=== PATIENT | female | born 1950 | race Caucasian/White ===

== ENCOUNTER → 2021-11-20 14:33 | Outpatient (BNVA) | payer MEDICARE, SELFPAY | PROVIDERS: Visit Provider Nurse Practitioner Women's Health | DX: N95.0 Postmenopausal bleeding (principal) | CPT/HCPCS: 87624 ==

== ENCOUNTER → 2021-11-24 15:30 | Outpatient (BNVA) | payer MEDICARE, SELFPAY | PROVIDERS: Visit Provider Nurse Practitioner Women's Health | DX: N95.0 Postmenopausal bleeding (principal) | CPT/HCPCS: 88305; 88342 ==

== ENCOUNTER 2021-12-31 08:03 | Outpatient (CLI) | payer MEDICARE, SELFPAY ==
--- NOTE | 2021-12-31 17:48 | ONC CON_ITS ---
Dr. España New Patient Note Patient: Mone Billings Unit #: [id number]: 1950 Dicatated By: Bibi España M.D.Date of Visit: Dec 31, 2021 Onc MED New Patient/Consult Referring Physician: Dr. Boyd Cuevas M.D. History of Present Illness: Ms. Mone billings, is a 71-year-old female with history of postmenopausal bleeding since May 2021, as per patient no associated pain but off and on discharge. No rectal bleeding, occasional dysuria. Denies any history of trauma.,, Was evaluated by Dr. Cuevas on December 09, 2021, on December 11, 2021 she underwent joint examination under anesthesia with radiation therapy Dr. Carrillo and cystoscopy, vaginal and cervical biopsies, rigid proctoscopy and Port-A-Cath placement and her final pathology report came back positive for squamous cell carcinoma p16 positive biopsy of nodule in anterior cervical wall/suburethral area also confirmed squamous cell carcinoma., On December 11, 2021 she underwent MRI scan of the pelvis which shows the known cervical carcinoma extends outside the confines of the cervix and encases the adjacent distal left ureter resulting in severe left-sided hydronephrosis. No evidence of direct tumor extension into rectum or urinary bladder. But direct tumor extension is seen into the lower uterine segment and uterine body. Extensive sharron metastasis within the pelvis. With the largest lymph node seen along the left external iliac chain, measuring 3.2 x 2.7 cm. Multiple bony mets with a palpable pathological fracture within the right superior and inferior pubic rami. CT PET scan done on December 11, 2021 showed extensive local spread involving pelvic lymph nodes, evidence of distant metastatic disease involving skeleton, liver, mediastinal lymphadenopathy, lung nodules e.g. 5 mm nodule right lung and another 5 mm in the inferior aspect right upper lobe. Past medical history significant for hypercholesterolemia, hypertension. No family history of cervical or uterine cancer. Denies smoking or alcohol use. Denies any dysuria or hematuria, denies any right hip pain, denies any new bony pains, denies any weight loss, denies any abdominal or pelvic pain, off and on vaginal discharge but no fever or chills Past Medical History: Ms. Billings's medical history consists of hypercholesterolemia and hypertension. Past Surgical History: Ms. Billings's surgical history is unremarkable. Medications: Atorvastatin Calcium 1 Tablet (of 20 mg) Oral daily, Losartan Potassium 1 Tablet (of 50 mg) Oral daily Allergies: Penicillins Social History: Ms. Billings is single. She is a daily smoker who has smoked 1.0 pack/day for 40 years. She drinks occasionally. She has indicated exposure to the following products: cigarettes. Family History: Ms. Billings's mother at age 69: colon cancer, and liver cancer. Ms. Billings's father at age 69: lung cancer. Review Of Symptoms: Review of Systems is not available for this patient. Vital Signs: Performed on Dec 31, 2021 09:40: 7, 0, 23.82, 1.76 sq.m, 66 in, 92 % (LOW), 96 /min, 18 /min, 148/78 mm(hg) (HIGH), 99.1 F (HIGH), and 147.6 lbs (HIGH). Performance Status: 0 - Fully active, able to carry on all predisease activities without restrictions. (ECOG) Physical Examination: ENMT - No mouth sores, no thrush, no jaundice, Respiratory - Lungs are clear to auscultation, Cardiovascular - Regular rate and rhythm of heart, Abdomen - Soft, bowel sounds present, Extremities - No visible edema. Lab/Imaging: Most recent lab results are not available for this patient. Impression: Metastatic cervical carcinoma per CT PET scan done on December 11, 2021, cervical biopsy was obtained on December 11, 2021 confirmed squamous cell carcinoma, p16 positive as on December 11, 2021 she underwent joint examination under anesthesia with radiation therapy Dr. Carrillo and cystoscopy, vaginal and cervical biopsies, rigid proctoscopy and Port-A-Cath placement and her final pathology report came back positive for squamous cell carcinoma p16 positive biopsy of nodule in anterior cervical wall/suburethral area also confirmed squamous cell carcinoma., On December 11, 2021 she underwent MRI scan of the pelvis which shows the known cervical carcinoma extends outside the confines of the cervix and encases the adjacent distal left ureter resulting in severe left-sided hydronephrosis. No evidence of direct tumor extension into rectum or urinary bladder. But direct tumor extension is seen into the lower uterine segment and uterine body. Extensive sharron metastasis within the pelvis. With the largest lymph node seen along the left external iliac chain, measuring 3.2 x 2.7 cm. Multiple bony mets with a palpable pathological fracture within the right superior and inferior pubic rami. CT PET scan done on December 11, 2021 showed extensive local spread involving pelvic lymph nodes, evidence of distant metastatic disease involving skeleton, liver, mediastinal lymphadenopathy, lung nodules e.g. 5 mm nodule right lung and another 5 mm in the inferior aspect right upper lobe. Hypertension Hypercholesterolemia Plan: Discussed with patient regarding her disease status and treatment options, as per CT PET scan findings, patient has metastatic cervical cancer, usually incurable, treatment options including palliative therapy with cisplatin/Taxol or carboplatin/Taxol along with bevacizumab or checkpoint inhibitors if PD-L1 positive or TMB more than 10 or MSI H. Other option will be be considering clinical trial. As per patient she is scheduled to see DIRECTOR OF NURSING oncologist at [place] on January 11, 2022, and will explore clinical trial option in the meantime we will request pathologist in [place] regarding molecular testing including PD-L1, MSI status, then patient will return to clinic after her visit to [place] unless she decided to proceed with clinical trial there. As MRI scan of the pelvis done on December 11, 2021 showed severe left hydronephrosis although patient not symptomatic, will refer her to Dr. Higginbotham, urologist for evaluation., CT PET scan and MRI scan of the pelvis shows right hip involvement, patient is not symptomatic, will consider orthopedics evaluation Signed By: Bibi España M.D. <<Signature on File>>
== END 2021-12-31 08:04 | disposition home or self-care (01) ==
LOC: ONCMED 08:09
PROVIDERS: Visit Provider Internal Medicine Hematology & Oncology
DX: C53.9 Malignant neoplasm of cervix uteri, unspecified (principal); I10 Essential (primary) hypertension; F17.210 Nicotine dependence, cigarettes, uncomplicated; E78.00 Pure hypercholesterolemia, unspecified; N13.30 Unspecified hydronephrosis
CPT/HCPCS: 96523; 99205

== ENCOUNTER → 2022-01-27 08:47 | Day surgery (SDC) | payer MEDICARE, SELFPAY | PROVIDERS: PCP Urology; Visit Provider Urology | DX: N13.30 Unspecified hydronephrosis (principal); N13.5 Crossing vessel and stricture of ureter without hydronephrosis; C53.9 Malignant neoplasm of cervix uteri, unspecified | CPT/HCPCS: 81003; 99205 ==

== ENCOUNTER 2022-01-28 10:26 | Day surgery (SDC) | payer MEDICARE, SELFPAY ==
[2022-01-27 10:47] VITALS: BMI 23.6
[2022-01-28] VITALS (10 sets, daily range): BP systolic 115–126; BP diastolic 70–84; PULSE 69–93; RESP 12–18; TEMP 36.4–37.1; O2SAT 90–99
--- NOTE | 2022-01-28 | SCC_ITS ---
Procedure done: 1. Cystoscopy with left retrograde ureteropyelogram 2. Inability to access the upper urinary tract with retrograde passage of guidewire 75.4 seconds of fluoroscopic guidance, for a cumulative dose of 16.9 mGy, was provided to Dr. Higginbotham by the radiology department. C-arm images of the abdomen were saved for the patient's permanent record. [facility]
--- NOTE | 2022-01-28 10:42 | SC_ITS ---
WS: [id number] C-arm [place] for Urology REASON FOR EXAM: Left ureteral obstruction, stenting FINDINGS: Retrograde left ureterogram in surgery. First image demonstrate a long segment of severe narrowing distal to significant dilatation of the di stal left ureter. Second image demonstrates retroperitoneal extravasation of contrast from the ureter. No stent placement. SC/C-arm [place] for Urology IMPRESSION: Left retrograde urogram as above.
[2022-01-28] MEDS: sodium chloride 0.9% 1,000 ML 30 ML IV (11:07)
--- NOTE | 2022-01-28 11:38 | ANES.PREANE2 ---
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 Operation Date: 01/28/22 12:00 Proposed Procedures p CYSTOSCOPY LEFT RETROGRADE STENT 86114 [id number] MODIFIER 26/N13.30(Not Applicable) - Brian Higginbotham MD s Ureteral Stent Placement(Left) - Brian Higginbotham MD Familial anesthetic complications: None Was Beta Ilir taken within 24 hours: N/A Was Clonidine taken within 24 hours: N/A Last intake: Intake Last Liquid Date 01/27/22 Last Liquid Time 23:00 Last Solid Date 01/27/22 Last Solid Time 23:00 Social No alcohol and No tobacco Exam alert, oriented x 3, clear to auscultation bilaterally and regular rate & rhythm Airway Submandibular: within normal limits Cervical ROM: within normal limits Mallampati: Class I Comments: Comments: missing some teeth History/ROS No significant complaints Pulmonary None reported CV/HEM Hypertension hydronephrosis Hepatic None reported GI None reported Metabolic None reported Musc/skel None reported Neuropsych None reported Anesthetic Plan ASA status: 1 Anesthesia: Anesthesia Evaluation and General Other: We discussed risk and benefits of general anesthesia including PONV, sore throat (sometimes severe), corneal abrasion, positioning and peripheral nerve injuries, life threatening allergic reaction, post operative ICU admission requiring prolonged intubation, stroke, heart attack, , and rare incidences of recall. Patient consents to proceed with general anesthesia. Risk of > 500 ml blood loss (7ml/kg in children): No Medications/Allergies Home Medications Medication Instructions Recorded Confirmed Last Taken Type atorvastatin 20 mg tablet 20 mg PO DAILY 11/20/21 01/28/22 01/26/22 History losartan 50 mg-hydrochlorothiazide 1 tab PO DAILY 11/20/21 01/28/22 01/27/22 History 12.5 mg tablet dexamethasone 4 mg tablet 4 mg PO DIRECTED #40 tab 01/28/22 01/28/22 Unknown Rx olanzapine 5 mg tablet 5 mg PO .PM PRN #30 tab 01/28/22 01/28/22 01/27/22 Rx ondansetron 4 mg disintegrating 4 mg PO Q6H PRN #30 tab 01/28/22 01/28/22 Unknown Rx tablet prochlorperazine maleate 10 mg 10 mg PO Q4H PRN #30 tab 01/28/22 01/28/22 Unknown Rx tablet (Compazine) Allergies Allergy/AdvReac Type Severity Reaction Status Date / Time Penicillins Allergy skin rash Verified 01/27/22 10:41 Current Medications Generic Name Dose Route Start Last Admin Trade Name Realq PRN Reason Stop Dose Admin Sodium Chloride 1,000 mls @ 30 mls/hr 01/28/22 10:45 01/28/22 11:07 Sodium Chloride 0.9% IV 01/29/22 10:44 30 mls/hr .Q24H WALTER Administration PFSH Anesthesia Medical History Hydronephrosis, left Hypercholesteremia Hypertension No pertinent past medical history neghx: dm,thyroid,dvt/pe PCP: Dr. Hilliard Surgical History No pertinent past surgical history Family History Mother , at age 69 Colon cancer dx age 60's Thyroid disease Thyroid cancer Cancer Thyroid cancer followed by colon cancer Father , at age 68 Cancer Lung cancer Diabetes Denies family history of CAD (coronary artery disease) Clotting disorder Dementia Hyperlipidemia Psychiatric illness Chronic kidney disease (CKD) Suicide Anesthesia complication Bleeding disorder Lung disease Hypertension Stroke Social History Smoking and tobacco status: current every day smoker cigarettes Packs smoked per day: 1 Years cigarettes smoked: 40 Alcohol intake: current Alcohol intake frequency: holidays/special occasions only Marital status: Current occupational status: retired History of recent travel: No Data Anesthesia Cardiac Studies: No Data to Display
--- NOTE | 2022-01-28 11:58 | W.PM.OPSUD ---
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
[2022-01-28] MEDS: levofloxacin-dextrose 5 % 500 MG/100 ML PREMIX 100 MG IV (11:59)
[2022-01-28] MEDS: iohexol 300 mg/mL 50 mL Btl (OR ONLY) XX (12:29)
--- NOTE | 2022-01-28 13:01 | PM.OP ---
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 Cystoscopy with left retrograde ureteropyelogram 2. Inability to access the upper urinary tract with retrograde passage of guidewire Pathology: None Surgeon: Neftaly Anesthesia: MAC Estimated blood loss: Minimal Complications: Could not access the upper urinary tract through the roughly 4 inch segment of tortuous narrowed obstructed left distal ureter. Findings: Severely distorted distal ureteral anatomy due to extrinsic compression and invasion via squamous cell carcinoma of the cervix. Evidence of posterior bladder floor distortion as well including the trigone on both sides. No obvious erosion into the bladder. Definitely some evidence of inflammatory changes related to the local process. Brief History: Mone is a very pleasant 71-year-old white female recently diagnosed with metastatic cervical carcinoma. She was found to have severely obstructed left ureter in the area of the distal ureter. Exact dimensions of the obstruction were unclear. She is set to start chemotherapy soon and it was felt that the benefit of relieving obstruction of left kidney would be better allowance for chemotherapy. She was instructed on stent placement and if unsuccessful with stent placement then percutaneous nephrostomy and potentially conversion to an internal stent from antegrade passage. Procedure: After routine preoperative evaluation examination and obtaining of informed consent she was taken to the operating suite on 01/28/2022 where general anesthesia was administered without difficulty after appropriate timeout was performed, SCDs confirmed to be functioning, preoperative antibiotics administered, beta-mohsen protocol confirmed. Prepped and draped in usual sterile fashion in dorsolithotomy position paying careful attention to avoiding pressure points. 21 Slovak cystoscope with 30 degree lens was introduced into the Riether meatus and advanced to the bladder under videoscopy. Bladder was systematically examined. The posterior floor of the bladder more distally including the trigone was grossly distorted from the extrinsic mass. This appeared to involve both sides of the posterior floor the bladder but more dramatically on the left than the right. The right ureteral orifice could not be easily identified. The left was identified based on some streaming of inspissated fluid from the orifice. An 8 Slovak cone-tip catheter was intubated to the left ureteral orifice for left retrograde ureteropyelogram which showed a very distorted abnormal distal ureter extending about 4 inches above the ureteral orifice at which point there was an abrupt change in caliber into a very dilated ureter. Attempts at passing a guidewire were unsuccessful. An open-ended ureteral catheter was utilized to help facilitate passage of the guidewire but unsuccessfully so. A zip wire was then attempted and this thankfully was able to be advanced somewhat but appear to take a deviant course. The wire was removed and some contrast was injected through the open-ended ureteral catheter which showed some extravasation. 1 more attempt at passing the wire Vineet to the same pathway and at that point it was decided to forego any further attempts in a retrograde fashion. The bladder was drained and the procedure was completed. She tolerated the procedure well. Was awakened in the operating room and returned to the recovery room in stable condition. Findings were discussed with her family and when the patient was beginning to wake up with her as well. She had been prepared preoperatively for the possibility of a percutaneous nephrostomy tube. We will pursue consultation with interventional radiology in either [place] or [place], whichever we could access sooner for left percutaneous nephrostomy tube placement and potentially later conversion or attempt at conversion to an internal stent placed in a antegrade fashion.
--- NOTE | 2022-01-28 13:10 | SUR.PHASEI ---
1239 PT TO PACU SLEEPY WITH GOOD RESP NOTED , PT AWAKES TO VOICE, PT VERBALLY DENIES PAIN AND NAUSEA ABDOMEN SOFT TO PALPATION, IV#20 TO HAND PATENT , ID BRACELET TO WRIST PT ID'D WITH 2 IDENTIFIERS , WARM BLANKETS TO PT. 1307 PT AWAKE VERBALIZING APPROP VSS IV PATENT , DR COLON HERE EARLIER TALKED WITH PT, PT TAKING ICE CHIPS STABLE, HANDOFF TO OPS AT BEDSIDE.
[2022-01-28] MEDS: ondansetron 2 mg/ML SDV 2 mL 4 MG IVP (13:20)
--- NOTE | 2022-01-28 14:55 | ANE.PACU2 ---
Inpatient post-anesthesia follow up: Airway intact: Yes Vital signs: Temperature 98.7 F Pulse Rate 69 Respiratory Rate 16 Blood Pressure 115/70 Pulse Oximetry 90 Oxygen Delivery Me thod Room Air Oxygen Flow Rate 8 Fraction of Inspir ed Oxygen Hydration adequate: Yes Nausea and vomiting: No Pain level: 1 Mental status: Baseline
== END 2022-01-28 14:26 | disposition home or self-care (01) ==
PROVIDERS: PCP Family Medicine; Visit Provider Urology
PROC: 0TJB8ZZ Inspection of Bladder, Via Natural or Artificial Opening Endoscopic (ICD-10-PCS; CPT 52000; principal; 2022-01-28 12:00)
PROC: (CPT 74420; 2022-01-28 12:00)
DX: C66.2 Malignant neoplasm of left ureter (principal); N13.5 Crossing vessel and stricture of ureter without hydronephrosis; I10 Essential (primary) hypertension; E78.00 Pure hypercholesterolemia, unspecified; F17.210 Nicotine dependence, cigarettes, uncomplicated
CPT/HCPCS: 52000; 76000; J1100; J1956; J2405; J2704; J3010; J7030

== ENCOUNTER 2022-02-01 07:59 | Outpatient (CLI) | payer MEDICARE, SELFPAY ==
[2022-02-01 08:43] LABS: Basophils % 0.2 %; Hematocrit 46.6 % (37.0-47.0); Hemoglobin 14.9 g/dL (11.5-15.3); Lymphocytes # 0.6 10^3/uL (0.8-4.8); Mean Corpuscular Volume 97.1 fl (81-99); Mean Platelet Volume 10.5 fL (7.4-10.4); Monocytes % 0.5 %; Neutrophils # 5.82 10^3/uL (1.8-7.7); Neutrophils % 89.8 %; Nucleated Red Blood Cells % 0 %; Platelet Count 197 10^3/cmm (130-400); White Blood Count 6.5 10^3/uL (4.0-10.0)
[2022-02-01 09:39] LABS: Alanine Aminotransferase 14 U/L (0-33); Albumin Level 3.8 g/dL (3.5-5.2); Alkaline Phosphatase 150 IU/L (35-105); Aspartate Amino Transferase 16 U/L (0-32); Blood Urea Nitrogen 17 mg/dL (8-23); Calcium 8.5 mg/dL (8.5-10.5); Carbon Dioxide 25 mmol/L (22-29); Chloride 98 mmol/L (98-107); Globulin 2.7 g/dL (1.3-4.6); Glomerular Filtration Rate 62.1 mL/min (90-130); Glucose 182 mg/dL (65-115); Immunoglobulin IGG 783 mg/dL (700-1600); Osmolality Calculated 288 mOsm/kg (285-295); Sodium 136 mmol/L (136-145); Thyroid Stimulating Hormone 0.48 uIU/mL (0.27-4.20); Total Bilirubin 0.3 mg/dL (0.15-1.2); Total Protein 6.5 g/dL (6.6-8.7)
[2022-02-01 09:45] LABS: Hepatitis A Antibody IgM Non-Reactive (Nonreactive); Hepatitis B Core AB, Total Non-Reactive (Nonreactive); Hepatitis B Surface Antigen Non-Reactive (Nonreactive); Hepatitis C Virus Antibody Non-Reactive (Nonreactive)
[2022-02-01 09:53] LABS: Hepatitis B Surface AB < 3.5 (11.5-1000)
[2022-02-01 10:11] LABS: Anion Gap 17.7 (5-19); Potassium 4.7 mmol/L (3.5-5.1)
== END 2022-02-01 08:00 | disposition home or self-care (01) ==
LOC: LAB 08:02
PROVIDERS: PCP Family Medicine; Visit Provider Internal Medicine Hematology & Oncology
DX: C53.9 Malignant neoplasm of cervix uteri, unspecified (principal)
CPT/HCPCS: 80053; 82784; 84443; 85025; 86705; 86706; 86709; 86803; 87340

== ENCOUNTER 2022-02-10 09:00 | Oncology outpatient (recurring) (ONCR) | payer MEDICARE, SELFPAY ==
[2022-01-20 13:32] LABS: Basophils % 0.4 %; Eosinophils # 0.1 10^3/uL (0.0-0.8); Hemoglobin 15.3 g/dL (11.5-15.3); Lymphocytes # 1.3 10^3/uL (0.8-4.8); Lymphocytes % 12.9 %; Mean Corpuscular HGB Conc 31.9 g/dL (30.0-36.0); Mean Corpuscular Hemoglobin 31.2 pg (28.0-34.0); Mean Platelet Volume 10.5 fL (7.4-10.4); Monocytes # 0.5 10^3/uL (0.2-0.9); Monocytes % 5.5 %; Neutrophils # 7.83 10^3/uL (1.8-7.7); Neutrophils % 79.9 %; Nucleated Red Blood Cells % 0 %; Platelet Count 194 10^3/cmm (130-400); Red Cell Distribution Width 12.9 % (12.1-15.1); White Blood Count 9.8 10^3/uL (4.0-10.0)
[2022-01-20 13:50] LABS: Alanine Aminotransferase 12 U/L (0-33); Albumin Level 3.8 g/dL (3.5-5.2); Alkaline Phosphatase 165 IU/L (35-105); Anion Gap 14.9 (5-19); Aspartate Amino Transferase 17 U/L (0-32); Blood Urea Nitrogen 10 mg/dL (8-23); Calcium 9.4 mg/dL (8.5-10.5); Carbon Dioxide 27 mmol/L (22-29); Chloride 98 mmol/L (98-107); Globulin 2.7 g/dL (1.3-4.6); Glomerular Filtration Rate 62.1 mL/min (90-130); Glucose 114 mg/dL (65-115); Osmolality Calculated 282 mOsm/kg (285-295); Potassium 3.9 mmol/L (3.5-5.1); Sodium 136 mmol/L (136-145); Total Bilirubin 0.3 mg/dL (0.15-1.2); Total Protein 6.5 g/dL (6.6-8.7)
[2022-02-02 07:27] VITALS: BP 135/80; PULSE 99; RESP 16; TEMP 36.6; O2SAT 94
[2022-02-02] MEDS: sodium chloride 0.9% 250 ML 75 ML IV ×2 (07:39→10:33)
[2022-02-02] MEDS: OLANZapine 5 mg TABLET PO (08:44)
[2022-02-02] MEDS: palonosetron 0.25 mg/5 mL SDV IVP (08:50)
[2022-02-02] MEDS: famotidine 20 mg/2 mL INJ IVP (08:52)
[2022-02-02] MEDS: diphenhydrAMINE 50 mg/mL SDV 1mL 25 MG IVP (08:54)
[2022-02-02] MEDS: pembrolizumab 200 MG in sodium chloride 0.9% 250 ML 516 MG IV (09:00)
[2022-02-02] MEDS: fosaprepitant 150 MG in sodium chloride 0.9% 150 ML 300 MG IV (09:40)
[2022-02-02] MEDS: SODIUM CHLORIDE 0.9% IV (13:34)
[2022-02-02] MEDS: CISPLATIN IV (13:34)
[2022-02-02] MEDS: FUROsemide 10 mg/mL SDV 2mL 20 MG IVP (15:23)
[2022-02-02] MEDS: potassium chloride 20 MEQ in sodium chloride 0.9% 500 ML 500 MEQ IV (15:29)
[2022-02-02 16:12] VITALS: BP 150/78; PULSE 78; RESP 16; TEMP 35.7; O2SAT 92
--- NOTE | 2022-02-10 | US_ITS ---
WS: [id number] RIGHT UPPER QUADRANT ULTRASOUND HISTORY: H/O CERVICAL CANCER COMPARISON: PET/CT 12/11/2021 Liver: 13.1 cm in length. Small shrunken heterogeneous liver. As indicated on the PET/CT patient has metastatic liver disease. There are a few scattered very poorly defined hyperechoic lesions with hypo echoic rims. The largest that I can identify measures 15 mm in the anterior liver. This is probably i n the RIGHT lobe. Additional ill-defined hyperechoic area in the posterior liver towards the diaphrag m. Portal Vein: Normal hepatopetal flow with monophasic waveform. Gallbladder: Normally distended gallbladder with no stones or wall thickening. CBD: 0.4 cm Pancreas: Normal size and echogenicity. Right kidney: Mild dilatation of the renal pelvis and proximal ureter. Kidney measures 10 cm in lengt h. This hydronephrosis was not apparent on the prior PET/CT. Aorta and IVC: Mild aneurysmal dilatation of aorta. Maximum transverse diameter 4.7 cm. No ascites. US/US liver [id number] IMPRESSION: 1. Heterogeneous appearance to the liver. As noted on PET/CT patient has metas tatic liver disease. These metastatic lesions are very difficult to identified by ultrasound. 2. Abdominal aortic aneurysm 4.7 cm. 3. New mild RIGHT hydronephrosis.
--- NOTE | 2022-02-10 07:09 | NM_ITS ---
WS: [id number] NUCLEAR MEDICINE WHOLE BODY BONE SCAN HISTORY: Check for bone mets, patient has known metastatic bone disease. COMPARISON: Head CT 12/11/2021, MRI pelvis 12/11/2021. TECHNIQUE: The patient was injected with 26.1 mCi of Technetium 99m HDP and serial whole-body scintig adela have been performed with anterior and posterior images. Marked increased uptake involving the pelvis. Most significant increased uptake is within the RIGHT i lium, acetabulum and extending through the superior pubic rami. Abnormal uptake extends along the ant erior to posterior RIGHT acetabulum. There is also focal area of uptake involving the medial LEFT alex tabulum. Focal area of increased uptake involving the RIGHT calvarium, posterior frontal bone. No definite rib or spine lesions are identified. Some very mild increased uptake in the femora bilaterally but great est on the RIGHT. This may be due to altered weightbearing or chemotherapy. The femurs were negative on the recent PET/CT and also the MRI. Mild RIGHT hydronephrosis and hydroureter. RIGHT ureter is obstructed distally. There is mild focal u ptake in the expected location of the LEFT kidney. LEFT kidney is atrophic probably from long-standin g obstruction as noted on a prior MRI and PET/CT. NM/NM bone scan whole body* [id number] IMPRESSION: 1. Metastatic bone lesions are again identified within the RIGHT ilium, acetab ulum and superior pubic rami with extension to a lesser extent into the LEFT ac etabulum. These findings were described on a prior PET/CT. Comparing the 2 diff erent modalities there has been no progression or improvement. 2. Mild RIGHT hydroureteronephrosis secondary to an obstruction of the distal RIGHT ureter. This was also present on the prior PET/CT of 12/11/2021. 3. Very slight increased uptake involving the proximal femora. Due to its dist ribution and appearance this is probably not metastatic disease and may be due to altered weightbearing or treatment regime. 4. Posterior RIGHT frontal bone metastatic lesion.
[2022-02-10 08:48] LABS: Basophils % 0.2 %; Eosinophils # 0.1 10^3/uL (0.0-0.8); Eosinophils % 1.6 %; Hematocrit 41.4 % (37.0-47.0); Hemoglobin 13.8 g/dL (11.5-15.3); Lymphocytes % 19.6 %; Mean Corpuscular HGB Conc 33.3 g/dL (30.0-36.0); Mean Corpuscular Hemoglobin 31.4 pg (28.0-34.0); Mean Corpuscular Volume 94.1 fl (81-99); Mean Platelet Volume 11.1 fL (7.4-10.4); Monocytes # 0.3 10^3/uL (0.2-0.9); Monocytes % 6.3 %; Neutrophils # 3.62 10^3/uL (1.8-7.7); Neutrophils % 71.9 %; Nucleated Red Blood Cells % 0 %; Platelet Count 157 10^3/cmm (130-400); Red Cell Distribution Width 12.8 % (12.1-15.1)
[2022-02-10 09:15] LABS: Alanine Aminotransferase 28 U/L (0-33); Albumin Level 3.3 g/dL (3.5-5.2); Alkaline Phosphatase 128 IU/L (35-105); Aspartate Amino Transferase 27 U/L (0-32); Blood Urea Nitrogen 15 mg/dL (8-23); Calcium 8.6 mg/dL (8.5-10.5); Carbon Dioxide 29 mmol/L (22-29); Chloride 93 mmol/L (98-107); Globulin 2.4 g/dL (1.3-4.6); Glomerular Filtration Rate 71.1 mL/min (90-130); Glucose 102 mg/dL (65-115); Osmolality Calculated 275 mOsm/kg (285-295); Sodium 132 mmol/L (136-145); Total Bilirubin 0.3 mg/dL (0.15-1.2); Total Protein 5.7 g/dL (6.6-8.7)
[2022-02-10 09:47] LABS: Anion Gap 13.9 (5-19); Potassium 3.9 mmol/L (3.5-5.1)
== END 2022-02-16 23:59 | disposition home or self-care (01) ==
PROVIDERS: Internal Medicine Medical Oncology; PCP Urology; Referring Provider Obstetrics & Gynecology Gynecologic Oncology; Visit Provider Internal Medicine Hematology & Oncology
DX: C53.9 Malignant neoplasm of cervix uteri, unspecified (principal); E78.00 Pure hypercholesterolemia, unspecified; I10 Essential (primary) hypertension; F17.210 Nicotine dependence, cigarettes, uncomplicated; Z53.9 Procedure and treatment not carried out, unspecified reason
CPT/HCPCS: 36591; 76705; 78306; 80053; 85025; 96361; 96367; 96375; 96413; 96415; 96417; 99214; 99215; 99999; A9561; J1100; J1200; J1453; J1940; J2469; J3475; J3480; J3490; J7030; J7040; J7050; J9060; J9267; J9271; Q5107

== ENCOUNTER 2022-03-16 08:51 | Outpatient (CLI) | payer MEDICARE, SELFPAY ==
[2022-03-16] VITALS (17 sets, daily range): BP systolic 108–144; BP diastolic 66–87; PULSE 80–95; RESP 12–20; TEMP 35.8–35.9; O2SAT 92–100; BMI 23.3
[2022-03-16] MEDS: sodium chloride 0.9% 1,000 ML 30 ML IV (09:30)
[2022-03-16 10:37] LABS: Basophils # 0.1 10^3/uL (0.0-0.1); Basophils % 0.8 %; Eosinophils # 0.1 10^3/uL (0.0-0.8); Eosinophils % 1.3 %; Hematocrit 38.1 % (37.0-47.0); Hemoglobin 12.3 g/dL (11.5-15.3); Lymphocytes # 1.6 10^3/uL (0.8-4.8); Lymphocytes % 18.5 %; Mean Corpuscular HGB Conc 32.3 g/dL (30.0-36.0); Mean Corpuscular Hemoglobin 30.9 pg (28.0-34.0); Mean Corpuscular Volume 95.7 fl (81-99); Mean Platelet Volume 9.9 fL (7.4-10.4); Monocytes # 0.5 10^3/uL (0.2-0.9); Monocytes % 5.9 %; Neutrophils # 6.22 10^3/uL (1.8-7.7); Neutrophils % 72.8 %; Nucleated Red Blood Cells % 0 %; Platelet Count 326 10^3/cmm (130-400); Red Blood Count 3.98 10^6/uL (4.1-5.3); White Blood Count 8.5 10^3/uL (4.0-10.0)
--- NOTE | 2022-03-16 11:00 | CT_ITS ---
WS: [id number] CT-GUIDED PELVIC BONE BIOPSY CLINICAL INFORMATION: Pelvic Bone Biopsy with Tempes testing (pathology) COMPARISON: Prior imaging was reviewed. Bone scan February 10, 2022 MRI pelvis December 11, 2021. PET/CT Glenn h 2021 DLP: 374.48 mGy.cm TECHNIQUE: The procedure including risk, benefits, and complications were discussed with the patient who agreed to proceed. Using sterile technique, the patient was prepped and draped in the usual steri le fashion. Patient was positioned prone and CT images were obtained through the pelvis. The scleroti c bony lesion in the RIGHT ilium near the acetabulum was selected. After 1% lidocaine using fluorosco pic guidance, a 13-gauge osteocyte biopsy device was advanced into the RIGHT bony pelvis. Approximate ly 4 samples were obtained. Patient tolerated the procedure well. No immediate complications. CT/CT biopsy bone deep IMPRESSION: 1. Multiple 13-gauge core samples were obtained of the RIGHT bony pelvis scler otic lesion. No immediate complications. 2. Patient was discharged 1 hour postprocedure in stable condition.
[2022-03-16] MEDS: midazolam 1 mg/mL INJ 2 mL IVP ×3 (11:16→11:32)
[2022-03-16] MEDS: fentaNYL 50 mcg/mL INJ 2mL 25 MCG IVP ×3 (11:16→11:32)
[2022-03-16 11:18] LABS: Alanine Aminotransferase 9 U/L (0-33); Albumin Level 3.3 g/dL (3.5-5.2); Alkaline Phosphatase 147 IU/L (35-105); Anion Gap 15.3 (5-19); Aspartate Amino Transferase 12 U/L (0-32); Blood Urea Nitrogen 14 mg/dL (8-23); Calcium 8.8 mg/dL (8.5-10.5); Carbon Dioxide 26 mmol/L (22-29); Chloride 99 mmol/L (98-107); Globulin 2.8 g/dL (1.3-4.6); Glomerular Filtration Rate 62.1 mL/min (90-130); Glucose 104 mg/dL (65-115); Osmolality Calculated 283 mOsm/kg (285-295); Potassium 4.3 mmol/L (3.5-5.1); Sodium 136 mmol/L (136-145); Total Bilirubin 0.2 mg/dL (0.15-1.2); Total Protein 6.1 g/dL (6.6-8.7)
== END 2022-03-16 13:10 | disposition home or self-care (01) ==
PROVIDERS: Radiology Neuroradiology; Visit Provider Internal Medicine Hematology & Oncology
DX: C53.9 Malignant neoplasm of cervix uteri, unspecified (principal)
CPT/HCPCS: 20225; 36592; 77012; 80053; 85025; 88307; 88311; 96374; 96375; J2250; J3010; J7030

== ENCOUNTER 2022-03-17 08:00 | Oncology outpatient (recurring) (ONCR) | payer MEDICARE, SELFPAY ==
[2022-02-17 10:12] LABS: Basophils # 0.1 10^3/uL (0.0-0.1); Basophils % 1.1 %; Eosinophils # 0.1 10^3/uL (0.0-0.8); Eosinophils % 2.2 %; Hematocrit 41.4 % (37.0-47.0); Hemoglobin 13.5 g/dL (11.5-15.3); Lymphocytes # 1.2 10^3/uL (0.8-4.8); Mean Corpuscular HGB Conc 32.6 g/dL (30.0-36.0); Mean Corpuscular Hemoglobin 30.6 pg (28.0-34.0); Mean Corpuscular Volume 93.9 fl (81-99); Mean Platelet Volume 10.1 fL (7.4-10.4); Monocytes # 0.6 10^3/uL (0.2-0.9); Monocytes % 11.7 %; Neutrophils # 3.31 10^3/uL (1.8-7.7); Neutrophils % 61.3 %; Nucleated Red Blood Cells % 0 %; Platelet Count 238 10^3/cmm (130-400); Red Blood Count 4.41 10^6/uL (4.1-5.3); Red Cell Distribution Width 13.2 % (12.1-15.1); White Blood Count 5.4 10^3/uL (4.0-10.0)
[2022-02-17 10:33] LABS: Alanine Aminotransferase 20 U/L (0-33); Albumin Level 3.3 g/dL (3.5-5.2); Alkaline Phosphatase 169 IU/L (35-105); Anion Gap 14.5 (5-19); Aspartate Amino Transferase 16 U/L (0-32); Blood Urea Nitrogen 9 mg/dL (8-23); Calcium 8.8 mg/dL (8.5-10.5); Carbon Dioxide 27 mmol/L (22-29); Chloride 99 mmol/L (98-107); Globulin 2.6 g/dL (1.3-4.6); Glucose 104 mg/dL (65-115); Osmolality Calculated 281 mOsm/kg (285-295); Potassium 4.5 mmol/L (3.5-5.1); Sodium 136 mmol/L (136-145); Total Bilirubin 0.3 mg/dL (0.15-1.2); Total Protein 5.9 g/dL (6.6-8.7)
[2022-02-22 12:07] LABS: Basophils # 0.1 10^3/uL (0.0-0.1); Basophils % 1.2 %; Eosinophils # 0.1 10^3/uL (0.0-0.8); Eosinophils % 0.6 %; Hematocrit 42.1 % (37.0-47.0); Hemoglobin 13.9 g/dL (11.5-15.3); Lymphocytes # 1.6 10^3/uL (0.8-4.8); Lymphocytes % 16.2 %; Mean Corpuscular Hemoglobin 31.2 pg (28.0-34.0); Mean Corpuscular Volume 94.4 fl (81-99); Mean Platelet Volume 10.1 fL (7.4-10.4); Monocytes # 0.5 10^3/uL (0.2-0.9); Monocytes % 5.2 %; Neutrophils # 7.27 10^3/uL (1.8-7.7); Neutrophils % 76.2 %; Nucleated Red Blood Cells % 0 %; Platelet Count 359 10^3/cmm (130-400); Red Blood Count 4.46 10^6/uL (4.1-5.3); Red Cell Distribution Width 13.4 % (12.1-15.1); White Blood Count 9.6 10^3/uL (4.0-10.0)
[2022-02-22 12:43] LABS: Alanine Aminotransferase 15 U/L (0-33); Albumin Level 3.7 g/dL (3.5-5.2); Alkaline Phosphatase 189 IU/L (35-105); Anion Gap 14.9 (5-19); Aspartate Amino Transferase 16 U/L (0-32); Blood Urea Nitrogen 13 mg/dL (8-23); Carbon Dioxide 29 mmol/L (22-29); Chloride 95 mmol/L (98-107); Globulin 2.7 g/dL (1.3-4.6); Glomerular Filtration Rate 71.1 mL/min (90-130); Glucose 163 mg/dL (65-115); Osmolality Calculated 284 mOsm/kg (285-295); Potassium 3.9 mmol/L (3.5-5.1); Sodium 135 mmol/L (136-145); Total Bilirubin 0.2 mg/dL (0.15-1.2); Total Protein 6.4 g/dL (6.6-8.7)
[2022-02-23 08:03] VITALS: BP 129/82; PULSE 109; RESP 16; TEMP 36.1; O2SAT 92
[2022-02-23] MEDS: sodium chloride 0.9% 250 ML 75 ML IV ×2 (08:25→10:34)
[2022-02-23] MEDS: palonosetron 0.25 mg/5 mL SDV IVP (09:41)
[2022-02-23] MEDS: famotidine 20 mg/2 mL INJ IVP (09:42)
[2022-02-23] MEDS: diphenhydrAMINE 50 mg/mL SDV 1mL 25 MG IVP (09:44)
[2022-02-23] MEDS: fosaprepitant 150 MG in sodium chloride 0.9% 150 ML 300 MG IV (09:46)
[2022-02-23] MEDS: OLANZapine 5 mg TABLET PO (09:55)
[2022-02-23] MEDS: dexamethasone 20 MG in sodium chloride 0.9% 50 ML 188 MG IV (10:06)
[2022-02-23] MEDS: pembrolizumab 200 MG in sodium chloride 0.9% 250 ML 516 MG IV (10:36)
[2022-02-23] MEDS: CISPLATIN IV (14:51)
[2022-02-23] MEDS: SODIUM CHLORIDE 0.9% IV (14:51)
[2022-02-23] MEDS: FUROsemide 10 mg/mL SDV 2mL 20 MG IVP (16:00)
[2022-02-23] MEDS: potassium chloride 20 MEQ in sodium chloride 0.9% 500 ML 500 MEQ IV (16:03)
[2022-02-23 16:27] VITALS: BP 146/78; PULSE 91; RESP 16; TEMP 35.9; O2SAT 90
[2022-03-04 09:58] LABS: Basophils # 0.1 10^3/uL (0.0-0.1); Basophils % 0.9 %; Eosinophils # 0.1 10^3/uL (0.0-0.8); Eosinophils % 1.4 %; Hematocrit 39.3 % (37.0-47.0); Hemoglobin 13.2 g/dL (11.5-15.3); Lymphocytes # 1.4 10^3/uL (0.8-4.8); Lymphocytes % 19.7 %; Mean Corpuscular HGB Conc 33.6 g/dL (30.0-36.0); Mean Corpuscular Hemoglobin 31.2 pg (28.0-34.0); Mean Corpuscular Volume 92.9 fl (81-99); Mean Platelet Volume 11.1 fL (7.4-10.4); Monocytes # 0.5 10^3/uL (0.2-0.9); Monocytes % 6.8 %; Neutrophils # 4.93 10^3/uL (1.8-7.7); Neutrophils % 70.9 %; Nucleated Red Blood Cells % 0 %; Platelet Count 201 10^3/cmm (130-400); Red Blood Count 4.23 10^6/uL (4.1-5.3); Red Cell Distribution Width 13.6 % (12.1-15.1)
[2022-03-04 10:14] LABS: Alanine Aminotransferase 12 U/L (0-33); Albumin Level 3.6 g/dL (3.5-5.2); Alkaline Phosphatase 160 IU/L (35-105); Anion Gap 15.2 (5-19); Aspartate Amino Transferase 14 U/L (0-32); Blood Urea Nitrogen 15 mg/dL (8-23); Calcium 8.6 mg/dL (8.5-10.5); Carbon Dioxide 28 mmol/L (22-29); Chloride 97 mmol/L (98-107); Globulin 2.7 g/dL (1.3-4.6); Glomerular Filtration Rate 62.1 mL/min (90-130); Glucose 114 mg/dL (65-115); Osmolality Calculated 284 mOsm/kg (285-295); Potassium 4.2 mmol/L (3.5-5.1); Sodium 136 mmol/L (136-145); Total Bilirubin 0.4 mg/dL (0.15-1.2); Total Protein 6.3 g/dL (6.6-8.7)
[2022-03-11 12:09] LABS: Basophils # 0.1 10^3/uL (0.0-0.1); Basophils % 0.7 %; Eosinophils # 0.1 10^3/uL (0.0-0.8); Hematocrit 38.9 % (37.0-47.0); Hemoglobin 12.9 g/dL (11.5-15.3); Lymphocytes # 1.5 10^3/uL (0.8-4.8); Lymphocytes % 20.7 %; Mean Corpuscular HGB Conc 33.2 g/dL (30.0-36.0); Mean Corpuscular Hemoglobin 30.8 pg (28.0-34.0); Mean Corpuscular Volume 92.8 fl (81-99); Mean Platelet Volume 10.2 fL (7.4-10.4); Monocytes # 0.8 10^3/uL (0.2-0.9); Monocytes % 10.7 %; Neutrophils # 4.65 10^3/uL (1.8-7.7); Neutrophils % 66.5 %; Nucleated Red Blood Cells % 0 %; Platelet Count 270 10^3/cmm (130-400); Red Blood Count 4.19 10^6/uL (4.1-5.3); Red Cell Distribution Width 14.6 % (12.1-15.1)
[2022-03-11 12:28] LABS: Alanine Aminotransferase 10 U/L (0-33); Albumin Level 3.6 g/dL (3.5-5.2); Alkaline Phosphatase 145 IU/L (35-105); Anion Gap 16.1 (5-19); Aspartate Amino Transferase 12 U/L (0-32); Blood Urea Nitrogen 16 mg/dL (8-23); Calcium 9.4 mg/dL (8.5-10.5); Carbon Dioxide 28 mmol/L (22-29); Chloride 95 mmol/L (98-107); Globulin 3.1 g/dL (1.3-4.6); Glomerular Filtration Rate 71.1 mL/min (90-130); Glucose 115 mg/dL (65-115); Osmolality Calculated 282 mOsm/kg (285-295); Potassium 4.1 mmol/L (3.5-5.1); Sodium 135 mmol/L (136-145); Total Bilirubin 0.3 mg/dL (0.15-1.2); Total Protein 6.7 g/dL (6.6-8.7)
[2022-03-17 07:32] LABS: Add Urine Microscopic? NO; Charge for UA Resulting for Rev
[2022-03-17 08:04] LABS: Bilirubin Urine Neg (Negative); Blood Urine Neg (Negative); Glucose Urine UA Norm (Normal); Ketones Urine Negative (Negative); Leukocyte Esterase Urine Negative (Negative); Nitrate Urine Negative (Negative); Protein Urine Neg (Negative); Specific Gravity, Urine 1.015 (1.005-1.030); Urine Appearance Clear (CLEAR); Urine Color Yellow (Yellow); Urobilinogen Urine 8 mg/dL (Negative); pH Urine 6.5 (5-7)
[2022-03-17 08:10] VITALS: BP 143/77; PULSE 109; RESP 16; TEMP 35.8; O2SAT 92
[2022-03-17] MEDS: sodium chloride 0.9% 250 ML 75 ML IV ×2 (08:28→12:14)
[2022-03-17] MEDS: denosumab 120 mg SDV SUBCUT (09:39)
[2022-03-17] MEDS: OLANZapine 5 mg TABLET PO (09:42)
[2022-03-17] MEDS: palonosetron 0.25 mg/5 mL SDV IVP (09:51)
[2022-03-17] MEDS: famotidine 20 mg/2 mL INJ IVP (09:52)
[2022-03-17] MEDS: diphenhydrAMINE 50 mg/mL SDV 1mL 25 MG IVP (09:54)
[2022-03-17] MEDS: fosaprepitant 150 MG in sodium chloride 0.9% 150 ML 300 MG IV (09:57)
[2022-03-17 10:09] LABS: Thyroid Stimulating Hormone 1.37 uIU/mL (0.27-4.20)
[2022-03-17] MEDS: dexamethasone 20 MG in sodium chloride 0.9% 50 ML 188 MG IV (10:25)
[2022-03-17] MEDS: pembrolizumab 200 MG in sodium chloride 0.9% 250 ML 516 MG IV (10:45)
[2022-03-17] MEDS: FUROsemide 10 mg/mL SDV 2mL 20 MG IVP (15:48)
[2022-03-17] MEDS: potassium chloride 20 MEQ in sodium chloride 0.9% 500 ML 500 MEQ IV (15:49)
[2022-03-17 16:45] VITALS: BP 121/77; PULSE 85; RESP 16; TEMP 35.6; O2SAT 94
== END 2022-03-18 23:59 | disposition home or self-care (01) ==
PROVIDERS: Internal Medicine Medical Oncology; PCP Family Medicine; Referring Provider Obstetrics & Gynecology Gynecologic Oncology; Visit Provider Internal Medicine Hematology & Oncology
DX: Z51.11 Encounter for antineoplastic chemotherapy (principal); C53.9 Malignant neoplasm of cervix uteri, unspecified; I10 Essential (primary) hypertension
CPT/HCPCS: 36591; 36592; 80053; 81003; 84443; 85025; 96366; 96367; 96372; 96375; 96413; 96415; 96417; 99214; J0897; J1100; J1200; J1453; J1940; J2469; J3475; J3480; J3490; J7030; J7040; J7050; J9060; J9267; J9271; Q5107

== ENCOUNTER 2022-04-05 09:30 | Oncology outpatient (recurring) (ONCR) | payer MEDICARE, SELFPAY ==
[2022-03-29 10:15] LABS: Basophils % 0.8 %; Eosinophils # 0.1 10^3/uL (0.0-0.8); Eosinophils % 2.8 %; Hematocrit 35.8 % (37.0-47.0); Lymphocytes # 1.3 10^3/uL (0.8-4.8); Lymphocytes % 34.9 %; Mean Corpuscular HGB Conc 33.5 g/dL (30.0-36.0); Mean Corpuscular Hemoglobin 31.3 pg (28.0-34.0); Mean Corpuscular Volume 93.5 fl (81-99); Mean Platelet Volume 10.2 fL (7.4-10.4); Monocytes # 0.4 10^3/uL (0.2-0.9); Neutrophils # 1.85 10^3/uL (1.8-7.7); Neutrophils % 51.2 %; Nucleated Red Blood Cells % 0.8 %; Platelet Count 226 10^3/cmm (130-400); Red Blood Count 3.83 10^6/uL (4.1-5.3); Red Cell Distribution Width 16.2 % (12.1-15.1); White Blood Count 3.6 10^3/uL (4.0-10.0)
[2022-03-29 10:35] LABS: Albumin Level 3.5 g/dL (3.5-5.2); Alkaline Phosphatase 149 IU/L (35-105); Anion Gap 17.1 (5-19); Blood Urea Nitrogen 12 mg/dL (8-23); Carbon Dioxide 26 mmol/L (22-29); Chloride 97 mmol/L (98-107); Globulin 3.1 g/dL (1.3-4.6); Glomerular Filtration Rate 99.1 mL/min (90-130); Glucose 109 mg/dL (65-115); Osmolality Calculated 282 mOsm/kg (285-295); Potassium 4.1 mmol/L (3.5-5.1); Sodium 136 mmol/L (136-145); Total Bilirubin 0.3 mg/dL (0.15-1.2); Total Protein 6.6 g/dL (6.6-8.7)
[2022-03-29 10:43] LABS: Alanine Aminotransferase 15 U/L (0-33); Aspartate Amino Transferase 15 U/L (0-32)
[2022-03-29 10:45] LABS: Calcium 5.9 mg/dL (8.5-10.5)
[2022-04-05 10:00] LABS: Basophils # 0.1 10^3/uL (0.0-0.1); Basophils % 0.6 %; Eosinophils # 0.1 10^3/uL (0.0-0.8); Eosinophils % 1.2 %; Hematocrit 39.6 % (37.0-47.0); Hemoglobin 12.7 g/dL (11.5-15.3); Lymphocytes # 1.7 10^3/uL (0.8-4.8); Lymphocytes % 20.4 %; Mean Corpuscular HGB Conc 32.1 g/dL (30.0-36.0); Mean Corpuscular Hemoglobin 31.6 pg (28.0-34.0); Mean Corpuscular Volume 98.5 fl (81-99); Mean Platelet Volume 9.6 fL (7.4-10.4); Monocytes # 0.6 10^3/uL (0.2-0.9); Monocytes % 7.5 %; Neutrophils # 5.74 10^3/uL (1.8-7.7); Neutrophils % 69.9 %; Nucleated Red Blood Cells % 0 %; Platelet Count 332 10^3/cmm (130-400); Red Blood Count 4.02 10^6/uL (4.1-5.3); Red Cell Distribution Width 18.1 % (12.1-15.1); White Blood Count 8.2 10^3/uL (4.0-10.0)
[2022-04-05 10:32] LABS: Alanine Aminotransferase 13 U/L (0-33); Albumin Level 3.8 g/dL (3.5-5.2); Alkaline Phosphatase 155 IU/L (35-105); Aspartate Amino Transferase 15 U/L (0-32); Blood Urea Nitrogen 14 mg/dL (8-23); Calcium 7.3 mg/dL (8.5-10.5); Carbon Dioxide 26 mmol/L (22-29); Chloride 98 mmol/L (98-107); Globulin 3.1 g/dL (1.3-4.6); Glomerular Filtration Rate 99.1 mL/min (90-130); Glucose 160 mg/dL (65-115); Osmolality Calculated 286 mOsm/kg (285-295); Sodium 136 mmol/L (136-145); Thyroid Stimulating Hormone 2.37 uIU/mL (0.27-4.20); Total Bilirubin 0.3 mg/dL (0.15-1.2); Total Protein 6.9 g/dL (6.6-8.7)
[2022-04-05 10:34] LABS: Anion Gap 15.9 (5-19); Potassium 3.9 mmol/L (3.5-5.1)
== END 2022-04-18 23:59 | disposition home or self-care (01) ==
PROVIDERS: Nurse Practitioner Family; PCP Family Medicine; Referring Provider Obstetrics & Gynecology Gynecologic Oncology; Visit Provider Internal Medicine Hematology & Oncology
DX: C53.9 Malignant neoplasm of cervix uteri, unspecified (principal); E83.51 Hypocalcemia; R21 Rash and other nonspecific skin eruption
CPT/HCPCS: 36591; 80053; 84443; 85025; 99214; 99215

== ENCOUNTER 2022-05-11 10:00 | Oncology outpatient (recurring) (ONCR) | payer MEDICARE, SELFPAY ==
[2022-04-27 10:36] LABS: Basophils # 0.1 10^3/uL (0.0-0.1); Basophils % 0.6 %; Eosinophils # 0.1 10^3/uL (0.0-0.8); Eosinophils % 1.3 %; Hematocrit 42.9 % (37.0-47.0); Hemoglobin 13.8 g/dL (11.5-15.3); Lymphocytes # 1.6 10^3/uL (0.8-4.8); Lymphocytes % 18.5 %; Mean Corpuscular HGB Conc 32.2 g/dL (30.0-36.0); Mean Corpuscular Hemoglobin 32.4 pg (28.0-34.0); Mean Corpuscular Volume 100.7 fl (81-99); Mean Platelet Volume 10.4 fL (7.4-10.4); Monocytes # 0.4 10^3/uL (0.2-0.9); Monocytes % 5.1 %; Neutrophils # 6.31 10^3/uL (1.8-7.7); Neutrophils % 74.3 %; Nucleated Red Blood Cells % 0 %; Platelet Count 305 10^3/cmm (130-400); Red Blood Count 4.26 10^6/uL (4.1-5.3); Red Cell Distribution Width 18.2 % (12.1-15.1); White Blood Count 8.5 10^3/uL (4.0-10.0)
[2022-04-27 11:13] LABS: Alanine Aminotransferase 13 U/L (0-33); Albumin Level 4.1 g/dL (3.5-5.2); Alkaline Phosphatase 112 IU/L (35-105); Anion Gap 14.4 (5-19); Aspartate Amino Transferase 21 U/L (0-32); Blood Urea Nitrogen 15 mg/dL (8-23); Carbon Dioxide 28 mmol/L (22-29); Chloride 100 mmol/L (98-107); Globulin 2.6 g/dL (1.3-4.6); Glucose 109 mg/dL (65-115); Osmolality Calculated 287 mOsm/kg (285-295); Potassium 4.4 mmol/L (3.5-5.1); Sodium 138 mmol/L (136-145); Total Bilirubin 0.3 mg/dL (0.15-1.2); Total Protein 6.7 g/dL (6.6-8.7)
[2022-05-04 08:20] LABS: Basophils # 0.1 10^3/uL (0.0-0.1); Basophils % 0.7 %; Eosinophils # 0.1 10^3/uL (0.0-0.8); Eosinophils % 1.6 %; Hematocrit 42.5 % (37.0-47.0); Hemoglobin 13.8 g/dL (11.5-15.3); Lymphocytes # 1.8 10^3/uL (0.8-4.8); Lymphocytes % 20.7 %; Mean Corpuscular HGB Conc 32.5 g/dL (30.0-36.0); Mean Corpuscular Hemoglobin 32.9 pg (28.0-34.0); Mean Corpuscular Volume 101.2 fl (81-99); Mean Platelet Volume 10.6 fL (7.4-10.4); Monocytes # 0.6 10^3/uL (0.2-0.9); Monocytes % 6.4 %; Neutrophils # 6.09 10^3/uL (1.8-7.7); Neutrophils % 70.4 %; Nucleated Red Blood Cells % 0 %; Platelet Count 285 10^3/cmm (130-400); Red Cell Distribution Width 17.6 % (12.1-15.1); White Blood Count 8.7 10^3/uL (4.0-10.0)
[2022-05-04 08:23] VITALS: BMI 22.1
[2022-05-04 08:38] LABS: Alanine Aminotransferase 20 U/L (0-33); Albumin Level 4.2 g/dL (3.5-5.2); Alkaline Phosphatase 112 U/L (35-105); Anion Gap 15.5 (5-19); Aspartate Amino Transferase 22 U/L (0-32); Blood Urea Nitrogen 22 mg/dL (8-23); Calcium 8.8 mg/dL (8.5-10.5); Carbon Dioxide 27 mmol/L (22-29); Chloride 98 mmol/L (98-107); Globulin 2.3 g/dL (1.3-4.6); Glucose 102 mg/dL (65-115); Osmolality Calculated 286 mOsm/kg (285-295); Potassium 4.5 mmol/L (3.5-5.1); Sodium 136 mmol/L (136-145); Total Bilirubin 0.3 mg/dL (0.15-1.2); Total Protein 6.5 g/dL (6.6-8.7)
[2022-05-04] MEDS: OLANZapine 5 mg TABLET PO (09:28)
[2022-05-04] MEDS: sodium chloride 0.9% 250 ML 100 ML IV (09:29)
[2022-05-04] MEDS: palonosetron 0.25 mg/5 mL SDV IVP (09:29)
[2022-05-04] MEDS: famotidine 20 mg/2 mL INJ IVP (09:34)
[2022-05-04] MEDS: diphenhydrAMINE 50 mg/mL SDV 1mL 25 MG IVP (09:35)
[2022-05-04] MEDS: dexamethasone 20 MG in sodium chloride 0.9% 50 ML 188 MG IV (09:50)
[2022-05-04] MEDS: fosaprepitant 150 MG in sodium chloride 0.9% 150 ML 300 MG IV (10:10)
[2022-05-04] MEDS: pembrolizumab 200 MG in sodium chloride 0.9% 250 ML 516 MG IV (10:40)
[2022-05-04] MEDS: SODIUM CHLORIDE 0.9% IV (14:30)
[2022-05-04] MEDS: CISPLATIN IV (14:30)
[2022-05-04] MEDS: FUROsemide 10 mg/mL SDV 2mL 20 MG IVP (15:48)
[2022-05-04] MEDS: potassium chloride 20 MEQ in sodium chloride 0.9% 500 ML 500 MEQ IV (15:48)
[2022-05-04 16:46] VITALS: BP 125/76; PULSE 88; RESP 16; TEMP 35.9; O2SAT 94
[2022-05-11 10:30] VITALS: BMI 22.4
[2022-05-11 10:38] LABS: Basophils % 0.3 %; Eosinophils # 0.1 10^3/uL (0.0-0.8); Eosinophils % 1.8 %; Hemoglobin 13.2 g/dL (11.5-15.3); Lymphocytes # 1.1 10^3/uL (0.8-4.8); Mean Corpuscular HGB Conc 32.2 g/dL (30.0-36.0); Mean Corpuscular Hemoglobin 32.7 pg (28.0-34.0); Mean Corpuscular Volume 101.5 fl (81-99); Mean Platelet Volume 11.4 fL (7.4-10.4); Monocytes # 0.1 10^3/uL (0.2-0.9); Monocytes % 2.2 %; Neutrophils # 4.53 10^3/uL (1.8-7.7); Neutrophils % 76.2 %; Nucleated Red Blood Cells % 0 %; Platelet Count 179 10^3/cmm (130-400); Red Blood Count 4.04 10^6/uL (4.1-5.3); Red Cell Distribution Width 16.7 % (12.1-15.1)
[2022-05-11 10:51] LABS: Alanine Aminotransferase 36 U/L (0-33); Albumin Level 3.8 g/dL (3.5-5.2); Alkaline Phosphatase 104 U/L (35-105); Anion Gap 14.3 (5-19); Aspartate Amino Transferase 24 U/L (0-32); Blood Urea Nitrogen 25 mg/dL (8-23); Calcium 8.6 mg/dL (8.5-10.5); Carbon Dioxide 29 mmol/L (22-29); Chloride 97 mmol/L (98-107); Globulin 2.8 g/dL (1.3-4.6); Glucose 113 mg/dL (65-115); Osmolality Calculated 287 mOsm/kg (285-295); Potassium 4.3 mmol/L (3.5-5.1); Sodium 136 mmol/L (136-145); Total Bilirubin 0.6 mg/dL (0.15-1.2); Total Protein 6.6 g/dL (6.6-8.7)
== END 2022-05-19 23:59 | disposition home or self-care (01) ==
PROVIDERS: Nurse Practitioner Family; PCP Family Medicine; Referring Provider Obstetrics & Gynecology Gynecologic Oncology; Visit Provider Internal Medicine Hematology & Oncology
DX: C53.8 Malignant neoplasm of overlapping sites of cervix uteri (principal); C77.8 Secondary and unspecified malignant neoplasm of lymph nodes of multiple regions; C79.51 Secondary malignant neoplasm of bone; C78.7 Secondary malignant neoplasm of liver and intrahepatic bile duct; C78.01 Secondary malignant neoplasm of right lung; L29.8 Other pruritus; Z79.899 Other long term (current) drug therapy
CPT/HCPCS: 36591; 80053; 85025; 96366; 96367; 96375; 96413; 96415; 96417; 99214; 99215; J1100; J1200; J1453; J1940; J2469; J3475; J3480; J3490; J7030; J7040; J7050; J9060; J9267; J9271

== ENCOUNTER 2022-06-15 09:30 | Oncology outpatient (recurring) (ONCR) | payer MEDICARE, SELFPAY ==
[2022-05-25 11:16] VITALS: BP 136/83; PULSE 81; RESP 16; TEMP 36; O2SAT 94
[2022-05-25 11:45] LABS: Basophils # 0.1 10^3/uL (0.0-0.1); Basophils % 0.6 %; Eosinophils # 0.1 10^3/uL (0.0-0.8); Eosinophils % 1.1 %; Hematocrit 42.7 % (37.0-47.0); Hemoglobin 13.9 g/dL (11.5-15.3); Lymphocytes # 1.7 10^3/uL (0.8-4.8); Lymphocytes % 20.6 %; Mean Corpuscular HGB Conc 32.6 g/dL (30.0-36.0); Mean Corpuscular Hemoglobin 33.3 pg (28.0-34.0); Mean Corpuscular Volume 102.4 fl (81-99); Monocytes # 0.6 10^3/uL (0.2-0.9); Monocytes % 7.9 %; Neutrophils # 5.62 10^3/uL (1.8-7.7); Neutrophils % 69.4 %; Nucleated Red Blood Cells % 0 %; Platelet Count 288 10^3/cmm (130-400); Red Blood Count 4.17 10^6/uL (4.1-5.3); Red Cell Distribution Width 16.4 % (12.1-15.1); White Blood Count 8.1 10^3/uL (4.0-10.0)
[2022-05-25 11:53] LABS: Add Urine Microscopic? YES; Bilirubin Urine Neg (Negative); Blood Urine 3+ (Negative); Glucose Urine UA Norm (Normal); Ketones Urine Negative (Negative); Leukocyte Esterase Urine 2+ (Negative); Nitrate Urine Positive (Negative); Protein Urine 3+ (Negative); RBC Urine TOO NUMEROUS TO CNT /hpf (0-2); Urine Appearance Turbid (CLEAR); Urine Color Yellow (Yellow); Urobilinogen Urine Norm (Negative); WBC Urine TOO NUMEROUS TO CNT /hpf (0-5); pH Urine 6 (5-7)
[2022-05-25 11:54] LABS: Add Urine Culture? Yes; Bacteria Urine 4+ /hpf
[2022-05-25 12:16] LABS: Alanine Aminotransferase 26 U/L (0-33); Albumin Level 4.3 g/dL (3.5-5.2); Alkaline Phosphatase 121 U/L (35-105); Anion Gap 13.1 (5-19); Aspartate Amino Transferase 20 U/L (0-32); Blood Urea Nitrogen 19 mg/dL (8-23); Calcium 8.8 mg/dL (8.5-10.5); Carbon Dioxide 30 mmol/L (22-29); Chloride 98 mmol/L (98-107); Globulin 2.5 g/dL (1.3-4.6); Glucose 100 mg/dL (65-115); Osmolality Calculated 286 mOsm/kg (285-295); Potassium 4.1 mmol/L (3.5-5.1); Sodium 137 mmol/L (136-145); Total Bilirubin 0.3 mg/dL (0.15-1.2); Total Protein 6.8 g/dL (6.6-8.7)
[2022-06-07 08:31] LABS: Basophils # 0.1 10^3/uL (0.0-0.1); Basophils % 0.6 %; Eosinophils # 0.2 10^3/uL (0.0-0.8); Eosinophils % 2.4 %; Hematocrit 42.5 % (37.0-47.0); Hemoglobin 13.6 g/dL (11.5-15.3); Lymphocytes # 1.8 10^3/uL (0.8-4.8); Lymphocytes % 20.4 %; Mean Corpuscular Hemoglobin 33.1 pg (28.0-34.0); Mean Corpuscular Volume 103.4 fl (81-99); Mean Platelet Volume 10.2 fL (7.4-10.4); Monocytes # 0.6 10^3/uL (0.2-0.9); Monocytes % 6.5 %; Neutrophils # 6.07 10^3/uL (1.8-7.7); Neutrophils % 69.9 %; Nucleated Red Blood Cells % 0 %; Platelet Count 244 10^3/cmm (130-400); Red Blood Count 4.11 10^6/uL (4.1-5.3); Red Cell Distribution Width 15.8 % (12.1-15.1); White Blood Count 8.7 10^3/uL (4.0-10.0)
[2022-06-07 08:43] LABS: Add Urine Culture? No; Add Urine Microscopic? YES; Bacteria Urine 1+ /hpf; Bilirubin Urine Neg (Negative); Blood Urine 3+ (Negative); Glucose Urine UA Norm (Normal); Ketones Urine Negative (Negative); Leukocyte Esterase Urine 2+ (Negative); Nitrate Urine Negative (Negative); Protein Urine 1+ (Negative); RBC Urine >100 /hpf (0-2); Squamous Epithelial Cell Urine 25-40 /hpf (0-5); Urine Appearance Hazy (CLEAR); Urine Color Yellow (Yellow); Urobilinogen Urine Norm (Negative); WBC Urine >100 /hpf (0-5); pH Urine 5 (5-7)
[2022-06-07 09:07] LABS: Alanine Aminotransferase 12 U/L (0-33); Albumin Level 3.6 g/dL (3.5-5.2); Alkaline Phosphatase 108 U/L (35-105); Aspartate Amino Transferase 18 U/L (0-32); Blood Urea Nitrogen 12 mg/dL (8-23); Calcium 9.1 mg/dL (8.5-10.5); Carbon Dioxide 30 mmol/L (22-29); Chloride 99 mmol/L (98-107); Globulin 2.8 g/dL (1.3-4.6); Glucose 120 mg/dL (65-115); Osmolality Calculated 285 mOsm/kg (285-295); Sodium 137 mmol/L (136-145); Thyroid Stimulating Hormone 1.84 uIU/mL (0.27-4.20); Total Bilirubin 0.4 mg/dL (0.15-1.2); Total Protein 6.4 g/dL (6.6-8.7)
[2022-06-08 08:16] VITALS: BP 143/80; PULSE 88; RESP 16; TEMP 35.9; O2SAT 93
[2022-06-08] MEDS: OLANZapine 5 mg TABLET PO (09:43)
[2022-06-08] MEDS: sodium chloride 0.9% 250 ML 75 ML IV (10:02)
[2022-06-08] MEDS: palonosetron 0.25 mg/5 mL SDV IVP (10:03)
[2022-06-08] MEDS: famotidine 20 mg/2 mL INJ IVP (10:05)
[2022-06-08] MEDS: diphenhydrAMINE 50 mg/mL SDV 1mL 25 MG IVP (10:07)
[2022-06-08] MEDS: fosaprepitant 150 MG in sodium chloride 0.9% 150 ML 300 MG IV (10:09)
[2022-06-08] MEDS: dexamethasone 20 MG in sodium chloride 0.9% 50 ML 188 MG IV (10:43)
[2022-06-08] MEDS: SODIUM CHLORIDE 0.9% IV (11:03)
[2022-06-08] MEDS: CISPLATIN IV (11:03)
[2022-06-08] MEDS: FUROsemide 10 mg/mL SDV 2mL 20 MG IVP (12:21)
[2022-06-08] MEDS: potassium chloride 20 MEQ in sodium chloride 0.9% 500 ML 500 MEQ IV (16:00)
[2022-06-08 16:37] VITALS: BP 149/86; PULSE 86; RESP 16; TEMP 35.9; O2SAT 96
[2022-06-15 10:35] LABS: Basophils % 0.2 %; Eosinophils # 0.1 10^3/uL (0.0-0.8); Eosinophils % 1.9 %; Hemoglobin 13.6 g/dL (11.5-15.3); Lymphocytes # 1.3 10^3/uL (0.8-4.8); Lymphocytes % 21.6 %; Mean Corpuscular HGB Conc 32.4 g/dL (30.0-36.0); Mean Corpuscular Hemoglobin 33.3 pg (28.0-34.0); Mean Corpuscular Volume 102.9 fl (81-99); Mean Platelet Volume 10.8 fL (7.4-10.4); Monocytes # 0.1 10^3/uL (0.2-0.9); Monocytes % 2.3 %; Neutrophils # 4.55 10^3/uL (1.8-7.7); Neutrophils % 73.5 %; Nucleated Red Blood Cells % 0 %; Platelet Count 181 10^3/cmm (130-400); Red Blood Count 4.08 10^6/uL (4.1-5.3); Red Cell Distribution Width 14.8 % (12.1-15.1); White Blood Count 6.2 10^3/uL (4.0-10.0)
[2022-06-15 10:58] LABS: Alanine Aminotransferase 45 U/L (0-33); Albumin Level 3.8 g/dL (3.5-5.2); Alkaline Phosphatase 99 U/L (35-105); Aspartate Amino Transferase 22 U/L (0-32); Blood Urea Nitrogen 15 mg/dL (8-23); Calcium 9.2 mg/dL (8.5-10.5); Carbon Dioxide 30 mmol/L (22-29); Chloride 94 mmol/L (98-107); Globulin 2.6 g/dL (1.3-4.6); Glomerular Filtration Rate 99.1 mL/min (90-130); Glucose 102 mg/dL (65-115); Osmolality Calculated 275 mOsm/kg (285-295); Sodium 132 mmol/L (136-145); Total Bilirubin 0.5 mg/dL (0.15-1.2); Total Protein 6.4 g/dL (6.6-8.7)
[2022-06-15 11:01] LABS: Anion Gap 12.3 (5-19); Potassium 4.3 mmol/L (3.5-5.1)
== END 2022-06-18 23:59 | disposition home or self-care (01) ==
PROVIDERS: Nurse Practitioner Family; PCP Family Medicine; Referring Provider Obstetrics & Gynecology Gynecologic Oncology; Visit Provider Internal Medicine Hematology & Oncology
DX: C53.8 Malignant neoplasm of overlapping sites of cervix uteri; C77.8 Secondary and unspecified malignant neoplasm of lymph nodes of multiple regions; C79.51 Secondary malignant neoplasm of bone; C78.7 Secondary malignant neoplasm of liver and intrahepatic bile duct; C78.01 Secondary malignant neoplasm of right lung; F17.210 Nicotine dependence, cigarettes, uncomplicated; Z79.899 Other long term (current) drug therapy
CPT/HCPCS: 36591; 80053; 81001; 84443; 85025; 87077; 87086; 87186; 96366; 96367; 96375; 96413; 96415; 96417; 99214; J1100; J1200; J1453; J1940; J2469; J3475; J3480; J3490; J7030; J7040; J7050; J9060; J9267; Q5107

== ENCOUNTER 2022-07-06 08:00 | Oncology outpatient (recurring) (ONCR) | payer MEDICARE, SELFPAY ==
[2022-06-22 09:10] LABS: Basophils % 1.3 %; Eosinophils # 0.1 10^3/uL (0.0-0.8); Eosinophils % 3.5 %; Hematocrit 41.6 % (37.0-47.0); Hemoglobin 13.6 g/dL (11.5-15.3); Lymphocytes # 1.3 10^3/uL (0.8-4.8); Lymphocytes % 42.5 %; Mean Corpuscular HGB Conc 32.7 g/dL (30.0-36.0); Mean Corpuscular Hemoglobin 33.4 pg (28.0-34.0); Mean Corpuscular Volume 102.2 fl (81-99); Mean Platelet Volume 10.1 fL (7.4-10.4); Monocytes # 0.6 10^3/uL (0.2-0.9); Monocytes % 17.5 %; Neutrophils % 34.9 %; Nucleated Red Blood Cells % 0 %; Platelet Count 188 10^3/cmm (130-400); Red Blood Count 4.07 10^6/uL (4.1-5.3); Red Cell Distribution Width 15.1 % (12.1-15.1); White Blood Count 3.2 10^3/uL (4.0-10.0)
[2022-06-22 09:52] LABS: Alanine Aminotransferase 24 U/L (0-33); Alkaline Phosphatase 106 U/L (35-105); Anion Gap 15.7 (5-19); Aspartate Amino Transferase 20 U/L (0-32); Blood Urea Nitrogen 17 mg/dL (8-23); Calcium 9.3 mg/dL (8.5-10.5); Carbon Dioxide 29 mmol/L (22-29); Chloride 98 mmol/L (98-107); Globulin 2.4 g/dL (1.3-4.6); Glomerular Filtration Rate 71.1 mL/min (90-130); Glucose 112 mg/dL (65-115); Osmolality Calculated 288 mOsm/kg (285-295); Potassium 4.7 mmol/L (3.5-5.1); Sodium 138 mmol/L (136-145); Total Bilirubin 0.3 mg/dL (0.15-1.2); Total Protein 6.4 g/dL (6.6-8.7)
[2022-06-28 10:42] VITALS: BMI 22.4
[2022-06-28 11:15] LABS: Basophils # 0.1 10^3/uL (0.0-0.1); Basophils % 0.7 %; Eosinophils # 0.1 10^3/uL (0.0-0.8); Eosinophils % 1.6 %; Hematocrit 41.9 % (37.0-47.0); Hemoglobin 13.7 g/dL (11.5-15.3); Lymphocytes # 1.8 10^3/uL (0.8-4.8); Lymphocytes % 26.4 %; Mean Corpuscular HGB Conc 32.7 g/dL (30.0-36.0); Mean Corpuscular Hemoglobin 33.6 pg (28.0-34.0); Mean Corpuscular Volume 102.7 fl (81-99); Mean Platelet Volume 10.4 fL (7.4-10.4); Monocytes # 0.6 10^3/uL (0.2-0.9); Monocytes % 9.2 %; Neutrophils # 4.15 10^3/uL (1.8-7.7); Neutrophils % 61.8 %; Nucleated Red Blood Cells % 0 %; Platelet Count 251 10^3/cmm (130-400); Red Blood Count 4.08 10^6/uL (4.1-5.3); Red Cell Distribution Width 15.1 % (12.1-15.1); White Blood Count 6.7 10^3/uL (4.0-10.0)
[2022-06-28 11:39] LABS: Alanine Aminotransferase 19 U/L (0-33); Albumin Level 3.8 g/dL (3.5-5.2); Alkaline Phosphatase 101 U/L (35-105); Anion Gap 14.8 (5-19); Aspartate Amino Transferase 21 U/L (0-32); Blood Urea Nitrogen 19 mg/dL (8-23); Carbon Dioxide 29 mmol/L (22-29); Chloride 99 mmol/L (98-107); Globulin 2.7 g/dL (1.3-4.6); Glomerular Filtration Rate 70.9 mL/min (90-130); Glucose 106 mg/dL (65-115); Osmolality Calculated 289 mOsm/kg (285-295); Potassium 4.8 mmol/L (3.5-5.1); Sodium 138 mmol/L (136-145); Total Bilirubin 0.3 mg/dL (0.15-1.2); Total Protein 6.5 g/dL (6.6-8.7)
[2022-06-28 13:42] LABS: Add Urine Microscopic? YES; Bilirubin Urine Neg (Negative); Blood Urine 3+ (Negative); Glucose Urine UA Norm (Normal); Ketones Urine 1+ (Negative); Leukocyte Esterase Urine 2+ (Negative); Nitrate Urine Positive (Negative); Protein Urine 2+ (Negative); RBC Urine 25-40 /hpf (0-2); Specific Gravity, Urine 1.015 (1.005-1.030); Urine Appearance Hazy (CLEAR); Urine Color Yellow (Yellow); Urobilinogen Urine Norm (Negative); WBC Urine 40-55 /hpf (0-5); pH Urine 5 (5-7)
[2022-06-28 13:43] LABS: Add Urine Culture? Yes; Bacteria Urine 2+ /hpf
[2022-06-29 08:01] VITALS: BP 136/75; PULSE 89; RESP 20; TEMP 35.8; O2SAT 96
[2022-06-29] MEDS: sodium chloride 0.9% 250 ML 75 ML IV (08:23)
[2022-06-29] MEDS: OLANZapine 5 mg TABLET PO (09:39)
[2022-06-29] MEDS: palonosetron 0.25 mg/5 mL SDV IVP (09:39)
[2022-06-29] MEDS: famotidine 20 mg/2 mL INJ IVP (09:40)
[2022-06-29] MEDS: diphenhydrAMINE 50 mg/mL SDV 1mL 25 MG IVP (09:42)
[2022-06-29] MEDS: dexamethasone 20 MG in sodium chloride 0.9% 50 ML 188 MG IV (09:44)
[2022-06-29] MEDS: fosaprepitant 150 MG in sodium chloride 0.9% 150 ML 300 MG IV (10:04)
[2022-06-29] MEDS: pembrolizumab 200 MG in sodium chloride 0.9% 250 ML 516 MG IV (10:40)
[2022-06-29] MEDS: BEVACIZUMAB AWWB IV (11:15)
[2022-06-29] MEDS: SODIUM CHLORIDE 0.9% IV ×2 (11:15→15:01)
[2022-06-29] MEDS: CISPLATIN IV (15:01)
[2022-06-29] MEDS: FUROsemide 10 mg/mL SDV 2mL 20 MG IVP (16:18)
[2022-06-29] MEDS: potassium chloride 20 MEQ in sodium chloride 0.9% 500 ML 500 MEQ IV (16:21)
[2022-06-29 17:00] VITALS: BP 128/77; PULSE 88; RESP 16; TEMP 36.2; O2SAT 91
[2022-07-06 08:46] LABS: Basophils % 0.2 %; Eosinophils # 0.3 10^3/uL (0.0-0.8); Hematocrit 40.3 % (37.0-47.0); Hemoglobin 13.2 g/dL (11.5-15.3); Lymphocytes # 1.4 10^3/uL (0.8-4.8); Lymphocytes % 21.7 %; Mean Corpuscular HGB Conc 32.8 g/dL (30.0-36.0); Mean Corpuscular Hemoglobin 33.6 pg (28.0-34.0); Mean Corpuscular Volume 102.5 fl (81-99); Mean Platelet Volume 11.6 fL (7.4-10.4); Monocytes # 0.2 10^3/uL (0.2-0.9); Monocytes % 2.7 %; Neutrophils # 4.43 10^3/uL (1.8-7.7); Neutrophils % 70.8 %; Nucleated Red Blood Cells % 0 %; Platelet Count 152 10^3/cmm (130-400); Red Blood Count 3.93 10^6/uL (4.1-5.3); Red Cell Distribution Width 14.9 % (12.1-15.1); White Blood Count 6.3 10^3/uL (4.0-10.0)
[2022-07-06 08:51] LABS: Alanine Aminotransferase 22 U/L (0-33); Albumin Level 3.9 g/dL (3.5-5.2); Alkaline Phosphatase 85 U/L (35-105); Aspartate Amino Transferase 18 U/L (0-32); Blood Urea Nitrogen 21 mg/dL (8-23); Calcium 9.1 mg/dL (8.5-10.5); Carbon Dioxide 28 mmol/L (22-29); Chloride 93 mmol/L (98-107); Globulin 2.4 g/dL (1.3-4.6); Glomerular Filtration Rate 70.9 mL/min (90-130); Glucose 112 mg/dL (65-115); Osmolality Calculated 278 mOsm/kg (285-295); Sodium 132 mmol/L (136-145); Total Bilirubin 0.5 mg/dL (0.15-1.2); Total Protein 6.3 g/dL (6.6-8.7)
[2022-07-06 08:54] LABS: Anion Gap 15.2 (5-19); Potassium 4.2 mmol/L (3.5-5.1)
== END 2022-07-07 10:25 | disposition home or self-care (01) ==
PROVIDERS: PCP Family Medicine; Referring Provider Obstetrics & Gynecology Gynecologic Oncology; Visit Provider Internal Medicine Hematology & Oncology
DX: C53.8 Malignant neoplasm of overlapping sites of cervix uteri; C77.8 Secondary and unspecified malignant neoplasm of lymph nodes of multiple regions; C79.51 Secondary malignant neoplasm of bone; C78.7 Secondary malignant neoplasm of liver and intrahepatic bile duct; C78.01 Secondary malignant neoplasm of right lung; F17.210 Nicotine dependence, cigarettes, uncomplicated; E87.1 Hypo-osmolality and hyponatremia; Z79.899 Other long term (current) drug therapy
CPT/HCPCS: 36591; 80053; 81001; 85025; 87086; 87186; 96366; 96367; 96375; 96413; 96415; 96417; 99214; J1100; J1200; J1453; J1940; J2469; J3475; J3480; J3490; J7030; J7040; J7050; J9060; J9267; J9271; Q5107

== ENCOUNTER 2022-07-19 08:04 | Oncology outpatient (recurring) (ONCR) | payer MEDICARE, SELFPAY ==
[2022-07-19 08:53] LABS: Basophils # 0.1 10^3/uL (0.0-0.1); Basophils % 0.8 %; Eosinophils # 0.4 10^3/uL (0.0-0.8); Eosinophils % 5.1 %; Hemoglobin 13.6 g/dL (11.5-15.3); Lymphocytes # 1.8 10^3/uL (0.8-4.8); Lymphocytes % 24.9 %; Mean Corpuscular HGB Conc 32.4 g/dL (30.0-36.0); Mean Corpuscular Hemoglobin 33.3 pg (28.0-34.0); Mean Corpuscular Volume 102.7 fl (81-99); Mean Platelet Volume 10.1 fL (7.4-10.4); Monocytes # 0.7 10^3/uL (0.2-0.9); Monocytes % 9.5 %; Neutrophils # 4.18 10^3/uL (1.8-7.7); Neutrophils % 59.3 %; Nucleated Red Blood Cells % 0 %; Platelet Count 268 10^3/cmm (130-400); Red Blood Count 4.09 10^6/uL (4.1-5.3); Red Cell Distribution Width 15.4 % (12.1-15.1); White Blood Count 7.1 10^3/uL (4.0-10.0)
[2022-07-19 09:27] LABS: Alanine Aminotransferase 16 U/L (0-33); Albumin Level 3.6 g/dL (3.5-5.2); Alkaline Phosphatase 103 U/L (35-105); Anion Gap 12.2 (5-19); Aspartate Amino Transferase 16 U/L (0-32); Blood Urea Nitrogen 15 mg/dL (8-23); Calcium 9.1 mg/dL (8.5-10.5); Carbon Dioxide 28 mmol/L (22-29); Chloride 97 mmol/L (98-107); Creatinine Clr Calc Pharmacy 58.2674; Globulin 2.7 g/dL (1.3-4.6); Glomerular Filtration Rate 70.9 mL/min (90-130); Glucose 97 mg/dL (65-115); Osmolality Calculated 277 mOsm/kg (285-295); Potassium 4.2 mmol/L (3.5-5.1); Sodium 133 mmol/L (136-145); Thyroid Stimulating Hormone 2.33 uIU/mL (0.27-4.20); Total Bilirubin 0.3 mg/dL (0.15-1.2); Total Protein 6.3 g/dL (6.6-8.7)
[2022-07-19 16:31] LABS: Bilirubin Urine Neg (Negative); Blood Urine 2+ (Negative); Glucose Urine UA Norm (Normal); Ketones Urine Negative (Negative); Leukocyte Esterase Urine 2+ (Negative); Nitrate Urine Positive (Negative); Protein Urine 1+ (Negative); Urine Appearance Hazy (CLEAR); Urine Color Dark Yellow (Yellow); Urobilinogen Urine Norm (Negative); pH Urine 5 (5-7)
[2022-07-19 16:32] LABS: Add Urine Microscopic? YES
[2022-07-19 16:37] LABS: Add Urine Culture? No; Squamous Epithelial Cell Urine 0-4 /hpf (0-5)
== END 2022-07-19 23:59 | disposition home or self-care (01) ==
LOC: ONCMED 08:07
PROVIDERS: PCP Family Medicine; Referring Provider Obstetrics & Gynecology Gynecologic Oncology; Visit Provider Internal Medicine Hematology & Oncology
DX: C53.9 Malignant neoplasm of cervix uteri, unspecified; Z79.899 Other long term (current) drug therapy; Z79.52 Long term (current) use of systemic steroids; C77.8 Secondary and unspecified malignant neoplasm of lymph nodes of multiple regions; C78.7 Secondary malignant neoplasm of liver and intrahepatic bile duct; F17.210 Nicotine dependence, cigarettes, uncomplicated; C79.51 Secondary malignant neoplasm of bone; Z79.630 Long term (current) use of alkylating agent
CPT/HCPCS: 36591; 80053; 81001; 84443; 85025; 99214

== ENCOUNTER → 2022-08-16 09:26 | Outpatient (BNVA) | payer MEDICARE, SELFPAY | PROVIDERS: PCP Family Medicine; Visit Provider Nurse Practitioner | DX: C53.8 Malignant neoplasm of overlapping sites of cervix uteri (principal) | CPT/HCPCS: 99215 ==

== ENCOUNTER 2022-08-17 08:00 | Oncology outpatient (recurring) (ONCR) | payer MEDICARE, SELFPAY ==
[2022-07-20 08:25] VITALS: BP 131/86; PULSE 78; RESP 16; TEMP 35.9; O2SAT 94
[2022-07-20] MEDS: sodium chloride 0.9% 1,000 ML 75 ML IV (08:49)
[2022-07-20 09:34] LABS: Bilirubin Urine Neg (Negative); Blood Urine 3+ (Negative); Glucose Urine UA Norm (Normal); Ketones Urine Negative (Negative); Nitrate Urine Positive (Negative); Protein Urine 1+ (Negative); Urine Appearance Clear (CLEAR); Urine Color Yellow (Yellow); Urobilinogen Urine Norm (Negative); pH Urine 6.5 (5-7)
[2022-07-20 09:35] LABS: Add Urine Culture? Yes; Add Urine Microscopic? YES; Bacteria Urine 2+ /hpf; Leukocyte Esterase Urine 2+ (Negative); Squamous Epithelial Cell Urine 0-4 /hpf (0-5); WBC Urine 0-4 /hpf (0-5)
[2022-07-20] MEDS: OLANZapine 5 mg TABLET PO (10:04)
[2022-07-20] MEDS: palonosetron 0.25 mg/5 mL SDV IVP (10:06)
[2022-07-20] MEDS: famotidine 20 mg/2 mL INJ IVP (10:07)
[2022-07-20] MEDS: diphenhydrAMINE 50 mg/mL SDV 1mL 25 MG IVP (10:09)
[2022-07-20] MEDS: fosaprepitant 150 MG in sodium chloride 0.9% 150 ML 300 MG IV (10:11)
[2022-07-20] MEDS: dexamethasone 20 MG in sodium chloride 0.9% 50 ML 188 MG IV (10:32)
[2022-07-20] MEDS: SODIUM CHLORIDE 0.9% IV ×2 (10:49→14:00)
[2022-07-20] MEDS: BEVACIZUMAB AWWB IV (10:49)
[2022-07-20 12:34] VITALS: BP 130/67; PULSE 61; RESP 16; TEMP 37; O2SAT 96
[2022-07-20] MEDS: CISPLATIN IV (14:00)
[2022-07-20] MEDS: FUROsemide 10 mg/mL SDV 2mL 20 MG IVP (15:07)
[2022-07-20] MEDS: potassium chloride 20 MEQ in sodium chloride 0.9% 500 ML 500 MEQ IV (15:11)
[2022-07-20 15:51] VITALS: BP 143/86; PULSE 80; RESP 16; TEMP 35.9; O2SAT 91
[2022-07-27 09:28] LABS: Basophils % 0.3 %; Eosinophils # 0.3 10^3/uL (0.0-0.8); Eosinophils % 3.1 %; Hematocrit 38.6 % (37.0-47.0); Hemoglobin 12.6 g/dL (11.5-15.3); Lymphocytes # 1.3 10^3/uL (0.8-4.8); Mean Corpuscular HGB Conc 32.6 g/dL (30.0-36.0); Mean Corpuscular Hemoglobin 33.3 pg (28.0-34.0); Mean Corpuscular Volume 102.1 fl (81-99); Mean Platelet Volume 11.1 fL (7.4-10.4); Monocytes # 0.4 10^3/uL (0.2-0.9); Monocytes % 4.1 %; Neutrophils # 6.99 10^3/uL (1.8-7.7); Neutrophils % 78.1 %; Nucleated Red Blood Cells % 0 %; Platelet Count 135 10^3/cmm (130-400); Red Blood Count 3.78 10^6/uL (4.1-5.3); Red Cell Distribution Width 15.1 % (12.1-15.1)
[2022-07-27 09:45] LABS: Alanine Aminotransferase 20 U/L (0-33); Albumin Level 3.6 g/dL (3.5-5.2); Alkaline Phosphatase 97 U/L (35-105); Aspartate Amino Transferase 18 U/L (0-32); Blood Urea Nitrogen 34 mg/dL (8-23); Calcium 8.9 mg/dL (8.5-10.5); Carbon Dioxide 28 mmol/L (22-29); Chloride 93 mmol/L (98-107); Globulin 2.8 g/dL (1.3-4.6); Glomerular Filtration Rate 70.9 mL/min (90-130); Glucose 110 mg/dL (65-115); Osmolality Calculated 278 mOsm/kg (285-295); Sodium 130 mmol/L (136-145); Total Bilirubin 0.5 mg/dL (0.15-1.2); Total Protein 6.4 g/dL (6.6-8.7)
[2022-08-09 09:17] LABS: Basophils # 0.1 10^3/uL (0.0-0.1); Basophils % 0.7 %; Eosinophils # 0.2 10^3/uL (0.0-0.8); Eosinophils % 1.7 %; Hematocrit 39.4 % (37.0-47.0); Hemoglobin 12.8 g/dL (11.5-15.3); Lymphocytes # 1.6 10^3/uL (0.8-4.8); Lymphocytes % 17.4 %; Mean Corpuscular HGB Conc 32.5 g/dL (30.0-36.0); Mean Corpuscular Hemoglobin 34.2 pg (28.0-34.0); Mean Corpuscular Volume 105.3 fl (81-99); Monocytes # 0.7 10^3/uL (0.2-0.9); Monocytes % 7.7 %; Neutrophils # 6.56 10^3/uL (1.8-7.7); Neutrophils % 72.1 %; Nucleated Red Blood Cells % 0 %; Platelet Count 300 10^3/cmm (130-400); Red Blood Count 3.74 10^6/uL (4.1-5.3); Red Cell Distribution Width 16.6 % (12.1-15.1); White Blood Count 9.1 10^3/uL (4.0-10.0)
[2022-08-09 09:57] LABS: Alanine Aminotransferase 14 U/L (0-33); Albumin Level 3.6 g/dL (3.5-5.2); Alkaline Phosphatase 101 U/L (35-105); Anion Gap 14.3 (5-19); Aspartate Amino Transferase 14 U/L (0-32); Blood Urea Nitrogen 16 mg/dL (8-23); Calcium 9.1 mg/dL (8.5-10.5); Carbon Dioxide 27 mmol/L (22-29); Chloride 100 mmol/L (98-107); Globulin 2.9 g/dL (1.3-4.6); Glomerular Filtration Rate 82.7 mL/min (90-130); Glucose 118 mg/dL (65-115); Osmolality Calculated 286 mOsm/kg (285-295); Potassium 4.3 mmol/L (3.5-5.1); Sodium 137 mmol/L (136-145); Total Bilirubin 0.2 mg/dL (0.15-1.2); Total Protein 6.5 g/dL (6.6-8.7)
[2022-08-16 09:59] LABS: Basophils # 0.1 10^3/uL (0.0-0.1); Basophils % 0.6 %; Eosinophils # 0.2 10^3/uL (0.0-0.8); Eosinophils % 1.7 %; Hematocrit 41.3 % (37.0-47.0); Hemoglobin 13.7 g/dL (11.5-15.3); Lymphocytes # 1.6 10^3/uL (0.8-4.8); Lymphocytes % 15.7 %; Mean Corpuscular HGB Conc 33.2 g/dL (30.0-36.0); Mean Corpuscular Hemoglobin 34.4 pg (28.0-34.0); Mean Corpuscular Volume 103.8 fl (81-99); Mean Platelet Volume 10.2 fL (7.4-10.4); Monocytes # 0.7 10^3/uL (0.2-0.9); Monocytes % 6.9 %; Neutrophils % 74.6 %; Nucleated Red Blood Cells % 0 %; Platelet Count 250 10^3/cmm (130-400); Red Blood Count 3.98 10^6/uL (4.1-5.3); Red Cell Distribution Width 16.3 % (12.1-15.1); White Blood Count 9.9 10^3/uL (4.0-10.0)
[2022-08-16 10:20] LABS: Alanine Aminotransferase 15 U/L (0-33); Albumin Level 3.8 g/dL (3.5-5.2); Alkaline Phosphatase 106 U/L (35-105); Anion Gap 14.4 (5-19); Aspartate Amino Transferase 17 U/L (0-32); Blood Urea Nitrogen 19 mg/dL (8-23); Calcium 9.5 mg/dL (8.5-10.5); Carbon Dioxide 27 mmol/L (22-29); Chloride 97 mmol/L (98-107); Creatinine Clr Calc Pharmacy 58.2674; Globulin 2.8 g/dL (1.3-4.6); Glomerular Filtration Rate 70.9 mL/min (90-130); Glucose 106 mg/dL (65-115); Osmolality Calculated 281 mOsm/kg (285-295); Potassium 4.4 mmol/L (3.5-5.1); Sodium 134 mmol/L (136-145); Total Bilirubin 0.4 mg/dL (0.15-1.2); Total Protein 6.6 g/dL (6.6-8.7)
[2022-08-16 11:21] LABS: Add Urine Microscopic? YES; Bilirubin Urine Neg (Negative); Blood Urine 3+ (Negative); Glucose Urine UA Norm (Normal); Ketones Urine Negative (Negative); Leukocyte Esterase Urine 2+ (Negative); Nitrate Urine Positive (Negative); Protein Urine 2+ (Negative); RBC Urine 0-4 /hpf (0-2); Specific Gravity, Urine 1.015 (1.005-1.030); Urine Appearance Clear (CLEAR); Urine Color Yellow (Yellow); Urobilinogen Urine Norm (Negative); pH Urine 6 (5-7)
[2022-08-16 11:22] LABS: Add Urine Culture? Yes; Bacteria Urine 4+ /hpf; Squamous Epithelial Cell Urine 0-4 /hpf (0-5)
== END 2022-08-18 23:59 | disposition home or self-care (01) ==
PROVIDERS: Nurse Practitioner; PCP Family Medicine; Referring Provider Obstetrics & Gynecology Gynecologic Oncology; Visit Provider Internal Medicine Hematology & Oncology
DX: C53.8 Malignant neoplasm of overlapping sites of cervix uteri (principal)
CPT/HCPCS: 36591; 80053; 81001; 85025; 87077; 87086; 87186; 96367; 96375; 96413; 96415; 96417; 99214; 99215; J1100; J1200; J1453; J1940; J2469; J3475; J3480; J3490; J7030; J7040; J9060; J9267; Q5107

== ENCOUNTER 2022-08-17 08:15 | Inpatient (IN) | payer MEDICARE, SELFPAY ==
[2022-08-17] VITALS (18 sets, daily range): BP systolic 91–166; BP diastolic 60–96; PULSE 68–108; RESP 16–30; TEMP 36.4–36.8; O2SAT 86–99; BMI 22.3
--- NOTE | 2022-08-17 08:23 | XRR_ITS ---
PROCEDURE INFORMATION: Exam: XR Chest Exam date and time: 08/17/2022 9:36 AM Age: 72 years old Clinical indication: Shortness of breath TECHNIQUE: Imaging protocol: Radiologic exam of the chest. Views: 1 view. COMPARISON: CR XR chest 1V portable [id number] 12/11/2021 6:04 PM FINDINGS: Tubes, catheters and devices: A MediPort catheter is present with the tip projecting in the SVC. Lungs: Unremarkable. No consolidation. Pleural spaces: Unremarkable. No pleural effusion. No pneumothorax. Heart/Mediastinum: Unremarkable. No cardiomegaly. Bones/joints: Unremarkable. XR/XR chest 1V portable [id number] IMPRESSION: No significant cardiopulmonary abnormality.
--- NOTE | 2022-08-17 08:25 | W.ED.SOB ---
HPI - SOB/Dyspnea General: Chief Complaint: Shortness of Breath/Dyspnea Stated Complaint: SOB Time Seen by Provider: 08/17/22 08:16 History of Present Illness: HPI Narrative: 72-year-old female with a history of cervical cancer who presents with acute onset of shortness of breath. She states she had mild shortness of breath during the night when she got up to go to the bathroom. This morning when she woke up, she was acutely short of breath. She has had a dry cough. She denies fever. She denies any chest pain. No associated orthopnea. She has worsening shortness of breath with activity. She did start nitrofurantoin yesterday for a UTI and is concerned that she is having an allergic reaction. She denies throat swelling. She denies a rash. No ill contacts. Associated symptoms: Deny abdominal pain, chest congestion, chest pain, extremity pain, fever(s), nausea or vomiting Review of Systems General: Reports: 10 or more systems reviewed and unremarkable except in HPI and below Const: Reports: body aches and fatigue; Denies: fever(s) ENMT: Denies: nasal congestion Card: Denies: chest pain Resp: Reports: dyspnea, non-productive cough and wheezing; Denies: chest congestion GI: Denies: abdominal pain, nausea or vomiting Musc: Reports: muscle cramps; Denies: extremity pain or extremity swelling Skin/Breast: Denies: rash Neuro: Denies: headache(s) PFS ED PFSH: Medical History Hydronephrosis, left Hypercholesteremia Hypertension No pertinent past medical history neghx: dm,thyroid,dvt/pe PCP: Dr. Hilliard Surgical History No pertinent past surgical history Family History Mother , at age 69 Colon cancer dx age 60's Thyroid disease Thyroid cancer Cancer Thyroid cancer followed by colon cancer Father , at age 68 Cancer Lung cancer Diabetes Denies family history of CAD (coronary artery disease) Clotting disorder Dementia Hyperlipidemia Psychiatric illness Chronic kidney disease (CKD) Suicide Anesthesia complication Bleeding disorder Lung disease Hypertension Stroke Social History Smoking and tobacco status: current every day smoker (0.5 ppd) cigarettes Packs smoked per day: 0.5 Years cigarettes smoked: 40 Alcohol intake: current Alcohol intake frequency: holidays/special occasions only Marital status: Current occupational status: retired History of recent travel: No Physical Exam Narrative: EXAM NARRATIVE: Chronically ill-appearing female in moderate respiratory distress. She is able to speak in short sentences Const: COMMON NORMALS: patient oriented x3 GENERAL APPEARANCE: ill appearing and frail appearing HENMT: COMMON NORMALS: normocephalic, Normal external nose present, Normal nasal mucous membranes and turbinates present and moist oral mucous membranes HEAD & SCALP: normocephalic NOSE: Normal external nose present and Normal nasal mucous membranes and turbinates present Eye: COMMON NORMALS: Equal, round and reactive pupils present, EOMs intact bilaterally and conjunctivae normal CONJUNCTIVA: Yes conjunctivae normal PUPIL: Yes Equal, round and reactive pupils present Neck/C-Spine: COMMON NORMALS: full ROM, no meningeal signs and no JVD Chest: OTHER: Port in left upper chest area Resp: EFFORT & INSPECTION: No able to speak in complete sentences, Yes symmetric chest movement, Yes respiratory distress, Yes labored, Yes uses accessory muscles and Yes audible wheezes AUSCULTATION: wheezes (Bilateral expiratory wheezes in all lung hoffman) and diminished lung sounds Cardio: COMMON NORMALS: no JVD and regular rhythm; negative for regular rate RATE: abnormal rate RHYTHM: regular rhythm OTHER: Tachycardic GI: COMMON NORMALS: Normal to inspection, nondistended, normoactive bowel sounds present, Soft to palpation and non-tender PALPATION: Yes Soft to palpation Extremity: COMMON NORMALS: normal to inspection, no calf tenderness and no pedal edema Neuro: COMMON NORMALS: patient oriented x3 and moves all extremities MENINGEAL SIGNS: Yes no meningeal signs Skin: COMMON NORMALS: no rashes or lesions noted GENERAL SKIN EXAM: no rashes or lesions noted Course Vital Signs: Vital signs: Vital Signs Temperature 98.2 F 08/17/22 08:16 Pulse Rate 103 H 08/17/22 11:00 Respiratory Rate 19 H 08/17/22 11:00 Blood Pressure 104/60 08/17/22 11:00 Pulse Oximetry 86 L 08/17/22 11:00 Oxygen Delivery Me thod 08/17/22 11:00 Oxygen Flow Rate 4 08/17/22 09:19 MDM - SOB/Dyspnea Medical Decision Making 72-year-old female with a history of cervical cancer, currently on chemotherapy who presents with onset of shortness of breath during the night. The patient has a nonproductive cough. She is afebrile. She has no infiltrate on chest x-ray. Upon arrival, she is diffusely wheezing, in moderate respiratory distress, requiring supplemental oxygen at 4 L/min to keep her saturations above 92%. She had an IV placed and has been given 125 mg of Solu-Medrol IV. She was given an hour-long DuoNeb treatment. She was subsequently given another albuterol treatment and now is much improved with resolution of her wheezing. Her oxygen has been titrated off and she is saturating 92% on room air. Laboratory studies do reveal leukocytosis with a white blood cell count of 23.6. COVID and influenza are negative. BNP is 823. CTA of the chest is negative for pulmonary embolism but does show a lingular infiltrate. The patient has been given Rocephin 2 g IV as well as Zithromax 250 mg IV in the ER. Attempted to try patient on room air, saturations dropped into the 80s. She is now back on 3 L, with saturations 92%. We will plan for admission to the hospitalist. Differential Diagnosis Likely acute exacerbation of chronic obstructive airways disease, congestive heart failure, community acquired pneumonia, asthma with exacerbation and pulmonary embolism Lab Data 08/17/22 08:30 08/17/22 08:30 Labs/Radiology: Radiology Impressions Chest X-Ray 08/17/22 08:23 IMPRESSION: No significant cardiopulmonary abnormality. Chest CTA 08/17/22 09:08 IMPRESSION: 1. No evidence of pulmonary embolus. 2. Moderate to advanced chronic emphysematous changes. Subsegmental atelectasis in the lingula. Small amount of slightly hazy infiltrate in the lingula may be infectious or inflammatory. 3. Normal caliber thoracic aorta. 4. Partially visualized abdominal aortic aneurysm appears stable since the prior PET/CT December 11, 2021 where visualized today. 5. Partially visualized LEFT ureteral stent. Laboratory Results WBC 23.6 10^3/uL (4.0-10.0) H 08/17/22 08:30 RBC 4.18 10^6/uL (4.1-5.3) 08/17/22 08:30 Hgb 14.1 g/dL (11.5-15.3) 08/17/22 08:30 Hct 43.7 % (37.0-47.0) 08/17/22 08:30 MCV 104.5 fl (81-99) H 08/17/22 08:30 MCH 33.7 pg (28.0-34.0) 08/17/22 08: MCHC 32.3 g/dL (30.0-36.0) 08/17/22 08:30 RDW 16.1 % (12.1-15.1) H 08/17/22 08:30 Plt Count 251 10^3/cmm (130-400) 08/17/22 08:30 MPV 10.4 fL (7.4-10.4) 08/17/22 08:30 Neut % (Auto) 96.5 % 08/17/22 08:30 Lymph % (Auto) 1.3 % 08/17/22 08:30 [place] % (Auto) 1.2 % 08/17/22 08:30 Eos % (Auto) 0.2 % 08/17/22 08:30 Baso % (Auto) 0.2 % 08/17/22 08:30 Neut # (Auto) 22.73 10^3/uL (1.8-7.7) H 08/17/22 08:30 Lymph # (Auto) 0.3 10^3/uL (0.8-4.8) L 08/17/22 08:30 [place] # (Auto) 0.3 10^3/uL (0.2-0.9) 08/17/22 08:30 Eos # (Auto) 0.1 10^3/uL (0.0-0.8) 08/17/22 08:30 Baso # (Auto) 0.1 10^3/uL (0.0-0.1) 08/17/22 08:30 Nucleated RBC % (auto) 0 % 08/17/22 08:30 Nucleated RBCs # 0.0 /100WBC 08/17/22 08:30 Sodium 134 mmol/L (136-145) L 08/17/22 08:30 Potassium 4.5 mmol/L (3.5-5.1) 08/17/22 08:30 Chloride 96 mmol/L (98-107) L 08/17/22 08:30 Carbon Dioxide 27 mmol/L (22-29) 08/17/22 08:30 Anion Gap 15.5 (5-19) 08/17/22 08:30 BUN 25 mg/dL (8-23) H 08/17/22 08:30 Creatinine 0.8 mg/dL (0.5-0.9) 08/17/22 08:30 GFR Calculation 70.9 mL/min (90-130) L 08/17/22 08:30 Glucose 179 mg/dL (65-115) H 08/17/22 08:30 Calculated Osmolality 287 mOsm/kg (285-295) 08/17/22 08:30 Lactic Acid 2.0 mmol/L (0.5-2.2) 08/17/22 08:30 Calcium 9.6 mg/dL (8.5-10.5) 08/17/22 08:30 Total Bilirubin 0.6 mg/dL (0.15-1.2) 08/17/22 08:30 AST 18 U/L (0-32) 08/17/22 08:30 ALT 16 U/L (0-33) 08/17/22 08:30 Alkaline Phosphatase 108 U/L (35-105) H 08/17/22 08:30 NT-Pro-B Natriuret Pep 823 pg/mL (0-125) H 08/17/22 08:30 Total Protein 6.8 g/dL (6.6-8.7) 08/17/22 08:30 Albumin 3.8 g/dL (3.5-5.2) 08/17/22 08:30 Globulin 3.0 g/dL (1.3-4.6) 08/17/22 08:30 Influenza Type A Ag negative (Negative) 08/17/22 08:55 Influenza Type B Ag negative (Negative) 08/17/22 08:55 SARS-CoV-2 Ag (Rapid) Negative (Negative) 08/17/22 08:55 Discharge Plan Discharge Patient Disposition: Admitted As Inpatient Clinical Impression: COPD exacerbation, Pneumonia, Hypoxia Condition: Stable Coding Level of Care Code ED [employer] Research Analyst for Chg Fwd Exam Comprehensive
[2022-08-17 08:35] LABS: Basophils # 0.1 10^3/uL (0.0-0.1); Basophils % 0.2 %; Eosinophils # 0.1 10^3/uL (0.0-0.8); Eosinophils % 0.2 %; Hematocrit 43.7 % (37.0-47.0); Hemoglobin 14.1 g/dL (11.5-15.3); Lymphocytes # 0.3 10^3/uL (0.8-4.8); Lymphocytes % 1.3 %; Mean Corpuscular HGB Conc 32.3 g/dL (30.0-36.0); Mean Corpuscular Hemoglobin 33.7 pg (28.0-34.0); Mean Corpuscular Volume 104.5 fl (81-99); Mean Platelet Volume 10.4 fL (7.4-10.4); Monocytes # 0.3 10^3/uL (0.2-0.9); Monocytes % 1.2 %; Neutrophils # 22.73 10^3/uL (1.8-7.7); Neutrophils % 96.5 %; Nucleated Red Blood Cells % 0 %; Platelet Count 251 10^3/cmm (130-400); Red Blood Count 4.18 10^6/uL (4.1-5.3); Red Cell Distribution Width 16.1 % (12.1-15.1); White Blood Count 23.6 10^3/uL (4.0-10.0)
[2022-08-17] MEDS: ipratropium-albuterol 3 mL Neb 6 ML INHALATION ×2 (08:52→09:20)
--- NOTE | 2022-08-17 09:00 | PC.PHAR ---
pts family verified pts medications-chemo medications entered are med that the cancer treatment center states the pt gets states the pt last had chemo jul 20 2022-[place] nurse at the cancer treatment center states the pt was getting keytruda states the last order was shown in [facility]
[2022-08-17 09:01] LABS: Alanine Aminotransferase 16 U/L (0-33); Albumin Level 3.8 g/dL (3.5-5.2); Alkaline Phosphatase 108 U/L (35-105); Anion Gap 15.5 (5-19); Aspartate Amino Transferase 18 U/L (0-32); Blood Urea Nitrogen 25 mg/dL (8-23); Calcium 9.6 mg/dL (8.5-10.5); Carbon Dioxide 27 mmol/L (22-29); Chloride 96 mmol/L (98-107); Creatinine Clr Calc Pharmacy 58.2674; Glomerular Filtration Rate 70.9 mL/min (90-130); Glucose 179 mg/dL (65-115); NT Pro B Type Natriuretic Pept 823 pg/mL (0-125); Osmolality Calculated 287 mOsm/kg (285-295); Potassium 4.5 mmol/L (3.5-5.1); Sodium 134 mmol/L (136-145); Total Bilirubin 0.6 mg/dL (0.15-1.2); Total Protein 6.8 g/dL (6.6-8.7)
--- NOTE | 2022-08-17 09:08 | CT_ITS ---
WS: [id number] CTA OF THE CHEST WITH PULMONARY EMBOLISM PROTOCOL TECHNIQUE: High-resolution contrast enhanced CTA of the chest with coronal and sagittal reformatted i mages with pulmonary embolism protocol. MIP images are also reviewed. CLINICAL INFORMATION: shortness of breath possible PE COMPARISON: PET/CT December 11, 2021 and bone scan February 10, 2022 DLP: 311.[address] scans at [facility] use at least one of these dose optimization techniques: automated e xposure control; mA and/or kV adjustment per patient size (includes targeted exams where dose is matc hed to clinical indication); or iterative reconstruction. FINDINGS: Proximal main pulmonary arteries are normal. Segmental and subsegmental pulmonary arteries are normal . No evidence of pulmonary embolus. Advanced chronic emphysematous changes. No acute pulmonary infiltrates. Subsegmental atelectasis in t he lingula. Slight hazy infiltrate in the lingula may be infectious or inflammatory. No mediastinal o r hilar lymphadenopathy. Adrenal glands are normal. Partially visualized LEFT ureteral stent. Normal GE junction. No axillary lymphadenopathy. Suspected liver metastasis in the LEFT hepatic lobe appear similar to the prior PET/CT. These are inc ompletely evaluated. Abdominal aortic aneurysm partially visualized measuring 4.7 x 4.4 cm AP by mckenzie winter partially visualized similar in appearance to the prior PET/CT. CT/CT angio chest PE protcl [id number] IMPRESSION: 1. No evidence of pulmonary embolus. 2. Moderate to advanced chronic emphysematous changes. Subsegmental atelectasi s in the lingula. Small amount of slightly hazy infiltrate in the lingula may b e infectious or inflammatory. 3. Normal caliber thoracic aorta. 4. Partially visualized abdominal aortic aneurysm appears stable since the [place] or PET/CT December 11, 2021 where visualized today. 5. Partially visualized LEFT ureteral stent.
[2022-08-17 09:27] LABS: Influenza A by IFA negative (Negative); Influenza B by IFA negative (Negative)
[2022-08-17 09:46] LABS: SARS Covid-2 Antigen Negative (Negative)
[2022-08-17] MEDS: iohexol 350 mg/mL 500 mL Btl (per mL) IV (09:56)
[2022-08-17] MEDS: cefTRIAXone 2,000 MG in sodium chloride 0.9% (plus) 50 ML 100 MG IV (10:48)
[2022-08-17] MEDS: azithromycin 250 MG in sodium chloride 0.9% 250 ML IV (12:09)
[2022-08-17] MEDS: albuterol 8 gm MDI 2 PUFF INHALATION (12:09)
--- NOTE | 2022-08-17 12:10 | PM.HP ---
Providers/Chief Complaint Admitting Physician: Luis Justice MD Primary Care Provider: Rocio Hilliard MD Chief Complaint: SOB History of Present Illness Mone Singh is a 72 year old female presenting to the emergency department with significant shortness of breath. She woke up with this around 2 AM. It was associated with significant wheezing. She is worried it may be related to Macrobid which she was recently prescribed for UTI. She reports some shortness of breath before with exertion but never any wheezing to this extent. She reports no significant fluid gain, chest discomfort, or sputum production. She reports she did have some chills, and hot flashes when she got ill. She states it never improved so she eventually came to the emergency department. No recent vomiting, diarrhea, other changes in medications. Review of Systems General: Reports: 10 or more systems reviewed and unremarkable except in HPI and below Const: Reports: chills; Denies: fever(s) Eyes: Denies: change in vision ENMT: Denies: throat pain Card: Denies: chest pain Resp: Reports: dyspnea and wheezing GI: Denies: abdominal pain, nausea, vomiting, hematochezia or melena : Denies: flank pain Musc: Denies: neck pain Skin/Breast: Denies: rash Neuro: Denies: headache(s) Psych: Denies: anxiety or depression Endo: Denies: polyuria Markie/Lymph: Denies: easy bruising All/Imm: Denies: urticaria Medications/Allergies Home Medications Medication Instructions Recorded Confirmed Last Taken Type atorvastatin 20 mg tablet 20 mg PO QPM 11/20/21 08/17/22 08/16/22 History losartan 50 mg-hydrochlorothiazide 1 tab PO QPM 11/20/21 08/17/22 03/15/22 History 12.5 mg tablet prochlorperazine maleate 10 mg 10 mg PO Q4H PRN nausea and 01/28/22 08/17/22 Unknown Rx tablet (Compazine) vomiting #30 tabs loperamide 2 mg tablet (Imodium 2 mg PO Q6H PRN Diarrhea 06/15/22 08/17/22 Unknown History A-D) loratadine 10 mg tablet (Claritin) 10 mg PO DAILY PRN Allergy Symptoms 06/15/22 08/17/22 Unknown History diphenhydramine HCl 12.5 mg/5 mL 25 mg PO .EVERY 4-6 HOURS PRN 07/06/22 08/17/22 Unknown History oral liquid (Allergy unknown (diphenhydramine)) nitrofurantoin 100 mg PO BID #28 caps 08/16/22 08/17/22 08/16/22 17:00 Rx monohydrate/macrocrystals 100 mg capsule (Macrobid) acetaminophen 500 mg tablet 500 mg PO Q6H PRN Pain 08/17/22 08/17/22 08/17/22 04:00 History bevacizumab 25 mg/mL intravenous See Rx Instructions .Route .COMPLEX 08/17/22 08/17/22 07/20/22 History solution (Avastin) cisplatin 50 mg intravenous powder See Rx Instructions .Route .COMPLEX 08/17/22 08/17/22 07/20/22 History for solution dexamethasone 20 mg tablet 20 mg PO .BEFORE CHEMO 08/17/22 08/17/22 07/20/22 History diphenhydramine HCl 25 mg capsule 25 mg PO .BEFORE CHEMO 08/17/22 08/17/22 07/20/22 History (Benadryl) famotidine 20 mg tablet (Pepcid) 20 mg PO .BEFORE CHEMO 08/17/22 08/17/22 07/20/22 History fosaprepitant 150 mg intravenous 150 mg IV .BEFORE CHEMO 08/17/22 08/17/22 07/20/22 History solution (Emend (fosaprepitant)) multivitamin 1 tab PO DAILY 08/17/22 08/17/22 Unknown History olanzapine 5 mg tablet (Zyprexa) 5 mg PO .BEFORE CHEMO 08/17/22 08/17/22 07/20/22 History ondansetron 4 mg disintegrating 4 - 8 mg PO Q6H PRN nausea and 08/17/22 08/17/22 Unknown History tablet vomiting paclitaxel 6 mg/mL See Rx Instructions .Route .COMPLEX 08/17/22 08/17/22 07/20/22 History concentrate,intravenous palonosetron 0.25 mg/5 mL 0.25 mg IV .BEFORE CHEMO 08/17/22 08/17/22 07/20/22 History intravenous solution (Aloxi) Allergies Allergy/AdvReac Type Severity Reaction Status Date / Time nitrofurantoin Allergy ALGY-Difficulty Verified 08/17/22 12:27 [From Macrobid] Breathing Penicillins Allergy skin rash Verified 08/17/22 08:38 PFSH Acute PFSH: Medical History Hydronephrosis, left Hypercholesteremia Hypertension No pertinent past medical history neghx: dm,thyroid,dvt/pe PCP: Dr. Hilliard Surgical History No pertinent past surgical history Family History Mother , at age 69 Colon cancer dx age 60's Thyroid disease Thyroid cancer Cancer Thyroid cancer followed by colon cancer Father , at age 68 Cancer Lung cancer Diabetes Denies family history of CAD (coronary artery disease) Clotting disorder Dementia Hyperlipidemia Psychiatric illness Chronic kidney disease (CKD) Suicide Anesthesia complication Bleeding disorder Lung disease Hypertension Stroke Social History Smoking and tobacco status: current every day smoker (0.5 ppd) cigarettes Packs smoked per day: 0.5 Years cigarettes smoked: 40 Alcohol intake: current Alcohol intake frequency: holidays/special occasions only Marital status: Current occupational status: retired History of recent travel: No Other PFSH information: Supplemental PFSH Information: No remarkable surgical history. Does have history of port. Vitals/I&O/Wt Last Vital Signs Temp 98.2 F 08/17/22 08:16 Pulse 103 H 08/17/22 11:00 Resp 19 H 08/17/22 11:00 BP 104/60 08/17/22 11:00 Pulse Ox 86 L 08/17/22 11:00 O2 Del Method 08/17/22 11:00 O2 Flow Rate 4 08/17/22 09:19 08/16/22 08/17/22 08/17/22 22:59 06:59 14:59 Intake Total 50 / 50 Balance 50 / 50 Weight last 48 hrs Weight 58.967 kg Physical Exam Narrative: General exam is a white female, on 3 L of oxygen, in no distress on current oxygen. She reports she still feels a little wheezy and denies any chest discomfort. HEENT: Atraumatic and normocephalic. Pupils equally round. Oropharynx clear. Neck is supple no lymphadenopathy thyromegaly Cardiovascular regular rate and rhythm, no murmur, no tachycardia. Port is noted Lungs bilateral faint expiratory wheezes. Diminished breath sounds are noted bilaterally Abdomen is soft, positive bowel sounds. No obvious organomegaly. exam is deferred Extremities no cyanosis clubbing or edema, cap refill brisk Skin no rash Neuro no focal deficits. Data 08/17/22 08:30 08/17/22 08:30 Other Labs: BNP elevated at 823 LFTs normal with exception of alk phos of 1 await Urinalysis ordered Influenza A and B negative and rapid COVID-negative Chest x-ray no infiltrate CTA chest demonstrates no pulmonary embolism, lingular infiltrate, emphysema, partially visualized stable abdominal aortic aneurysm, left ureteral stent partially visualized but no obvious obstruction A&P Assessment and plan (1) Hypoxia: Patient presents with hypoxia and wheezing. Differential diagnosis is large but likely secondary to COPD exacerbation. May have pneumonia. Cannot completely rule out pneumonitis from antibiotic. Oxygen requirement appears to be decreasing. 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 Last chemotherapy treatment around July 20. (6) Hypertension: Continue home medications (7) Cystitis: Patient with recent UTI. Check urinalysis. (8) Tobacco dependence: Encourage abstinence Plan Multiple other medical problems as outlined under past medical history Full code Lovenox for DVT prophylaxis Attestations Medical Necessity Statement*: Will need less than 2 midnight stay for evaluation and treatment of pneumonia/COPD exacerbation Coding Level of Care Code Acute Child Health Associate for [facility] Fw Diagnoses Hypoxia R09.02 Pneumonia J18.9 COPD exacerbation J44.1 Elevated brain natriuretic peptide (BNP) level R79.89 Squamous cell carcinoma of cervix C53.9 Hypertension I10 Cystitis N30.90 Tobacco dependence F17.200
--- NOTE | 2022-08-17 12:12 | ECG_ITS ---
[facility] Test Date: 2022-08-17 Pat Name: Mone Singh Department: Room: 256 Gender: Female Senior Gis Analyst: : 1950 Requested By: Luis Laughlin Order Number: [id number] Oly MD: Sheila Payton M.D. Measurements Intervals [place] Rate: 95 P: 75 MA: 147 QRS: 140 QRSD: 87 T: 74 QT: 346 QTc: 436 Interpretive Statements SINUS RHYTHM INDETERMINATE AXIS No previous ECG available for comparison Electronically Signed On 08-17-2022 18:07:33 CLINICAL CYTOPATHOLOGIST by Sheila Payton M.D. [id number]
[2022-08-17 12:51] LABS: Troponin T (5th) Once 15 ng/L (0-10)
[2022-08-17 12:58] LABS: Thyroid Stimulating Hormone 2.67 uIU/mL (0.27-4.20)
[2022-08-17] MEDS: enoxaparin 40 mg/0.4 mL Syringe SUBCUT (13:34)
[2022-08-17] MEDS: ipratropium-albuterol 3 mL Neb INHALATION ×3 (15:01→21:04)
[2022-08-17 15:35] LABS: Adenovirus Not Detected (NOT DETECT); Chlamydia Pneumoniae Not Detected (NOT DETECT); Coronavirus 229E,HKU1,NL63,OC4 Not Detected (NOT DETECT); Human Metapneumovirus Not Detected (NOT DETECT); Human Rhinovirus/Enterovirus Not Detected (NOT DETECT); Influenza A Not Detected (NOT DETECT); Influenza A H1 Not Detected (NOT DETECT); Influenza A H1-2009 Not Detected (NOT DETECT); Influenza A H3 Not Detected (NOT DETECT); Influenza B Not Detected (NOT DETECT); Mycoplasma Pneumoniae Not Detected (NOT DETECT); Parainfluenza Virus Type 1 Not Detected (NOT DETECT); Parainfluenza Virus Type 2 Not Detected (NOT DETECT); Parainfluenza Virus Type 3 Not Detected (NOT DETECT); Parainfluenza Virus Type 4 Not Detected (NOT DETECT); Respiratory Syncytial Virus A Not Detected (NOT DETECT); Respiratory Syncytial Virus B Not Detected (NOT DETECT); SARS-COV-2 Not Detected (NOT DETECT)
[2022-08-17 16:54] LABS: Troponin T (5th) Once 17 ng/L (0-10)
[2022-08-17] MEDS: losartan 50 mg Tablet PO (17:24)
[2022-08-17] MEDS: atorvastatin 40 mg Tablet 20 MG PO (17:24)
--- NOTE | 2022-08-17 18:24 | USCV_ITS ---
Mone Singh Age: 72 Gender: F : 1950 Exam Date: 08/17/2022 22:32 Ordering Phys: Luis Justice MD Technologist: IRINEO Exam Location: [facility] [place] Indication: acute shorness of breath today. Patient is undergoing chemotherapy. BP: 109 / 72 HR: 129 Rhythm: Sinus Technical Quality: Adequate MEASUREMENTS (Male / Female) Normal Values 2D ECHO LV Diastolic Diameter PLAX 3.2 cm 4.2 - 5.9 / 3.9 - 5.3 cm LV Systolic Diameter PLAX 2.0 cm IVS Diastolic Thickness 1.5 cm 0.6 - 1.0 / 0.6 - 0.9 cm IVS Systolic Thickness 1.9 cm LVPW Diastolic Thickness 1.6 cm 0.6 - 1.0 / 0.6 - 0.9 cm LVPW Systolic Thickness 1.8 cm LVOT Diameter 1.7 cm LV Ejection Fraction 2D Teich 68.2 % LV Ejection Fraction MOD 2C 80.2 % LV Ejection Fraction 2C AL 80.8 % LA Diameter 3.2 cm LA Width 2.4 cm LA Height 3.7 cm RA Width 2.8 cm RA Height 3.7 cm Aorta at Sinotubular Diameter 2.6 cm IVC Diameter 1.3 cm M-MODE Aortic Annulus Diameter 2.5 cm LA Ao Ratio MM 1.3 MV E Point Septal Separation 0.4 cm DOPPLER AV Peak Velocity 126.0 cm/s LVOT Peak Velocity 99.0 cm/s AV Area Cont Eq vti 1.7 cm squared AV Area Cont Eq pk 1.7 cm squared MV Area PHT 2.0 cm squared Mitral E to A Ratio 0.6 MV E' Velocity 34.0 cm/s Mitral E to MV E' Ratio 9.0 Mitral E to LV E' Lateral Ratio 9.6 Mitral E to LV E' Septal Ratio 8.6 TR Peak Velocity 321.5 cm/s TR Peak Gradient 41.3 mmHg TV Peak E Velocity 45.0 cm/s Right Atrial Pressure 5.0 mmHg Pulmonary Artery Systolic Pressu 46.3 mmHg PV Peak Velocity 90.0 cm/s RV Acceleration Time 0.1 s RV Ejection Time 0.3 s RV AcT/ET 0.4 FINDINGS Left Ventricle Left ventricle is normal in size. LV systolic function is normal with EF of 55-60%. No rregional wall motion abnormalities. Grade 1 diastolic dysfunction Right Ventricle Normal in size and function. Right Atrium Normal in size Left Atrium Normal in size Mitral Valve Moderate mitral annular calcification.No significant stenosis or regurgitation. Aortic Valve Aortic valve is structurally normal. No significant stenosis or regurgitation. Tricuspid Valve Mild tricuspid regurgitation. RVSP is 40-45mmHg. This is consistent with moderate pulmonary hypertension. Pulmonic Valve Not well visualized. Trace pulmonic regurgitation. Pericardium Normal Aorta Normal in size IVC Appears to be normal CONCLUSIONS LV systolic function is normal with EF of 55 to 60%. Grade 1 diastolic dysfunction Moderate mitral annular calcification Mild tricuspid regurgitation. Moderate pulmonary hypertension Trace pulmonic regurgitation No comparison studies are available Fransico Dias MD (Electronically Signed) Final Date: 18 August 2022 16:57 S
[2022-08-17] MEDS: budesonide 0.5 mg/2 mL Neb INHALATION (21:04)
[2022-08-17] MEDS: hydroCHLOROthiazide 25 mg Tablet 12.5 MG PO (21:21)
[2022-08-18] VITALS (17 sets, daily range): BP systolic 96–144; BP diastolic 62–77; PULSE 77–99; RESP 15–18; TEMP 36.3–37; O2SAT 88–100
[2022-08-18] MEDS: ipratropium-albuterol 3 mL Neb INHALATION ×5 (00:05→21:47)
[2022-08-18 05:32] LABS: Basophils % 0.1 %; Eosinophils % 0.1 %; Hematocrit 36.3 % (37.0-47.0); Hemoglobin 11.6 g/dL (11.5-15.3); Lymphocytes # 0.5 10^3/uL (0.8-4.8); Lymphocytes % 2.5 %; Mean Corpuscular Hemoglobin 33.7 pg (28.0-34.0); Mean Corpuscular Volume 105.5 fl (81-99); Mean Platelet Volume 10.9 fL (7.4-10.4); Monocytes # 0.4 10^3/uL (0.2-0.9); Monocytes % 2.1 %; Neutrophils # 19.59 10^3/uL (1.8-7.7); Neutrophils % 93.9 %; Nucleated Red Blood Cells % 0 %; Platelet Count 199 10^3/cmm (130-400); Red Blood Count 3.44 10^6/uL (4.1-5.3); Red Cell Distribution Width 16.5 % (12.1-15.1); White Blood Count 20.9 10^3/uL (4.0-10.0)
[2022-08-18 05:49] LABS: Alanine Aminotransferase 13 U/L (0-33); Albumin Level 3.2 g/dL (3.5-5.2); Alkaline Phosphatase 82 U/L (35-105); Anion Gap 13.6 (5-19); Aspartate Amino Transferase 13 U/L (0-32); Blood Urea Nitrogen 36 mg/dL (8-23); Calcium 9.3 mg/dL (8.5-10.5); Carbon Dioxide 28 mmol/L (22-29); Chloride 98 mmol/L (98-107); Globulin 2.9 g/dL (1.3-4.6); Glomerular Filtration Rate 54.8 mL/min (90-130); Glucose 121 mg/dL (65-115); Magnesium 1.8 mg/dL (1.7-2.3); Osmolality Calculated 290 mOsm/kg (285-295); Potassium 4.6 mmol/L (3.5-5.1); Sodium 135 mmol/L (136-145); Total Bilirubin 0.2 mg/dL (0.15-1.2); Total Protein 6.1 g/dL (6.6-8.7)
[2022-08-18] MEDS: budesonide 0.5 mg/2 mL Neb INHALATION ×2 (07:46→21:46)
[2022-08-18] MEDS: cefTRIAXone 1,000 MG in sodium chloride 0.9% (plus) 50 ML 100 MG IV (10:40)
[2022-08-18] MEDS: sodium chloride 0.9% (100 ml) 100 ML 20 ML (10:50)
[2022-08-18 12:17] LABS: Urine Color Yellow (Yellow)
[2022-08-18 12:18] LABS: Add Urine Culture? Yes; Bacteria Urine TRACE /hpf; Bilirubin Urine Neg (Negative); Blood Urine 3+ (Negative); Glucose Urine UA Norm (Normal); Ketones Urine Negative (Negative); Leukocyte Esterase Urine Negative (Negative); Nitrate Urine Negative (Negative); Protein Urine Trace (Negative); Squamous Epithelial Cell Urine 15-25 /hpf (0-5); Urine Appearance Clear (CLEAR); Urobilinogen Urine Norm (Negative); pH Urine 5 (5-7)
--- NOTE | 2022-08-18 12:52 | P.PN_ITS ---
Subjective Subjective: Mone reports she feels little bit better. Less wheezy. Less short of breath. She is still requiring oxygen. Attempts to wean her down to room air were unsuccessful and she is still requiring 2 L of oxygen. Medications: Reviewed: Yes Vitals/I&O/Wt Last Vital Signs Temp 97.7 F 08/18/22 11:59 Pulse 95 08/18/22 12:34 Resp 18 08/18/22 12:00 BP 144/77 08/18/22 11:59 Pulse Ox 88 L 08/18/22 12:00 O2 Del Method 08/18/22 12:00 O2 Flow Rate 3 08/18/22 07:50 08/17/22 08/18/22 08/18/22 22:59 06:59 14:59 Intake Total 120 / 420 480 / 900 120 / 120 Balance 120 / 420 480 / 900 120 / 120 Weight last 48 hrs Weight 60.736 kg Weight 58.967 kg Physical Exam Narrative: General exam is a white female, on 2 L of oxygen, in no distress on current oxygen. Neck is supple no lymphadenopathy thyromegaly Cardiovascular regular rate and rhythm, no murmur, no tachycardia. Port is noted Lungs diminished breath sounds bilaterally. No wheezes today. Abdomen is soft, positive bowel sounds. No obvious organomegaly. Extremities no cyanosis clubbing or edema, cap refill brisk Skin no rash Data 08/18/22 05:01 08/18/22 05:01 A&P Assessment and plan (1) Hypoxia: Patient presents with hypoxia and wheezing. Differential diagnosis is large but likely secondary to COPD exacerbation. May have pneumonia. Cannot completely rule out pneumonitis from antibiotic. Oxygen requirement is slowly improving but still requiring 2 L. (2) Pneumonia: IV Rocephin and azithromycin initiated. Continue Await sputum culture COVID PCR negative Rapid COVID, influenza negative To try to wean oxygen White blood cell count decreased slightly to 20.9. Certainly some elevation could be response to steroids as well. Possible discharge tomorrow if continues to improve. It is conceivable she may require some home oxygen on discharge. Either way, home oxygen evaluation test will be performed prior to discharge. (3) COPD exacerbation: Change Solu-Medrol to prednisone Budesonide twice daily DuoNeb every 4 hours She will need a nebulizer on discharge. (4) Elevated brain natriuretic peptide (BNP) level: Troponin had no significant trend EKG not concerning. Does appear to have likely pulmonary pattern. CTA did not show signs of fluid overload TSH was checked and normal Echocardiogram performed has not been officially read. On my review, she appears to have a normal ejection fraction/hyperdynamic. Aortic valve area is normal. Pulmonary artery pressure calculated around 45. Await official read. 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 Last chemotherapy treatment around July 20. (6) Hypertension: Continue home medications (7) Cystitis: Patient with recent UTI. Urinalysis checked here about the same 10-15 white blood cells per high-power field. However, this is contaminated as there are 15-25 squamous per high-powered field and with as well. It is not appropriate for culture. (8) Tobacco dependence: Encourage abstinence Plan Multiple other medical problems as outlined under past medical history Full code Lovenox for DVT prophylaxis Home health referral Attestations Medical Necessity Statement*: Requires continued hospitalization secondary to pneumonia with continued hypoxemia. Coding Level of Care Code Acute Burn Table 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 Diagnoses Hypoxia R09.02 Pneumonia J18.9 COPD exacerbation J44.1 Elevated brain natriuretic peptide (BNP) level R79.89 Squamous cell carcinoma of cervix C53.9 Hypertension I10 Cystitis N30.90 Tobacco dependence F17.200
[2022-08-18] MEDS: enoxaparin 40 mg/0.4 mL Syringe SUBCUT (13:09)
[2022-08-18] MEDS: losartan 50 mg Tablet PO (17:35)
[2022-08-18] MEDS: atorvastatin 40 mg Tablet 20 MG PO (17:39)
[2022-08-18] MEDS: hydroCHLOROthiazide 25 mg Tablet 12.5 MG PO (20:34)
[2022-08-18] MEDS: azithromycin 500 MG in sodium chloride 0.9% 250 ML 250 MG IV (22:30)
[2022-08-19] VITALS (8 sets, daily range): BP systolic 103–121; BP diastolic 62–97; PULSE 62–97; RESP 15–20; TEMP 36.4–37.1; O2SAT 80–97
[2022-08-19] MEDS: ipratropium-albuterol 3 mL Neb INHALATION ×3 (01:37→11:50)
[2022-08-19 04:58] LABS: Basophils % 0.1 %; Eosinophils # 0.1 10^3/uL (0.0-0.8); Eosinophils % 0.7 %; Hematocrit 34.4 % (37.0-47.0); Lymphocytes % 5.7 %; Mean Corpuscular Hemoglobin 33.4 pg (28.0-34.0); Mean Corpuscular Volume 104.6 fl (81-99); Mean Platelet Volume 10.6 fL (7.4-10.4); Monocytes # 0.8 10^3/uL (0.2-0.9); Monocytes % 4.7 %; Neutrophils # 14.77 10^3/uL (1.8-7.7); Neutrophils % 88.1 %; Nucleated Red Blood Cells % 0 %; Platelet Count 193 10^3/cmm (130-400); Red Blood Count 3.29 10^6/uL (4.1-5.3); Red Cell Distribution Width 16.3 % (12.1-15.1); White Blood Count 16.7 10^3/uL (4.0-10.0)
[2022-08-19 05:19] LABS: Anion Gap 10.6 (5-19); Blood Urea Nitrogen 36 mg/dL (8-23); Calcium 8.8 mg/dL (8.5-10.5); Carbon Dioxide 30 mmol/L (22-29); Chloride 101 mmol/L (98-107); Glomerular Filtration Rate 70.9 mL/min (90-130); Glucose 106 mg/dL (65-115); Osmolality Calculated 293 mOsm/kg (285-295); Potassium 4.6 mmol/L (3.5-5.1); Sodium 137 mmol/L (136-145)
[2022-08-19] MEDS: budesonide 0.5 mg/2 mL Neb INHALATION (08:31)
[2022-08-19] MEDS: predniSONE 20 mg Tablet 40 MG PO (09:35)
--- NOTE | 2022-08-19 10:38 | PM.DCS ---
Discharge Providers Date of Admission: 08/18/22 13:00 Date of Discharge: August 19, 2022 Attending Provider at Admission: Luis Justice MD Attending Provider at Discharge: Luis Justice MD Primary Care Provider: Rocio Hilliard MD Diagnoses at Discharge Discharge Diagnosis (1) Hypoxia: Status: Acute (2) Pneumonia: Status: Acute (3) COPD exacerbation: Status: Acute (4) Elevated brain natriuretic peptide (BNP) level: Status: Acute (5) Squamous cell carcinoma of cervix: Status: Acute (6) Hypertension: Status: Acute (7) Cystitis: Status: Acute (8) Tobacco dependence: Status: Acute Reason for Visit Reason for Visit: SOB Hospital Course Hospital Course Mone is a 72-year-old female with history of cervical cancer, metastatic, who presented to the hospital with shortness of breath and wheezing. She was concerned it might be due to Macrobid which she taken 1 dose for UTI. It appeared she had a pneumonia, elevated white count, and COPD exacerbation. IV steroids and IV antibiotics were initiated. Breathing treatments were initiated. BNP was elevated so echocardiogram was performed which demonstrated preserved EF, slight diastolic dysfunction, moderate pulmonary hypertension. Troponins did not show any significant concerning trend and EKG showed no significant concerns. A CTA was also performed demonstrating no pulmonary embolism or obvious fluid overload. With the treatment she improved. By August 19 it was thought she could be discharged home. At that time she was afebrile, oxygen requirement had decreased but she still was requiring oxygen as was expected demonstrated by the moderate to severe emphysema seen on her CT scan. White blood cell count had decreased. It was thought she could be discharged home on home oxygen, with nebulized treatments, instructions not to smoke, follow-up with primary care provider as well as pulmonary. Discharge instructions were given to her and her sister and they agreed with the plan. I also communicated her hospital stay with her daughter. She will finish up 3 days of prednisone, 1 dose of Zithromax, 7 days of cefdinir. Physical Exam Narrative: General exam no distress Neck is supple no lymphadenopathy or thyromegaly Cardiovascular regular rate and rhythm, no murmur Lungs diminished breath sounds bilaterally no wheezing currently Abdomen is soft with positive bowel sounds Extremities no cyanosis clubbing or edema Discharge Data Studies Completed and Pending Completed Studies During Hospitalization Category Date Time Status CT angio chest PE protcl [id number] Stat Cat Scan 08/17/22 09:08 Completed XR chest 1V portable [id number] Stat Exams 08/17/22 08:23 Completed CV. echo complete* [id number] Routine Ultrasound 08/17/22 18:24 Completed Pending at discharge Category Date Time Status Sputum Culture and Gram Stain Routine Lab 08/17/22 12:41 Uncollected Urine Culture Routine Lab 08/17/22 11:45 Received Radiology Impressions Chest X-Ray 08/17/22 08:23 IMPRESSION: No significant cardiopulmonary abnormality. Chest CTA 08/17/22 09:08 IMPRESSION: 1. No evidence of pulmonary embolus. 2. Moderate to advanced chronic emphysematous changes. Subsegmental atelectasis in the lingula. Small amount of slightly hazy infiltrate in the lingula may be infectious or inflammatory. 3. Normal caliber thoracic aorta. 4. Partially visualized abdominal aortic aneurysm appears stable since the prior PET/CT December 11, 2021 where visualized today. 5. Partially visualized LEFT ureteral stent. Laboratory Results WBC 16.7 10^3/uL (4.0-10.0) H 08/19/22 04:46 RBC 3.29 10^6/uL (4.1-5.3) L 08/19/22 04:46 Hgb 11.0 g/dL (11.5-15.3) L 08/19/22 04:46 Hct 34.4 % (37.0-47.0) L 08/19/22 04:46 MCV 104.6 fl (81-99) H 08/19/22 04:46 MCH 33.4 pg (28.0-34.0) 08/19/22 04:46 MCHC 32.0 g/dL (30.0-36.0) 08/19/22 04:46 RDW 16.3 % (12.1-15.1) H 08/19/22 04:46 Plt Count 193 10^3/cmm (130-400) 08/19/22 04:46 MPV 10.6 fL (7.4-10.4) H 08/19/22 04:46 Neut % (Auto) 88.1 % 08/19/22 04:46 Lymph % (Auto) 5.7 % 08/19/22 04:46 [place] % (Auto) 4.7 % 08/19/22 04:46 Eos % (Auto) 0.7 % 08/19/22 04:46 Baso % (Auto) 0.1 % 08/19/22 04:46 Neut # (Auto) 14.77 10^3/uL (1.8-7.7) H 08/19/22 04:46 Lymph # (Auto) 1.0 10^3/uL (0.8-4.8) 08/19/22 04:46 [place] # (Auto) 0.8 10^3/uL (0.2-0.9) 08/19/22 04:46 Eos # (Auto) 0.1 10^3/uL (0.0-0.8) 08/19/22 04:46 Baso # (Auto) 0.0 10^3/uL (0.0-0.1) 08/19/22 04:46 Nucleated RBC % (auto) 0 % 08/19/22 04:46 Nucleated RBCs # 0.0 /100WBC 08/19/22 04:46 Sodium 137 mmol/L (136-145) 08/19/22 04:46 Potassium 4.6 mmol/L (3.5-5.1) 08/19/22 04:46 Chloride 101 mmol/L (98-107) 08/19/22 04:46 Carbon Dioxide 30 mmol/L (22-29) H 08/19/22 04:46 Anion Gap 10.6 (5-19) 08/19/22 04:46 BUN 36 mg/dL (8-23) H 08/19/22 04:46 Creatinine 0.8 mg/dL (0.5-0.9) 08/19/22 04:46 GFR Calculation 70.9 mL/min (90-130) L 08/19/22 04:46 Glucose 106 mg/dL (65-115) 08/19/22 04:46 Calculated Osmolality 293 mOsm/kg (285-295) 08/19/22 04:46 Lactic Acid 2.0 mmol/L (0.5-2.2) 08/17/22 08:30 Calcium 8.8 mg/dL (8.5-10.5) 08/19/22 04:46 Magnesium 1.8 mg/dL (1.7-2.3) 08/18/22 05:01 Total Bilirubin 0.2 mg/dL (0.15-1.2) 08/18/22 05:01 AST 13 U/L (0-32) 08/18/22 05:01 ALT 13 U/L (0-33) 08/18/22 05:01 Alkaline Phosphatase 82 U/L (35-105) 08/18/22 05:01 Troponin T Gen 5 ng/L 17 ng/L (0-10) H 08/17/22 16:15 NT-Pro-B Natriuret Pep 823 pg/mL (0-125) H 08/17/22 08:30 Total Protein 6.1 g/dL (6.6-8.7) L 08/18/22 05:01 Albumin 3.2 g/dL (3.5-5.2) L 08/18/22 05:01 Globulin 2.9 g/dL (1.3-4.6) 08/18/22 05:01 TSH 2.67 uIU/mL (0.27-4.20) 08/17/22 08:30 Urine Color Cancelled 08/17/22 11:45 Urine Color Yellow (Yellow) 08/17/22 11:45 Urine Appearance Cancelled 08/17/22 11:45 Urine Appearance Clear (CLEAR) 08/17/22 11:45 Urine pH 5 (5-7) 08/17/22 11:45 Urine pH Cancelled 08/17/22 11:45 Ur Specific Bentley 1.020 (1.005-1.030) 08/17/22 11:45 Ur Specific Bentley Cancelled 08/17/22 11:45 Urine Protein Cancelled 08/17/22 11:45 Urine Protein Trace (Negative) 08/17/22 11:45 Urine Glucose (UA) Cancelled 08/17/22 11:45 Urine Glucose (UA) Norm (Normal) 08/17/22 11:45 Urine Ketones Cancelled 08/17/22 11:45 Urine Ketones Negative (Negative) 08/17/22 11:45 Urine Blood 3+ (Negative) H 08/17/22 11:45 Urine Blood Cancelled 08/17/22 11:45 Urine Nitrate Cancelled 08/17/22 11:45 Urine Nitrate Negative (Negative) 08/17/22 11:45 Urine Bilirubin Cancelled 08/17/22 11:45 Urine Bilirubin Neg (Negative) 08/17/22 11:45 Prot Sulfosalicylic Acd Cancelled 08/17/22 11:45 Urine Urobilinogen Cancelled 08/17/22 11:45 Urine Urobilinogen Norm mg/dL (Negative) 08/17/22 11:45 Ur Leukocyte Esterase Cancelled 08/17/22 11:45 Ur Leukocyte Esterase Negative (Negative) 08/17/22 11:45 Urine RBC 10-15 /hpf (0-2) H 08/17/22 11:45 Urine WBC 10-15 /hpf (0-5) H 08/17/22 11:45 Ur Squamous Epith Cells 15-25 /hpf (0-5) H 08/17/22 11:45 Amorphous Sediment Not Reportable 08/17/22 11:45 Urine Bacteria Trace /hpf (NONE) 08/17/22 11:45 Coronavirus 229E (PCR) Not detected (NOT DETECT) 08/17/22 13:27 Influenza Type A Ag negative (Negative) 08/17/22 08:55 Influenza Type B Ag negative (Negative) 08/17/22 08:55 SARS-CoV-2 (PCR) Not detected (NOT DETECT) 08/17/22 13:27 SARS-CoV-2 Ag (Rapid) Negative (Negative) 08/17/22 08:55 Vitals Last Vital Signs Temp 97.6 F 08/19/22 08:00 Pulse 91 08/19/22 08:00 Resp 16 08/19/22 08:00 BP 121/70 08/19/22 08:00 Pulse Ox 80 L 08/19/22 10:24 O2 Del Method 08/19/22 08:00 O2 Flow Rate 2 08/19/22 10:24 Discharge Plan Discharge Patient Disposition: Home Health Service Condition: Stable Prescriptions: New budesonide 0.5 mg/2 mL suspension for nebulization 0.5 mg inhalation BID Qty: 120 0RF azithromycin [Zithromax] 500 mg tablet 500 mg PO DAILY Qty: 1 0RF cefdinir 300 mg capsule 300 mg PO BID Qty: 14 0RF ipratropium-albuterol 0.5 mg-3 mg(2.5 mg base)/3 mL solution for nebulization 3 ml inhalation Q6H Qty: 180 0RF Continued losartan-hydrochlorothiazide 50-12.5 mg tablet 1 tab PO QPM atorvastatin 20 mg tablet 20 mg PO QPM diphenhydramine HCl [Allergy (diphenhydramine)] 12.5 mg/5 mL liquid 25 mg PO .EVERY 4-6 HOURS PRN (Reason: unknown) loperamide [Imodium A-D] 2 mg tablet 2 mg PO Q6H PRN (Reason: Diarrhea) loratadine [Claritin] 10 mg tablet 10 mg PO DAILY PRN (Reason: Allergy Symptoms) prochlorperazine maleate [Compazine] 10 mg tablet 10 mg PO Q4H PRN (Reason: nausea and vomiting) Qty: 30 3RF multivitamin Tablet 1 tab PO DAILY Zyprexa 5 mg Tablet 5 mg PO .BEFORE CHEMO Tylenol Ex Str Rapid Release 500 mg Tablet 500 mg PO Q6H PRN (Reason: Pain) Pepcid 20 mg Tablet 20 mg PO .BEFORE CHEMO Benadryl 25 mg Capsule 25 mg PO .BEFORE CHEMO Taxol 6 mg/mL Concentrate See Rx Instructions .ROUTE .COMPLEX Rx Instructions: 288mg every 3 weeks as directed Aloxi 0.25 mg/5 mL Solution 0.25 mg IV .BEFORE CHEMO Avastin 25 mg/mL Solution See Rx Instructions .ROUTE .COMPLEX Rx Instructions: 880mg every 3 weeks as directed cisplatin 50 mg Recon Soln See Rx Instructions .ROUTE .COMPLEX Rx Instructions: 82mg every 3 weeks as directed dexamethasone 20 mg Tablet 20 mg PO .BEFORE CHEMO ondansetron 4 mg tablet,disintegrating 4 - 8 mg PO Q6H PRN (Reason: nausea and vomiting) Discontinued nitrofurantoin monohyd/m-cryst [Macrobid] 100 mg capsule 100 mg PO BID Qty: 28 0RF Rx Instructions: for 14 days rx filled 08/16/22 Emend (fosaprepitant) 150 mg Recon Soln 150 mg IV .BEFORE CHEMO Discharge Orders: Discharge Order (Routine); Ordered 08/19/22 Ordered By: Luis Justice Other Ambulatory Orders: DME: Nebulizer with Neb Kit (Order) Location: None Selected Ordered By: Luis Justice DME: Oxygen (Order) Location: None Selected Ordered By: Luis Justice Referrals: [facility] [Outside] Yue Justice MD [Staff Physician] - 08/27/22 9:30 am (Please arrive at clinic at 0930 for a 1000 am appointment. ) Datar,Shaheen B, MD [Physician] - 2 weeks (COPD) Discharge Diet: Cardiac Discharge Activity: Increase activity as tolerated Patient Instructions: Opioid Safety Activity Restrictions/Additional Instructions: Take all medicine as prescribed Use oxygen as directed, home oxygen evaluation prior to discharge Return for any worsening Please arrange for repeat chest x-ray in 2 weeks Please have patient's sign release of records to obtain echocardiogram disc. She would like this to provide her oncologist at [place]. Patient's Health Concerns: Pneumonia, COPD exacerbation Assessment: Improving while in the hospital Plan of Treatment: Nebulizer treatments, complete course of antibiotics Discharge Attestations Time Spent in Discharge Care*: greater than 30 min Quality Metrics Clinical Quality Measures [ No reported AMI, CVA or VTE this stay] Coding Level of Care Code Acute [facility] note Diagnoses Hypoxia R09.02 Pneumonia J18.9 COPD exacerbation J44.1 Elevated brain natriuretic peptide (BNP) level R79.89 Squamous cell carcinoma of cervix C53.9 Hypertension I10 Cystitis N30.90 Tobacco dependence F17.200
--- NOTE | 2022-08-19 10:53 | PC.CHAP ---
Pastoral Care Encounter/Spiritual Assessment Type of Contact [] Declined travel director visit [] Patient/Family/Request visit [] Outpatient visit [] Follow-up visit [] Physician referral [] Code/Alert [x] Routine visit [] Staff referral [] Actively dying [] Patient sleeping [] Family support [] [] Out of room [] Palliative care [] [] Receiving care in room [x] Pre-surgical visit [] Trauma [x] Long length of stay [] ICU visit [] Other: Relational/Emotional Strength [] Patient feels connected with others/family/visitors/staff [x] Distress [] Loneliness/isolation [] Abandonment Spirituality of Patient [x] Person of [place] [] Attends Zoroastrian of their [place] [x] Believes in Prayer [] Reads Bible or Protestant materials [] There are Spiritual issues to be addressed Therapy Site Coordinator Interventions [x] Prayer [x] Active listening [x] Non-anxious presence [x] Spiritual/emotional support [] Crisis/trauma care [x] Spiritual counseling [] Bereavement support [] Provided bereavement packet [] Provided Bible/devotional materials [] Provided toy/stuffed animal, coloring book to patient or family member [] Provided Communion [] Anointing/Assawoman [] Salvation [x] Completed spiritual assessment [] Other: Impact on Illness or Injury [] Angry [] Fearful [x] Anxious [] Often cries [] Exhaustion [x] Unable to work [] Unable to attend episcopal [] Unable to walk/stand [] Unable to read [] Unable to drive [] Unable to eat/drink [] Unable to sleep [] Unable to be with family [] Patient intubated [] Other: Summary under stress +1 family cancer health problems going home Time spent with patient 10 mins
--- NOTE | 2022-08-19 11:07 | PC.NURSE ---
NEXT AVAIL NEW PT APPT WITH DR. ROGERS IS IN OCTOBER SINCE PT IS NOT ESTABLISHED.
== END 2022-08-19 12:55 | disposition home health service (06) | DRG 190 ==
LOC: ER 11:52 → MEDSURG 12:11
PROVIDERS: Admitting Provider Internal Medicine; Emergency Provider Emergency Medicine; PCP Family Medicine; Visit Provider Internal Medicine
DX: J44.1 Chronic obstructive pulmonary disease with (acute) exacerbation (principal); J18.9 Pneumonia, unspecified organism; J44.0 Chronic obstructive pulmonary disease with (acute) lower respiratory infection; Z88.0 Allergy status to penicillin; E78.00 Pure hypercholesterolemia, unspecified; I10 Essential (primary) hypertension; F17.210 Nicotine dependence, cigarettes, uncomplicated; C53.9 Malignant neoplasm of cervix uteri, unspecified; Z79.899 Other long term (current) drug therapy; N30.90 Cystitis, unspecified without hematuria; I27.20 Pulmonary hypertension, unspecified
CPT/HCPCS: 36415; 36591; 71045; 71275; 80048; 80053; 81001; 83605; 83735; 83880; 84443; 84484; 85025; 87086; 87426; 87635; 87804; 93005; 93306; 94640; 94760; 96365; 96372; 96375; 99215; 99285; G0378; J0456; J0696; J1650; J2930; J3535; J7050; J7512; J7626; Q9967

== ENCOUNTER 2022-09-15 08:00 | Oncology outpatient (recurring) (ONCR) | payer MEDICARE, SELFPAY ==
[2022-08-26 08:35] LABS: Basophils % 0.3 %; Eosinophils # 0.4 10^3/uL (0.0-0.8); Eosinophils % 3.3 %; Hematocrit 38.8 % (37.0-47.0); Hemoglobin 12.5 g/dL (11.5-15.3); Lymphocytes # 1.5 10^3/uL (0.8-4.8); Lymphocytes % 12.9 %; Mean Corpuscular HGB Conc 32.2 g/dL (30.0-36.0); Mean Corpuscular Hemoglobin 33.8 pg (28.0-34.0); Mean Corpuscular Volume 104.9 fl (81-99); Monocytes # 0.6 10^3/uL (0.2-0.9); Monocytes % 5.5 %; Neutrophils # 8.66 10^3/uL (1.8-7.7); Neutrophils % 77.3 %; Nucleated Red Blood Cells % 0 %; Platelet Count 212 10^3/cmm (130-400); White Blood Count 11.2 10^3/uL (4.0-10.0)
[2022-08-26 08:54] LABS: Alanine Aminotransferase 17 U/L (0-33); Albumin Level 3.6 g/dL (3.5-5.2); Alkaline Phosphatase 84 U/L (35-105); Anion Gap 12.3 (5-19); Aspartate Amino Transferase 15 U/L (0-32); Blood Urea Nitrogen 16 mg/dL (8-23); Calcium 9.2 mg/dL (8.5-10.5); Carbon Dioxide 31 mmol/L (22-29); Chloride 97 mmol/L (98-107); Globulin 2.4 g/dL (1.3-4.6); Glomerular Filtration Rate 70.9 mL/min (90-130); Glucose 102 mg/dL (65-115); Osmolality Calculated 283 mOsm/kg (285-295); Potassium 4.3 mmol/L (3.5-5.1); Sodium 136 mmol/L (136-145); Total Bilirubin 0.4 mg/dL (0.15-1.2)
[2022-09-15 08:19] VITALS: BP 126/75; PULSE 80; RESP 16; TEMP 36.3; O2SAT 98
[2022-09-15] MEDS: sodium chloride 0.9% 250 ML 35 ML IV (08:26)
[2022-09-15] MEDS: OLANZapine 5 mg TABLET PO (09:57)
[2022-09-15] MEDS: palonosetron 0.25 mg/5 mL SDV IVP (10:04)
[2022-09-15] MEDS: famotidine 20 mg/2 mL INJ IVP (10:05)
[2022-09-15] MEDS: diphenhydrAMINE 50 mg/mL SDV 1mL 25 MG IVP (10:07)
[2022-09-15] MEDS: fosaprepitant 150 MG in sodium chloride 0.9% 150 ML 300 MG IV (10:09)
[2022-09-15] MEDS: dexamethasone 20 MG in sodium chloride 0.9% 50 ML 188 MG IV (10:33)
[2022-09-15] MEDS: BEVACIZUMAB AWWB IV (11:20)
[2022-09-15] MEDS: SODIUM CHLORIDE 0.9% IV ×2 (11:20→14:40)
[2022-09-15] MEDS: CISPLATIN IV (14:40)
[2022-09-15] MEDS: FUROsemide 10 mg/mL SDV 2mL 20 MG IVP (15:46)
[2022-09-15] MEDS: potassium chloride 20 MEQ in sodium chloride 0.9% 500 ML 500 MEQ IV (15:52)
[2022-09-15 16:42] VITALS: BP 149/88; PULSE 87; RESP 16; TEMP 36.4
[2022-09-15] MEDS: sodium chloride 0.9% (100 ml) 100 ML 75 ML (16:42)
== END 2022-09-18 23:59 | disposition home or self-care (01) ==
PROVIDERS: Referring Provider Obstetrics & Gynecology Gynecologic Oncology; Visit Provider Internal Medicine Hematology & Oncology
DX: Z51.11 Encounter for antineoplastic chemotherapy (principal); C53.8 Malignant neoplasm of overlapping sites of cervix uteri; C77.8 Secondary and unspecified malignant neoplasm of lymph nodes of multiple regions; C79.51 Secondary malignant neoplasm of bone; C78.7 Secondary malignant neoplasm of liver and intrahepatic bile duct; C78.01 Secondary malignant neoplasm of right lung; F17.210 Nicotine dependence, cigarettes, uncomplicated; Z79.899 Other long term (current) drug therapy
CPT/HCPCS: 36591; 80053; 85025; 96366; 96367; 96375; 96413; 96415; 96417; 99214; 99215; J1100; J1200; J1453; J1940; J2469; J3475; J3480; J3490; J7030; J7040; J7050; J9060; J9267; Q5107

== ENCOUNTER 2022-10-12 10:00 | Oncology outpatient (recurring) (ONCR) | payer MEDICARE, SELFPAY ==
[2022-09-22 08:47] LABS: Basophils % 0.2 %; Eosinophils # 0.3 10^3/uL (0.0-0.8); Hematocrit 35.1 % (37.0-47.0); Hemoglobin 11.2 g/dL (11.5-15.3); Lymphocytes # 1.2 10^3/uL (0.8-4.8); Lymphocytes % 21.4 %; Mean Corpuscular HGB Conc 31.9 g/dL (30.0-36.0); Mean Corpuscular Hemoglobin 33.3 pg (28.0-34.0); Mean Corpuscular Volume 104.5 fl (81-99); Mean Platelet Volume 10.2 fL (7.4-10.4); Monocytes # 0.1 10^3/uL (0.2-0.9); Neutrophils # 3.85 10^3/uL (1.8-7.7); Nucleated Red Blood Cells % 0 %; Platelet Count 135 10^3/cmm (130-400); Red Blood Count 3.36 10^6/uL (4.1-5.3); Red Cell Distribution Width 14.9 % (12.1-15.1); White Blood Count 5.4 10^3/uL (4.0-10.0)
[2022-09-22 08:59] LABS: Alanine Aminotransferase 36 U/L (0-33); Albumin Level 3.8 g/dL (3.5-5.2); Alkaline Phosphatase 95 U/L (35-105); Anion Gap 15.5 (5-19); Aspartate Amino Transferase 23 U/L (0-32); Blood Urea Nitrogen 23 mg/dL (8-23); Calcium 8.6 mg/dL (8.5-10.5); Carbon Dioxide 26 mmol/L (22-29); Chloride 100 mmol/L (98-107); Globulin 2.1 g/dL (1.3-4.6); Glomerular Filtration Rate 70.9 mL/min (90-130); Glucose 109 mg/dL (65-115); Osmolality Calculated 288 mOsm/kg (285-295); Potassium 4.5 mmol/L (3.5-5.1); Sodium 137 mmol/L (136-145); Total Bilirubin 0.4 mg/dL (0.15-1.2); Total Protein 5.9 g/dL (6.6-8.7)
[2022-10-06 08:38] LABS: Basophils # 0.1 10^3/uL (0.0-0.1); Basophils % 0.8 %; Eosinophils # 0.3 10^3/uL (0.0-0.8); Eosinophils % 3.9 %; Hematocrit 38.7 % (37.0-47.0); Hemoglobin 12.3 g/dL (11.5-15.3); Lymphocytes # 1.7 10^3/uL (0.8-4.8); Lymphocytes % 20.3 %; Mean Corpuscular HGB Conc 31.8 g/dL (30.0-36.0); Mean Corpuscular Hemoglobin 33.2 pg (28.0-34.0); Mean Corpuscular Volume 104.3 fl (81-99); Mean Platelet Volume 10.2 fL (7.4-10.4); Monocytes # 0.9 10^3/uL (0.2-0.9); Monocytes % 10.2 %; Neutrophils # 5.43 10^3/uL (1.8-7.7); Neutrophils % 64.2 %; Nucleated Red Blood Cells % 0 %; Platelet Count 274 10^3/cmm (130-400); Red Blood Count 3.71 10^6/uL (4.1-5.3); Red Cell Distribution Width 15.7 % (12.1-15.1); White Blood Count 8.5 10^3/uL (4.0-10.0)
[2022-10-06 09:01] LABS: Alanine Aminotransferase 40 U/L (0-33); Albumin Level 3.9 g/dL (3.5-5.2); Alkaline Phosphatase 124 U/L (35-105); Anion Gap 13.9 (5-19); Aspartate Amino Transferase 26 U/L (0-32); Blood Urea Nitrogen 23 mg/dL (8-23); Calcium 9.6 mg/dL (8.5-10.5); Carbon Dioxide 28 mmol/L (22-29); Chloride 100 mmol/L (98-107); Globulin 2.5 g/dL (1.3-4.6); Glomerular Filtration Rate 54.8 mL/min (90-130); Glucose 100 mg/dL (65-115); Osmolality Calculated 288 mOsm/kg (285-295); Potassium 4.9 mmol/L (3.5-5.1); Sodium 137 mmol/L (136-145); Total Bilirubin 0.3 mg/dL (0.15-1.2); Total Protein 6.4 g/dL (6.6-8.7)
[2022-10-06 09:39] LABS: Add Urine Microscopic? YES; Bilirubin Urine Neg (Negative); Blood Urine 3+ (Negative); Glucose Urine UA Norm (Normal); Ketones Urine Negative (Negative); Leukocyte Esterase Urine 1+ (Negative); Nitrate Urine Negative (Negative); Protein Urine 1+ (Negative); Urine Appearance Clear (CLEAR); Urine Color Yellow (Yellow); Urobilinogen Urine Norm (Negative); pH Urine 6 (5-7)
[2022-10-06 10:01] LABS: Add Urine Culture? No; Bacteria Urine 1+ /hpf; WBC Urine 0-4 /hpf (0-5)
[2022-10-11 13:04] LABS: Basophils # 0.1 10^3/uL (0.0-0.1); Basophils % 0.7 %; Eosinophils # 0.7 10^3/uL (0.0-0.8); Eosinophils % 6.8 %; Hematocrit 39.8 % (37.0-47.0); Hemoglobin 12.8 g/dL (11.5-15.3); Lymphocytes # 1.7 10^3/uL (0.8-4.8); Lymphocytes % 16.9 %; Mean Corpuscular HGB Conc 32.2 g/dL (30.0-36.0); Mean Corpuscular Hemoglobin 33.7 pg (28.0-34.0); Mean Corpuscular Volume 104.7 fl (81-99); Mean Platelet Volume 10.9 fL (7.4-10.4); Monocytes # 0.9 10^3/uL (0.2-0.9); Monocytes % 8.9 %; Neutrophils # 6.53 10^3/uL (1.8-7.7); Neutrophils % 66.2 %; Nucleated Red Blood Cells % 0 %; Platelet Count 247 10^3/cmm (130-400); Red Cell Distribution Width 15.6 % (12.1-15.1); White Blood Count 9.9 10^3/uL (4.0-10.0)
[2022-10-11 13:31] LABS: Alanine Aminotransferase 26 U/L (0-33); Alkaline Phosphatase 113 U/L (35-105); Anion Gap 14.5 (5-19); Aspartate Amino Transferase 21 U/L (0-32); Blood Urea Nitrogen 20 mg/dL (8-23); Calcium 9.3 mg/dL (8.5-10.5); Carbon Dioxide 27 mmol/L (22-29); Chloride 98 mmol/L (98-107); Globulin 2.5 g/dL (1.3-4.6); Glomerular Filtration Rate 70.9 mL/min (90-130); Glucose 96 mg/dL (65-115); Osmolality Calculated 282 mOsm/kg (285-295); Potassium 4.5 mmol/L (3.5-5.1); Sodium 135 mmol/L (136-145); Total Bilirubin 0.3 mg/dL (0.15-1.2); Total Protein 6.5 g/dL (6.6-8.7)
--- NOTE | 2022-10-11 14:20 | PC.NURSE ---
Lab results shown to Dr. España and called to pt. Per Dr. España, labs ok for tx tomorrow. Pt voiced understanding and voiced no complaints./lc
[2022-10-12 08:07] VITALS: BP 145/65; PULSE 61; RESP 16; TEMP 36.4; O2SAT 98
[2022-10-12] MEDS: sodium chloride 0.9% 1,000 ML 999 ML IV (09:32)
[2022-10-12] MEDS: OLANZapine 5 mg TABLET PO (09:36)
[2022-10-12] MEDS: palonosetron 0.25 mg/5 mL SDV IVP (09:36)
[2022-10-12] MEDS: famotidine 20 mg/2 mL INJ IVP (09:37)
[2022-10-12] MEDS: diphenhydrAMINE 50 mg/mL SDV 1mL 25 MG IVP (09:38)
[2022-10-12] MEDS: fosaprepitant 150 MG in sodium chloride 0.9% 150 ML 300 MG IV (09:42)
[2022-10-12] MEDS: dexamethasone 20 MG in sodium chloride 0.9% 50 ML 188 MG IV (10:03)
[2022-10-12] MEDS: pembrolizumab 200 MG in sodium chloride 0.9% 250 ML 516 MG IV (10:19)
[2022-10-12] MEDS: SODIUM CHLORIDE 0.9% IV ×2 (14:00→14:47)
[2022-10-12] MEDS: BEVACIZUMAB AWWB IV (14:00)
[2022-10-12 14:38] VITALS: BP 154/87; PULSE 80; RESP 16; TEMP 36.2; O2SAT 94
[2022-10-12] MEDS: CISPLATIN IV (14:47)
[2022-10-12] MEDS: FUROsemide 10 mg/mL SDV 2mL 20 MG IVP (15:53)
[2022-10-12] MEDS: potassium chloride 20 MEQ in sodium chloride 0.9% 500 ML 500 MEQ IV (15:57)
== END 2022-10-19 23:59 | disposition home or self-care (01) ==
PROVIDERS: PCP Family Medicine; Referring Provider Obstetrics & Gynecology Gynecologic Oncology; Visit Provider Internal Medicine Hematology & Oncology
DX: Z51.12 Encounter for antineoplastic immunotherapy (principal); Z51.11 Encounter for antineoplastic chemotherapy; C53.8 Malignant neoplasm of overlapping sites of cervix uteri; C77.8 Secondary and unspecified malignant neoplasm of lymph nodes of multiple regions; C78.7 Secondary malignant neoplasm of liver and intrahepatic bile duct; C79.51 Secondary malignant neoplasm of bone; C78.01 Secondary malignant neoplasm of right lung; Z79.899 Other long term (current) drug therapy
CPT/HCPCS: 36591; 80053; 81001; 85025; 96367; 96375; 96413; 96415; 96417; 99214; J1100; J1200; J1453; J1940; J2469; J3475; J3480; J3490; J7030; J7040; J7050; J9060; J9267; J9271; Q5107

== ENCOUNTER → 2022-11-09 14:04 | Outpatient (BNVA) | payer MEDICARE, SELFPAY | PROVIDERS: PCP Family Medicine; Visit Provider Internal Medicine Pulmonary Disease | DX: J44.1 Chronic obstructive pulmonary disease with (acute) exacerbation (principal); C53.9 Malignant neoplasm of cervix uteri, unspecified; R09.02 Hypoxemia; Z87.891 Personal history of nicotine dependence; Z99.81 Dependence on supplemental oxygen | CPT/HCPCS: 99204 ==

== ENCOUNTER 2022-11-10 09:09 | Oncology outpatient (recurring) (ONCR) | payer MEDICARE, SELFPAY ==
[2022-11-10 10:02] LABS: Basophils # 0.1 10^3/uL (0.0-0.1); Basophils % 0.6 %; Eosinophils # 0.8 10^3/uL (0.0-0.8); Eosinophils % 9.5 %; Hematocrit 38.2 % (37.0-47.0); Hemoglobin 12.3 g/dL (11.5-15.3); Lymphocytes # 1.3 10^3/uL (0.8-4.8); Lymphocytes % 14.5 %; Mean Corpuscular HGB Conc 32.2 g/dL (30.0-36.0); Mean Corpuscular Hemoglobin 33.4 pg (28.0-34.0); Mean Corpuscular Volume 103.8 fl (81-99); Mean Platelet Volume 10.5 fL (7.4-10.4); Monocytes # 0.8 10^3/uL (0.2-0.9); Monocytes % 8.7 %; Neutrophils # 5.78 10^3/uL (1.8-7.7); Neutrophils % 66.4 %; Nucleated Red Blood Cells % 0 %; Platelet Count 198 10^3/cmm (130-400); Red Blood Count 3.68 10^6/uL (4.1-5.3); Red Cell Distribution Width 16.1 % (12.1-15.1); White Blood Count 8.7 10^3/uL (4.0-10.0)
[2022-11-10 10:25] LABS: Alanine Aminotransferase 17 U/L (0-33); Albumin Level 3.5 g/dL (3.5-5.2); Alkaline Phosphatase 112 U/L (35-105); Anion Gap 14.4 (5-19); Aspartate Amino Transferase 21 U/L (0-32); Blood Urea Nitrogen 23 mg/dL (8-23); Calcium 9.5 mg/dL (8.5-10.5); Carbon Dioxide 27 mmol/L (22-29); Chloride 96 mmol/L (98-107); Globulin 2.8 g/dL (1.3-4.6); Glomerular Filtration Rate 54.8 mL/min (90-130); Glucose 95 mg/dL (65-115); Osmolality Calculated 279 mOsm/kg (285-295); Potassium 4.4 mmol/L (3.5-5.1); Sodium 133 mmol/L (136-145); Total Bilirubin 0.2 mg/dL (0.15-1.2); Total Protein 6.3 g/dL (6.6-8.7)
[2022-11-10 10:39] LABS: Vitamin B12 522 pg/mL (232-1245)
== END 2022-11-16 23:59 | disposition home or self-care (01) ==
PROVIDERS: Internal Medicine Pulmonary Disease; PCP Family Medicine; Referring Provider Obstetrics & Gynecology Gynecologic Oncology; Visit Provider Internal Medicine Hematology & Oncology
DX: C53.8 Malignant neoplasm of overlapping sites of cervix uteri (principal); C79.51 Secondary malignant neoplasm of bone; C77.8 Secondary and unspecified malignant neoplasm of lymph nodes of multiple regions; C78.01 Secondary malignant neoplasm of right lung; C78.7 Secondary malignant neoplasm of liver and intrahepatic bile duct; F17.210 Nicotine dependence, cigarettes, uncomplicated; R97.8 Other abnormal tumor markers; Z79.52 Long term (current) use of systemic steroids; Z79.899 Other long term (current) drug therapy
CPT/HCPCS: 36591; 80053; 82607; 85025; 99214

== ENCOUNTER 2022-11-10 23:15 | Emergency (ER) | payer MEDICARE, SELFPAY ==
[2022-11-10 23:19] VITALS: BP 140/89; PULSE 73; RESP 18; TEMP 36.4; O2SAT 96; BMI 22.3
--- NOTE | 2022-11-10 23:47 | CTR_ITS ---
PROCEDURE INFORMATION: Exam: CT Abdomen And Pelvis With Contrast Exam date and time: 11/11/2022 1:03 AM Age: 72 years old Clinical indication: Abdominal pain; Localized; Left lower quadrant (llq); Prior surgery; Surgery type: Ureteral stent; Patient HX: C/O llq pain; Additional info: Abd pain TECHNIQUE: Imaging protocol: Computed tomography of the abdomen and pelvis with contrast. Radiation optimization: All CT scans at this facility use at least one of these dose optimization techniques: automated exposure control; mA and/or kV adjustment per patient size (includes targeted exams where dose is matched to clinical indication); or iterative reconstruction. Contrast material: OMNI 350; Contrast volume: 100 ml; Contrast route: INTRAVENOUS (IV); REPORTING DATA: Count of CT and Cardiac NM exams in prior 12 months: This patient has received 3 known CTs and 0 known cardiac nuclear medicine studies in the 12 months prior to the current study. COMPARISON: MR pelvis wo/w con [id number] 12/11/2021 2:06 PM RADIATION DOSE METRICS: Total DLP (mGy-cm): 377.03 FINDINGS: Liver: There are numerous scattered low-attenuation lesions throughout the liver largest in superior left hepatic lobe with lesion measuring about 3.6 cm x 3.2 cm on axial series 3, image 11. Gallbladder and bile ducts: Normal. No calcified stones. No ductal dilation. Pancreas: Normal. No ductal dilation. Spleen: Normal. No splenomegaly. Adrenal glands: Normal. No mass. Kidneys and ureters: Moderately atrophic left renal cortex. Left-sided internal ureteral stent present with unremarkable position. Mild left-sided ureterectasis. No renal stones. Stomach and bowel: Unremarkable. No obstruction. No mucosal thickening. Appendix: No evidence of appendicitis. Intraperitoneal space: Unremarkable. No free air. No significant fluid collection. Vasculature: Large fusiform abdominal aortic aneurysm 5.6 cm diameter. Large amount of mural thrombus in left side of the aneurysm sac. Periaortic fat stranding is present; uncertain if this is related to the aneurysm or the ureter. Lymph nodes: Unremarkable. No enlarged lymph nodes. Urinary bladder: Unremarkable as visualized. Reproductive: Unremarkable as visualized. Bones/joints: Sclerotic changes of pelvic bones bilaterally right greater than left. No acute fractures. Soft tissues: Unremarkable. CT/CT abdomen pelvis w con* [id number] IMPRESSION: 1. Large fusiform abdominal aortic aneurysm. Periaortic fat stranding. Early features of abdominal aortic aneurysm rupture are possible and cannot be excluded. Recommend emergent vascular surgery consultation. 2. Multiple sclerotic bone lesions in pelvis which may represent osseous metastatic disease. 3. Multiple liver lesions suspicious for intrahepatic metastatic disease.
--- NOTE | 2022-11-10 23:49 | ED_ITS ---
HPI - Abdominal Pain General: Chief Complaint: Abdominal Pain Stated Complaint: Left Side Pain ABD and Leg Time Seen by Provider: 11/10/22 23:25 Source: patient Mode of arrival: ambulatory Limitations: no limitations History of Present Illness: 72-year-old female who has a history of cervical cancer she had finished chemo over a month ago was getting ready to restart states that starting today at 3 she is having left lower quadrant abdominal pain states pain is been sharp in nature is been a 9 out of 10 she had nausea no vomiting no diarrhea she states she typically does not have any pain like this with her cancer this feels different. She denies any worsening improving factors. Associated Symptoms: Denies chills, dysuria and fever(s) Review of Systems Const: Denies: fever(s), chills, body aches or change in appetite Eyes: Denies: blurry vision or eye discomfort ENMT: Denies: throat pain or dental pain Card: Denies: chest pain Resp: Denies: dyspnea GI: Reports: abdominal pain : Denies: dysuria Musc: Denies: neck pain or back pain Skin/Breast: Denies: rash Neuro: Denies: headache(s) Psych: Denies: depression Markie/Lymph: Denies: easy bruising All/Imm: Denies: urticaria PFSH ED PFSH: Medical History Elevated brain natriuretic peptide (BNP) level Hydronephrosis, left Hypercholesteremia Hypertension No pertinent past medical history neghx: dm,thyroid,dvt/pe PCP: Dr. Hilliard Surgical History No pertinent past surgical history Family History Mother , at age 69 Colon cancer dx age 60's Thyroid disease Thyroid cancer Cancer Thyroid cancer followed by colon cancer Father , at age 68 Cancer Lung cancer Diabetes Denies family history of CAD (coronary artery disease) Clotting disorder Dementia Hyperlipidemia Psychiatric illness Chronic kidney disease (CKD) Suicide Anesthesia complication Bleeding disorder Lung disease Hypertension Stroke Social History Smoking and tobacco status: former smoker (0.5 ppd) Quit status (tobacco): has quit using tobacco Year quit tobacco: August 2022 Former quit date comment: 0.5ppd x 40 years Alcohol intake: current Alcohol intake frequency: holidays/special occasions only Marital status: Current occupational status: retired Physical Exam Const: COMMON NORMALS: no acute distress, patient oriented x3 and healthy appearing HENMT: COMMON NORMALS: normocephalic and atraumatic HEAD & SCALP: normocephalic and atraumatic Eye: COMMON NORMALS: Equal, round and reactive pupils present and EOMs intact bilaterally PUPIL: Yes Equal, round and reactive pupils present Neck/C-Spine: COMMON NORMALS: full ROM and supple Chest: COMMONS NORMALS: normal inspection of the chest and normal palpation of entire chest wall Resp: COMMON NORMALS: normal respiratory effort, No retractions, No use of accessory muscles and clear to auscultation bilaterally AUSCULTATION: clear to auscultation bilaterally Cardio: COMMON NORMALS: regular rate, regular rhythm and No murmurs present (Cardio) RATE: regular rate RHYTHM: regular rhythm GI: COMMON NORMALS: Normal to inspection, nondistended, normoactive bowel sounds present, Soft to palpation and no masses PALPATION: Yes Soft to palpation and Yes Tenderness to palpation present (GI) Details: LLQ Extremity: COMMON NORMALS: normal to inspection and full ROM Neuro: COMMON NORMALS: patient oriented x3, moves all extremities and no focal motor deficits Psych: COMMON NORMALS: mental status grossly normal, Normal thought process present and cooperative THOUGHT PROCESS: Normal thought process present Skin: COMMON NORMALS: no rashes or lesions noted and no wounds GENERAL SKIN EXAM: no rashes or lesions noted Course Vital Signs: Vital signs: Vital Signs Temperature 97.6 F 11/10/22 23:19 Pulse Rate 65 11/11/22 02:40 Respiratory Rate 17 11/11/22 02:40 Blood Pressure 189/93 11/11/22 02:30 Pulse Oximetry 99 11/11/22 02:40 MDM - Abdominal Pain Medical Decision Making Patient presents here with abdominal pain CT here did show a AAA I reviewed the films reads that family and had that she had that done at [facility] on 213 and her aneurysm has grown from 4.8 to 5.6 cm today. I spoke to vascular surgeon at [facility] who reviewed the last PET scan done on and the films today and she does want her transferred to the ER spoke to the ER doctor Brady Townsend and will transfer there via air if available due to vascular surgery capabilities. Patient blood pressure is improved here with meds its 121/62 now her pain is improved as well. Lab Data 11/11/22 00:10 11/11/22 00:10 Labs/Radiology: Radiology Impressions Abdomen/Pelvis CT 11/10/22 23:47 IMPRESSION: 1. Large fusiform abdominal aortic aneurysm. Periaortic fat stranding. Early features of abdominal aortic aneurysm rupture are possible and cannot be excluded. Recommend emergent vascular surgery consultation. 2. Multiple sclerotic bone lesions in pelvis which may represent osseous metastatic disease. 3. Multiple liver lesions suspicious for intrahepatic metastatic disease. ADDENDUM: 11/11/22 0226 THIS REPORT CONTAINS FINDINGS THAT MAY BE CRITICAL TO PATIENT CARE. The findings were verbally communicated via telephone conference with MENA PACHECO at 2:25 AM CONSULTING TECHNICAL MANAGER on 11/11/2022. The findings were acknowledged and understood. Laboratory Results WBC 9.8 10^3/uL (4.0-10.0) 11/11/22 00:10 RBC 3.89 10^6/uL (4.1-5.3) L 11/11/22 00:10 Hgb 12.8 g/dL (11.5-15.3) 11/11/22 00:10 Hct 39.4 % (37.0-47.0) 11/11/22 00:10 MCV 101.3 fl (81-99) H 11/11/22 00:10 MCH 32.9 pg (28.0-34.0) 11/11/22 00:10 MCHC 32.5 g/dL (30.0-36.0) 11/11/22 00:10 RDW 15.7 % (12.1-15.1) H 11/11/22 00:10 Plt Count 187 10^3/cmm (130-400) 11/11/22 00:10 MPV 10.6 fL (7.4-10.4) H 11/11/22 00:10 Neut % (Auto) 76.2 % 11/11/22 00:10 Lymph % (Auto) 10.5 % 11/11/22 00:10 Norman % (Auto) 7.1 % 11/11/22 00:10 Eos % (Auto) 5.3 % 11/11/22 00:10 Baso % (Auto) 0.5 % 11/11/22 00:10 Neut # (Auto) 7.50 10^3/uL (1.8-7.7) 11/11/22 00:10 Lymph # (Auto) 1.0 10^3/uL (0.8-4.8) 11/11/22 00:10 Norman # (Auto) 0.7 10^3/uL (0.2-0.9) 11/11/22 00:10 Eos # (Auto) 0.5 10^3/uL (0.0-0.8) 11/11/22 00:10 Baso # (Auto) 0.1 10^3/uL (0.0-0.1) 11/11/22 00:10 Nucleated RBC % (auto) 0 % 11/11/22 00:10 Nucleated RBCs # 0.0 /100WBC 11/11/22 00:10 Sodium 135 mmol/L (136-145) L 11/11/22 00:10 Potassium 4.5 mmol/L (3.5-5.1) 11/11/22 00:10 Chloride 98 mmol/L (98-107) 11/11/22 00:10 Carbon Dioxide 24 mmol/L (22-29) 11/11/22 00:10 Anion Gap 17.5 (5-19) 11/11/22 00:10 BUN 20 mg/dL (8-23) 11/11/22 00:10 Creatinine 1.0 mg/dL (0.5-0.9) H 11/11/22 00:10 GFR Calculation 54.8 mL/min (90-130) L 11/11/22 00:10 Glucose 120 mg/dL (65-115) H 11/11/22 00:10 Calculated Osmolality 284 mOsm/kg (285-295) L 11/11/22 00:10 Lactate 1.2 mmol/L (0.5-2.2) 11/11/22 00:10 Calcium 9.6 mg/dL (8.5-10.5) 11/11/22 00:10 Total Bilirubin 0.4 mg/dL (0.15-1.2) 11/11/22 00:10 AST 20 U/L (0-32) 11/11/22 00:10 ALT 15 U/L (0-33) 11/11/22 00:10 Alkaline Phosphatase 110 U/L (35-105) H 11/11/22 00:10 Total Protein 6.2 g/dL (6.6-8.7) L 11/11/22 00:10 Albumin 3.6 g/dL (3.5-5.2) 11/11/22 00:10 Globulin 2.6 g/dL (1.3-4.6) 11/11/22 00:10 Lipase 12 U/L (13-60) L 11/11/22 00:10 Critical Care Time Critical Care Time: Critical Care Time: Yes Total Critical Care Time: 50 Attestation: The high probability of a clinically significant, sudden or life threatening deterioration of the patient's vascular system(s) required my full and direct attention, intervention and personal management. The critical care time is as shown. This time is in addition to time spent performing any reported procedures but includes the following: [x] Data and vital sign review and interpretation [x] Patient assessment, examination and intervention [x] Documentation [x] Medication orders and management Discharge Plan Discharge Patient Disposition: Admitted As Inpatient Clinical Impression: Abdominal aortic aneurysm Condition: Stable Prescriptions: No Action losartan-hydrochlorothiazide 50-12.5 mg tablet 1 tab PO QPM atorvastatin 20 mg tablet 20 mg PO QPM loperamide [Imodium A-D] 2 mg tablet 2 mg PO Q6H PRN (Reason: Diarrhea) loratadine [Claritin] 10 mg tablet 10 mg PO DAILY PRN (Reason: Allergy Symptoms) Combivent Respimat 20-100 mcg/actuation mist 1 puff inhalation Q6H PRN (Reason: shortness of breath or wheezing) Trelegy Ellipta 100-62.5-25 mcg blister with device 1 inh inhalation DAILY Qty: 60 1RF budesonide 0.5 mg/2 mL suspension for nebulization 0.5 mg inhalation BID Zyprexa 5 mg Tablet 5 mg PO .BEFORE CHEMO acetaminophen 500 mg Tablet 500 mg PO Q6H PRN (Reason: Pain) Pepcid 20 mg Tablet 20 mg PO .BEFORE CHEMO Benadryl 25 mg Capsule 25 mg PO .BEFORE CHEMO paclitaxel 6 mg/mL Concentrate See Rx Instructions .ROUTE .COMPLEX Rx Instructions: 288mg every 3 weeks as directed Aloxi 0.25 mg/5 mL Solution 0.25 mg IV .BEFORE CHEMO Avastin 25 mg/mL Solution See Rx Instructions .ROUTE .COMPLEX Rx Instructions: 880mg every 3 weeks as directed cisplatin 50 mg Recon Soln See Rx Instructions .ROUTE .COMPLEX Rx Instructions: 82mg every 3 weeks as directed ondansetron 4 mg tablet,disintegrating 4 - 8 mg PO Q6H PRN (Reason: nausea and vomiting) ipratropium-albuterol 0.5 mg-3 mg(2.5 mg base)/3 mL solution for nebulization 3 ml inhalation Q6H Qty: 180 0RF Referrals: Yue Justice MD [Primary Care Provider] - Coding Level of Care Code ED Marketing Business Analyst for Donna Mullen
[2022-11-11] VITALS (56 sets, daily range): BP systolic 116–189; BP diastolic 62–94; PULSE 63–77; RESP 10–26; O2SAT 77–100
[2022-11-11] MEDS: HYDROmorphone 1 mg/mL INJ 1 mL IVP (00:07)
[2022-11-11] MEDS: ondansetron 2 mg/ML SDV 2 mL 4 MG IVP (00:07)
[2022-11-11] MEDS: sodium chloride 0.9% 1,000 ML 999 ML IV (00:08)
[2022-11-11 00:25] LABS: Basophils # 0.1 10^3/uL (0.0-0.1); Basophils % 0.5 %; Eosinophils # 0.5 10^3/uL (0.0-0.8); Eosinophils % 5.3 %; Hematocrit 39.4 % (37.0-47.0); Hemoglobin 12.8 g/dL (11.5-15.3); Lymphocytes % 10.5 %; Mean Corpuscular HGB Conc 32.5 g/dL (30.0-36.0); Mean Corpuscular Hemoglobin 32.9 pg (28.0-34.0); Mean Corpuscular Volume 101.3 fl (81-99); Mean Platelet Volume 10.6 fL (7.4-10.4); Monocytes # 0.7 10^3/uL (0.2-0.9); Monocytes % 7.1 %; Neutrophils % 76.2 %; Nucleated Red Blood Cells % 0 %; Platelet Count 187 10^3/cmm (130-400); Red Blood Count 3.89 10^6/uL (4.1-5.3); Red Cell Distribution Width 15.7 % (12.1-15.1); White Blood Count 9.8 10^3/uL (4.0-10.0)
[2022-11-11 00:42] LABS: Lactate (Lactic Acid level) 1.2 mmol/L (0.5-2.2)
[2022-11-11 00:44] LABS: Alanine Aminotransferase 15 U/L (0-33); Albumin Level 3.6 g/dL (3.5-5.2); Alkaline Phosphatase 110 U/L (35-105); Anion Gap 17.5 (5-19); Aspartate Amino Transferase 20 U/L (0-32); Blood Urea Nitrogen 20 mg/dL (8-23); Calcium 9.6 mg/dL (8.5-10.5); Carbon Dioxide 24 mmol/L (22-29); Chloride 98 mmol/L (98-107); Globulin 2.6 g/dL (1.3-4.6); Glomerular Filtration Rate 54.8 mL/min (90-130); Glucose 120 mg/dL (65-115); Lipase 12 U/L (13-60); Osmolality Calculated 284 mOsm/kg (285-295); Potassium 4.5 mmol/L (3.5-5.1); Sodium 135 mmol/L (136-145); Total Bilirubin 0.4 mg/dL (0.15-1.2); Total Protein 6.2 g/dL (6.6-8.7)
[2022-11-11] MEDS: iohexol 350 mg/mL 500 mL Btl (per mL) IV (01:04)
[2022-11-11] MEDS: hyDRALAzine 20 mg/mL INJ 1 mL 10 MG IVP (02:54)
[2022-11-11 03:23] LABS: INR 0.96 (0.8-1.2)
[2022-11-11] MEDS: LORazepam 2 mg/mL INJ 1 mL 0.5 MG IVP (04:46)
== END 2022-11-11 05:07 | disposition admitted as inpatient to this hospital (09) ==
PROVIDERS: Emergency Provider Emergency Medicine; PCP Family Medicine
DX: I71.40 Abdominal aortic aneurysm, without rupture, unspecified (principal); Z87.891 Personal history of nicotine dependence; I10 Essential (primary) hypertension
CPT/HCPCS: 74177; 80053; 83605; 83690; 85025; 85610; 96361; 96374; 96375; 99285; J0360; J1170; J2060; J2405; J7030; Q9967

== ENCOUNTER 2022-11-21 16:44 | Emergency (ER) | payer MEDICARE, SELFPAY ==
[2022-11-21 16:54] VITALS: BP 142/91; PULSE 74; RESP 14; TEMP 36.3; O2SAT 95; BMI 22.3
[2022-11-21 17:27] LABS: Urine Color Yellow (Yellow)
[2022-11-21 17:28] LABS: Add Urine Microscopic? YES; Bacteria Urine 1+ /hpf; Bilirubin Urine Neg (Negative); Blood Urine 2+ (Negative); Glucose Urine UA Norm (Normal); Ketones Urine Negative (Negative); Leukocyte Esterase Urine 2+ (Negative); Nitrate Urine Negative (Negative); Protein Urine 3+ (Negative); Squamous Epithelial Cell Urine 25-40 /hpf (0-5); Urine Appearance Cloudy (CLEAR); Urobilinogen Urine Norm (Negative); WBC Urine 25-40 /hpf (0-5); pH Urine 5 (5-7)
--- NOTE | 2022-11-21 19:37 | W.ED.FEMALGU ---
HPI - Female Genitourinary General: Chief complaint: Urogenital-Female Stated complaint: urogenital Time Seen by Provider: 11/21/22 19:18 Source: patient and family History of Present Illness: 72-year-old female who comes in complaining of burning with urination. The patient states that she is having increased urinary frequency and burning when she urinates. She thinks she has UTI. The patient did have a stent placed and an abdominal aortic aneurysm done at [place] on 08 November. She also has cervical cancer and has had 10 rounds of chemotherapy. Patient has not been drinking as much fluid as she needs to be. She has not had nausea or vomiting. She had chills and sweats but no documented fever. No nausea or vomiting. No diarrhea. She has had some left flank pain today. Patient has a history of ureteral obstruction related to the cervical cancer and had a retrograde stent placed through the left kidney into the ureter. Review of Systems Narrative: See HPI PFSH ED PFSH: Medical History Elevated brain natriuretic peptide (BNP) level Hydronephrosis, left Hypercholesteremia Hypertension No pertinent past medical history neghx: dm,thyroid,dvt/pe PCP: Dr. Hilliard Surgical History No pertinent past surgical history Family History Mother , at age 69 Colon cancer dx age 60's Thyroid disease Thyroid cancer Cancer Thyroid cancer followed by colon cancer Father , at age 68 Cancer Lung cancer Diabetes Denies family history of CAD (coronary artery disease) Clotting disorder Dementia Hyperlipidemia Psychiatric illness Chronic kidney disease (CKD) Suicide Anesthesia complication Bleeding disorder Lung disease Hypertension Stroke Social History Smoking and tobacco status: former smoker (0.5 ppd) Quit status (tobacco): has quit using tobacco Year quit tobacco: August 2022 Former quit date comment: 0.5ppd x 40 years Alcohol intake: current Alcohol intake frequency: holidays/special occasions only Marital status: Current occupational status: retired Physical Exam Const: COMMON NORMALS: no acute distress and alert HENMT: OTHER: Mucous membranes appear dry Eye: OTHER: Conjunctiva pink, no scleral icterus Resp: COMMON NORMALS: normal respiratory effort, No use of accessory muscles and clear to auscultation bilaterally AUSCULTATION: clear to auscultation bilaterally Cardio: COMMON NORMALS: regular rate and regular rhythm RATE: regular rate RHYTHM: regular rhythm GI: COMMON NORMALS: Normal to inspection, nondistended, normoactive bowel sounds present, Soft to palpation and non-tender PALPATION: Yes Soft to palpation Extremity: NARRATIVE EXTREMITY EXAM: Left groin from recent procedure is well-healed. There is no erythema or swelling in this region. There is no discharge. Neuro: SENSORIUM/ORIENTATION: Yes alert Course Vital Signs: Vital signs: Vital Signs Temperature 97.4 F L 11/21/22 16:54 Pulse Rate 74 11/21/22 16:54 Respiratory Rate 14 11/21/22 16:54 Blood Pressure 142/91 11/21/22 16:54 Pulse Oximetry 95 11/21/22 16:54 Oxygen Delivery Me thod 11/21/22 16:54 MDM - Female Medical Decision Making 72-year-old female with a history of cervical cancer, who had a recent abdominal aortic aneurysm stented done at [place]. She comes in today with increased urinary frequency and dysuria associated with left flank pain. The patient does have a left ureteral stent in place. Patient is afebrile. She does appear mildly dehydrated. We will access her port, give her IV fluids. We will check labs. On the patient's laboratory evaluation, she does have a leukocytosis with a white blood cell count of 14.8. Hemoglobin is stable at 12.4, hematocrit is 39.4. Platelet count is 265. There is no significant left shift. Her sodium is low at 129. In looking back, she typically runs anywhere from 1 30-1 34 so this is not significantly lower than her typical sodium levels. Potassium 4.7, chloride is 92, CO2 24. BUN is 19,, creatinine 0.7. On her urinalysis, she does have 25-40 white blood cells but she also has 25-40 epithelial cells. 1+ bacteria and 2+ leukocyte esterase. Nitrite is negative. Urine culture has been sent. On CT of the abdomen and pelvis, the aortoiliac stent graft appears to be in place. The left ureteral stent also appears to be in place. She does have changes probably consistent with cystitis. We will culture her urine. We will plan for discharge home on Ceftin Her CT shows changes consistent with cystitis. Her urine has 10-40 white blood cells. Culture has been sent. We will go ahead and treat despite the epithelial cells because of her left ureteral stent. I am going to place her on Ceftin twice daily x10 days. I have strongly encouraged her to drink plenty of fluids. Her sodium is low so she needs to be drinking electrolyte solutions like Gatorade or Powerade or Pedialyte. Return if she has fever, vomiting, increased pain or is unable to tolerate oral fluids. Follow-up this week with her primary care doctor Medical Records I reviewed the patient's medical records. Medical records reviewed. The patient was recently transferred from [facility] to [place] for interval enlargement of her abdominal aortic aneurysm more subsequently an aorto bilateral iliac stent was placed Lab Data Patient is a leukocytosis with a white blood cell count of 14.8, consistent with her infection. She is hyponatremic with a sodium of 129 but in comparison, her sodiums are typically 1 30-1 34. This is not that much lower than her normal sodiums. She does probably have a UTI but her urine is contaminated with epithelial cells so we will culture her urine. CT suggests cystitis and will go ahead and treat. 11/21/22 19:51 11/21/22 19:51 Radiology Impressions Abdomen/Pelvis CT 11/21/22 20:29 IMPRESSION: Cystitis. Interval placement of bifurcated aortoiliac stent graft. Previously suggested para-aortic stranding has markedly diminished; no new aortic abnormalities. Findings consistent with hepatic and skeletal metastatic disease . 2 mm gallstone within gallbladder. Additional details as above. Laboratory Results WBC 14.8 10^3/uL (4.0-10.0) H 11/21/22 19:51 RBC 4.05 10^6/uL (4.1-5.3) L 11/21/22 19:51 Hgb 12.4 g/dL (11.5-15.3) 11/21/22 19:51 Hct 39.4 % (37.0-47.0) 11/21/22 19:51 MCV 97.3 fl (81-99) 11/21/22 19:51 MCH 30.6 pg (28.0-34.0) 11/21/22 19:51 MCHC 31.5 g/dL (30.0-36.0) 11/21/22 19:51 RDW 19.1 % (12.1-15.1) H 11/21/22 19:51 Plt Count 265 10^3/cmm (130-400) 11/21/22 19:51 MPV 10.2 fL (7.4-10.4) 11/21/22 19:51 Neut % (Auto) 80.2 % 11/21/22 19:51 Lymph % (Auto) 10.3 % 11/21/22 19:51 Bibb % (Auto) 5.6 % 11/21/22 19:51 Eos % (Auto) 2.7 % 11/21/22 19:51 Baso % (Auto) 0.4 % 11/21/22 19:51 Neut # (Auto) 11.87 10^3/uL (1.8-7.7) H 11/21/22 19:51 Lymph # (Auto) 1.5 10^3/uL (0.8-4.8) 11/21/22 19:51 Bibb # (Auto) 0.8 10^3/uL (0.2-0.9) 11/21/22 19:51 Eos # (Auto) 0.4 10^3/uL (0.0-0.8) 11/21/22 19:51 Baso # (Auto) 0.1 10^3/uL (0.0-0.1) 11/21/22 19:51 Nucleated RBC % (auto) 0 % 11/21/22 19:51 Nucleated RBCs # 0.0 /100WBC 11/21/22 19:51 Sodium 129 mmol/L (136-145) L 11/21/22 19:51 Potassium 4.7 mmol/L (3.5-5.1) 11/21/22 19:51 Chloride 92 mmol/L (98-107) L 11/21/22 19:51 Carbon Dioxide 24 mmol/L (22-29) 11/21/22 19:51 Anion Gap 17.7 (5-19) 11/21/22 19:51 BUN 19 mg/dL (8-23) 11/21/22 19:51 Creatinine 0.7 mg/dL (0.5-0.9) 11/21/22 19:51 GFR Calculation 82.7 mL/min (90-130) L 11/21/22 19:51 Glucose 111 mg/dL (65-115) 11/21/22 19:51 Calculated Osmolality 271 mOsm/kg (285-295) L 11/21/22 19:51 Calcium 9.2 mg/dL (8.5-10.5) 11/21/22 19:51 Total Bilirubin 0.4 mg/dL (0.15-1.2) 11/21/22 19:51 AST 27 U/L (0-32) 11/21/22 19:51 ALT 19 U/L (0-33) 11/21/22 19: Alkaline Phosphatase 149 U/L (35-105) H 11/21/22 19:51 Total Protein 6.6 g/dL (6.6-8.7) 11/21/22 19: Albumin 3.3 g/dL (3.5-5.2) L 11/21/22 19: Globulin 3.3 g/dL (1.3-4.6) 11/21/22 19:51 Urine Color Yellow (Yellow) 11/21/22 17:05 Urine Appearance Cloudy (CLEAR) A 11/21/22 17:05 Urine pH 5 (5-7) 11/21/22 17:05 Ur Specific [place] 1.020 (1.005-1.030) 11/21/22 17:05 Urine Protein 3+ (Negative) H 11/21/22 17:05 Urine Glucose (UA) Norm (Normal) 11/21/22 17:05 Urine Ketones Negative (Negative) 11/21/22 17:05 Urine Blood 2+ (Negative) H 11/21/22 17:05 Urine Nitrate Negative (Negative) 11/21/22 17:05 Urine Bilirubin Neg (Negative) 11/21/22 17:05 Urine Urobilinogen Norm mg/dL (Negative) 11/21/22 17:05 Ur Leukocyte Esterase 2+ (Negative) H 11/21/22 17:05 Urine RBC 5-10 /hpf (0-2) H 11/21/22 17:05 Urine WBC 25-40 /hpf (0-5) H 11/21/22 17:05 Ur Squamous Epith Cells 25-40 /hpf (0-5) H 11/21/22 17:05 Amorphous Sediment Not Reportable 11/21/22 17:05 Urine Bacteria 1+ /hpf (NONE) H 11/21/22 17:05 Discharge Plan Discharge Patient Disposition: Home Clinical Impression: Hyponatremia, Cystitis Condition: Stable Prescriptions: New cefdinir 300 mg capsule 300 mg PO BID 7 Days Qty: 14 0RF No Action losartan-hydrochlorothiazide 50-12.5 mg tablet 1 tab PO QPM atorvastatin 20 mg tablet 20 mg PO QPM loperamide [Imodium A-D] 2 mg tablet 2 mg PO Q6H PRN (Reason: Diarrhea) loratadine [Claritin] 10 mg tablet 10 mg PO DAILY PRN (Reason: Allergy Symptoms) Combivent Respimat 20-100 mcg/actuation mist 1 puff inhalation Q6H PRN (Reason: shortness of breath or wheezing) Trelegy Ellipta 100-62.5-25 mcg blister with device 1 inh inhalation DAILY Qty: 60 1RF budesonide 0.5 mg/2 mL suspension for nebulization 0.5 mg inhalation BID Zyprexa 5 mg Tablet 5 mg PO .BEFORE CHEMO acetaminophen 500 mg Tablet 500 mg PO Q6H PRN (Reason: Pain) Pepcid 20 mg Tablet 20 mg PO .BEFORE CHEMO Benadryl 25 mg Capsule 25 mg PO .BEFORE CHEMO paclitaxel 6 mg/mL Concentrate See Rx Instructions .ROUTE .COMPLEX Rx Instructions: 288mg every 3 weeks as directed Aloxi 0.25 mg/5 mL Solution 0.25 mg IV .BEFORE CHEMO Avastin 25 mg/mL Solution See Rx Instructions .ROUTE .COMPLEX Rx Instructions: 880mg every 3 weeks as directed cisplatin 50 mg Recon Soln See Rx Instructions .ROUTE .COMPLEX Rx Instructions: 82mg every 3 weeks as directed ondansetron 4 mg tablet,disintegrating 4 - 8 mg PO Q6H PRN (Reason: nausea and vomiting) ipratropium-albuterol 0.5 mg-3 mg(2.5 mg base)/3 mL solution for nebulization 3 ml inhalation Q6H Qty: 180 0RF Discharge Orders: Discharge ED (Routine); Ordered 11/21/22 Ordered By: Mariel Nazario Referrals: Bibi España MD [Primary Care Provider] - Discharge Diet: Advance as tolerated Discharge Activity: Increase activity as tolerated Patient Instructions: Hyponatremia, Urinary Tract Infection in Women (DC) Activity Restrictions/Additional Instructions: Make sure you are drinking plenty of fluids, preferably Gatorade, Powerade or Pedialyte. Your sodium is low so is important that you drink these types of solutions, minimum of 64 ounces each day. You need to take the antibiotics twice daily until gone. Return if you have persistent fever, vomiting or worsening pain. Follow-up this week with your primary care doctor Coding Level of Care Code ED Crankshaft Grinder for Donna Mullen
[2022-11-21 19:59] LABS: Basophils # 0.1 10^3/uL (0.0-0.1); Basophils % 0.4 %; Eosinophils # 0.4 10^3/uL (0.0-0.8); Eosinophils % 2.7 %; Hematocrit 39.4 % (37.0-47.0); Hemoglobin 12.4 g/dL (11.5-15.3); Lymphocytes # 1.5 10^3/uL (0.8-4.8); Lymphocytes % 10.3 %; Mean Corpuscular HGB Conc 31.5 g/dL (30.0-36.0); Mean Corpuscular Hemoglobin 30.6 pg (28.0-34.0); Mean Corpuscular Volume 97.3 fl (81-99); Mean Platelet Volume 10.2 fL (7.4-10.4); Monocytes # 0.8 10^3/uL (0.2-0.9); Monocytes % 5.6 %; Neutrophils # 11.87 10^3/uL (1.8-7.7); Neutrophils % 80.2 %; Nucleated Red Blood Cells % 0 %; Platelet Count 265 10^3/cmm (130-400); Red Blood Count 4.05 10^6/uL (4.1-5.3); Red Cell Distribution Width 19.1 % (12.1-15.1); White Blood Count 14.8 10^3/uL (4.0-10.0)
--- NOTE | 2022-11-21 20:00 | PC.NURSE ---
Patient declinded to accessing her port due to chemotherapy usage.
[2022-11-21] MEDS: sodium chloride 0.9% 1,000 ML 999 ML IV (20:05)
[2022-11-21 20:20] LABS: Alanine Aminotransferase 19 U/L (0-33); Albumin Level 3.3 g/dL (3.5-5.2); Alkaline Phosphatase 149 U/L (35-105); Blood Urea Nitrogen 19 mg/dL (8-23); Calcium 9.2 mg/dL (8.5-10.5); Carbon Dioxide 24 mmol/L (22-29); Chloride 92 mmol/L (98-107); Creatinine Clr Calc Pharmacy 58.2674; Globulin 3.3 g/dL (1.3-4.6); Glomerular Filtration Rate 82.7 mL/min (90-130); Glucose 111 mg/dL (65-115); Osmolality Calculated 271 mOsm/kg (285-295); Sodium 129 mmol/L (136-145); Total Bilirubin 0.4 mg/dL (0.15-1.2); Total Protein 6.6 g/dL (6.6-8.7)
[2022-11-21 20:23] LABS: Anion Gap 17.7 (5-19); Aspartate Amino Transferase 27 U/L (0-32); Potassium 4.7 mmol/L (3.5-5.1)
--- NOTE | 2022-11-21 20:29 | CTR_ITS ---
PROCEDURE INFORMATION: Exam: CT Abdomen And Pelvis Without Contrast Exam date and time: 11/21/2022 8:51 PM Age: 72 years old Clinical indication: Abdominal pain; Flank; Left lower quadrant (llq); Prior surgery; Surgery date: <1 month; Surgery type: Left ureteral stent 1.5 weeks ago; Additional info: Left flank pain UTI TECHNIQUE: Imaging protocol: Computed tomography of the abdomen and pelvis without contrast. Radiation optimization: All CT scans at this facility use at least one of these dose optimization techniques: automated exposure control; mA and/or kV adjustment per patient size (includes targeted exams where dose is matched to clinical indication); or iterative reconstruction. REPORTING DATA: Count of CT and Cardiac NM exams in prior 12 months: This patient has received 4 known CTs and 0 known cardiac nuclear medicine studies in the 12 months prior to the current study. COMPARISON: CT abdomen pelvis w con* [id number] 11/11/2022 1:03 AM RADIATION DOSE METRICS: Total DLP (mGy-cm): 432.7 FINDINGS: Liver: Liver lesions are again noted suspicious for metastases; these are demonstrated to better effect on the post contrasted comparison exam. Gallbladder and bile ducts: 2 mm gallstones suspected dependently at gallbladder fundus. Gallbladder otherwise unremarkable. Pancreas: Normal. No ductal dilation. Spleen: Spleen shows calcified granulomatous change. Normal size. Adrenal glands: Normal. No mass. Kidneys and ureters: Left ureteral stent unchanged. Left renal collecting system unchanged. Stomach and bowel: Colonic diverticula noted. No evident pericolic inflammatory change. No findings of abnormal bowel distention. Appendix: No evidence of appendicitis. Intraperitoneal space: Unremarkable. No free air. No significant fluid collection. Vasculature: Bifurcated aortoiliac stent graft is in place. Abdominal aortic aneurysm size is unchanged. Lymph nodes: Unremarkable. No enlarged lymph nodes. Urinary bladder: New hazy densities and stranding are seen adjacent to urinary bladder. Reproductive: Generalized uterine prominence shows short term stability and is mildly decreased relative to a pelvic MRI from November 2021. Bones/joints: Blastic/sclerotic bony abnormalities are unchanged. Soft tissues: Unremarkable. Other findings: There has been interval marked decrease in para-aortic densities. CT/CT abdomen pelvis wo con [id number] IMPRESSION: Cystitis. Interval placement of bifurcated aortoiliac stent graft. Previously suggested para-aortic stranding has markedly diminished; no new aortic abnormalities. Findings consistent with hepatic and skeletal metastatic disease . 2 mm gallstone within gallbladder. Additional details as above.
[2022-11-21] MEDS: cefTRIAXone 2,000 MG in sodium chloride 0.9% (plus) 50 ML 100 MG IV (21:12)
[2022-11-21 22:00] VITALS: BP 129/97; PULSE 68; RESP 16; TEMP 36.6; O2SAT 95
== END 2022-11-21 22:57 | disposition home or self-care (01) ==
PROVIDERS: Emergency Medicine; Emergency Provider Emergency Medicine; PCP Internal Medicine Hematology & Oncology
DX: N30.90 Cystitis, unspecified without hematuria (principal); E87.1 Hypo-osmolality and hyponatremia
CPT/HCPCS: 74176; 80053; 81001; 85025; 96365; 99285; J0696; J7030

== ENCOUNTER 2022-12-06 18:27 | Emergency (ER) | payer MEDICARE, SELFPAY ==
[2022-12-06] VITALS (10 sets, daily range): BP systolic 125–136; BP diastolic 71–80; PULSE 82–83; RESP 16–17; TEMP 36.6; O2SAT 91–97; BMI 23.0
[2022-12-06 19:25] LABS: Basophils # 0.1 10^3/uL (0.0-0.1); Basophils % 0.4 %; Eosinophils # 0.6 10^3/uL (0.0-0.8); Eosinophils % 5.3 %; Hematocrit 35.6 % (37.0-47.0); Hemoglobin 11.1 g/dL (11.5-15.3); Lymphocytes # 1.4 10^3/uL (0.8-4.8); Lymphocytes % 12.4 %; Mean Corpuscular HGB Conc 31.2 g/dL (30.0-36.0); Mean Corpuscular Hemoglobin 29.8 pg (28.0-34.0); Mean Corpuscular Volume 95.7 fl (81-99); Mean Platelet Volume 10.1 fL (7.4-10.4); Monocytes # 0.7 10^3/uL (0.2-0.9); Monocytes % 6.1 %; Neutrophils # 8.77 10^3/uL (1.8-7.7); Neutrophils % 75.4 %; Nucleated Red Blood Cells % 0 %; Platelet Count 230 10^3/cmm (130-400); Red Blood Count 3.72 10^6/uL (4.1-5.3); Red Cell Distribution Width 18.6 % (12.1-15.1); White Blood Count 11.6 10^3/uL (4.0-10.0)
[2022-12-06 19:37] LABS: Alanine Aminotransferase 14 U/L (0-33); Albumin Level 3.4 g/dL (3.5-5.2); Alkaline Phosphatase 115 U/L (35-105); Anion Gap 17.2 (5-19); Aspartate Amino Transferase 16 U/L (0-32); Blood Urea Nitrogen 18 mg/dL (8-23); Calcium 8.8 mg/dL (8.5-10.5); Carbon Dioxide 24 mmol/L (22-29); Chloride 97 mmol/L (98-107); Glomerular Filtration Rate 61.9 mL/min (90-130); Glucose 107 mg/dL (65-115); Lipase 14 U/L (13-60); Osmolality Calculated 280 mOsm/kg (285-295); Potassium 4.2 mmol/L (3.5-5.1); Sodium 134 mmol/L (136-145); Total Bilirubin 0.3 mg/dL (0.15-1.2); Total Protein 6.4 g/dL (6.6-8.7)
--- NOTE | 2022-12-06 21:53 | ED_ITS ---
HPI - Female Genitourinary General: Chief complaint: Urogenital-Female Stated complaint: back pain, possible kidney infection Time Seen by Provider: 12/06/22 21:26 Source: patient Mode of arrival: ambulatory Limitations: no limitations History of Present Illness: 72-year-old female who had a history of aortic aneurysm had actually seen her month ago transferred up to [place] where she had a repaired she gets frequent UTIs states has been having some flank pain along with dysuria and frequency. She states that she feels like she has UTI she states that she been taking Cipro since Tuesday but no improvement states her flank pain is a 5 out of 10 currently denies any abdominal pain denies any v omiting. Associated symptoms: Deny abdominal pain, headache(s) or nausea Review of Systems Const: Denies: fever(s), chills, body aches or change in appetite Eyes: Denies: blurry vision or eye discomfort ENMT: Denies: throat pain or dental pain Card: Denies: chest pain Resp: Denies: dyspnea GI: Denies: abdominal pain, nausea, vomiting or diarrhea : Reports: flank pain Musc: Denies: neck pain or back pain Skin/Breast: Denies: rash Neuro: Denies: headache(s) Psych: Denies: depression Markie/Lymph: Denies: easy bruising All/Imm: Denies: urticaria PFSH ED PFSH: Medical History Elevated brain natriuretic peptide (BNP) level Hydronephrosis, left Hypercholesteremia Hypertension No pertinent past medical history neghx: dm,thyroid,dvt/pe PCP: Dr. Hilliard Surgical History No pertinent past surgical history Family History Mother , at age 69 Colon cancer dx age 60's Thyroid disease Thyroid cancer Cancer Thyroid cancer followed by colon cancer Father , at age 68 Cancer Lung cancer Diabetes Denies family history of CAD (coronary artery disease) Clotting disorder Dementia Hyperlipidemia Psychiatric illness Chronic kidney disease (CKD) Suicide Anesthesia complication Bleeding disorder Lung disease Hypertension Stroke Social History Smoking and tobacco status: former smoker (0.5 ppd) Quit status (tobacco): has quit using tobacco Year quit tobacco: August 2022 Former quit date comment: 0.5ppd x 40 years Alcohol intake: current Alcohol intake frequency: holidays/special occasions only Marital status: Current occupational status: retired Physical Exam Const: COMMON NORMALS: no acute distress, patient oriented x3 and healthy appearing HENMT: COMMON NORMALS: normocephalic and atraumatic HEAD & SCALP: normocephalic and atraumatic Eye: COMMON NORMALS: Equal, round and reactive pupils present and EOMs intact bilaterally PUPIL: Yes Equal, round and reactive pupils present Neck/C-Spine: COMMON NORMALS: full ROM and supple Chest: COMMONS NORMALS: normal inspection of the chest and normal palpation of entire chest wall Resp: COMMON NORMALS: normal respiratory effort, No retractions, No use of accessory muscles and clear to auscultation bilaterally AUSCULTATION: clear to auscultation bilaterally Cardio: COMMON NORMALS: regular rate, regular rhythm and No murmurs present (Cardio) RATE: regular rate RHYTHM: regular rhythm GI: COMMON NORMALS: Normal to inspection, nondistended, normoactive bowel sounds present, Soft to palpation, non-tender and no masses PALPATION: Yes Soft to palpation Extremity: COMMON NORMALS: normal to inspection and full ROM Neuro: COMMON NORMALS: patient oriented x3, moves all extremities and no focal motor deficits Psych: COMMON NORMALS: mental status grossly normal, Normal thought process present and cooperative THOUGHT PROCESS: Normal thought process present Skin: COMMON NORMALS: no rashes or lesions noted and no wounds GENERAL SKIN EXAM: no rashes or lesions noted Course 2 Vital Signs: Vital signs: Vital Signs Temperature 97.8 F 12/06/22 18:32 Pulse Rate 79 12/07/22 00:00 Respiratory Rate 17 12/06/22 22:05 Blood Pressure 141/92 12/07/22 00:00 Pulse Oximetry 92 12/07/22 00:00 Oxygen Delivery Me thod 12/07/22 00:00 MDM - Female Medical Decision Making Patient presents with abdominal pain CT scan here is normal aorta is doing well after the surgery no signs of rupture she is to finish out her Cipro course she is return if worsening she understands agrees to plan. Lab Data 12/06/22 19:14 12/06/22 19:14 Radiology Impressions Abdomen/Pelvis CT 12/06/22 23:06 IMPRESSION: 1. Similar exam from 11/21/2022 with evidence of stage IV cancer. 2. Improved evidence of cystitis. 3. No bowel obstruction, hydronephrosis, or other acute process has developed in the interval. Laboratory Results WBC 11.6 10^3/uL (4.0-10.0) H 12/06/22 19:14 RBC 3.72 10^6/uL (4.1-5.3) L 12/06/22 19:14 Hgb 11.1 g/dL (11.5-15.3) L 12/06/22 19:14 Hct 35.6 % (37.0-47.0) L 12/06/22 19:14 MCV 95.7 fl (81-99) 12/06/22 19:14 MCH 29.8 pg (28.0-34.0) 12/06/22 19:14 MCHC 31.2 g/dL (30.0-36.0) 12/06/22 19:14 RDW 18.6 % (12.1-15.1) H 12/06/22 19:14 Plt Count 230 10^3/cmm (130-400) 12/06/22 19:14 MPV 10.1 fL (7.4-10.4) 12/06/22 19:14 Neut % (Auto) 75.4 % 12/06/22 19:14 Lymph % (Auto) 12.4 % 12/06/22 19:14 [place] % (Auto) 6.1 % 12/06/22 19:14 Eos % (Auto) 5.3 % 12/06/22 19:14 Baso % (Auto) 0.4 % 12/06/22 19:14 Neut # (Auto) 8.77 10^3/uL (1.8-7.7) H 12/06/22 19:14 Lymph # (Auto) 1.4 10^3/uL (0.8-4.8) 12/06/22 19:14 [place] # (Auto) 0.7 10^3/uL (0.2-0.9) 12/06/22 19:14 Eos # (Auto) 0.6 10^3/uL (0.0-0.8) 12/06/22 19:14 Baso # (Auto) 0.1 10^3/uL (0.0-0.1) 12/06/22 19:14 Nucleated RBC % (auto) 0 % 12/06/22 19:14 Nucleated RBCs # 0.0 /100WBC 12/06/22 19:14 Sodium 134 mmol/L (136-145) L 12/06/22 19:14 Potassium 4.2 mmol/L (3.5-5.1) 12/06/22 19:14 Chloride 97 mmol/L (98-107) L 12/06/22 19:14 Carbon Dioxide 24 mmol/L (22-29) 12/06/22 19:14 Anion Gap 17.2 (5-19) 12/06/22 19:14 BUN 18 mg/dL (8-23) 12/06/22 19:14 Creatinine 0.9 mg/dL (0.5-0.9) 12/06/22 19:14 GFR Calculation 61.9 mL/min (90-130) L 12/06/22 19:14 Glucose 107 mg/dL (65-115) 12/06/22 19:14 Calculated Osmolality 280 mOsm/kg (285-295) L 12/06/22 19:14 Calcium 8.8 mg/dL (8.5-10.5) 12/06/22 19:14 Total Bilirubin 0.3 mg/dL (0.15-1.2) 12/06/22 19:14 AST 16 U/L (0-32) 12/06/22 19:14 ALT 14 U/L (0-33) 12/06/22 19:14 Alkaline Phosphatase 115 U/L (35-105) H 12/06/22 19:14 Total Protein 6.4 g/dL (6.6-8.7) L 12/06/22 19:14 Albumin 3.4 g/dL (3.5-5.2) L 12/06/22 19:14 Globulin 3.0 g/dL (1.3-4.6) 12/06/22 19:14 Lipase 14 U/L (13-60) 12/06/22 19:14 Urine Color Yellow (Yellow) 12/06/22 22:34 Urine Appearance Sl hazy (CLEAR) A 12/06/22 22:34 Urine pH 5 (5-7) 12/06/22 22:34 Ur Specific Covert 1.020 (1.005-1.030) 12/06/22 22:34 Urine Protein 1+ (Negative) H 12/06/22 22:34 Urine Glucose (UA) Norm (Normal) 12/06/22 22:34 Urine Ketones Negative (Negative) 12/06/22 22:34 Urine Blood 3+ (Negative) H 12/06/22 22:34 Urine Nitrate Negative (Negative) 12/06/22 22:34 Urine Bilirubin Neg (Negative) 12/06/22 22:34 Urine Urobilinogen Norm mg/dL (Negative) 12/06/22 22:34 Ur Leukocyte Esterase Trace (Negative) H 12/06/22 22:34 Urine RBC 50-80 /hpf (0-2) H 12/06/22 22:34 Urine WBC 10-15 /hpf (0-5) H 12/06/22 22:34 Ur Squamous Epith Cells 0-4 /hpf (0-5) H 12/06/22 22:34 Amorphous Sediment Not Reportable 12/06/22 22:34 Urine Bacteria Trace /hpf (NONE) 12/06/22 22:34 Urine Mucus Trace /hpf 12/06/22 22:34 Discharge Plan Discharge Patient Disposition: Home Clinical Impression: Abdominal pain Condition: Stable Prescriptions: No Action losartan-hydrochlorothiazide 50-12.5 mg tablet 1 tab PO QPM atorvastatin 20 mg tablet 20 mg PO QPM loperamide [Imodium A-D] 2 mg tablet 2 mg PO Q6H PRN (Reason: Diarrhea) loratadine [Claritin] 10 mg tablet 10 mg PO DAILY PRN (Reason: Allergy Symptoms) prednisolone sodium phosphate 1 % drops 1 drp ophthalmic (eye) QID Rx Instructions: start 2 days prior to treatment Zyprexa 5 mg Tablet 5 mg PO .BEFORE CHEMO acetaminophen 500 mg Tablet 500 mg PO Q6H PRN (Reason: Pain) Pepcid 20 mg Tablet 20 mg PO .BEFORE CHEMO Benadryl 25 mg Capsule 25 mg PO .BEFORE CHEMO paclitaxel 6 mg/mL Concentrate See Rx Instructions .ROUTE .COMPLEX Rx Instructions: 288mg every 3 weeks as directed Aloxi 0.25 mg/5 mL Solution 0.25 mg IV .BEFORE CHEMO cisplatin 50 mg Recon Soln See Rx Instructions .ROUTE .COMPLEX Rx Instructions: 82mg every 3 weeks as directed Discharge Orders: Discharge ED (Routine); Ordered 12/07/22 Ordered By: Lyndsay Ruggiero Referrals: Boyd Cuevas MD [Primary Care Provider] - 1-3 days Discharge Diet: Advance as tolerated Discharge Activity: Resume usual activity Patient Instructions: Abdominal Pain (ED) Coding Level of Care Code ED 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
[2022-12-06] MEDS: morphine 4 mg/mL SDV 1 mL IVP (22:05)
[2022-12-06] MEDS: sodium chloride 0.9% 1,000 ML 999 ML IV (22:05)
[2022-12-06] MEDS: ondansetron 2 mg/ML SDV 2 mL 4 MG IVP (22:05)
[2022-12-06 22:52] LABS: Add Urine Microscopic? YES; Bilirubin Urine Neg (Negative); Blood Urine 3+ (Negative); Glucose Urine UA Norm (Normal); Ketones Urine Negative (Negative); Leukocyte Esterase Urine Trace (Negative); Nitrate Urine Negative (Negative); Protein Urine 1+ (Negative); Urine Appearance SL Hazy (CLEAR); Urine Color Yellow (Yellow); Urobilinogen Urine Norm (Negative); pH Urine 5 (5-7)
[2022-12-06 22:53] LABS: Add Urine Culture? Yes; Bacteria Urine TRACE /hpf; Mucus Urine TRACE /hpf; RBC Urine 50-80 /hpf (0-2); Squamous Epithelial Cell Urine 0-4 /hpf (0-5)
--- NOTE | 2022-12-06 23:06 | CTR_ITS ---
PROCEDURE INFORMATION: Exam: CT Abdomen And Pelvis With Contrast Exam date and time: 12/06/2022 11:21 PM Age: 72 years old Clinical indication: Abdominal pain; Localized; Prior surgery; Surgery type: Chest port. Aortic endograft. Ureteral stent; Patient HX: C/O lower abd/back pain with dysuria. ; Additional info: Abd pain TECHNIQUE: Imaging protocol: Computed tomography of the abdomen and pelvis with contrast. Radiation optimization: All CT scans at this facility use at least one of these dose optimization techniques: automated exposure control; mA and/or kV adjustment per patient size (includes targeted exams where dose is matched to clinical indication); or iterative reconstruction. Contrast material: OMNI 350; Contrast volume: 75 ml; Contrast route: INTRAVENOUS (IV); REPORTING DATA: Count of CT and Cardiac NM exams in prior 12 months: This patient has received 5 known CTs and 0 known cardiac nuclear medicine studies in the 12 months prior to the current study. COMPARISON: CT abdomen pelvis wo con [id number] 11/21/2022 8:51 PM RADIATION DOSE METRICS: Total DLP (mGy-cm): 365.34 FINDINGS: Tubes, catheters and devices: AAA endograft again seen. Lungs: Lower lung emphysema and COPD. A few minute calcified lung nodules are seen incidentally. Liver: Multiple liver metastases are again seen up to about 3.8 cm. Gallbladder and bile ducts: No calcified gallstones or biliary dilation identified. Previously identified tiny gallstone not well seen today. Pancreas: Unremarkable with no suspicious mass. No ductal dilation. Spleen: The spleen is not enlarged. No suspicious enhancing mass is noted. Adrenal glands: Normal. No mass. Kidneys and ureters: Left ureteral stent unchanged. No hydronephrosis or new mass lesion. Stomach and bowel: Fecal filled colon. No small bowel obstruction. No small bowel obstruction. Appendix: No evidence of appendicitis. Intraperitoneal space: Unremarkable. No free air. No suspicious fluid collection. Vasculature: The AAA today measures up to about 55 x 54 mm, unchanged. No acute rupture. Lymph nodes: No enlarged lymph nodes. Urinary bladder: Left posterior bladder wall thickening again seen. Reproductive: Heterogenous uterus. Bones/joints: Widespread osseous metastases again visualized, mainly blastic. Soft tissues: No acute or suspicious finding noted. CT/CT abdomen pelvis w con* [id number] IMPRESSION: 1. Similar exam from 11/21/2022 with evidence of stage IV cancer. 2. Improved evidence of cystitis. 3. No bowel obstruction, hydronephrosis, or other acute process has developed in the interval.
[2022-12-06] MEDS: iohexol 350 mg/mL 500 mL Btl (per mL) IV (23:26)
[2022-12-07] VITALS: BP 141/92; PULSE 79; O2SAT 92
[2022-12-07 00:21] VITALS: BP 141/92; PULSE 78; RESP 16; O2SAT 93
== END 2022-12-07 00:22 | disposition home or self-care (01) ==
PROVIDERS: Emergency Provider Emergency Medicine; PCP Obstetrics & Gynecology Gynecologic Oncology
DX: R10.9 Unspecified abdominal pain (principal); Z87.891 Personal history of nicotine dependence; I10 Essential (primary) hypertension; Z87.440 Personal history of urinary (tract) infections
CPT/HCPCS: 36415; 74177; 80053; 81001; 83690; 85025; 87086; 96361; 96374; 96375; 99285; J2270; J2405; J7030; Q9967

== ENCOUNTER 2022-12-15 12:24 | Oncology outpatient (recurring) (ONCR) | payer MEDICARE, SELFPAY ==
[2022-11-30 08:14] VITALS: BMI 22.6
[2022-11-30 08:38] LABS: Basophils # 0.1 10^3/uL (0.0-0.1); Basophils % 0.5 %; Eosinophils # 0.5 10^3/uL (0.0-0.8); Eosinophils % 4.6 %; Hemoglobin 11.7 g/dL (11.5-15.3); Lymphocytes # 1.4 10^3/uL (0.8-4.8); Lymphocytes % 12.4 %; Mean Corpuscular HGB Conc 30.8 g/dL (30.0-36.0); Mean Corpuscular Hemoglobin 29.8 pg (28.0-34.0); Mean Corpuscular Volume 96.9 fl (81-99); Mean Platelet Volume 10.1 fL (7.4-10.4); Monocytes # 0.8 10^3/uL (0.2-0.9); Monocytes % 6.7 %; Neutrophils # 8.46 10^3/uL (1.8-7.7); Neutrophils % 75.2 %; Nucleated Red Blood Cells % 0 %; Platelet Count 292 10^3/cmm (130-400); Red Blood Count 3.92 10^6/uL (4.1-5.3); White Blood Count 11.3 10^3/uL (4.0-10.0)
[2022-11-30 09:05] LABS: Alanine Aminotransferase 14 U/L (0-33); Albumin Level 3.5 g/dL (3.5-5.2); Alkaline Phosphatase 138 U/L (35-105); Anion Gap 15.2 (5-19); Aspartate Amino Transferase 17 U/L (0-32); Blood Urea Nitrogen 26 mg/dL (8-23); Calcium 9.5 mg/dL (8.5-10.5); Carbon Dioxide 27 mmol/L (22-29); Chloride 94 mmol/L (98-107); Globulin 3.2 g/dL (1.3-4.6); Glomerular Filtration Rate 54.8 mL/min (90-130); Glucose 116 mg/dL (65-115); Osmolality Calculated 280 mOsm/kg (285-295); Potassium 4.2 mmol/L (3.5-5.1); Sodium 132 mmol/L (136-145); Thyroid Stimulating Hormone 2.59 uIU/mL (0.27-4.20); Total Bilirubin 0.3 mg/dL (0.15-1.2); Total Protein 6.7 g/dL (6.6-8.7)
== END 2022-12-17 23:59 | disposition home or self-care (01) ==
PROVIDERS: PCP Obstetrics & Gynecology Gynecologic Oncology; Visit Provider Internal Medicine Hematology & Oncology
DX: C53.8 Malignant neoplasm of overlapping sites of cervix uteri (principal); C77.8 Secondary and unspecified malignant neoplasm of lymph nodes of multiple regions; C79.51 Secondary malignant neoplasm of bone; C78.7 Secondary malignant neoplasm of liver and intrahepatic bile duct; C78.01 Secondary malignant neoplasm of right lung; F17.210 Nicotine dependence, cigarettes, uncomplicated; I71.30 Abdominal aortic aneurysm, ruptured, unspecified; Z79.899 Other long term (current) drug therapy
CPT/HCPCS: 72132; 74174; 80053; 84443; 85025; 93005; 99214; 99285; Q9967

== ENCOUNTER 2022-12-15 13:52 | Emergency (ER) | payer MEDICARE, SELFPAY ==
[2022-12-15 13:56] VITALS: BP 152/98; PULSE 79; RESP 18; TEMP 36.9; O2SAT 96
[2022-12-15 16:07] VITALS: BP 115/77; PULSE 83; RESP 17; TEMP 36.6; O2SAT 93
--- NOTE | 2022-12-15 18:15 | CTR_ITS ---
PROCEDURE INFORMATION: Exam: CTA Abdomen and Pelvis With Contrast Exam date and time: 12/15/2022 7:27 PM Age: 72 years old Clinical indication: On breathing; Abdominal pain; Generalized; Prior surgery; Surgery date: 6+ months; Surgery type: Aaa repair; Additional info: HX aaa reapiar leak, back pain TECHNIQUE: Imaging protocol: Computed tomographic angiography of the abdomen and pelvis with contrast. 3D rendering (Not supervised by radiologist): MIP and/or 3D reconstructed images were created by the technologist. Radiation optimization: All CT scans at this facility use at least one of these dose optimization techniques: automated exposure control; mA and/or kV adjustment per patient size (includes targeted exams where dose is matched to clinical indication); or iterative reconstruction. Contrast material: OMNI 350; Contrast volume: 100 ml; Contrast route: INTRAVENOUS (IV); REPORTING DATA: Count of CT and Cardiac NM exams in prior 12 months: This patient has received 6 known CTs and 0 known cardiac nuclear medicine studies in the 12 months prior to the current study. COMPARISON: 1. CT abdomen pelvis w con* [id number] 12/06/2022 11:[address] abdomen pelvis w con* [id number] 11/11/2022 1:03 AM 3. OT PET Scan 12/11/2021 12:19 PM RADIATION DOSE METRICS: Total DLP (mGy-cm): 336.85 FINDINGS: Limitations: Study is limited due to absence of non-contrast and postcontrast delayed images. Tubes, catheters and devices: There are findings of stent graft repair of the aneurysm with patent stent unchanged in position and appearance compared with 12/06/2022. No evidence of leakage or extravasation is noted. Lungs: There is moderate centrilobular emphysema at the lung bases. There is calcified granuloma in the right lower lobe. Aorta: There is fusiform abdominal aortic aneurysm with maximum diameter of 5.6 cm not significantly changed compared with 12/06/2022. There does not appear to be any endoleak when carefully correlated with the noncontrast examination of 11/21/2022. Celiac trunk and mesenteric arteries: No occlusion or significant stenosis. Renal arteries: There is a single renal artery on each side. There may be some stenosis of the origin of the left renal artery. Right renal artery appears widely patent. Right iliac arteries: No occlusion or significant stenosis. Left iliac arteries: No occlusion or significant stenosis. Liver: Multiple lesions within the liver worrisome for hepatic metastasis are not significantly changed compared with 12/06/2022, largest involves the left lobe in segments 3 and 4. Gallbladder and bile ducts: Unremarkable. No calcified stones. No ductal dilation. Pancreas: The pancreas is normal. Spleen: The spleen is normal. Adrenal glands: The adrenal glands are normal. Kidneys and ureters: Left kidney is moderately atrophic not changed from previous. The right kidney is normal. There is no evidence of hydronephrosis. There is persistent thickening of the proximal left ureter Stomach and bowel: There is no evidence of colitis/diverticulitis. There is no evidence of intestinal obstruction. Appendix: Not identified Intraperitoneal space: There is no evidence of free intraperitoneal fluid. Lymph nodes: There are enlarged left obturator lymph nodes with calcification not significantly changed from 12/06/2022 but significantly smaller than on 12/11/2021. Urinary bladder: Left posterior wall mass or thickening unchanged but not as well seen as on 12/06/2022.. Reproductive: Unremarkable as visualized. Bones/joints: Blastic metastasis involving the right pubic bone both superior and inferior pubic rami, right ischium, right iliac bone, bilateral acetabuli and left inferior pubic ramus not significantly changed. No acute fracture is identified. Soft tissues: Unremarkable. CT/CT angio abdomen pelvis [id number] IMPRESSION: 1. Hepatic metastasis not significantly changed. 2. Bone metastasis not significantly changed. 3. Abdominal aortic aneurysm with stent graft repair stable compared with recent previous examinations. No evidence of active extravasation or leakage or endoleak identified on this exam. 4. Left pelvic adenopathy not changed compared with recent examinations.
--- NOTE | 2022-12-15 18:15 | CTR_ITS ---
PROCEDURE INFORMATION: Exam: CT Lumbar Spine With Contrast Exam date and time: 12/15/2022 7:31 PM Age: 72 years old Clinical indication: Low back pain; Additional info: Back pain, mets to lumbar spine TECHNIQUE: Imaging protocol: Computed tomography of the lumbar spine with contrast. Radiation optimization: All CT scans at this facility use at least one of these dose optimization techniques: automated exposure control; mA and/or kV adjustment per patient size (includes targeted exams where dose is matched to clinical indication); or iterative reconstruction. Contrast material: OMNI 350; Contrast volume: 100 ml; Contrast route: INTRAVENOUS (IV); REPORTING DATA: Count of CT and Cardiac NM exams in prior 12 months: This patient has received 6 known CTs and 0 known cardiac nuclear medicine studies in the 12 months prior to the current study. COMPARISON: NM bone scan whole body* [id number] 02/10/2022 9:30 AM RADIATION DOSE METRICS: Total DLP (mGy-cm): 455.69 FINDINGS: Bones/joints: Pelvic bone metastasis incompletely imaged on this examination. Please see report of CT angiogram abdomen pelvis. No sclerotic or destructive lesion is seen in the lumbar spine. No lumbar fracture is identified. Intervertebral disc spaces are preserved. Soft tissues: Unremarkable. CT/CT lumbar spine w con [id number] IMPRESSION: No acute abnormality of the lumbar spine.
--- NOTE | 2022-12-15 18:24 | ECG_ITS ---
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 Measurements Intervals [place] Rate: 71 P: 82 AK: 166 QRS: 61 QRSD: 84 T: 78 QT: 411 QTc: 447 Interpretive Statements SINUS RHYTHM WITH OCCASIONAL SUPRAVENTRICULAR PREMATURE COMPLEXES POSSIBLE LEFT ATRIAL ENLARGEMENT [-0.1mV P-WAVE IN V1/V2] INDETERMINATE AXIS PATTERN CONSISTENT WITH PULMONARY DISEASE Compared to ECG 08/17/2022 15:03:59 No significant changes Electronically Signed On 12-15-2022 23:55:59 CDT by Phyllis Albright M.D. [email or web address]
[2022-12-15 18:30] VITALS: BP 123/72; PULSE 75; RESP 16; O2SAT 95
--- NOTE | 2022-12-15 18:40 | W.ED.GENADLT ---
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 She is seen by her oncologist today she has been having continuing back pain she states is a bandlike pain across her back she rates a 3 out of 10 currently had sent her here for imaging as he is concerned about her aneurysm or admit to her spine she denies any bowel or bladder incontinence denies any difficulty walking. Associated symptoms: Deny chest pain, dyspnea, headache(s), nausea, rash or vomiting Review of Systems Const: Denies: fever(s), chills, body aches or change in appetite Eyes: Denies: blurry vision or eye discomfort ENMT: Denies: throat pain or dental pain Card: Denies: chest pain Resp: Denies: dyspnea GI: Denies: abdominal pain, nausea, vomiting or diarrhea : Denies: dysuria Musc: Denies: neck pain or back pain Skin/Breast: Denies: rash Neuro: Denies: headache(s) Psych: Denies: depression Markie/Lymph: Denies: easy bruising All/Imm: Denies: urticaria PFSH ED PFSH: Medical History Elevated brain natriuretic peptide (BNP) level Hydronephrosis, left Hypercholesteremia Hypertension No pertinent past medical history neghx: dm,thyroid,dvt/pe PCP: Dr. Hilliard Surgical History No pertinent past surgical history Family History Mother , at age 69 Colon cancer dx age 60's Thyroid disease Thyroid cancer Cancer Thyroid cancer followed by colon cancer Father , at age 68 Cancer Lung cancer Diabetes Denies family history of CAD (coronary artery disease) Clotting disorder Dementia Hyperlipidemia Psychiatric illness Chronic kidney disease (CKD) Suicide Anesthesia complication Bleeding disorder Lung disease Hypertension Stroke Social History Smoking and tobacco status: former smoker (0.5 ppd) Quit status (tobacco): has quit using tobacco Year quit tobacco: August 2022 Former quit date comment: 0.5ppd x 40 years Alcohol intake: current Alcohol intake frequency: holidays/special occasions only Marital status: Current occupational status: retired Physical Exam Const: COMMON NORMALS: no acute distress, patient oriented x3 and healthy appearing HENMT: COMMON NORMALS: normocephalic and atraumatic HEAD & SCALP: normocephalic and atraumatic Eye: COMMON NORMALS: Equal, round and reactive pupils present and EOMs intact bilaterally PUPIL: Yes Equal, round and reactive pupils present Neck/C-Spine: COMMON NORMALS: full ROM and supple Chest: COMMONS NORMALS: normal inspection of the chest and normal palpation of entire chest wall Resp: COMMON NORMALS: normal respiratory effort, No retractions, No use of accessory muscles and clear to auscultation bilaterally AUSCULTATION: clear to auscultation bilaterally Cardio: COMMON NORMALS: regular rate, regular rhythm and No murmurs present (Cardio) RATE: regular rate RHYTHM: regular rhythm GI: COMMON NORMALS: Normal to inspection, nondistended, normoactive bowel sounds present, Soft to palpation, non-tender and no masses PALPATION: Yes Soft to palpation Extremity: COMMON NORMALS: normal to inspection and full ROM Neuro: COMMON NORMALS: patient oriented x3, moves all extremities and no focal motor deficits Psych: COMMON NORMALS: mental status grossly normal, Normal thought process present and cooperative THOUGHT PROCESS: Normal thought process present Skin: COMMON NORMALS: no rashes or lesions noted and no wounds GENERAL SKIN EXAM: no rashes or lesions noted Course Vital Signs: Vital signs: Vital Signs Temperature 97.8 F 12/15/22 16:07 Pulse Rate 75 12/15/22 18:30 Respiratory Rate 16 12/15/22 18:30 Blood Pressure 123/72 12/15/22 18:30 Pulse Oximetry 95 12/15/22 18:30 Oxygen Delivery Me thod 12/15/22 16:07 [facility] - General Adult Medical Decision Making Patient presents here with back pain CT shows no acute findings she is well-appearing here she is stable for discharge. Lab Data 12/15/22 18:40 12/15/22 18:40 Radiology Impressions Abdomen/Pelvis CTA 12/15/22 18:15 IMPRESSION: 1. Hepatic metastasis not significantly changed. 2. Bone metastasis not significantly changed. 3. Abdominal aortic aneurysm with stent graft repair stable compared with recent previous examinations. No evidence of active extravasation or leakage or endoleak identified on this exam. 4. Left pelvic adenopathy not changed compared with recent examinations. Lumbar Spine CT 12/15/22 18:15 IMPRESSION: No acute abnormality of the lumbar spine. Laboratory Results WBC 10.1 10^3/uL (4.0-10.0) H 12/15/22 18:40 RBC 3.88 10^6/uL (4.1-5.3) L 12/15/22 18:40 Hgb 11.7 g/dL (11.5-15.3) 12/15/22 18:40 Hct 37.7 % (37.0-47.0) 12/15/22 18:40 MCV 97.2 fl (81-99) 12/15/22 18:40 MCH 30.2 pg (28.0-34.0) 12/15/22 18:40 MCHC 31.0 g/dL (30.0-36.0) 12/15/22 18:40 RDW 19.1 % (12.1-15.1) H 12/15/22 18:40 Plt Count 237 10^3/cmm (130-400) 12/15/22 18:40 MPV 10.2 fL (7.4-10.4) 12/15/22 18:40 Neut % (Auto) 76.1 % 12/15/22 18:40 Lymph % (Auto) 14.6 % 12/15/22 18:40 [place] % (Auto) 4.3 % 12/15/22 18:40 Eos % (Auto) 4.1 % 12/15/22 18:40 Baso % (Auto) 0.5 % 12/15/22 18:40 Neut # (Auto) 7.70 10^3/uL (1.8-7.7) 12/15/22 18:40 Lymph # (Auto) 1.5 10^3/uL (0.8-4.8) 12/15/22 18:40 [place] # (Auto) 0.4 10^3/uL (0.2-0.9) 12/15/22 18:40 Eos # (Auto) 0.4 10^3/uL (0.0-0.8) 12/15/22 18:40 Baso # (Auto) 0.1 10^3/uL (0.0-0.1) 12/15/22 18:40 Nucleated RBC % (auto) 0 % 12/15/22 18:40 Nucleated RBCs # 0.0 /100WBC 12/15/22 18:40 Sodium 133 mmol/L (136-145) L 12/15/22 18:40 Potassium 4.2 mmol/L (3.5-5.1) 12/15/22 18:40 Chloride 92 mmol/L (98-107) L 12/15/22 18:40 Carbon Dioxide 27 mmol/L (22-29) 12/15/22 18:40 Anion Gap 18.2 (5-19) 12/15/22 18:40 BUN 22 mg/dL (8-23) 12/15/22 18:40 Creatinine 1.1 mg/dL (0.5-0.9) H 12/15/22 18:40 GFR Calculation 49.1 mL/min (90-130) L 12/15/22 18:40 Glucose 90 mg/dL (65-115) 12/15/22 18:40 Calculated Osmolality 279 mOsm/kg (285-295) L 12/15/22 18:40 Calcium 9.4 mg/dL (8.5-10.5) 12/15/22 18:40 Total Bilirubin 0.3 mg/dL (0.15-1.2) 12/15/22 18:40 AST 21 U/L (0-32) 12/15/22 18:40 ALT 14 U/L (0-33) 12/15/22 18:40 Alkaline Phosphatase 124 U/L (35-105) H 12/15/22 18:40 Total Protein 6.9 g/dL (6.6-8.7) 12/15/22 18:40 Albumin 3.7 g/dL (3.5-5.2) 12/15/22 18:40 Globulin 3.2 g/dL (1.3-4.6) 12/15/22 18:40 EKG Data EKG 1: I personally reviewed and interpreted this EKG as follows: EKG interpretation date: 12/15/22 EKG interpretation time: 18:24 Interpretation: nsr hr [address] or t wave abnormalities qrs 84 qtc 433 Computer generated interpretation: Abdomen/Pelvis CTA 12/15/22 18:15 IMPRESSION: 1. Hepatic metastasis not significantly changed. 2. Bone metastasis not significantly changed. 3. Abdominal aortic aneurysm with stent graft repair stable compared with recent previous examinations. No evidence of active extravasation or leakage or endoleak identified on this exam. 4. Left pelvic adenopathy not changed compared with recent examinations. Lumbar Spine CT 12/15/22 18:15 IMPRESSION: No acute abnormality of the lumbar spine. Discharge Plan Discharge Patient Disposition: Home Clinical Impression: Back pain Condition: Stable Prescriptions: No Action losartan-hydrochlorothiazide 50-12.5 mg tablet 1 tab PO QPM atorvastatin 20 mg tablet 20 mg PO QPM ciprofloxacin HCl 500 mg tablet 500 mg PO BID loperamide [Imodium A-D] 2 mg tablet 2 mg PO Q6H PRN (Reason: Diarrhea) loratadine [Claritin] 10 mg tablet 10 mg PO DAILY PRN (Reason: Allergy Symptoms) acetaminophen 500 mg Tablet 500 mg PO Q6H PRN (Reason: Pain) diphenhydramine HCl [Benadryl] 25 mg Capsule 25 mg PO .BEFORE CHEMO PRN (Reason: prn) aspirin 81 mg Tablet,Chewable 81 mg PO DAILY Discharge Orders: Discharge ED (Routine); Ordered 12/15/22 Ordered By: Lyndsay Ruggiero Referrals: Boyd Cuevas MD [Primary Care Provider] - Discharge Diet: Advance as tolerated Discharge Activity: Resume usual activity Patient Instructions: Back Pain (ED) Coding Level of Care Code ED 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
--- NOTE | 2022-12-15 18:45 | PC.NURSE ---
PT TAKING CIPROFLOXACIN 500MG FOR CURRENT UTI
--- NOTE | 2022-12-15 18:50 | PC.NURSE ---
PT PLACED ON CONTINUOUS NIBP, SPO2, AND CM
[2022-12-15 18:55] LABS: Basophils # 0.1 10^3/uL (0.0-0.1); Basophils % 0.5 %; Eosinophils # 0.4 10^3/uL (0.0-0.8); Eosinophils % 4.1 %; Hematocrit 37.7 % (37.0-47.0); Hemoglobin 11.7 g/dL (11.5-15.3); Lymphocytes # 1.5 10^3/uL (0.8-4.8); Lymphocytes % 14.6 %; Mean Corpuscular Hemoglobin 30.2 pg (28.0-34.0); Mean Corpuscular Volume 97.2 fl (81-99); Mean Platelet Volume 10.2 fL (7.4-10.4); Monocytes # 0.4 10^3/uL (0.2-0.9); Monocytes % 4.3 %; Neutrophils % 76.1 %; Nucleated Red Blood Cells % 0 %; Platelet Count 237 10^3/cmm (130-400); Red Blood Count 3.88 10^6/uL (4.1-5.3); Red Cell Distribution Width 19.1 % (12.1-15.1); White Blood Count 10.1 10^3/uL (4.0-10.0)
[2022-12-15 19:15] LABS: Alanine Aminotransferase 14 U/L (0-33); Albumin Level 3.7 g/dL (3.5-5.2); Alkaline Phosphatase 124 U/L (35-105); Anion Gap 18.2 (5-19); Aspartate Amino Transferase 21 U/L (0-32); Blood Urea Nitrogen 22 mg/dL (8-23); Calcium 9.4 mg/dL (8.5-10.5); Carbon Dioxide 27 mmol/L (22-29); Chloride 92 mmol/L (98-107); Globulin 3.2 g/dL (1.3-4.6); Glomerular Filtration Rate 49.1 mL/min (90-130); Glucose 90 mg/dL (65-115); Osmolality Calculated 279 mOsm/kg (285-295); Potassium 4.2 mmol/L (3.5-5.1); Sodium 133 mmol/L (136-145); Total Bilirubin 0.3 mg/dL (0.15-1.2); Total Protein 6.9 g/dL (6.6-8.7)
[2022-12-15] MEDS: iohexol 350 mg/mL 500 mL Btl (per mL) IV (19:31)
[2022-12-15 20:43] VITALS: BP 139/87; PULSE 75; RESP 16; O2SAT 92
== END 2022-12-15 20:45 | disposition home or self-care (01) ==
PROVIDERS: Family Medicine; Emergency Provider Emergency Medicine; PCP Internal Medicine Hematology & Oncology
DX: M54.9 Dorsalgia, unspecified (principal); Z85.41 Personal history of malignant neoplasm of cervix uteri; C79.51 Secondary malignant neoplasm of bone; C78.7 Secondary malignant neoplasm of liver and intrahepatic bile duct; I10 Essential (primary) hypertension; Z87.891 Personal history of nicotine dependence
CPT/HCPCS: 72132; 74174; 80053; 85025; 93005; 99285; Q9967

== ENCOUNTER 2022-12-28 19:23 | Inpatient (IN) | payer MEDICARE, SELFPAY ==
[2022-12-28 19:30] VITALS: BP 146/87; PULSE 85; RESP 16; TEMP 36.3; O2SAT 92
--- NOTE | 2022-12-28 19:34 | ED_ITS ---
HPI - Back Pain/Injury General: Chief Complaint: Back Pain/Injury Stated Complaint: n/v several days Time Seen by Provider: 12/28/22 19:34 History of Present Illness: Ms. Singh is a 72-year-old lady with significant past medical history of metastatic cancer presenting to the emergency department for back pain and nausea and vomiting. She reports onset of symptoms last night without known specific provoking event. She felt relatively well earlier in the day. She notes moderate to severe low back pain far worse than her baseline and multiple episodes of emesis of nonbilious and nonbloody emesis. She did attempt to take home pain medications however was unable to keep them down. Overall course has persisted. No other specific changes in health, exacerbating, or alleviating factors identified. Onset (ago): hour(s) Timing: constant Severity: severe Quality: sharp and aching Location: lumbar spine Exacerbating factors: movement Relieving factors: none Associated symptoms: Reports nausea and vomiting Review of Systems General: Reports: 10 or more systems reviewed and unremarkable except in HPI and below GI: Reports: nausea and vomiting PFSH ED PFSH: Medical History Elevated brain natriuretic peptide (BNP) level Hydronephrosis, left Hypercholesteremia Hypertension No pertinent past medical history neghx: dm,thyroid,dvt/pe PCP: Dr. Hilliard Surgical History No pertinent past surgical history Family History Mother , at age 69 Colon cancer dx age 60's Thyroid disease Thyroid cancer Cancer Thyroid cancer followed by colon cancer Father , at age 68 Cancer Lung cancer Diabetes Denies family history of CAD (coronary artery disease) Clotting disorder Dementia Hyperlipidemia Psychiatric illness Chronic kidney disease (CKD) Suicide Anesthesia complication Bleeding disorder Lung disease Hypertension Stroke Social History Smoking and tobacco status: former smoker (0.5 ppd) Quit status (tobacco): has quit using tobacco Year quit tobacco: August 2022 Former quit date comment: 0.5ppd x 40 years Alcohol intake: current Alcohol intake frequency: holidays/special occasions only Marital status: Current occupational status: retired Physical Exam Const: COMMON NORMALS: alert GENERAL APPEARANCE: cooperative and well developed HENMT: COMMON NORMALS: normocephalic and atraumatic HEAD & SCALP: normocephalic and atraumatic Eye: COMMON NORMALS: conjunctivae normal CONJUNCTIVA: Yes conjunctivae normal SCLERA: sclerae normal Neck/C-Spine: COMMON NORMALS: supple GENERAL: Yes trachea midline Resp: COMMON NORMALS: normal respiratory effort and clear to auscultation bilaterally EFFORT & INSPECTION: Yes able to speak in complete sentences AUSCULTATION: clear to auscultation bilaterally Cardio: COMMON NORMALS: regular rate and regular rhythm RATE: regular rate RHYTHM: regular rhythm GI: COMMON NORMALS: Soft to palpation PALPATION: Yes Soft to palpation and No Tenderness to palpation present (GI) Extremity: GENERAL: Yes normal exam except as noted and No edema Neuro: COMMON NORMALS: moves all extremities SENSORIUM/ORIENTATION: Yes alert and No Orientation impaired Psych: COMMON NORMALS: mental status grossly normal and Normal thought process present THOUGHT PROCESS: Normal thought process present Course Vital Signs: Vital signs: Vital Signs Temperature 97.4 F L 12/29/22 12:00 Pulse Rate 71 12/29/22 12:00 Respiratory Rate 17 12/29/22 12:00 Blood Pressure 112/58 12/29/22 12:00 Pulse Oximetry 93 12/29/22 12:00 Oxygen Delivery Me thod Room Air 12/29/22 07:57 Oxygen Flow Rate 2 12/29/22 08:00 MDM - Back Pain/Injury Medical Decision Making 72-year-old lady presenting with nausea vomiting as well as pain. Exam as above. No evidence of acute surgical abdomen. Labs notable for leukocytosis, normal hemoglobin and platelet count. Metabolic panel with dehydration and SANDRINE. Urinalysis indeterminant with squamous epithelial contamination.. CT demonstrates increased metastatic disease in the right hydronephrosis without clear etiology. There is adjustment of central function of the left. Incidental findings discussed with patient. Discussed with urology service who will consult on patient. The results of ED evaluation were discussed with the patient including plan for admission due to requirement for level of care not available if discharged to prevent significant worsening/deterioration. Patient agreeable with plan. Discussed with hospitalist service who was agreeable to admit patient. Medical Records I reviewed the patient's medical records. Labs I reviewed the patient's lab results. 12/28/22 20:00 12/28/22 20:00 Radiology Impressions Abdomen/Pelvis CT 12/28/22 21:52 IMPRESSION: 1. Increased liver metastasis. 2. New right hydronephrosis. The ureter transitions in the pelvis of indeterminate cause. This could be due to stricture or occult mass. 3. Left internal renal stent with slightly increased hydronephrosis suggesting stent malfunction. 4. Slightly decreased size of stented infrarenal aortic aneurysm. 5. Chronic bilateral pelvic osseous sclerosis. Most likely metastasis. 6. Persisting left iliac chain adenopathy. COMMENTS: Consistent with the [employer]'s Incidental Findings Committee white paper (J Am [employer] Radiol 2018): Any incidental renal lesion less than 1 cm or classified as too small to characterize, or any incidental cystic renal lesion characterized as simple-appearing, is likely benign. No follow-up imaging is recommended for these lesions per consensus recommendations based on imaging criteria. KUB X-Ray 12/29/22 06:41 IMPRESSION: No acute abdominal findings. Laboratory Results WBC 12.2 10^3/uL (4.0-10.0) H 12/28/22 20:00 RBC 4.57 10^6/uL (4.1-5.3) 12/28/22 20:00 Hgb 14.1 g/dL (11.5-15.3) 12/28/22 20:00 Hct 44.7 % (37.0-47.0) 12/28/22 20:00 MCV 97.8 fl (81-99) 12/28/22 20:00 MCH 30.9 pg (28.0-34.0) 12/28/22 20:00 MCHC 31.5 g/dL (30.0-36.0) 12/28/22 20:00 RDW 19.4 % (12.1-15.1) H 12/28/22 20:00 Plt Count 223 10^3/cmm (130-400) 12/28/22 20:00 MPV 10.0 fL (7.4-10.4) 12/28/22 20:00 Neut % (Auto) 79.7 % 12/28/22 20:00 Lymph % (Auto) 9.7 % 12/28/22 20:00 [place] % (Auto) 6.7 % 12/28/22 20:00 Eos % (Auto) 3.0 % 12/28/22 20:00 Baso % (Auto) 0.5 % 12/28/22 20:00 Neut # (Auto) 9.68 10^3/uL (1.8-7.7) H 12/28/22 20:00 Lymph # (Auto) 1.2 10^3/uL (0.8-4.8) 12/28/22 20:00 [place] # (Auto) 0.8 10^3/uL (0.2-0.9) 12/28/22 20:00 Eos # (Auto) 0.4 10^3/uL (0.0-0.8) 12/28/22 20:00 Baso # (Auto) 0.1 10^3/uL (0.0-0.1) 12/28/22 20:00 Nucleated RBC % (auto) 0 % 12/28/22 20:00 Nucleated RBCs # 0.0 /100WBC 12/28/22 20:00 Sodium 139 mmol/L (136-145) 12/28/22 20:00 Potassium 3.8 mmol/L (3.5-5.1) 12/28/22 20:00 Chloride 99 mmol/L (98-107) 12/28/22 20:00 Carbon Dioxide 24 mmol/L (22-29) 12/28/22 20:00 Anion Gap 19.8 (5-19) H 12/28/22 20:00 BUN 25 mg/dL (8-23) H 12/28/22 20:00 Creatinine 1.5 mg/dL (0.5-0.9) H 12/28/22 20:00 GFR Calculation 34.3 mL/min (90-130) L 12/28/22 20:00 Glucose 114 mg/dL (65-115) 12/28/22 20:00 Calculated Osmolality 293 mOsm/kg (285-295) 12/28/22 20:00 Lactate 1.4 mmol/L (0.5-2.2) 12/28/22 20:20 Calcium 9.4 mg/dL (8.5-10.5) 12/28/22 20:00 Total Bilirubin 0.5 mg/dL (0.15-1.2) 12/28/22 20:00 AST 26 U/L (0-32) 12/28/22 20:00 ALT 22 U/L (0-33) 12/28/22 20:00 Alkaline Phosphatase 188 U/L (35-105) H 12/28/22 20:00 Total Protein 6.9 g/dL (6.6-8.7) 12/28/22 20:00 Albumin 3.8 g/dL (3.5-5.2) 12/28/22 20:00 Globulin 3.1 g/dL (1.3-4.6) 12/28/22 20:00 Procalcitonin 0.18 ng/mL (0-0.5) 12/28/22 20:00 Urine Color Yellow (Yellow) 12/28/22 21:34 Urine Appearance Sl hazy (CLEAR) A 12/28/22 21:34 Urine pH 6 (5-7) 12/28/22 21:34 Ur Specific [place] 1.010 (1.005-1.030) 12/28/22 21:34 Urine Protein 3+ (Negative) H 12/28/22 21:34 Urine Glucose (UA) Norm (Normal) 12/28/22 21:34 Urine Ketones Negative (Negative) 12/28/22 21:34 Urine Blood 3+ (Negative) H 12/28/22 21:34 Urine Nitrate Negative (Negative) 12/28/22 21:34 Urine Bilirubin Neg (Negative) 12/28/22 21:34 Urine Urobilinogen Norm mg/dL (Negative) 12/28/22 21:34 Ur Leukocyte Esterase 2+ (Negative) H 12/28/22 21:34 Urine RBC 0-4 /hpf (0-2) H 12/28/22 21:34 Urine WBC 25-40 /hpf (0-5) H 12/28/22 21:34 Ur Squamous Epith Cells 25-40 /hpf (0-5) H 12/28/22 21:34 Amorphous Sediment Not Reportable 12/28/22 21:34 Urine Bacteria Trace /hpf (NONE) 12/28/22 21:34 Discharge Plan Discharge Patient Disposition: Admitted As Inpatient Admit Provider: Celi Baca Clinical Impression: Back pain, SANDRINE (acute kidney injury), Hydronephrosis, Metastatic cancer Condition: Fair Discharge Diet: Cardiac Coding Level of Care Code ED Manager Roofing for Chg Sebas
[2022-12-28 19:43] VITALS: BP 152/101; PULSE 86; RESP 18; O2SAT 92
[2022-12-28] MEDS: sodium chloride 0.9% 1,000 ML 999 ML IV (20:00)
[2022-12-28] MEDS: ondansetron 2 mg/ML SDV 2 mL 4 MG IVP (20:01)
[2022-12-28 20:06] VITALS: RESP 16
[2022-12-28] MEDS: morphine 4 mg/mL SDV 1 mL IVP (20:06)
[2022-12-28 20:14] VITALS: BP 152/101; PULSE 76; RESP 18; O2SAT 98
[2022-12-28 20:14] LABS: Basophils # 0.1 10^3/uL (0.0-0.1); Basophils % 0.5 %; Eosinophils # 0.4 10^3/uL (0.0-0.8); Hematocrit 44.7 % (37.0-47.0); Hemoglobin 14.1 g/dL (11.5-15.3); Lymphocytes # 1.2 10^3/uL (0.8-4.8); Lymphocytes % 9.7 %; Mean Corpuscular HGB Conc 31.5 g/dL (30.0-36.0); Mean Corpuscular Hemoglobin 30.9 pg (28.0-34.0); Mean Corpuscular Volume 97.8 fl (81-99); Monocytes # 0.8 10^3/uL (0.2-0.9); Monocytes % 6.7 %; Neutrophils # 9.68 10^3/uL (1.8-7.7); Neutrophils % 79.7 %; Nucleated Red Blood Cells % 0 %; Platelet Count 223 10^3/cmm (130-400); Red Blood Count 4.57 10^6/uL (4.1-5.3); Red Cell Distribution Width 19.4 % (12.1-15.1); White Blood Count 12.2 10^3/uL (4.0-10.0)
[2022-12-28 20:33] LABS: Alanine Aminotransferase 22 U/L (0-33); Albumin Level 3.8 g/dL (3.5-5.2); Alkaline Phosphatase 188 U/L (35-105); Aspartate Amino Transferase 26 U/L (0-32); Blood Urea Nitrogen 25 mg/dL (8-23); Calcium 9.4 mg/dL (8.5-10.5); Carbon Dioxide 24 mmol/L (22-29); Chloride 99 mmol/L (98-107); Globulin 3.1 g/dL (1.3-4.6); Glomerular Filtration Rate 34.3 mL/min (90-130); Glucose 114 mg/dL (65-115); Osmolality Calculated 293 mOsm/kg (285-295); Sodium 139 mmol/L (136-145); Total Bilirubin 0.5 mg/dL (0.15-1.2); Total Protein 6.9 g/dL (6.6-8.7)
[2022-12-28 20:39] LABS: Procalcitonin 0.18 ng/mL (0-0.5)
[2022-12-28 20:40] LABS: Anion Gap 19.8 (5-19); Potassium 3.8 mmol/L (3.5-5.1)
[2022-12-28 20:46] LABS: Lactate (Lactic Acid level) 1.4 mmol/L (0.5-2.2)
[2022-12-28 21:50] LABS: Add Urine Culture? No; Add Urine Microscopic? YES; Bacteria Urine TRACE /hpf; Bilirubin Urine Neg (Negative); Blood Urine 3+ (Negative); Glucose Urine UA Norm (Normal); Ketones Urine Negative (Negative); Leukocyte Esterase Urine 2+ (Negative); Nitrate Urine Negative (Negative); Protein Urine 3+ (Negative); RBC Urine 0-4 /hpf (0-2); Squamous Epithelial Cell Urine 25-40 /hpf (0-5); Urine Appearance SL Hazy (CLEAR); Urine Color Yellow (Yellow); Urobilinogen Urine Norm (Negative); WBC Urine 25-40 /hpf (0-5); pH Urine 6 (5-7)
--- NOTE | 2022-12-28 21:52 | CTR_ITS ---
PROCEDURE INFORMATION: Exam: CT Abdomen And Pelvis Without Contrast Exam date and time: 12/28/2022 10:50 PM Age: 72 years old Clinical indication: Abdominal pain; Acute; Prior surgery; Surgery date: 6+ months; Surgery type: Ureteral stent; Additional info: Back pain, hematuria TECHNIQUE: Imaging protocol: Computed tomography of the abdomen and pelvis without contrast. Radiation optimization: All CT scans at this facility use at least one of these dose optimization techniques: automated exposure control; mA and/or kV adjustment per patient size (includes targeted exams where dose is matched to clinical indication); or iterative reconstruction. REPORTING DATA: Count of CT and Cardiac NM exams in prior 12 months: This patient has received 7 known CTs and 0 known cardiac nuclear medicine studies in the 12 months prior to the current study. COMPARISON: CT abdomen pelvis w con* [id number] 12/06/2022 11:21 PM RADIATION DOSE METRICS: Total DLP (mGy-cm): 366.61 FINDINGS: Liver: In the left hepatic lobe a confluent mass straddling the right and left lobes currently measures 6 x 4.5 cm and previously measured 4.8 by 3.3 cm. There are scattered smaller masses in the right lobe. Gallbladder and bile ducts: Normal. No calcified stones. No ductal dilation. Pancreas: Normal. No ductal dilation. Spleen: Normal. No splenomegaly. Adrenal glands: Normal. No mass. Kidneys and ureters: A left internal renal stent begins in the kidney and ends in the urinary bladder. However there is increased hydronephrosis suggesting stent malfunction. Increased right hydronephrosis and new hydroureter of indeterminate cause. The ureter tapers distally raising the possibility of stricture or mass.. No intrarenal stones. Stomach and bowel: There is moderate fluid and stool in the proximal half of the colon. The descending colon is smaller but without abrupt transition. Distal colonic diverticula are not inflamed. Appendix: No evidence of appendicitis. Intraperitoneal space: Unremarkable. No free air. No significant fluid collection. Vasculature: A stented infrarenal aortic aneurysm currently has an outer diameter of 5.5 cm and previously measured 5.7 cm. No evidence of hemorrhage. Lymph nodes: Several partly calcified enlarged left pelvic lymph nodes measure up to 1.6 cm and are similar to the prior exam. Urinary bladder: Unremarkable as visualized. Reproductive: Unremarkable as visualized. Bones/joints: There is chronic sclerosis of the right iliac bone and rami. Localized sclerosis in the left acetabulum. Soft tissues: Unremarkable. Other findings: The patient's primary tumor is not indicated on multiple prior reports. Nevertheless there is obviously metastatic disease. CT/CT kidney stone [id number] IMPRESSION: 1. Increased liver metastasis. 2. New right hydronephrosis. The ureter transitions in the pelvis of indeterminate cause. This could be due to stricture or occult mass. 3. Left internal renal stent with slightly increased hydronephrosis suggesting stent malfunction. 4. Slightly decreased size of stented infrarenal aortic aneurysm. 5. Chronic bilateral pelvic osseous sclerosis. Most likely metastasis. 6. Persisting left iliac chain adenopathy. COMMENTS: Consistent with the [employer]'s Incidental Findings Committee white paper (J [employer] Radiol 2018): Any incidental renal lesion less than 1 cm or classified as too small to characterize, or any incidental cystic renal lesion characterized as simple-appearing, is likely benign. No follow-up imaging is recommended for these lesions per consensus recommendations based on imaging criteria.
[2022-12-28 23:54] VITALS: BP 145/80; PULSE 72; O2SAT 99
[2022-12-29] VITALS (8 sets, daily range): BP systolic 112–151; BP diastolic 58–83; PULSE 69–83; RESP 16–18; TEMP 36.1–36.7; O2SAT 93–100; BMI 23.6
--- NOTE | 2022-12-29 02:59 | PM.HP ---
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 She says she has not eaten much in the last 1 to 2 days. Denies diarrhea. She says that she feels dehydrated and has not been drinking much water and therefore has not been urinating either. She denies a history of kidney stones. Her last chemotherapy was in October. She sees Dr. España. Denies abdominal pain denies chest pain, denies cough. She is not on any oxygen at home however here she is on 3 L nasal cannula. Nursing staff is mentioned that her hands are very cold and he has been having trouble getting a good reading. She says she has an appointment coming up this to discuss her cancer-related care with Dr. España. She uses a walker at home as needed. She does note some moderate pain in her back however otherwise feels okay. ED course: Blood pressure 152/101, respirate 18, pulse 86, temperature 97.4, saturating 92% on 2 L nasal cannula. Labs show WBC 12.2, creatinine 1.5, UA positive for 3+ protein, 3+ blood, 2+ leuk esterase, WBC 25-40, RBC 0-4, squamous epithelial cells 25-40. Trace bacteria noted. CT abdomen pelvis done which shows increased liver metastasis, new right hydronephrosis.The ureter transitions in the pelvis of indeterminate cause. This could be due to stricture or occult mass. 3. Left internal renal stent with slightly increased hydronephrosis suggesting stent malfunction. 4. Slightly decreased size of stented infrarenal aortic aneurysm. 5. Chronic bilateral pelvic osseous sclerosis. Most likely metastasis. 6. Persisting left iliac chain adenopathy. Dr. Higginbotham consulted from ER who will see patient in consultation for potential stent placement. Medications/Allergies Home Medications Medication Instructions Recorded Confirmed Last Taken Type atorvastatin 20 mg tablet 20 mg PO QPM 11/20/21 12/29/22 12/14/22 History loperamide 2 mg tablet (Imodium 2 mg PO Q6H PRN Diarrhea 06/15/22 12/29/22 Unknown History A-D) loratadine 10 mg tablet (Claritin) 10 mg PO DAILY PRN Allergy Symptoms 06/15/22 12/29/22 Unknown History acetaminophen 500 mg tablet 500 mg PO Q6H PRN Pain 08/17/22 12/29/22 08/17/22 04:00 History diphenhydramine HCl 25 mg capsule 25 mg PO .BEFORE CHEMO PRN prn 08/17/22 12/29/22 07/20/22 History (Benadryl) aspirin 81 mg chewable tablet 81 mg PO QPM 12/15/22 12/29/22 12/14/22 History amlodipine 5 mg tablet 5 mg PO DAILY PRN Hypertension #30 12/29/22 12/29/22 Unknown Rx tabs dexamethasone 4 mg tablet See Rx Instructions .Route .COMPLEX 12/29/22 12/29/22 60 Days Ago History ~10/30/22 ipratropium 20 mcg-albuterol 100 1 puff inhalation QID PRN Wheezing 12/29/22 12/29/22 Unknown History mcg/actuation mist for inhalation (Combivent Respimat) multivitamin 1 tab PO DAILY 12/29/22 12/29/22 Unknown History ondansetron 4 mg disintegrating 4 mg PO Q8H PRN nausea and 12/29/22 Unknown Rx tablet vomiting #30 tabs prednisolone acetate 1 % eye See Rx Instructions .Route .COMPLEX 12/29/22 12/29/22 Unknown History drops,suspension Allergies Allergy/AdvReac Type Severity Reaction Status Date / Time nitrofurantoin Allergy ALGY-Difficulty Verified 12/29/22 15:45 [From Macrobid] Breathing Penicillins Allergy skin rash Verified 12/29/22 15:45 PFSH Acute PFSH: Medical History Elevated brain natriuretic peptide (BNP) level Hydronephrosis, left Hypercholesteremia Hypertension No pertinent past medical history neghx: dm,thyroid,dvt/pe PCP: Dr. Hilliard Surgical History No pertinent past surgical history Family History Mother , at age 69 Colon cancer dx age 60's Thyroid disease Thyroid cancer Cancer Thyroid cancer followed by colon cancer Father , at age 68 Cancer Lung cancer Diabetes Denies family history of CAD (coronary artery disease) Clotting disorder Dementia Hyperlipidemia Psychiatric illness Chronic kidney disease (CKD) Suicide Anesthesia complication Bleeding disorder Lung disease Hypertension Stroke Social History Smoking and tobacco status: former smoker (0.5 ppd) Quit status (tobacco): has quit using tobacco Year quit tobacco: August 2022 Former quit date comment: 0.5ppd x 40 years Alcohol intake: current Alcohol intake frequency: holidays/special occasions only Marital status: Current occupational status: retired Vitals/I&O/Wt Last Vital Signs Temp 97.4 F L 12/28/22 19:30 Pulse 83 12/29/22 01:51 Resp 18 12/29/22 01:51 BP 130/82 12/29/22 01:51 Pulse Ox 99 12/29/22 01:51 O2 Del Method 12/29/22 01:51 O2 Flow Rate 2 12/29/22 01:51 12/28/22 12/28/22 12/29/22 14:59 22:59 06:59 Intake Total 1000 / 1000 Balance 1000 / 1000 Weight last 48 hrs Weight 62.596 kg Weight 60.781 kg Physical Exam Narrative: General: Alert oriented x3, patient seen laying in bed appearing comfortable at this time no acute respiratory distress. On 1.5 L nasal cannula at this time saturating 99%. HEENT: Normocephalic, atraumatic, EOMI, breathing comfortably cardio: Regular rate rhythm, normal S1-S2 Respiratory: Clear to auscultation bilaterally no wheezes or rhonchi GI: Abdomen soft, nontender, nondistended, bowel sounds +, no flank tenderness present. Extremities no edema noted. However patient states that her feet have been swollen lately. Data 12/28/22 20:00 12/28/22 20:00 A&P Assessment and plan (1) Back pain: (2) SANDRINE (acute kidney injury): (3) Hydronephrosis: (4) Metastatic cancer: (5) Smoker: (6) COPD exacerbation: (7) Pneumonia: (8) Hypercholesteremia: (9) Hypertension: (10) Hydronephrosis, left: (11) Extrinsic ureteral obstruction: (12) Squamous cell carcinoma of cervix: Plan #Nausea/vomiting #UTI #New right hydronephrosis #Possible failure of previous ureteral stent #Metastatic stage IVb cervical cancer #Hypertension #Hypercholesterolemia ? Start IV fluid hydration normal saline 75 cc/h ? Place Brown catheter. ? Consult Dr. Higginbotham. Await further recommendations ? N.p.o. at midnight for potential procedure in a.m. ? Continue home medications aspirin, atorvastatin, losartan, ?hold hydrochlorothiazide ? Check procalcitonin, TSH -Zofran for nausea as needed ? PT ?She would like for us to discuss with her daughter regarding further management Full Code Attestations Medical Necessity Statement*: Will cross > 2 midnight stay Other Coding Information Focused coding review requested Diagnoses Back pain M54.9 SANDRINE (acute kidney injury) N17.9 Hydronephrosis N13.30 Metastatic cancer C79.9 Smoker F17.200 COPD exacerbation J44.1 Pneumonia J18.9 Hypercholesteremia E78.00 Hypertension I10 Hydronephrosis, left N13.30 Extrinsic ureteral obstruction N13.5 Squamous cell carcinoma of cervix C53.9
[2022-12-29] MEDS: heparin 5,000 unit/mL INJ 1 mL 5000 UNIT SUBCUT (06:31)
--- NOTE | 2022-12-29 06:41 | XR_ITS ---
WS: [id number] EXAMINATION: XR KUB [id number] REASON FOR EXAM: Left ureteral stent assessment for encrustation COMPARISON: None available. ORDER DATE: 12/29/2022 7:02 AM FINDINGS: There is a nonspecific colonic gas pattern with scattered fecal content and gas. There is no sign of significant small bowel dilation. No pathologic abdominal calcification is seen. Aortobiiliac stent grafting noted. Double-J ureteral stent noted in the left kidney. This terminates satisfactorily in the urinary bladder. XR/XR KUB [id number] IMPRESSION: No acute abdominal findings.
[2022-12-29 08:00] LABS: Procalcitonin 0.26 ng/mL (0-0.5)
--- NOTE | 2022-12-29 08:15 | PC.PHAR ---
pt states she takes care of her own medications-pt states she hasnt taken dexamethasone for about 60 days since oct 2022-pt states she hasnt started using the prednisolone ac 1% eye drops yet-pt states she finished the cipro 500mg bid ext shows last filled 12/04/22 14d/s-pt states she no longer has a nebulizer machine pt states so she no longer uses the iprat-albut 0.5-3 (2.5)mg/3ml and budesonide 0.5mg/2ml filled 08/19/22-
[2022-12-29 08:27] LABS: Thyroid Stimulating Hormone 1.77 uIU/mL (0.27-4.20)
[2022-12-29] MEDS: docusate sodium 100 mg Capsule PO (09:44)
--- NOTE | 2022-12-29 14:29 | PM.DCS ---
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 She says she has not eaten much in the last 1 to 2 days.? Denies diarrhea.? She says that she feels dehydrated and has not been drinking much water and therefore has not been urinating either.? She denies a history of kidney stones.? Her last chemotherapy was in October.? She sees Dr. España.? Denies abdominal pain denies chest pain, denies cough.? She is not on any oxygen at home however here she is on 3 L nasal cannula.? Nursing staff is mentioned that her hands are very cold and he has been having trouble getting a good reading.? She says she has an appointment coming up this to discuss her cancer-related care with Dr. España.? She uses a walker at home as needed.? She does note some moderate pain in her back however otherwise feels okay. ED course: Blood pressure 152/101, respirate 18, pulse 86, temperature 97.4, saturating 92% on 2 L nasal cannula.? Labs show WBC 12.2, creatinine 1.5, UA positive for 3+ protein, 3+ blood, 2+ leuk esterase, WBC 25-40, RBC 0-4, squamous epithelial cells 25-40.? Trace bacteria noted. CT abdomen pelvis done which shows increased liver metastasis, new right hydronephrosis.The ureter transitions in the pelvis of indeterminate cause. This could be due to stricture or occult mass. 3. ? Left internal renal stent with slightly increased hydronephrosis suggesting stent malfunction. 4. ? Slightly decreased size of stented infrarenal aortic aneurysm. 5. ? Chronic bilateral pelvic osseous sclerosis. Most likely metastasis. 6. ? Persisting left iliac chain adenopathy. Dr. Higginbotham consulted Hospital Course Hospital Course She had extensive discussion with urology with regards to finding of hydronephrosis and further options going forward. Given progression of metastatic cervical cancer noted on CT she would like to further take some time to consider her overall goals of care and whether she will want to pursue additional aggressive intervention with regards to the current hydronephrosis findings. Her back pain was not found anatomically related to the finding of hydronephrosis. There is a degree of acute kidney injury which she is aware. On presentation urine sample with pyuria, but also with significant SEC and in the presence of right ureteral stent. Antibiotic considered, but probably of infection considered to be lower. She would like to discharge home. She will contact Dr. Higginbotham's office with regards to her decision to either further pursue either stent placement or nephrostomy or transition to a more palliative approach. losartan/HCTZ stopped, amlodipine is given as needed for blood pressure if needed. Zofran as needed. Physical Exam Const: COMMON NORMALS: patient oriented x3 and alert GENERAL APPEARANCE: cooperative ORIENTATION/CONSCIOUSNESS: Yes awake HENMT: COMMON NORMALS: oropharynx normal Neck/C-Spine: COMMON NORMALS: no JVD Resp: COMMON NORMALS: normal respiratory effort and clear to auscultation bilaterally AUSCULTATION: clear to auscultation bilaterally Cardio: COMMON NORMALS: no JVD, regular rhythm, S1 normal heart sound present, S2 normal heart sound present and No murmurs present (Cardio) RHYTHM: regular rhythm HEART SOUNDS: S1 normal heart sound present and S2 normal heart sound present GI: COMMON NORMALS: Normal to inspection, nondistended, normoactive bowel sounds present, Soft to palpation and non-tender PALPATION: Yes Soft to palpation Extremity: COMMON NORMALS: no joint enlargement and no pedal edema Neuro: COMMON NORMALS: patient oriented x3 and moves all extremities SENSORIUM/ORIENTATION: Yes alert Discharge Data Studies Completed and Pending Completed Studies During Hospitalization Category Date Time Status CT abdomen renal stone [CT kidney stone [id number]] Stat Cat Scan 12/28/22 21:52 Completed XR KUB [id number] Routine Exams 12/29/22 06:41 Completed Pending at discharge Category Date Time Status Complete Blood Count w/Auto AM LABS Lab 12/30/22 04:00 Ordered Comprehensive Metabolic Panel AM LABS Lab 12/30/22 04:00 Ordered Magnesium AM LABS Lab 12/30/22 04:00 Ordered Urinalysis Routine Lab 12/29/22 03:00 Uncollected Radiology Impressions Abdomen/Pelvis CT 12/28/22 21:52 IMPRESSION: 1. Increased liver metastasis. 2. New right hydronephrosis. The ureter transitions in the pelvis of indeterminate cause. This could be due to stricture or occult mass. 3. Left internal renal stent with slightly increased hydronephrosis suggesting stent malfunction. 4. Slightly decreased size of stented infrarenal aortic aneurysm. 5. Chronic bilateral pelvic osseous sclerosis. Most likely metastasis. 6. Persisting left iliac chain adenopathy. COMMENTS: Consistent with the [employer]'s Incidental Findings Committee white paper (J [employer] 2018): Any incidental renal lesion less than 1 cm or classified as too small to characterize, or any incidental cystic renal lesion characterized as simple-appearing, is likely benign. No follow-up imaging is recommended for these lesions per consensus recommendations based on imaging criteria. KUB X-Ray 12/29/22 06:41 IMPRESSION: No acute abdominal findings. Laboratory Results WBC 12.2 10^3/uL (4.0-10.0) H 12/28/22 20:00 RBC 4.57 10^6/uL (4.1-5.3) 12/28/22 20:00 Hgb 14.1 g/dL (11.5-15.3) 12/28/22 20:00 Hct 44.7 % (37.0-47.0) 12/28/22 20:00 MCV 97.8 fl (81-99) 12/28/22 20:00 MCH 30.9 pg (28.0-34.0) 12/28/22 20:00 MCHC 31.5 g/dL (30.0-36.0) 12/28/22 20:00 RDW 19.4 % (12.1-15.1) H 12/28/22 20:00 Plt Count 223 10^3/cmm (130-400) 12/28/22 20:00 MPV 10.0 fL (7.4-10.4) 12/28/22 20:00 Neut % (Auto) 79.7 % 12/28/22 20:00 Lymph % (Auto) 9.7 % 12/28/22 20:00 [place] % (Auto) 6.7 % 12/28/22 20:00 Eos % (Auto) 3.0 % 12/28/22 20:00 Baso % (Auto) 0.5 % 12/28/22 20:00 Neut # (Auto) 9.68 10^3/uL (1.8-7.7) H 12/28/22 20:00 Lymph # (Auto) 1.2 10^3/uL (0.8-4.8) 12/28/22 20:00 [place] # (Auto) 0.8 10^3/uL (0.2-0.9) 12/28/22 20:00 Eos # (Auto) 0.4 10^3/uL (0.0-0.8) 12/28/22 20:00 Baso # (Auto) 0.1 10^3/uL (0.0-0.1) 12/28/22 20:00 Nucleated RBC % (auto) 0 % 12/28/22 20:00 Nucleated RBCs # 0.0 /100WBC 12/28/22 20:00 Sodium 139 mmol/L (136-145) 12/28/22 20:00 Potassium 3.8 mmol/L (3.5-5.1) 12/28/22 20:00 Chloride 99 mmol/L (98-107) 12/28/22 20:00 Carbon Dioxide 24 mmol/L (22-29) 12/28/22 20:00 Anion Gap 19.8 (5-19) H 12/28/22 20:00 BUN 25 mg/dL (8-23) H 12/28/22 20:00 Creatinine 1.5 mg/dL (0.5-0.9) H 12/28/22 20:00 GFR Calculation 34.3 mL/min (90-130) L 12/28/22 20:00 Glucose 114 mg/dL (65-115) 12/28/22 20:00 Calculated Osmolality 293 mOsm/kg (285-295) 12/28/22 20:00 Lactate 1.4 mmol/L (0.5-2.2) 12/28/22 20:20 Calcium 9.4 mg/dL (8.5-10.5) 12/28/22 20:00 Total Bilirubin 0.5 mg/dL (0.15-1.2) 12/28/22 20:00 AST 26 U/L (0-32) 04/11/23 20:00 ALT 22 U/L (0-33) 12/28/22 20:00 Alkaline Phosphatase 188 U/L (35-105) H 12/28/22 20:00 Total Protein 6.9 g/dL (6.6-8.7) 12/28/22 20:00 Albumin 3.8 g/dL (3.5-5.2) 12/28/22 20:00 Globulin 3.1 g/dL (1.3-4.6) 12/28/22 20:00 Procalcitonin 0.26 ng/mL (0-0.5) 12/29/22 07:05 TSH 1.77 uIU/mL (0.27-4.20) 12/29/22 07:05 Urine Color Yellow (Yellow) 12/28/22 21:34 Urine Appearance Sl hazy (CLEAR) A 12/28/22 21:34 Urine pH 6 (5-7) 12/28/22 21:34 Ur Specific [place] 1.010 (1.005-1.030) 12/28/22 21:34 Urine Protein 3+ (Negative) H 12/28/22 21:34 Urine Glucose (UA) Norm (Normal) 12/28/22 21:34 Urine Ketones Negative (Negative) 12/28/22 21:34 Urine Blood 3+ (Negative) H 12/28/22 21:34 Urine Nitrate Negative (Negative) 12/28/22 21:34 Urine Bilirubin Neg (Negative) 12/28/22 21:34 Urine Urobilinogen Norm mg/dL (Negative) 12/28/22 21:34 Ur Leukocyte Esterase 2+ (Negative) H 12/28/22 21:34 Urine RBC 0-4 /hpf (0-2) H 12/28/22 21:34 Urine WBC 25-40 /hpf (0-5) H 12/28/22 21:34 Ur Squamous Epith Cells 25-40 /hpf (0-5) H 12/28/22 21:34 Amorphous Sediment Not Reportable 12/28/22 21:34 Urine Bacteria Trace /hpf (NONE) 12/28/22 21:34 Vitals Last Vital Signs Temp 97.4 F L 12/29/22 12:00 Pulse 71 12/29/22 12:00 Resp 17 12/29/22 12:00 BP 112/58 12/29/22 12:00 Pulse Ox 93 12/29/22 12:00 O2 Del Method Room Air 12/29/22 07:57 O2 Flow Rate 2 12/29/22 08:00 Discharge Plan Discharge Patient Disposition: Home Condition: Fair Prescriptions: New amlodipine 5 mg tablet 5 mg PO DAILY PRN (Reason: Hypertension) Qty: 30 0RF Rx Instructions: BP >150/90 ondansetron 4 mg tablet,disintegrating 4 mg PO Q8H PRN (Reason: nausea and vomiting) Qty: 30 0RF Continued atorvastatin 20 mg tablet 20 mg PO QPM loperamide [Imodium A-D] 2 mg tablet 2 mg PO Q6H PRN (Reason: Diarrhea) loratadine [Claritin] 10 mg tablet 10 mg PO DAILY PRN (Reason: Allergy Symptoms) acetaminophen 500 mg Tablet 500 mg PO Q6H PRN (Reason: Pain) diphenhydramine HCl [Benadryl] 25 mg Capsule 25 mg PO .BEFORE CHEMO PRN (Reason: prn) multivitamin Tablet 1 tab PO DAILY prednisolone acetate 1 % drops,suspension See Rx Instructions .ROUTE .COMPLEX Rx Instructions: INSTILL 1 DROP INTO BOTH EYES FOUR TIMES A DAY START 2 DAYS PRIOR TO TREATMENT dexamethasone 4 mg tablet See Rx Instructions .ROUTE .COMPLEX Rx Instructions: TAKE 5 TABLETS BY MOUTH 12 HOURS AND 6 HOURS PRIOR TO CHEMOTHERAPY TREATMENT Combivent Respimat 20-100 mcg/actuation mist 1 puff INHALATION QID PRN (Reason: Wheezing) aspirin 81 mg Tablet,Chewable 81 mg PO QPM Discontinued losartan-hydrochlorothiazide 50-12.5 mg tablet 1 tab PO QPM Discharge Orders: Discharge Order (Routine); Ordered 12/29/22 Ordered By: Kade Garcia Referrals: Bibi España MD [Staff Physician] - Discharge Diet: Cardiac Patient Instructions: Opioid Safety Activity Restrictions/Additional Instructions: Please contact Dr. Higginbotham's office when she had come to a decision about the options as discussed. Follow-up with Dr. España. Discharge Attestations Time Spent in Discharge Care*: greater than 30 min Quality Metrics Clinical Quality Measures [ No reported AMI, CVA or VTE this stay] Coding Level of Care Code Acute Code for Chg Fwd Diagnoses
--- NOTE | 2022-12-29 14:48 | PC.NURSE ---
Discharge: Home O2 eval ordered for pt. Pt and pt sister were adamant on leaving due to an appointment with Dr. España today. Home O2 eval was not able to be completed before discharge. When pt ambulated to bathroom without O2, O2 saturation was 92%-93% on room air. Dr. Garcia notified.
--- NOTE | 2022-12-29 18:00 | PM.CONSULT ---
Providers/Reason For Consult Consulting Physician/Specialty*: Urology/follow-up Reason for Consult*: Bilateral hydronephrosis Requesting Physician: Dr. 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 Procedure failed to access the upper urinary tract in a retrograde fashion due to severe narrowing and a fairly prolonged distal ureteral segment that could not be manipulated with flexible tip guidewires etc. Ultimately she had to have a percutaneous nephrostomy tube placement and antegrade stent placement following that in [place]. It appears that she has had quite a rigorous course of treatment and difficult time with metastatic cervical cancer. Has been monitored cooperatively with [facility] oncology. There is evidence that she continues to progress. Further complicated by recent increasing abdominal aortic aneurysm and underwent endovascular stenting and apparently has done well from that perspective. Additional complicating variables: The original stent placed probably in January or early February 2022 has not been changed. Apparently the family was not aware of that. CT scan did not show any obvious stones associated with the stent and a follow-up KUB this morning shows the stent to be in good position with no clear-cut obvious encrustation. Does not rule it out but it is favorable looking. NEW ONSET RIGHT hydronephrosis. CT scan performed on 12/15/2022 showed fairly normal-appearing right collecting system right kidney. Previously identified multiple sites of metastatic disease appear to be stable. The left kidney with stent in good position showed mild hydronephrosis with no change from serial imaging previously. CT scan performed 13 days later showed new onset of severe right hydro ureteral nephrosis down to the level of pelvis. Also in the description: Increased liver metastasis. INCREASING CREATININE: Baseline appears to be around 0.9 with increase to 1.5 today. This hospital stay initiated through the emergency department where she was seen on 12/28/2022 with complaints of back pain, nausea, vomiting beginning last night without known obvious provoking event. Back pain was described as low and radiating across her entire back at that level. No renal colicky component that I could elicit. By the time I evaluated her she was feeling much better after treatment with pain medications. I was consulted for opinion related to the increasing new hydronephrosis on the right and concern related to her chronic indwelling left ureteral stent dating back almost now a year I spent quite a while speaking with Mone and her sister Kimberlee. Reviewed the urologic findings and the concerning nature of a fairly rapid new onset right hydronephrosis and potential implications. There does not appear to be a stone there. Its not clear despite the rapidity of this development that her pain can be explained by the hydronephrosis. She does not have really a renal colicky component. The location is atypical for ureteral obstructive pain. We also talked a lot about different measures that might be required to drain her upper urinary tracts. On the RIGHT side and attempt at stent placement could be made. Hopefully would be a lesser ordeal than what was required last time on the LEFT side with failure to access retrograde approach and requiring percutaneous nephrostomy and antegrade stent placement ultimately. That option is available to us though all the way from trying a stent and hopefully succeeding to converting to antegrade approach via percutaneous nephrostomy possible antegrade stent placement. The implications of chronic nephrostomy tubes were reviewed and discussed. Regarding the LEFT side. It is possible that the stent could be relatively easily changed if there is no encrustation on it. I am not sure that will make a difference with the hydronephrosis and that that may be a chronic finding related to previous obstruction which showed severe left hydronephrosis with likely residual impact. If the stent was not able to be removed easily in a retrograde fashion I do not think she is a candidate for extracorporeal shockwave lithotripsy due to the aneurysm. A percutaneous approach even to the point of percutaneous nephroscopy and stent extraction might be required. Certainly both sides could be attempted and hopefully successfully at the patient's and family's and oncology's perspective. They wanted to think about it. I did have an opportunity to talk to her daughter who is a pilot steam yacht in [facility]. She had good questions and points to make seemed content with the conversation and information provided. I will discuss with Dr. España. I will be available for any intervention at the a feel comfortable pursuing that is available here I did an extensive review of her records as well as her films impacting the above decision making process. Review of Systems Const: Denies: fever(s) or chills Eyes: Denies: change in vision ENMT: Denies: hoarseness Card: Denies: chest pain Resp: Denies: productive cough GI: Reports: nausea and vomiting Neuro: Denies: seizure-like activity Markie/Lymph: Reports: other (No abnormal bleeding) All/Imm: Denies: acute wheezing Medications/Allergies Home Medications Medication Instructions Recorded Confirmed Last Taken Type atorvastatin 20 mg tablet 20 mg PO QPM 11/20/21 12/29/22 12/14/22 History loperamide 2 mg tablet (Imodium 2 mg PO Q6H PRN Diarrhea 06/15/22 12/29/22 Unknown History A-D) loratadine 10 mg tablet (Claritin) 10 mg PO DAILY PRN Allergy Symptoms 06/15/22 12/29/22 Unknown History acetaminophen 500 mg tablet 500 mg PO Q6H PRN Pain 08/17/22 12/29/22 08/17/22 04:00 History diphenhydramine HCl 25 mg capsule 25 mg PO .BEFORE CHEMO PRN prn 08/17/22 12/29/22 07/20/22 History (Benadryl) aspirin 81 mg chewable tablet 81 mg PO QPM 12/15/22 12/29/22 12/14/22 History amlodipine 5 mg tablet 5 mg PO DAILY PRN Hypertension #30 12/29/22 12/29/22 Unknown Rx tabs dexamethasone 4 mg tablet See Rx Instructions .Route .COMPLEX 12/29/22 12/29/22 60 Days Ago History ~10/30/22 ipratropium 20 mcg-albuterol 100 1 puff inhalation QID PRN Wheezing 12/29/22 12/29/22 Unknown History mcg/actuation mist for inhalation (Combivent Respimat) multivitamin 1 tab PO DAILY 12/29/22 12/29/22 Unknown History ondansetron 4 mg disintegrating 4 mg PO Q8H PRN nausea and 12/29/22 Unknown Rx tablet vomiting #30 tabs prednisolone acetate 1 % eye See Rx Instructions .Route .COMPLEX 12/29/22 12/29/22 Unknown History drops,suspension Allergies Allergy/AdvReac Type Severity Reaction Status Date / Time nitrofurantoin Allergy ALGY-Difficulty Verified 12/29/22 15:45 [From Macrobid] Breathing Penicillins Allergy skin rash Verified 12/29/22 15:45 PFSH Acute PFSH: Medical History Elevated brain natriuretic peptide (BNP) level Hydronephrosis, left Hypercholesteremia Hypertension No pertinent past medical history neghx: dm,thyroid,dvt/pe PCP: Dr. Hilliard Surgical History No pertinent past surgical history Family History Mother , at age 69 Colon cancer dx age 60's Thyroid disease Thyroid cancer Cancer Thyroid cancer followed by colon cancer Father , at age 68 Cancer Lung cancer Diabetes Denies family history of CAD (coronary artery disease) Clotting disorder Dementia Hyperlipidemia Psychiatric illness Chronic kidney disease (CKD) Suicide Anesthesia complication Bleeding disorder Lung disease Hypertension Stroke Social History Smoking and tobacco status: former smoker (0.5 ppd) Quit status (tobacco): has quit using tobacco Year quit tobacco: August 2022 Former quit date comment: 0.5ppd x 40 years Alcohol intake: current Alcohol intake frequency: holidays/special occasions only Marital status: Current occupational status: retired Vitals/I&O/Wt Last Vital Signs Temp 97.4 F L 12/29/22 12:00 Pulse 71 12/29/22 12:00 Resp 17 12/29/22 12:00 BP 112/58 12/29/22 12:00 Pulse Ox 93 12/29/22 12:00 O2 Del Method Room Air 12/29/22 07:57 O2 Flow Rate 2 12/29/22 08:00 12/29/22 12/29/22 12/29/22 06:59 14:59 22:59 Intake Total 1000 / 1000 360 / 360 Balance 1000 / 1000 360 / 360 Weight last 48 hrs Weight 138 lb Weight 134 lb Physical Exam Const: COMMON NORMALS: no acute distress, alert and well nourished GENERAL APPEARANCE: well kempt and well developed ORIENTATION/CONSCIOUSNESS: not confused HENMT: COMMON NORMALS: normocephalic HEAD & SCALP: normocephalic Eye: COMMON NORMALS: conjunctivae normal and no scleral icterus CONJUNCTIVA: Yes conjunctivae normal Resp: COMMON NORMALS: normal respiratory effort EFFORT & INSPECTION: Yes able to speak in complete sentences, No labored and No Actively coughing Neuro: SENSORIUM/ORIENTATION: Yes alert Psych: COMMON NORMALS: mental status grossly normal APPEARANCE: Yes grossly normal and Yes well kempt ATTITUDE: Yes calm and Yes engaged Skin: COMMON NORMALS: no jaundice Data 12/28/22 20:00 12/28/22 20:00 Coding Level of Care Code Acute Code for Chg Fwd Diagnoses Time Spent (min) 75 Comment Films, old records reviewed, [id number] counseling >50%, documentation.
== END 2022-12-29 14:52 | disposition home health service (06) | DRG 694 ==
LOC: ER 12-29 00:21 → MEDSURG 12-29 00:58
PROVIDERS: Admitting Provider Internal Medicine; Emergency Provider Emergency Medicine; PCP Family Medicine; Visit Provider Internal Medicine
DX: N13.30 Unspecified hydronephrosis (principal); C78.7 Secondary malignant neoplasm of liver and intrahepatic bile duct; C79.51 Secondary malignant neoplasm of bone; I10 Essential (primary) hypertension; E78.00 Pure hypercholesterolemia, unspecified; Z87.891 Personal history of nicotine dependence; C53.9 Malignant neoplasm of cervix uteri, unspecified; E86.0 Dehydration; Z92.21 Personal history of antineoplastic chemotherapy; Z96.0 Presence of urogenital implants; N17.9 Acute kidney failure, unspecified; Z79.82 Long term (current) use of aspirin; N39.0 Urinary tract infection, site not specified
CPT/HCPCS: 36415; 74018; 74176; 80053; 81001; 83605; 84145; 84443; 85025; 94664; 96372; 96374; 96375; 99214; 99285; J1644; J2270; J2405; J7030

== ENCOUNTER 2023-01-11 09:30 | Oncology outpatient (recurring) (ONCR) | payer MEDICARE, SELFPAY ==
[2023-01-11 09:45] VITALS: BP 107/70; PULSE 108; RESP 18; TEMP 36.5; O2SAT 90
[2023-01-11 09:58] LABS: Basophils # 0.1 10^3/uL (0.0-0.1); Basophils % 0.6 %; Eosinophils # 0.4 10^3/uL (0.0-0.8); Eosinophils % 4.1 %; Hematocrit 38.4 % (37.0-47.0); Lymphocytes # 1.3 10^3/uL (0.8-4.8); Lymphocytes % 12.2 %; Mean Corpuscular HGB Conc 31.3 g/dL (30.0-36.0); Mean Corpuscular Hemoglobin 30.8 pg (28.0-34.0); Mean Corpuscular Volume 98.5 fl (81-99); Mean Platelet Volume 10.7 fL (7.4-10.4); Monocytes # 0.7 10^3/uL (0.2-0.9); Monocytes % 6.4 %; Neutrophils # 8.28 10^3/uL (1.8-7.7); Neutrophils % 76.2 %; Nucleated Red Blood Cells % 0 %; Platelet Count 187 10^3/cmm (130-400); Red Cell Distribution Width 19.4 % (12.1-15.1); White Blood Count 10.9 10^3/uL (4.0-10.0)
[2023-01-11 10:24] LABS: Alanine Aminotransferase 31 U/L (0-33); Albumin Level 3.8 g/dL (3.5-5.2); Alkaline Phosphatase 348 U/L (35-105); Anion Gap 17.1 (5-19); Aspartate Amino Transferase 35 U/L (0-32); Blood Urea Nitrogen 29 mg/dL (8-23); Calcium 8.7 mg/dL (8.5-10.5); Carbon Dioxide 25 mmol/L (22-29); Chloride 102 mmol/L (98-107); Globulin 2.8 g/dL (1.3-4.6); Glomerular Filtration Rate 40.5 mL/min (90-130); Glucose 131 mg/dL (65-115); Osmolality Calculated 298 mOsm/kg (285-295); Potassium 4.1 mmol/L (3.5-5.1); Sodium 140 mmol/L (136-145); Total Bilirubin 0.6 mg/dL (0.15-1.2); Total Protein 6.6 g/dL (6.6-8.7)
[2023-01-11] MEDS: sodium chloride 0.9% 250 ML 75 ML IV (11:27)
[2023-01-11] MEDS: palonosetron 0.25 mg/5 mL SDV IVP (11:52)
[2023-01-11] MEDS: pembrolizumab 200 MG in sodium chloride 0.9% 250 ML 516 MG IV (12:28)
[2023-01-11] MEDS: SODIUM CHLORIDE 0.9% IV (13:11)
[2023-01-11] MEDS: GEMCITABINE IV (13:11)
[2023-01-11 15:05] VITALS: BP 117/75; PULSE 93; RESP 18; TEMP 36.6; O2SAT 90
== END 2023-01-11 23:59 | disposition home or self-care (01) ==
PROVIDERS: PCP Family Medicine; Visit Provider Internal Medicine Hematology & Oncology
DX: Z51.12 Encounter for antineoplastic immunotherapy (principal); Z51.11 Encounter for antineoplastic chemotherapy; C53.8 Malignant neoplasm of overlapping sites of cervix uteri; C77.8 Secondary and unspecified malignant neoplasm of lymph nodes of multiple regions; C79.51 Secondary malignant neoplasm of bone; C78.7 Secondary malignant neoplasm of liver and intrahepatic bile duct; C78.01 Secondary malignant neoplasm of right lung; Z79.899 Other long term (current) drug therapy
CPT/HCPCS: 80053; 85025; 96367; 96375; 96413; 96417; J1100; J2469; J7040; J7050; J9045; J9201; J9271

== ENCOUNTER 2023-02-01 08:38 | Oncology outpatient (recurring) (ONCR) | payer MEDICARE, SELFPAY ==
[2023-01-18 09:43] VITALS: BMI 22.5
[2023-01-18 09:44] LABS: Basophils % 0.6 %; Eosinophils # 0.3 10^3/uL (0.0-0.8); Hematocrit 35.7 % (37.0-47.0); Hemoglobin 11.6 g/dL (11.5-15.3); Lymphocytes # 1.3 10^3/uL (0.8-4.8); Lymphocytes % 25.6 %; Mean Corpuscular HGB Conc 32.5 g/dL (30.0-36.0); Mean Corpuscular Hemoglobin 31.9 pg (28.0-34.0); Mean Corpuscular Volume 98.1 fl (81-99); Mean Platelet Volume 10.1 fL (7.4-10.4); Monocytes # 0.3 10^3/uL (0.2-0.9); Monocytes % 6.3 %; Neutrophils # 3.03 10^3/uL (1.8-7.7); Neutrophils % 61.1 %; Nucleated Red Blood Cells % 0 %; Platelet Count 71 10^3/cmm (130-400); Red Blood Count 3.64 10^6/uL (4.1-5.3); Red Cell Distribution Width 18.2 % (12.1-15.1)
[2023-01-18 10:02] LABS: Alanine Aminotransferase 33 U/L (0-33); Albumin Level 3.5 g/dL (3.5-5.2); Alkaline Phosphatase 375 U/L (35-105); Anion Gap 15.3 (5-19); Aspartate Amino Transferase 32 U/L (0-32); Blood Urea Nitrogen 23 mg/dL (8-23); Carbon Dioxide 26 mmol/L (22-29); Chloride 97 mmol/L (98-107); Globulin 2.5 g/dL (1.3-4.6); Glomerular Filtration Rate 61.9 mL/min (90-130); Glucose 98 mg/dL (65-115); Osmolality Calculated 282 mOsm/kg (285-295); Potassium 4.3 mmol/L (3.5-5.1); Sodium 134 mmol/L (136-145); Total Bilirubin 0.5 mg/dL (0.15-1.2)
[2023-01-18] MEDS: sodium chloride 0.9% 500 ML IV (11:49)
[2023-01-18 13:25] VITALS: BP 113/71; PULSE 67; RESP 17; TEMP 36.7; O2SAT 92
[2023-01-21] MEDS: sodium chloride 0.9% 500 ML 999 ML IV (09:35)
[2023-01-21 10:49] VITALS: BP 101/62; PULSE 82; RESP 18; TEMP 35.9; O2SAT 95
[2023-01-21 12:09] VITALS: BP 101/62; PULSE 82; RESP 18; TEMP 35.9
[2023-01-25 08:51] VITALS: BMI 23.0
[2023-01-25 08:53] VITALS: BP 94/63; PULSE 81; RESP 18; TEMP 36.2; O2SAT 94
[2023-01-25 09:11] LABS: Basophils % 0.5 %; Eosinophils # 0.3 10^3/uL (0.0-0.8); Hematocrit 34.6 % (37.0-47.0); Hemoglobin 10.7 g/dL (11.5-15.3); Mean Corpuscular HGB Conc 30.9 g/dL (30.0-36.0); Mean Corpuscular Hemoglobin 31.2 pg (28.0-34.0); Mean Corpuscular Volume 100.9 fl (81-99); Mean Platelet Volume 12.3 fL (7.4-10.4); Monocytes # 0.7 10^3/uL (0.2-0.9); Monocytes % 8.6 %; Neutrophils # 5.57 10^3/uL (1.8-7.7); Neutrophils % 73.4 %; Nucleated Red Blood Cells % 0 %; Platelet Count 92 10^3/cmm (130-400); Red Blood Count 3.43 10^6/uL (4.1-5.3); Red Cell Distribution Width 20.7 % (12.1-15.1); White Blood Count 7.6 10^3/uL (4.0-10.0)
[2023-01-25 09:26] LABS: Alanine Aminotransferase 36 U/L (0-33); Albumin Level 3.2 g/dL (3.5-5.2); Alkaline Phosphatase 424 U/L (35-105); Anion Gap 15.1 (5-19); Aspartate Amino Transferase 33 U/L (0-32); Blood Urea Nitrogen 25 mg/dL (8-23); Calcium 8.8 mg/dL (8.5-10.5); Carbon Dioxide 25 mmol/L (22-29); Chloride 99 mmol/L (98-107); Globulin 2.3 g/dL (1.3-4.6); Glomerular Filtration Rate 44.4 mL/min (90-130); Glucose 103 mg/dL (65-115); Osmolality Calculated 285 mOsm/kg (285-295); Potassium 4.1 mmol/L (3.5-5.1); Sodium 135 mmol/L (136-145); Total Bilirubin 0.5 mg/dL (0.15-1.2); Total Protein 5.5 g/dL (6.6-8.7)
[2023-01-25 15:45] VITALS: BP 100/69; PULSE 80; RESP 20; TEMP 36.3; O2SAT 94
[2023-02-01 08:45] VITALS: BMI 23.0
[2023-02-01 08:46] VITALS: BP 125/76; PULSE 70; RESP 18; TEMP 36.2; O2SAT 99
[2023-02-01 09:16] LABS: Basophils % 0.1 %; Eosinophils % 0.2 %; Hematocrit 36.8 % (37.0-47.0); Hemoglobin 11.5 g/dL (11.5-15.3); Lymphocytes # 1.7 10^3/uL (0.8-4.8); Mean Corpuscular HGB Conc 31.3 g/dL (30.0-36.0); Mean Corpuscular Volume 102.5 fl (81-99); Mean Platelet Volume 10.9 fL (7.4-10.4); Monocytes # 1.1 10^3/uL (0.2-0.9); Monocytes % 10.3 %; Neutrophils # 8.12 10^3/uL (1.8-7.7); Neutrophils % 73.7 %; Nucleated Red Blood Cells % 0.2 %; Platelet Count 192 10^3/cmm (130-400); Red Blood Count 3.59 10^6/uL (4.1-5.3); Red Cell Distribution Width 21.2 % (12.1-15.1)
[2023-02-01 09:53] LABS: Alanine Aminotransferase 64 U/L (0-33); Albumin Level 3.5 g/dL (3.5-5.2); Alkaline Phosphatase 411 U/L (35-105); Anion Gap 16.4 (5-19); Aspartate Amino Transferase 38 U/L (0-32); Blood Urea Nitrogen 40 mg/dL (8-23); Calcium 8.6 mg/dL (8.5-10.5); Carbon Dioxide 25 mmol/L (22-29); Chloride 99 mmol/L (98-107); Globulin 2.2 g/dL (1.3-4.6); Glomerular Filtration Rate 49.1 mL/min (90-130); Glucose 91 mg/dL (65-115); Osmolality Calculated 291 mOsm/kg (285-295); Potassium 4.4 mmol/L (3.5-5.1); Sodium 136 mmol/L (136-145); Thyroid Stimulating Hormone 0.47 uIU/mL (0.27-4.20); Total Bilirubin 0.4 mg/dL (0.15-1.2); Total Protein 5.7 g/dL (6.6-8.7)
[2023-02-01] MEDS: sodium chloride 0.9% (100 ml) 100 ML 50 ML (12:13)
[2023-02-01] MEDS: palonosetron 0.25 mg/5 mL SDV IVP (12:17)
[2023-02-01] MEDS: pembrolizumab 200 MG in sodium chloride 0.9% 250 ML 516 MG IV (12:44)
[2023-02-01] MEDS: GEMCITABINE IV (13:20)
[2023-02-01] MEDS: SODIUM CHLORIDE 0.9% IV (13:20)
[2023-02-01 14:20] VITALS: BP 117/75; PULSE 84; RESP 18; TEMP 36; O2SAT 90
== END 2023-02-01 23:59 | disposition home or self-care (01) ==
PROVIDERS: Internal Medicine Medical Oncology; PCP Family Medicine; Visit Provider Internal Medicine Hematology & Oncology
DX: C53.8 Malignant neoplasm of overlapping sites of cervix uteri (principal); Z51.12 Encounter for antineoplastic immunotherapy; C77.8 Secondary and unspecified malignant neoplasm of lymph nodes of multiple regions; C79.51 Secondary malignant neoplasm of bone; C78.7 Secondary malignant neoplasm of liver and intrahepatic bile duct; C78.01 Secondary malignant neoplasm of right lung; R53.1 Weakness; R53.0 Neoplastic (malignant) related fatigue; D69.59 Other secondary thrombocytopenia; R60.0 Localized edema; E86.0 Dehydration; E88.09 Other disorders of plasma-protein metabolism, not elsewhere classified; R09.02 Hypoxemia; Z99.81 Dependence on supplemental oxygen; R74.01 Elevation of levels of liver transaminase levels; D64.9 Anemia, unspecified; Z79.899 Other long term (current) drug therapy
CPT/HCPCS: 80053; 84443; 85025; 96374; 96375; 96413; 96417; 99214; J1100; J1642; J2469; J7040; J7050; J9201; J9271

== ENCOUNTER 2023-02-02 12:55 | Oncology outpatient (recurring) (ONCR) | payer MEDICARE, SELFPAY | END 2023-02-16 23:59 | disposition home or self-care (01) | PROVIDERS: PCP Family Medicine; Visit Provider Internal Medicine Hematology & Oncology | DX: C53.8 Malignant neoplasm of overlapping sites of cervix uteri (principal); Z79.899 Other long term (current) drug therapy; C77.8 Secondary and unspecified malignant neoplasm of lymph nodes of multiple regions; C79.51 Secondary malignant neoplasm of bone; C78.7 Secondary malignant neoplasm of liver and intrahepatic bile duct; C78.01 Secondary malignant neoplasm of right lung; F17.210 Nicotine dependence, cigarettes, uncomplicated; I71.30 Abdominal aortic aneurysm, ruptured, unspecified; Z79.52 Long term (current) use of systemic steroids; R09.02 Hypoxemia; J43.9 Emphysema, unspecified; C53.9 Malignant neoplasm of cervix uteri, unspecified ==

== ENCOUNTER 2023-02-03 14:37 | Emergency (ER) | payer MEDICARE, SELFPAY ==
[2023-02-03 14:44] VITALS: BP 116/79; PULSE 88; RESP 18; TEMP 36.5; O2SAT 87; BMI 23.0
--- NOTE | 2023-02-03 14:59 | XR_ITS ---
WS: [id number] Portable AP upright chest, 02/03/2023 Clinical Data: dyspnea/cough Comparison: Portable chest, 08/17/2022 Findings: No nodules, masses or effusions are seen. The heart is normal. The pulmonary vascularity is not increased. No pneumonia or pneumothorax is seen. The aortic arch and descending thoracic aorta s how mild tortuosity. There is an infusion catheter unchanged in position. There is a vena caval filte r. There is probably a left ureteral stent. XR/XR chest 1V portable [id number] Impression: Atherosclerosis.
[2023-02-03 15:00] VITALS: BP 113/71; PULSE 88; RESP 18; O2SAT 97
--- NOTE | 2023-02-03 15:11 | ED_ITS ---
HPI - Abdominal Pain General: Chief Complaint: Abdominal Pain Stated Complaint: abd pain Time Seen by Provider: 02/03/23 14:58 Source: patient Mode of arrival: ambulatory History of Present Illness: 72-year-old female presents to the emergency room with increased abdominal pain pelvic pain she has a known history of cervical cancer is currently receiving secondary treatment for palliative care. She has extensive metastasis. She had missed the 2 previous weeks this week received partial treatment is extremely weak today's began to have urinary incontinence which is new and worsening pelvic pain. No fever sweats or chills no productive cough she is usually seen by Dr. España. She is accompanied today in the emergency room by her sister. MD elicited complaint: abdominal pain Pertinent past history: none Pain Consistency: constant Location: Diffuse Severity: mild Quality: cramping Exacerbating factors: nothing Relieving factors: nothing Associated Symptoms: Reports nausea; Denies anorexia, belching, bloating, change in bowel habits, change in stool character, chills, coffee ground emesis, constipation, GI cramping, diarrhea, dyspepsia, dysuria, excessive flatus, fever(s), heartburn, hematochezia, hematuria, hematemesis, fecal incontinence, loose stools, melena, poor appetite, syncope and vomiting Review of Systems Const: Reports: body aches, fatigue and malaise; Denies: fever(s) or chills ENMT: Denies: throat pain, ear or mastoid pain, nasal discharge or nasal congestion Card: Denies: chest pain, palpitations, irregular heart rhythm or syncope Resp: Denies: dyspnea, productive cough or non-productive cough GI: Reports: abdominal pain and nausea; Denies: vomiting, hematemesis, coffee ground emesis, heartburn, diarrhea, constipation, bloating, GI cramping, belching, excessive flatus, fecal incontinence, change in bowel habits, change in stool character, hematochezia or melena : Denies: dysuria, urinary frequency, urinary urgency or hematuria Skin/Breast: Denies: rash or pruritus PFSH ED PFSH: Medical History Elevated brain natriuretic peptide (BNP) level Hydronephrosis, left Hypercholesteremia Hypertension No pertinent past medical history neghx: dm,thyroid,dvt/pe PCP: Dr. Hilliard Surgical History No pertinent past surgical history Family History Mother , at age 69 Colon cancer dx age 60's Thyroid disease Thyroid cancer Cancer Thyroid cancer followed by colon cancer Father , at age 68 Cancer Lung cancer Diabetes Denies family history of CAD (coronary artery disease) Clotting disorder Dementia Hyperlipidemia Psychiatric illness Chronic kidney disease (CKD) Suicide Anesthesia complication Bleeding disorder Lung disease Hypertension Stroke Social History Smoking and tobacco status: former smoker (0.5 ppd) Quit status (tobacco): has quit using tobacco Year quit tobacco: August 2022 Former quit date comment: 0.5ppd x 40 years Alcohol intake: current Alcohol intake frequency: holidays/special occasions only Marital status: Current occupational status: retired Physical Exam Const: GENERAL APPEARANCE: cooperative and comfortable ORIENTATION/CONSCIOUSNESS: Yes awake, Yes oriented to person, Yes oriented to place and Yes oriented to time HENMT: COMMON NORMALS: normocephalic, atraumatic and hearing grossly normal b ilaterally HEAD & SCALP: normocephalic and atraumatic Resp: COMMON NORMALS: normal respiratory effort, No retractions, No use of accessory muscles and clear to auscultation bilaterally AUSCULTATION: clear to auscultation bilaterally Cardio: COMMON NORMALS: regular rate, regular rhythm and No murmurs present (Cardio) RATE: regular rate RHYTHM: regular rhythm GI: COMMON NORMALS: Soft to palpation and No hepatosplenomegaly present AUSCULTATION: Yes normoactive bowel sounds PALPATION: Yes Soft to palpation, No Tenderness to palpation present (GI), No Guarding due to palpation present (GI) and Yes No hepatosplenomegaly present Extremity: COMMON NORMALS: normal to inspection, capillary refill normal, no clubbing, cyanosis or edema, no calf tenderness and no pedal edema Neuro: SENSORIUM/ORIENTATION: Yes oriented to person, Yes oriented to place and Yes oriented to time Skin: COMMON NORMALS: no rashes or lesions noted GENERAL SKIN EXAM: no rashes or lesions noted Course Vital Signs: Vital signs: Vital Signs Temperature 97.7 F 02/03/23 14:44 Pulse Rate 75 02/03/23 17:57 Respiratory Rate 18 02/03/23 17:57 Blood Pressure 125/72 02/03/23 17:57 Pulse Oximetry 91 02/03/23 17:57 Oxygen Delivery Me thod Nasal Cannula 02/03/23 17:38 Oxygen Flow Rate 2 02/03/23 17:38 MDM - Abdominal Pain Medical Decision Making CT of the abdomen shows extensive metastasis appears to be advancing 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 Discussed with family at the bedside as well as discussed with her daughter who is a physician in [place]. Ultimately after these discussions family has decided that they would like to go home and be on hospice. We were able to contact one of the local hospice companies they will meet with the rhonda alston in the morning at her home. They have a another daughter who is in route to see the patient. We did give her a prescription for oxycodone and promethazine sure she had available medications for comfort this evening. We will contact Dr. España's office tomorrow. Medical Records I reviewed the patient's medical records. Lab Data I reviewed the patient's lab results. 02/03/23 15:13 02/03/23 15:13 Labs/Radiology: Radiology Impressions Chest X-Ray 02/03/23 14:59 Impression: Atherosclerosis. Abdomen/Pelvis CT 02/03/23 15:41 IMPRESSION: 1. Worsening liver metastasis measuring up to 6 cm. 2. Asymmetric bladder wall thickening unchanged suspicious for bladder wall carcinoma. 3. Moderate right hydronephrosis and mild left hydronephrosis stable from previous exam. Left internal nephroureteral stent unchanged. 4. Generalized uterine enlargement with findings involving the endometrial cavity concerning for endometrial carcinoma. 5. Diffuse bony changes of the right left hemipelvis likely metastatic in nature. 6. Findings involving the anal rectal wall concerning for underlying tumor. Please correlate clinical exam. 7. Prior EVAR of 5.9 x 5.6 cm abdominal aortic aneurysm stable in size from previous exam. Laboratory Results WBC 10.0 10^3/uL (4.0-10.0) 02/03/23 15:13 RBC 3.75 10^6/uL (4.1-5.3) L 02/03/23 15:13 Hgb 11.7 g/dL (11.5-15.3) 02/03/23 15:13 Hct 38.3 % (37.0-47.0) 02/03/23 15:13 MCV 102.1 fl (81-99) H 02/03/23 15:13 MCH 31.2 pg (28.0-34.0) 02/03/23 15:13 MCHC 30.5 g/dL (30.0-36.0) 02/03/23 15:13 RDW 21.1 % (12.1-15.1) H 02/03/23 15:13 Plt Count 153 10^3/cmm (130-400) 02/03/23 15:13 MPV 11.0 fL (7.4-10.4) H 02/03/23 15:13 Neut % (Auto) 89.6 % 02/03/23 15:13 Lymph % (Auto) 8.0 % 02/03/23 15:13 Pepin % (Auto) 1.8 % 02/03/23 15:13 Eos % (Auto) 0.2 % 02/03/23 15:13 Baso % (Auto) 0.0 % 02/03/23 15:13 Neut # (Auto) 8.93 10^3/uL (1.8-7.7) H 02/03/23 15:13 Lymph # (Auto) 0.8 10^3/uL (0.8-4.8) 02/03/23 15:13 Pepin # (Auto) 0.2 10^3/uL (0.2-0.9) 02/03/23 15:13 Eos # (Auto) 0.0 10^3/uL (0.0-0.8) 02/03/23 15:13 Baso # (Auto) 0.0 10^3/uL (0.0-0.1) 02/03/23 15:13 Nucleated RBC % (auto) 0 % 02/03/23 15:13 Nucleated RBCs # 0.0 /100WBC 02/03/23 15:13 Sodium 135 mmol/L (136-145) L 02/03/23 15:13 Potassium 4.5 mmol/L (3.5-5.1) 02/03/23 15:13 Chloride 101 mmol/L (98-107) 02/03/23 15:13 Carbon Dioxide 22 mmol/L (22-29) 02/03/23 15:13 Anion Gap 16.5 (5-19) 02/03/23 15:13 BUN 42 mg/dL (8-23) H 02/03/23 15:13 Creatinine 1.1 mg/dL (0.5-0.9) H 02/03/23 15:13 GFR Calculation 49.1 mL/min (90-130) L 02/03/23 15:13 Glucose 129 mg/dL (65-115) H 02/03/23 15:13 Calculated Osmolality 292 mOsm/kg (285-295) 02/03/23 15:13 Calcium 8.6 mg/dL (8.5-10.5) 02/03/23 15:13 Total Bilirubin 0.7 mg/dL (0.15-1.2) 02/03/23 15:13 AST 60 U/L (0-32) H 02/03/23 15:13 ALT 137 U/L (0-33) H 02/03/23 15:13 Alkaline Phosphatase 346 U/L (35-105) H 02/03/23 15:13 Creatine Kinase 65 U/L (26-192) 02/03/23 15:13 Total Protein 5.4 g/dL (6.6-8.7) L 02/03/23 15:13 Albumin 3.3 g/dL (3.5-5.2) L 02/03/23 15:13 Globulin 2.1 g/dL (1.3-4.6) 02/03/23 15:13 Urine Color Yellow (Yellow) 02/03/23 16:20 Urine Appearance Clear (CLEAR) 02/03/23 16:20 Urine pH 5 (5-7) 02/03/23 16:20 Ur Specific Winter 1.015 (1.005-1.030) 02/03/23 16:20 Urine Protein Trace (Negative) 02/03/23 16:20 Urine Glucose (UA) Norm (Normal) 02/03/23 16:20 Urine Ketones Negative (Negative) 02/03/23 16:20 Urine Blood 3+ (Negative) H 02/03/23 16:20 Urine Nitrate Negative (Negative) 02/03/23 16:20 Urine Bilirubin Neg (Negative) 02/03/23 16:20 Urine Urobilinogen Neg mg/dL (Negative) 02/03/23 16:20 Ur Leukocyte Esterase Trace (Negative) H 02/03/23 16:20 Urine RBC 25-40 /hpf (0-2) H 02/03/23 16:20 Urine WBC 5-10 /hpf (0-5) H 02/03/23 16:20 Ur Squamous Epith Cells 5-10 /hpf (0-5) H 02/03/23 16:20 Amorphous Sediment Not Reportable 02/03/23 16:20 Urine Bacteria Trace /hpf (NONE) 02/03/23 16:20 Discharge Plan Discharge Patient Disposition: Home Clinical Impression: Squamous cell carcinoma of cervix, Metastatic cancer Condition: Stable Prescriptions: New promethazine 25 mg tablet 25 mg PO Q6H PRN (Reason: nausea and vomiting) Qty: 20 0RF oxycodone-acetaminophen 5-325 mg tablet 1 tab PO Q6H PRN (Reason: pain) Qty: 30 0RF No Action atorvastatin 20 mg tablet 20 mg PO QPM losartan-hydrochlorothiazide 50-12.5 mg tablet 1 tab PO DAILY docusate sodium [Stool Softener] 100 mg capsule 100 mg PO DAILY azithromycin 250 mg tablet See Rx Instructions PO .COMPLEX Rx Instructions: For 250 mg dose pack: take 500 mg today (day 1), then 250 mg for 4 days (days 2-5) PO prednisone 20 mg tablet 20 mg PO DAILY loperamide [Imodium A-D] 2 mg tablet 2 mg PO Q6H PRN (Reason: Diarrhea) loratadine [Claritin] 10 mg tablet 10 mg PO DAILY PRN (Reason: Allergy Symptoms) (DME) Portable Oxygen Concentrator See Rx Instructions .Route .MEDSUPPLY Qty: 1 0RF Rx Instructions: 2 liters via nasal cannula acetaminophen 500 mg Tablet 500 mg PO Q6H PRN (Reason: Pain) diphenhydramine HCl [Benadryl] 25 mg Capsule 25 mg PO .BEFORE CHEMO PRN (Reason: prn) multivitamin Tablet 1 tab PO DAILY Combivent Respimat 20-100 mcg/actuation mist 1 puff INHALATION QID PRN (Reason: Wheezing) aspirin 81 mg Tablet,Chewable 81 mg PO QPM Discharge Orders: Discharge ED (Routine); Ordered 02/03/23 Ordered By: Ashok Magaña Referrals: [facility] ([facility]) [Outside] Yue Justice MD [Primary Care Provider] - Discharge Diet: Usual diet Patient Instructions: Opioid Safety, Pain Management Activity Restrictions/Additional Instructions: You were seen today for abdominal pain leg pain as well as pain in your back and abdomen. CT showed some extension of your cancer. You are discharged home with pain medicines and nausea medicines Hospice will consult with you tomorrow at your home. If you have any significant change or concerns you are welcome to return to the emergency room. Coding Level of Care Code ED Cafeteria Monitor for Donna Mullen
[2023-02-03 15:20] LABS: Eosinophils % 0.2 %; Hematocrit 38.3 % (37.0-47.0); Hemoglobin 11.7 g/dL (11.5-15.3); Lymphocytes # 0.8 10^3/uL (0.8-4.8); Mean Corpuscular HGB Conc 30.5 g/dL (30.0-36.0); Mean Corpuscular Hemoglobin 31.2 pg (28.0-34.0); Mean Corpuscular Volume 102.1 fl (81-99); Monocytes # 0.2 10^3/uL (0.2-0.9); Monocytes % 1.8 %; Neutrophils # 8.93 10^3/uL (1.8-7.7); Neutrophils % 89.6 %; Nucleated Red Blood Cells % 0 %; Platelet Count 153 10^3/cmm (130-400); Red Blood Count 3.75 10^6/uL (4.1-5.3); Red Cell Distribution Width 21.1 % (12.1-15.1)
--- NOTE | 2023-02-03 15:41 | CTR_ITS ---
PROCEDURE INFORMATION: Exam: CT Abdomen And Pelvis With Contrast Exam date and time: 02/03/2023 3:53 PM Age: 72 years old Clinical indication: Abdominal pain; Generalized; Additional info: Abd pain TECHNIQUE: Imaging protocol: Computed tomography of the abdomen and pelvis with contrast. Radiation optimization: All CT scans at this facility use at least one of these dose optimization techniques: automated exposure control; mA and/or kV adjustment per patient size (includes targeted exams where dose is matched to clinical indication); or iterative reconstruction. Contrast material: OMNI 350; Contrast volume: 100 ml; Contrast route: INTRAVENOUS (IV); REPORTING DATA: Count of CT and Cardiac NM exams in prior 12 months: This patient has received 8 known CTs and 0 known cardiac nuclear medicine studies in the 12 months prior to the current study. COMPARISON: CT kidney stone [id number] 12/28/2022 10:50 PM RADIATION DOSE METRICS: Total DLP (mGy-cm): 382 FINDINGS: Lungs: Lung bases are clear. Small pericardial effusion increased from previous exam. The stomach Liver: There are numerous liver lesions of varying sizes measuring up to 6 cm likely metastatic in nature in progressed from previous examinations. Gallbladder and bile ducts: Gallbladder somewhat contracted limiting assessment. Bile ducts are not dilated. Pancreas: Normal. No ductal dilation. Spleen: Normal. No splenomegaly. Adrenal glands: Normal. No mass. Kidneys and ureters: Moderate right-sided hydroureteronephrosis extending to the ureterovesical junction, unchanged. There is a internal left nephroureteral stent unchanged with mild left-sided hydroureteronephrosis, stable. Left kidney is relatively small and atrophic. Stomach and bowel: Irregular asymmetric nodular enhancement involving the anal rectal wall right of midline concerning for possible tumor. Appendix: No evidence of appendicitis. Intraperitoneal space: There is a minimal amount of ascites anterior to the liver and within the pelvis that has developed possibly malignant in nature. Vasculature: Prior EVAR of 5.9 x 5.6 cm distal abdominal aortic aneurysm stable in size from previous exam with patent bifurcated aortoiliac stent unchanged in position. Lymph nodes: Left pelvic sidewall lymphadenopathy likely metastatic in nature, stable.. Urinary bladder: asymmetric bladder wall thickening involving the left posterolateral bladder wall relatively stable but concerning for bladder carcinoma. Reproductive: Uterus is enlarged with ill-defined expansion of the endometrial cavity which in view of patient's age is concerning for endometrial carcinoma. There is some heterogeneity within the myometrium that may in part be secondary to superimposed fibroids. Bones/joints: Extensive sclerotic bone changes right hemipelvis with smaller area of similar changes left acetabulum likely metastatic in nature. Soft tissues: Unremarkable. CT/CT abdomen pelvis w con* [id number] IMPRESSION: 1. Worsening liver metastasis measuring up to 6 cm. 2. Asymmetric bladder wall thickening unchanged suspicious for bladder wall carcinoma. 3. Moderate right hydronephrosis and mild left hydronephrosis stable from previous exam. Left internal nephroureteral stent unchanged. 4. Generalized uterine enlargement with findings involving the endometrial cavity concerning for endometrial carcinoma. 5. Diffuse bony changes of the right left hemipelvis likely metastatic in nature. 6. Findings involving the anal rectal wall concerning for underlying tumor. Please correlate clinical exam. 7. Prior EVAR of 5.9 x 5.6 cm abdominal aortic aneurysm stable in size from previous exam.
[2023-02-03 15:44] LABS: Alanine Aminotransferase 137 U/L (0-33); Albumin Level 3.3 g/dL (3.5-5.2); Alkaline Phosphatase 346 U/L (35-105); Anion Gap 16.5 (5-19); Aspartate Amino Transferase 60 U/L (0-32); Blood Urea Nitrogen 42 mg/dL (8-23); Calcium 8.6 mg/dL (8.5-10.5); Carbon Dioxide 22 mmol/L (22-29); Chloride 101 mmol/L (98-107); Creatine Phosphokinase 65 U/L (26-192); Globulin 2.1 g/dL (1.3-4.6); Glomerular Filtration Rate 49.1 mL/min (90-130); Glucose 129 mg/dL (65-115); Osmolality Calculated 292 mOsm/kg (285-295); Potassium 4.5 mmol/L (3.5-5.1); Sodium 135 mmol/L (136-145); Total Bilirubin 0.7 mg/dL (0.15-1.2); Total Protein 5.4 g/dL (6.6-8.7)
[2023-02-03] MEDS: iohexol 350 mg/mL 500 mL Btl (per mL) IV (16:04)
[2023-02-03] MEDS: sodium chloride 0.9% 1,000 ML 999 ML IV (16:13)
[2023-02-03 16:30] VITALS: BP 116/74; PULSE 76; RESP 17; O2SAT 98
[2023-02-03 16:40] LABS: Specific Gravity, Urine 1.015 (1.005-1.030); Urine Appearance Clear (CLEAR); Urine Color Yellow (Yellow); pH Urine 5 (5-7)
[2023-02-03 16:42] LABS: Add Urine Microscopic? YES; Bilirubin Urine Neg (Negative); Blood Urine 3+ (Negative); Glucose Urine UA Norm (Normal); Ketones Urine Negative (Negative); Leukocyte Esterase Urine Trace (Negative); Nitrate Urine Negative (Negative); Protein Urine Trace (Negative); Urobilinogen Urine Neg (Negative)
[2023-02-03 16:45] LABS: Bacteria Urine TRACE /hpf; RBC Urine 25-40 /hpf (0-2)
[2023-02-03 16:46] LABS: Add Urine Culture? Yes
[2023-02-03 17:38] VITALS: BP 125/72; PULSE 78; RESP 18; O2SAT 100
[2023-02-03 17:57] VITALS: BP 125/72; PULSE 75; RESP 18; O2SAT 91
== END 2023-02-03 17:57 | disposition home or self-care (01) ==
PROVIDERS: Emergency Provider Family Medicine; PCP Family Medicine
DX: C53.9 Malignant neoplasm of cervix uteri, unspecified (principal); C78.5 Secondary malignant neoplasm of large intestine and rectum; C79.51 Secondary malignant neoplasm of bone; C79.11 Secondary malignant neoplasm of bladder; Z79.82 Long term (current) use of aspirin; Z87.891 Personal history of nicotine dependence; I10 Essential (primary) hypertension
CPT/HCPCS: 71045; 74177; 80053; 81001; 82550; 85025; 87086; 96360; 99285; J7030; Q9967

== ENCOUNTER 2023-02-04 13:12 | Emergency (ER) | payer MEDICARE, SELFPAY ==
[2023-02-04 13:24] VITALS: BP 89/53; PULSE 89; RESP 16; O2SAT 100
--- NOTE | 2023-02-04 13:26 | ED_ITS ---
HPI - General Adult General: Chief complaint: General Medical Stated complaint: HYPOTENSION Time Seen by Provider: 02/04/23 13:19 Source: patient Mode of arrival: EMS History of Present Illness: 72-year-old female presents to the emergency room complaining of low blood pressure. I seen this patient yesterday she has cervical cancer with advancing metastasis we discussed with her family was at the bedside yesterday as well as a daughter who is a physician in [place] and had decided to transition to hospice care. At the time of discharge we had received word from [facility] that they would see the patient this morning. Patient's other daughter Jaye is at the bedside here and was with her all day yesterday and states that hospice did not see the patient this morning so she has not been enrolled. Evidently a palliative care nurse when out her blood pressure is in the 70s and 80s systolic and she called 911 and patient was brought in by EMS. Patient is actually more awake and alert today than she was yesterday. Onset (ago): minute(s) Severity: mild Relieving factors: none Exacerbating factors: none Associated symptoms: Reports malaise and nausea; Deny chest pain, confusion, cough, diaphoresis, decreased appetite, dyspnea, fevers/chills, headache(s), rash, palpitations, seizures, short of breath, syncope, vomiting or weakness Treatments prior to arrival: none Review of Systems Const: Reports: fatigue and malaise; Denies: fever(s), chills or diaphoresis Card: Denies: chest pain, palpitations or syncope Resp: Denies: dyspnea GI: Reports: abdominal pain and nausea; Denies: vomiting : Reports: urinary incontinence; Denies: dysuria, urinary frequency or urinary urgency Skin/Breast: Denies: rash Neuro: Denies: headache(s) or confusion PFS ED PFSH: Medical History Elevated brain natriuretic peptide (BNP) level Hydronephrosis, left Hypercholesteremia Hypertension No pertinent past medical history neghx: dm,thyroid,dvt/pe PCP: Dr. Hilliard Surgical History No pertinent past surgical history Family History Mother , at age 69 Colon cancer dx age 60's Thyroid disease Thyroid cancer Cancer Thyroid cancer followed by colon cancer Father , at age 68 Cancer Lung cancer Diabetes Denies family history of CAD (coronary artery disease) Clotting disorder Dementia Hyperlipidemia Psychiatric illness Chronic kidney disease (CKD) Suicide Anesthesia complication Bleeding disorder Lung disease Hypertension Stroke Social History Smoking and tobacco status: former smoker (0.5 ppd) Quit status (tobacco): has quit using tobacco Year quit tobacco: August 2022 Former quit date comment: 0.5ppd x 40 years Alcohol intake: current Alcohol intake frequency: holidays/special occasions only Marital status: Current occupational status: retired Physical Exam Const: GENERAL APPEARANCE: cooperative and comfortable ORIENTATION/CONSCIOUSNESS: Yes awake, Yes oriented to person, Yes oriented to place and Yes oriented to time HENMT: COMMON NORMALS: normocephalic, atraumatic and hearing grossly normal bilaterally HEAD & SCALP: normocephalic and atraumatic Resp: COMMON NORMALS: normal respiratory effort, No retractions, No use of accessory muscles and clear to auscultation bilaterally AUSCULTATION: clear to auscultation bilaterally Cardio: COMMON NORMALS: regular rate, regular rhythm and No murmurs present (Cardio) RATE: regular rate RHYTHM: regular rhythm GI: COMMON NORMALS: Soft to palpation and No hepatosplenomegaly present AUSCULTATION: Yes normoactive bowel sounds PALPATION: Yes Soft to palpation, No Tenderness to palpation present (GI), No Guarding due to palpation present (GI) and Yes No hepatosplenomegaly present Extremity: COMMON NORMALS: normal to inspection, capillary refill normal, no clubbing, cyanosis or edema, no calf tenderness and no pedal edema Neuro: SENSORIUM/ORIENTATION: Yes oriented to person, Yes oriented to place and Yes oriented to time Skin: COMMON NORMALS: no rashes or lesions noted GENERAL SKIN EXAM: no rashes or lesions noted Course Vital Signs: Vital signs: Vital Signs Pulse Rate 87 02/04/23 15:01 Respiratory Rate 22 H 02/04/23 15:01 Blood Pressure 81/62 02/04/23 15:01 Pulse Oximetry 92 02/04/23 15:01 Oxygen Delivery Me thod Nasal Cannula 02/04/23 13:24 Oxygen Flow Rate 3 02/04/23 13:24 MDM - General Adult Medical Decision Making Patient given a liter of fluids she is feeling about the same. She is very tired. She is a little bit more awake when she first arrived even initially when I seen her last night. She is probably close to her baseline of the time we discharge her. I checked with [facility] they had not had a nurse available so a hospice nurse, not come out this morning. Family and patient still wish to enroll in hospice. The palliative care nurse and seen the patient was evidently unaware because of hypotension called EMS. Discussed with the patient and the family member at the bedside they do still wish to proceed with hospice because that we generally do not do fluids and hospice care. They are understanding and accepting of that. We will discharge patient home we did contact [facility] again they have a nurse will meet the patient at their home this afternoon and get her enrolled in hospice. Medical Records I reviewed the patient's medical records. Lab Data I reviewed the patient's lab results. Discharge Plan Discharge Patient Disposition: Home Clinical Impression: Metastatic cancer, Squamous cell carcinoma of cervix Condition: Stable Prescriptions: No Action atorvastatin 20 mg tablet 20 mg PO QPM losartan-hydrochlorothiazide 50-12.5 mg tablet 1 tab PO DAILY docusate sodium [Stool Softener] 100 mg capsule 100 mg PO DAILY azithromycin 250 mg tablet See Rx Instructions PO .COMPLEX Rx Instructions: For 250 mg dose pack: take 500 mg today (day 1), then 250 mg for 4 days (days 2-5) PO prednisone 20 mg tablet 20 mg PO DAILY loperamide [Imodium A-D] 2 mg tablet 2 mg PO Q6H PRN (Reason: Diarrhea) loratadine [Claritin] 10 mg tablet 10 mg PO DAILY PRN (Reason: Allergy Symptoms) (DME) Portable Oxygen Concentrator See Rx Instructions .Route .MEDSUPPLY Qty: 1 0RF Rx Instructions: 2 liters via nasal cannula acetaminophen 500 mg Tablet 500 mg PO Q6H PRN (Reason: Pain) diphenhydramine HCl [Benadryl] 25 mg Capsule 25 mg PO .BEFORE CHEMO PRN (Reason: prn) multivitamin Tablet 1 tab PO DAILY Combivent Respimat 20-100 mcg/actuation mist 1 puff INHALATION QID PRN (Reason: Wheezing) aspirin 81 mg Tablet,Chewable 81 mg PO QPM promethazine 25 mg tablet 25 mg PO Q6H PRN (Reason: nausea and vomiting) Qty: 20 0RF oxycodone-acetaminophen 5-325 mg tablet 1 tab PO Q6H PRN (Reason: pain) Qty: 30 0RF Discharge Orders: Discharge ED (Routine); Ordered 02/04/23 Ordered By: Ashok Magaña Referrals: uYe Justice MD [Primary Care Provider] - Discharge Diet: Usual diet Discharge Activity: Resume usual activity Patient Instructions: Opioid Safety, Pain Management Activity Restrictions/Additional Instructions: You were seen today for weakness and low blood pressure. Much of this is caused by your cancer. We have contacted hospice today we will send a nurse to your home to enroll you in hospice program this afternoon. Coding Level of Care Code ED Research Computing Specialist for Donna Mullen
[2023-02-04 13:54] VITALS: BP 81/53; PULSE 88; RESP 22; O2SAT 93
[2023-02-04 15:01] VITALS: BP 81/62; PULSE 87; RESP 22; O2SAT 92
--- NOTE | 2023-02-04 15:09 | DCPLANNER ---
[facility] called protective services case worker asking for patients records and also an order to admit to hospice. actuarial manager received order and faxed patients information to [facility] for review.
== END 2023-02-04 15:01 | disposition home or self-care (01) ==
PROVIDERS: Emergency Provider Family Medicine; PCP Family Medicine
DX: C53.9 Malignant neoplasm of cervix uteri, unspecified (principal); Z79.82 Long term (current) use of aspirin; Z87.891 Personal history of nicotine dependence; I10 Essential (primary) hypertension; C79.9 Secondary malignant neoplasm of unspecified site
CPT/HCPCS: 99282

== ENCOUNTER 2023-02-07 11:04 | Inpatient (IN) | payer MEDICARE, SELFPAY ==
[2023-02-07] VITALS (10 sets, daily range): BP systolic 80–106; BP diastolic 61–79; PULSE 74–86; RESP 16–24; TEMP 36.2–36.3; O2SAT 83–98; BMI 23.0
--- NOTE | 2023-02-07 11:35 | W.ED.SOB ---
HPI - SOB/Dyspnea General: Chief Complaint: Shortness of Breath/Dyspnea Stated Complaint: Low O2, BP Low Time Seen by Provider: 02/07/23 11:05 History of Present Illness: HPI Narrative: Patient presents to the ER with complaints of low O2 sat. Patient is currently on 4 L per nasal cannula and normally wears 2 and she is still satting only in the 80s. Patient says she just started going downhill about 2 weeks ago at her last chemotherapy appointment for cervical cancer with mets. Patient says this is palliative and not therapeutic. Patient did see a coordinator of library services who wanted her to come be checked out for risk of infection. MD elicited complaint: shortness of breath Pertinent past history: other (Metastatic cervical cancer treated with palliative chemotherapy, COPD on home oxygen) Onset (ago): week(s) (Shortness of breath started 2 weeks ago) Timing: constant and progressively worsening Severity: moderate Exacerbating factors: exertion Relieving factors: oxygen Known history of: COPD Associated symptoms: Deny abdominal pain, chest pain, fever(s), nausea, palpitations or vomiting Review of Systems General: Reports: 10 or more systems reviewed and unremarkable except in HPI and below Const: Denies: fever(s) or chills Eyes: Denies: change in vision or photophobia ENMT: Denies: throat pain or odynophagia Card: Denies: chest pain, palpitations or irregular heart rhythm Resp: Reports: dyspnea GI: Denies: abdominal pain, nausea, vomiting or diarrhea : Denies: flank pain or difficulty voiding Musc: Denies: neck pain or back pain PFS ED PFSH: Medical History Elevated brain natriuretic peptide (BNP) level Hydronephrosis, left Hypercholesteremia Hypertension No pertinent past medical history neghx: dm,thyroid,dvt/pe PCP: Dr. Hilliard Surgical History No pertinent past surgical history Family History Mother , at age 69 Colon cancer dx age 60's Thyroid disease Thyroid cancer Cancer Thyroid cancer followed by colon cancer Father , at age 68 Cancer Lung cancer Diabetes Denies family history of CAD (coronary artery disease) Clotting disorder Dementia Hyperlipidemia Psychiatric illness Chronic kidney disease (CKD) Suicide Anesthesia complication Bleeding disorder Lung disease Hypertension Stroke Social History Smoking and tobacco status: former smoker (0.5 ppd) Quit status (tobacco): has quit using tobacco Year quit tobacco: August 2022 Former quit date comment: 0.5ppd x 40 years Alcohol intake: current Alcohol intake frequency: holidays/special occasions only Marital status: Current occupational status: retired Physical Exam Const: COMMON NORMALS: no acute distress, average body habitus, patient oriented x3, no limitations, alert and well nourished HENMT: COMMON NORMALS: normocephalic, atraumatic, hearing grossly normal bilaterally, external ears normal, Normal external nose present and moist oral mucous membranes HEAD & SCALP: normocephalic and atraumatic NOSE: Normal external nose present EXTERNAL EAR: Yes external ears normal Eye: COMMON NORMALS: Equal, round and reactive pupils present, EOMs intact bilaterally, conjunctivae normal and no scleral icterus CONJUNCTIVA: Yes conjunctivae normal PUPIL: Yes Equal, round and reactive pupils present Neck/C-Spine: COMMON NORMALS: full ROM, no lymphadenopathy, supple, no meningeal signs and no JVD Chest: COMMONS NORMALS: normal inspection of the chest and normal palpation of entire chest wall Resp: COMMON NORMALS: normal respiratory effort, No retractions, No use of accessory muscles and clear to auscultation bilaterally AUSCULTATION: clear to auscultation bilaterally Cardio: COMMON NORMALS: no JVD, regular rate, regular rhythm, S1 normal heart sound present, S2 normal heart sound present, No gallops present (Cardio), No clicks present (Cardio) and No murmurs present (Cardio) RATE: regular rate RHYTHM: regular rhythm HEART SOUNDS: S1 normal heart sound present and S2 normal heart sound present GI: COMMON NORMALS: Normal to inspection, nondistended, normoactive bowel sounds present, Soft to palpation, non-tender, No hepatosplenomegaly present and no masses PALPATION: Yes Soft to palpation and Yes No hepatosplenomegaly present : COMMON NORMALS: Yes no CVA tenderness BLADDER/KIDNEY EXAM: Yes no CVA tenderness Back/Pelvis: COMMON NORMALS: no CVA tenderness Neuro: COMMON NORMALS: patient oriented x3 SENSORIUM/ORIENTATION: Yes alert MENINGEAL SIGNS: Yes no meningeal signs Skin: COMMON NORMALS: no rashes or lesions noted GENERAL SKIN EXAM: no rashes or lesions noted Course Vital Signs: Vital signs: Vital Signs Temperature 97.3 F L 02/07/23 11:50 Pulse Rate 74 02/07/23 13:14 Respiratory Rate 22 H 02/07/23 13:14 Blood Pressure 101/79 02/07/23 13:14 Pulse Oximetry 96 02/07/23 13:14 Oxygen Delivery Me thod Venturi Mask 02/07/23 13:14 Oxygen Flow Rate 2 02/07/23 11:08 MDM - SOB/Dyspnea Medical Decision Making Patient presents to the ER with complaints of about 2 weeks of low oxygen and weakness. Patient does have metastatic cervical cancer that is being treated palliatively. Patient was satting approximately in the 80s on 2 to 4 L of oxygen upon arrival patient was increased to 6 L percent proxy mask. Her saturations now in the 90s. Lab work was obtained which showed a white count of 6.3 low platelets of 65, elevated BUN/creatinine of 67 and 1.7, CT of her chest without contrast was obtained that showed patchy infiltrates in the right lower lobe small right pleural effusion. An ABG was obtained which showed pH of 7.4 PCO2 of 31 and PO2 of 59.7 elevated BNP of 59,158, elevated lactic acid elevated procalcitonin patient was given a bolus of 1 L normal saline while lab work was coming back. Dr. Billy was consulted and agreed for inpatient admission. Patient will be started on Levaquin 500 mg IV. [facility] Differential Diagnosis Likely acute exacerbation of chronic obstructive airways disease; Unlikely congestive heart failure, community acquired pneumonia, asthma with exacerbation or pulmonary embolism Medical Records I reviewed the patient's medical records. Lab Data I reviewed the patient's lab results. 02/07/23 11:47 02/07/23 11:47 Labs/Radiology: Radiology Impressions Chest CT 02/07/23 13:03 IMPRESSION: 1. Advanced chronic emphysematous changes with patchy infiltrates in RIGHT lower lobe. Small RIGHT pleural effusion. Correlation for pneumonia. 2. No mediastinal or hilar lymphadenopathy. 3. Vascular calcification. 4. LEFT Port-A-Cath with tip in the distal SVC. 5. Liver metastasis similar to the recent CT abdomen pelvis 6. Small pericardial effusion. Laboratory Results WBC 6.3 10^3/uL (4.0-10.0) 02/07/23 11:47 RBC 3.88 10^6/uL (4.1-5.3) L 02/07/23 11:47 Hgb 12.6 g/dL (11.5-15.3) 02/07/23 11:47 Hct 40.9 % (37.0-47.0) 02/07/23 11:47 MCV 105.4 fl (81-99) H 02/07/23 11:47 MCH 32.5 pg (28.0-34.0) 02/07/23 11:47 MCHC 30.8 g/dL (30.0-36.0) 02/07/23 11:47 RDW 21.1 % (12.1-15.1) H 02/07/23 11:47 Plt Count 65 10^3/cmm (130-400) L 02/07/23 11:47 MPV 11.8 fL (7.4-10.4) H 02/07/23 11:47 Neut % (Auto) 75.3 % 02/07/23 11:47 Lymph % (Auto) 15.6 % 02/07/23 11:47 Lamar % (Auto) 5.7 % 02/07/23 11:47 Eos % (Auto) 0.3 % 02/07/23 11:47 Baso % (Auto) 0.5 % 02/07/23 11:47 Neut # (Auto) 4.72 10^3/uL (1.8-7.7) 02/07/23 11:47 Lymph # (Auto) 1.0 10^3/uL (0.8-4.8) 02/07/23 11:47 Lamar # (Auto) 0.4 10^3/uL (0.2-0.9) 02/07/23 11:47 Eos # (Auto) 0.0 10^3/uL (0.0-0.8) 02/07/23 11:47 Baso # (Auto) 0.0 10^3/uL (0.0-0.1) 02/07/23 11:47 Nucleated RBC % (auto) 2.6 % 02/07/23 11:47 Nucleated RBCs # 0.2 /100WBC 02/07/23 11:47 Specimen Type Arterial 02/07/23 11:37 Sample Site Radial, right 02/07/23 11:37 ABG pH 7.40 (7.35-7.45) 02/07/23 11:37 ABG pCO2 31.5 mmHg (35-45) L 02/07/23 11:37 ABG pO2 59.7 mmHg (80.0-100.0) L 02/07/23 11:37 ABG HCO3 19.3 mmol/L (22-26) L 02/07/23 11:37 ABG Base Excess -4.7 mmol/L (-2.0-2.0) L 02/07/23 11:37 Jacob Test Pos 02/07/23 11:37 Hematocrit 36.4 % (37-47) L 02/07/23 11:37 Hgb O2 Saturation 87.8 % (95-100) L 02/07/23 11:37 Carboxyhemoglobin 1.6 %THgb (0.4-20.1) 02/07/23 11:37 Methemoglobin 0.1 % (0.4-1.5) L 02/07/23 11:37 Total Hemoglobin 11.9 g/dL (12-16) L 02/07/23 11:37 O2 Delivery Device Nc 02/07/23 11:37 O2 Liters/Min 6.0 % 02/07/23 11:37 Institutional Asset Manager ID [place] 02/07/23 11:37 Sodium 136 mmol/L (136-145) 02/07/23 11:47 Potassium 5.2 mmol/L (3.5-5.1) H 02/07/23 11:47 Chloride 100 mmol/L (98-107) 02/07/23 11:47 Carbon Dioxide 17 mmol/L (22-29) L 02/07/23 11:47 Anion Gap 24.2 (5-19) H 02/07/23 11:47 BUN 67 mg/dL (8-23) H 02/07/23 11:47 Creatinine 1.7 mg/dL (0.5-0.9) H 02/07/23 11:47 GFR Calculation 29.7 mL/min (90-130) L 02/07/23 11:47 Glucose 112 mg/dL (65-115) 02/07/23 11:47 Calculated Osmolality 302 mOsm/kg (285-295) H 02/07/23 11:47 Lactic Acid 4.2 mmol/L (0.5-2.2) H* 02/07/23 11:47 Calcium 9.1 mg/dL (8.5-10.5) 02/07/23 11:47 Phosphorus 5.4 mg/dL (2.5-4.5) H 02/07/23 11:47 Magnesium 2.5 mg/dL (1.7-2.3) H 02/07/23 11:47 Total Bilirubin 0.9 mg/dL (0.15-1.2) 02/07/23 11:47 AST 36 U/L (0-32) H 02/07/23 11:47 ALT 62 U/L (0-33) H 02/07/23 11:47 Alkaline Phosphatase 370 U/L (35-105) H 02/07/23 11:47 NT-Pro-B Natriuret Pep 80345 pg/mL (0-125) H 02/07/23 11:47 Total Protein 6.4 g/dL (6.6-8.7) L 02/07/23 11:47 Albumin 3.2 g/dL (3.5-5.2) L 02/07/23 11:47 Globulin 3.2 g/dL (1.3-4.6) 02/07/23 11:47 Procalcitonin 0.61 ng/mL (0-0.5) H 02/07/23 11:47 Discharge Plan Discharge Patient Disposition: Admitted As Inpatient Clinical Impression: Community acquired pneumonia, Metastatic cancer, Pleural effusion on right, Acute respiratory failure with hypoxia Condition: Stable Prescriptions: No Action atorvastatin 20 mg tablet 20 mg PO QPM docusate sodium [Stool Softener] 100 mg capsule 100 mg PO DAILY PRN (Reason: Constipation) loperamide [Imodium A-D] 2 mg tablet 2 mg PO Q6H PRN (Reason: Diarrhea) loratadine [Claritin] 10 mg tablet 10 mg PO DAILY PRN (Reason: Allergy Symptoms) (DME) Portable Oxygen Concentrator See Rx Instructions .Route .MEDSUPPLY Qty: 1 0RF Rx Instructions: 2 liters via nasal cannula acetaminophen 500 mg Tablet 500 mg PO Q6H PRN (Reason: Pain) multivitamin Tablet 1 tab PO DAILY Combivent Respimat 20-100 mcg/actuation mist 1 puff INHALATION QID PRN (Reason: Wheezing) Trelegy Ellipta 100-62.5-25 mcg blister with device 1 ea INHALATION DAILY aspirin 81 mg Tablet,Chewable 81 mg PO QPM promethazine 25 mg tablet 25 mg PO Q6H PRN (Reason: nausea and vomiting) Qty: 20 0RF oxycodone-acetaminophen 5-325 mg tablet 1 tab PO Q6H PRN (Reason: pain) Qty: 30 0RF Referrals: Yue Justice MD [Primary Care Provider] - Coding Level of Care Code ED Bench Technician for Donna Mullen
[2023-02-07 11:49] LABS: ABG PCO2 31.5 mmHg (35-45); Arterial Blood Gas Hematocrit 36.4 % (37-47); Base Excess ABG -4.7 mmol/L (-2.0-2.0); Blood Gas Allen Test Pos; Blood Gas Operator Identificat WALCI; Blood Gas Sample Site Radial, right; Blood Gas Sample Type Arterial; Carboxyhemoglobin 1.6 %THgb (0.4-20.1); HCO3 ABG 19.3 mmol/L (22-26); HGB O2 Sat 87.8 % (95-100); Methemoglobin 0.1 % (0.4-1.5); Oxygen Device NC; PO2 ABG 59.7 mmHg (80.0-100.0); Total Hemoglobin 11.9 g/dL (12-16)
[2023-02-07 11:55] LABS: Basophils % 0.5 %; Eosinophils % 0.3 %; Hematocrit 40.9 % (37.0-47.0); Hemoglobin 12.6 g/dL (11.5-15.3); Lymphocytes % 15.6 %; Mean Corpuscular HGB Conc 30.8 g/dL (30.0-36.0); Mean Corpuscular Hemoglobin 32.5 pg (28.0-34.0); Mean Corpuscular Volume 105.4 fl (81-99); Mean Platelet Volume 11.8 fL (7.4-10.4); Monocytes # 0.4 10^3/uL (0.2-0.9); Monocytes % 5.7 %; Neutrophils # 4.72 10^3/uL (1.8-7.7); Neutrophils % 75.3 %; Nucleated Red Blood Cells # 0.2 /100WBC; Nucleated Red Blood Cells % 2.6 %; Platelet Count 65 10^3/cmm (130-400); Red Blood Count 3.88 10^6/uL (4.1-5.3); Red Cell Distribution Width 21.1 % (12.1-15.1); White Blood Count 6.3 10^3/uL (4.0-10.0)
[2023-02-07 12:20] LABS: Lactic Sepsis W/Reflex 4.2 mmol/L (0.5-2.2)
[2023-02-07] MEDS: sodium chloride 0.9% 1,000 ML 999 ML IV (12:28)
[2023-02-07 12:30] LABS: Procalcitonin 0.61 ng/mL (0-0.5)
--- NOTE | 2023-02-07 12:31 | PC.NURSE ---
Reported elevated lactic acid of 4.[address] Ramón Menjivar
[2023-02-07 12:41] LABS: Alanine Aminotransferase 62 U/L (0-33); Albumin Level 3.2 g/dL (3.5-5.2); Alkaline Phosphatase 370 U/L (35-105); Blood Urea Nitrogen 67 mg/dL (8-23); Calcium 9.1 mg/dL (8.5-10.5); Carbon Dioxide 17 mmol/L (22-29); Chloride 100 mmol/L (98-107); Globulin 3.2 g/dL (1.3-4.6); Glomerular Filtration Rate 29.7 mL/min (90-130); Glucose 112 mg/dL (65-115); Magnesium 2.5 mg/dL (1.7-2.3); Osmolality Calculated 302 mOsm/kg (285-295); Sodium 136 mmol/L (136-145); Total Bilirubin 0.9 mg/dL (0.15-1.2); Total Protein 6.4 g/dL (6.6-8.7)
[2023-02-07 12:44] LABS: Anion Gap 24.2 (5-19); Aspartate Amino Transferase 36 U/L (0-32); Potassium 5.2 mmol/L (3.5-5.1)
--- NOTE | 2023-02-07 13:03 | CT_ITS ---
WS: [id number] CT CHEST TECHNIQUE: Noncontrast CT of the chest with coronal and sagittal reformatted images. CLINICAL INFORMATION: dyspnea hypoxia cervical cancer with mets COMPARISON: August 17, [address] abdomen pelvis February 03, 2023 DLP: 301.[address] scans at [facility] use at least one of these dose optimization techniques: automated e xposure control; mA and/or kV adjustment per patient size (includes targeted exams where dose is matc hed to clinical indication); or iterative reconstruction. FINDINGS: Partially visualized liver metastasis described on the recent CT. Advanced chronic emphysematous murphy ges. Aortic calcification. Coronary calcification. Prominent main pulmonary arteries can be seen with pulmonary arterial hypertension. Normal caliber thoracic aorta. No mediastinal or hilar lymphadenopathy. No axillary lymphadenopathy. Tiny pericardial effusion. Partially visualized aortic endograft. Normal GE junction. Patchy infiltra pedro in the RIGHT lower lobe with small RIGHT pleural effusion. No visualized thoracic metastatic lesi ons. Fibrosis in the lung apices. CT/CT chest wo con [id number] IMPRESSION: 1. Advanced chronic emphysematous changes with patchy infiltrates in RIGHT low er lobe. Small RIGHT pleural effusion. Correlation for pneumonia. 2. No mediastinal or hilar lymphadenopathy. 3. Vascular calcification. 4. LEFT Port-A-Cath with tip in the distal SVC. 5. Liver metastasis similar to the recent CT abdomen pelvis 6. Small pericardial effusion.
[2023-02-07 13:39] LABS: Reflex Lactate Order REFLEX LACTIC ORDERD
[2023-02-07 13:49] LABS: Phosphorus 5.4 mg/dL (2.5-4.5)
[2023-02-07 14:54] LABS: Lactic Acid level (Lactate) 3.5 mmol/L (0.5-2.2)
[2023-02-07] MEDS: sodium chloride 0.9% 1,000 ML 250 ML IV (15:19)
[2023-02-07] MEDS: levofloxacin-dextrose 5 % 500 MG/100 ML PREMIX 100 MG IV (15:21)
--- NOTE | 2023-02-07 16:37 | PM.HP ---
Providers/Chief Complaint Admitting Physician: Good Billy MD Primary Care Provider: Yue Justice MD Chief Complaint: Low O2, BP Low History of Present Illness Mone Singh is a 72 year old female with past medical history of metastatic squamous cell carcinoma of cervix currently on chemotherapy last chemo session was on last Tuesday. COPD, on 2 L home oxygen uses as needed, came in today with chief complaint of worsening generalized weakness fatigue, poor appetite, worsening shortness of breath, going on for the last 4 to 5 days.Patient has been increasingly short of breath at home, denied any cough, fever or chills, chest pain palpitation. When patient arrived in the ER she was requiring 5 to 6 L oxygen through OxyMask to maintain a decent saturation. CT chest without contrast: Showed: Advanced chronic emphysematous changes with patchy infiltrates in RIGHT lower lobe. Small RIGHT pleural effusion. Correlation for pneumonia. Pertinent labs: WBC 6.3, H&H 12/40, PLT : 65, serum sodium 136 serum potassium 5.2, serum bicarb 17, anion gap 24, serum creatinine 1.7, lactic acid 4.2, repeat lactic acid 3.5, procalcitonin 0.61, AST: 36 ALT 62, ALP 370, Review of Systems General: Reports: 10 or more systems reviewed and unremarkable except in HPI and below Const: Denies: fever(s), chills, body aches, change in appetite or diaphoresis Card: Denies: palpitations, edema, swelling of feet/ankles, dyspnea on exertion, orthopnea or leg pain with exertion Resp: Reports: dyspnea; Denies: productive cough, wheezing or pain on inspiration GI: Denies: abdominal pain, nausea, vomiting, diarrhea or constipation : Denies: flank pain Musc: Denies: back pain, extremity pain or extremity swelling Neuro: Denies: headache(s) or confusion Medications/Allergies Home Medications Medication Instructions Recorded Confirmed Last Taken Type atorvastatin 20 mg tablet 20 mg PO QPM 11/20/21 02/07/23 02/06/23 History loperamide 2 mg tablet (Imodium 2 mg PO Q6H PRN Diarrhea 06/15/22 02/07/23 Unknown History A-D) loratadine 10 mg tablet (Claritin) 10 mg PO DAILY PRN Allergy Symptoms 06/15/22 02/07/23 Unknown History acetaminophen 500 mg tablet 500 mg PO Q6H PRN Pain 08/17/22 02/07/23 08/17/22 04:00 History aspirin 81 mg chewable tablet 81 mg PO QPM 12/15/22 02/07/23 02/06/23 History ipratropium 20 mcg-albuterol 100 1 puff inhalation QID PRN Wheezing 12/29/22 02/07/23 02/07/23 History mcg/actuation mist for inhalation (Combivent Respimat) multivitamin 1 tab PO DAILY 12/29/22 02/07/23 02/06/23 History docusate sodium 100 mg capsule 100 mg PO DAILY PRN Constipation 01/25/23 02/07/23 02/06/23 History (Stool Softener) Portable Oxygen Concentrator #1 ea 01/26/23 02/07/23 Unknown Rx oxycodone-acetaminophen 5 mg-325 1 tab PO Q6H PRN pain #30 tabs 02/03/23 02/07/23 Unknown Rx mg tablet promethazine 25 mg tablet 25 mg PO Q6H PRN nausea and 02/03/23 02/07/23 Unknown Rx vomiting #20 tabs fluticasone fur. 100 mcg-umeclid 1 ea inhalation DAILY 02/07/23 02/07/23 02/06/23 History 62.5 mcg-vilant 25 mcg inhalat.powder (Trelegy Ellipta) Allergies Allergy/AdvReac Type Severity Reaction Status Date / Time nitrofurantoin Allergy ALGY-Difficulty Verified 02/07/23 11:14 [From Macrobid] Breathing Penicillins Allergy skin rash Verified 02/07/23 11:14 PFSH Acute PFSH: Medical History Elevated brain natriuretic peptide (BNP) level Hydronephrosis, left Hypercholesteremia Hypertension No pertinent past medical history neghx: dm,thyroid,dvt/pe PCP: Dr. Hilliard Surgical History No pertinent past surgical history Family History Mother , at age 69 Colon cancer dx age 60's Thyroid disease Thyroid cancer Cancer Thyroid cancer followed by colon cancer Father , at age 68 Cancer Lung cancer Diabetes Denies family history of CAD (coronary artery disease) Clotting disorder Dementia Hyperlipidemia Psychiatric illness Chronic kidney disease (CKD) Suicide Anesthesia complication Bleeding disorder Lung disease Hypertension Stroke Social History Smoking and tobacco status: former smoker (0.5 ppd) Quit status (tobacco): has quit using tobacco Year quit tobacco: August 2022 Former quit date comment: 0.5ppd x 40 years Alcohol intake: current Alcohol intake frequency: holidays/special occasions only Marital status: Current occupational status: retired Vitals/I&O/Wt Last Vital Signs Temp 97.3 F L 02/07/23 11:50 Pulse 74 02/07/23 16:27 Resp 22 H 02/07/23 16:27 BP 106/73 02/07/23 16:27 Pulse Ox 97 02/07/23 16:27 O2 Del Method Venturi Mask 02/07/23 16:00 O2 Flow Rate 2 02/07/23 11:08 Weight last 48 hrs Weight 60.781 kg Physical Exam Const: COMMON NORMALS: patient oriented x3 HENMT: COMMON NORMALS: normocephalic and atraumatic HEAD & SCALP: normocephalic and atraumatic Resp: COMMON NORMALS: clear to auscultation bilaterally AUSCULTATION: clear to auscultation bilaterally Cardio: COMMON NORMALS: regular rate, regular rhythm, S1 normal heart sound present, S2 normal heart sound present, No gallops present (Cardio), No murmurs present (Cardio), No rub (Cardio) and Peripheral pulses 2+ throughout RATE: regular rate RHYTHM: regular rhythm HEART SOUNDS: S1 normal heart sound present and S2 normal heart sound present PERIPHERAL PULSES: Peripheral pulses 2+ throughout GI: COMMON NORMALS: Normal to inspection, nondistended, normoactive bowel sounds present, Soft to palpation, non-tender, No hepatosplenomegaly present and no masses AUSCULTATION: Yes normoactive bowel sounds PALPATION: Yes Soft to palpation and Yes No hepatosplenomegaly present RECTAL EXAM: deferred Extremity: COMMON NORMALS: no clubbing, cyanosis or edema and no pedal edema Neuro: COMMON NORMALS: patient oriented x3 Data 02/07/23 11:47 02/07/23 11:47 Micro: Microbiology 02/07/23 13:10 Blood Culture - Preliminary Blood SPECIMEN COLLECTED 02/07/23 13:10 Blood Culture - Preliminary Blood SPECIMEN COLLECTED A&P Assessment and plan (1) Pneumonia: (2) SANDRINE (acute kidney injury): (3) Thrombocytopenia: (4) Lactic acidosis: (5) Hyperkalemia: (6) Transaminitis: (7) Metastatic cancer: Qualifiers: Area of secondary neoplastic involvement: other site Qualified Code(s): C79.89 - Secondary malignant neoplasm of other specified sites Plan 72 year old female with past medical history of metastatic squamous cell carcinoma of cervix currently on chemotherapy last chemo session was on last Tuesday. COPD, on 2 L home oxygen uses as needed, came in today with chief complaint of worsening generalized weakness fatigue, poor appetite, worsening shortness of breath, going on for the last 4 to 5 days. Assessment: Pneumonia: CT chest without contrast is suggestive of: patchy infiltrates in RIGHT lower lobe. Small RIGHT pleural effusion. Follow blood culture Sputum Gram stain culture Urine Legionella urine Bacterial antigen panel MRSA PCR Currently she is empirically covered with broad-spectrum antibiotic Vanco and meropenem. Thrombocytopenia: Possibly chemotherapeutic effect Currently she has no active bleeding no petechiae no purpura. Monitor platelet count for now Lactic acidosis: Possibly related to acute worsening hypoxia. Repeat lactic acid is improving For now she is empirically covered with broad-spectrum antibiotic although clinical suspicion for sepsis is low. Transaminitis: Possibly related to metastatic liver disease Monitor CMP for now progressive CKD: V/S SANDRINE on CKD versus Admission serum creatinine is 1.7 Baseline serum creatinine appears to be around 0.9-1.5 For now continue gentle IV hydration with normal saline Monitor intake output charting Avoid nephrotoxic's Urine electrolytes random urine sodium, random urine creatinine Random urine protein FENA UPCR CODE STATUS:AND DVT prophylaxis on SCD Attestations Medical Necessity Statement*: Patient is in hospital for management of pneumonia. Anticipated length of stay greater than 2 midnights Coding Level of Care Code Acute Code for [facility] Diagnoses Pneumonia J18.9 SANDRINE (acute kidney injury) N17.9 Thrombocytopenia D69.6 Lactic acidosis E87.20 Hyperkalemia E87.5 Transaminitis R74.01 Metastatic cancer C79.89 Area of secondary neoplastic involvement: other site
--- NOTE | 2023-02-07 16:53 | PC.PHAR ---
trough to be drawn prior to 3rd dose.... pending stable renal function Patient: Floor: Age: 72 yo Serum creatinine: 1.7 mg/dL Height: 63.8 Inches Weight (kg): 60 IBW (kg): 54.24 Dosing wt(kg): 60 Estimated Creatinine clearance (ml/min): 26.4 CRCL method: Cockcroft and Gault using ibw(default). Drug selected: Vancomycin Loading dose (mg): Vd (liters): 42.0 (factor used: 0.7 L/kg) Bart (hr-1): 0.026 Half life (hrs): 26.66 CLvanco=?? 1.092 L/hr Recommended dose: 1000 mg Interval: 36 hrs Infusion time (hrs): 1 Predicted peak (mcg/mL): 38.7 Predicted trough (mcg/mL): 15.58 Total body weight is being used for vancomycin dosing. Recommendations: Give Vancomycin 1000 mg q 36 hrs with an expected Cpeak of 38.7 mcg/ml and an expected Ctrough of 15.58 mcg/ml AUC 0-24 /SAM Data: SAM 0.5 mcg/mL:?? AUC/SAM:? 1221.0 SAM 1.0 mcg/mL:?? AUC/SAM:? 610.5 --------- SAM 1.5 mcg/mL:?? AUC/SAM:? 407.0 SAM 2.0 mcg/mL:?? AUC/SAM:? 305.3 Renal dosing of other antibiotics (review renal dosing of other medications and list guidelines here): Thank you for the consult, will continue to follow. Signature: Giuliano Scott, CassiusD
[2023-02-07] MEDS: sodium chloride 0.9% 1,000 ML 100 ML IV (17:53)
[2023-02-07] MEDS: enoxaparin 30 mg/0.3 mL Syringe SUBCUT (18:13)
[2023-02-07] MEDS: meropenem 500 MG in sodium chloride 0.9% (plus) 50 ML 100 MG IV (18:13)
[2023-02-07] MEDS: aspirin 81 mg Chew Tablet PO (18:13)
[2023-02-07] MEDS: vancomycin 1,000 MG in sodium chloride 0.9% 250 ML 250 MG IV (18:57)
[2023-02-07] MEDS: atorvastatin 40 mg Tablet 20 MG PO (20:38)
[2023-02-07] MEDS: ipratropium-albuterol 3 mL Neb INHALATION (21:05)
[2023-02-07] MEDS: budesonide 0.5 mg/2 mL Neb INHALATION (21:05)
[2023-02-08] VITALS (15 sets, daily range): BP systolic 93–111; BP diastolic 64–73; PULSE 77–92; RESP 16–22; TEMP 36.1–36.6; O2SAT 85–95
[2023-02-08] MEDS: ipratropium-albuterol 3 mL Neb INHALATION ×4 (02:20→20:09)
[2023-02-08] MEDS: sodium chloride 0.9% 1,000 ML 100 ML IV (03:45)
[2023-02-08 04:57] LABS: Basophils % 0.3 %; Eosinophils % 0.5 %; Hematocrit 32.3 % (37.0-47.0); Hemoglobin 9.9 g/dL (11.5-15.3); Lymphocytes # 0.8 10^3/uL (0.8-4.8); Mean Corpuscular HGB Conc 30.7 g/dL (30.0-36.0); Mean Corpuscular Hemoglobin 32.8 pg (28.0-34.0); Mean Platelet Volume 12.1 fL (7.4-10.4); Monocytes # 0.3 10^3/uL (0.2-0.9); Monocytes % 5.8 %; Neutrophils # 4.58 10^3/uL (1.8-7.7); Neutrophils % 78.2 %; Nucleated Red Blood Cells # 0.1 /100WBC; Nucleated Red Blood Cells % 2.2 %; Platelet Count 41 10^3/cmm (130-400); Red Blood Count 3.02 10^6/uL (4.1-5.3); Red Cell Distribution Width 20.9 % (12.1-15.1); White Blood Count 5.9 10^3/uL (4.0-10.0)
[2023-02-08 05:17] LABS: Lactic Sepsis W/Reflex 2.9 mmol/L (0.5-2.2)
[2023-02-08 05:19] LABS: Alanine Aminotransferase 48 U/L (0-33); Albumin Level 2.4 g/dL (3.5-5.2); Alkaline Phosphatase 405 U/L (35-105); Blood Urea Nitrogen 59 mg/dL (8-23); Calcium 8.1 mg/dL (8.5-10.5); Carbon Dioxide 20 mmol/L (22-29); Chloride 105 mmol/L (98-107); Globulin 2.3 g/dL (1.3-4.6); Glomerular Filtration Rate 40.5 mL/min (90-130); Glucose 114 mg/dL (65-115); Osmolality Calculated 299 mOsm/kg (285-295); Sodium 136 mmol/L (136-145); Total Bilirubin 0.4 mg/dL (0.15-1.2); Total Protein 4.7 g/dL (6.6-8.7)
[2023-02-08 05:23] LABS: Anion Gap 15.4 (5-19); Aspartate Amino Transferase 33 U/L (0-32); Potassium 4.4 mmol/L (3.5-5.1)
[2023-02-08 05:27] LABS: Slide Review Slide Review Perform
[2023-02-08] MEDS: meropenem 500 MG in sodium chloride 0.9% (plus) 50 ML 100 MG IV ×2 (05:34→17:27)
[2023-02-08 06:40] LABS: Reflex Lactate Order REFLEX LACTIC ORDERD
[2023-02-08] MEDS: budesonide 0.5 mg/2 mL Neb INHALATION ×2 (07:48→20:09)
[2023-02-08 08:17] LABS: Lactic Acid level (Lactate) 2.6 mmol/L (0.5-2.2)
--- NOTE | 2023-02-08 09:57 | PC.CHAP ---
Pastoral Care Encounter/Spiritual Assessment Type of Contact [] Declined registered nurse practitioner visit [] Patient/Family/Request visit [] Outpatient visit [] Follow-up visit [] Physician referral [] Code/Alert [x] Routine visit [] Staff referral [] Actively dying [] Patient sleeping [x] Family support [] [] Out of room [] Palliative care [] [] Receiving care in room [] Pre-surgical visit [] Trauma [] Long length of stay [] ICU visit [] Other: Relational/Emotional Strength [x] Patient feels connected with others/family/visitors/staff [] Distress [] Loneliness/isolation [] Abandonment Spirituality of Patient [x] Person of [place] [] Attends Amish of their [place] [x] Believes in Prayer [] Reads Bible or Mormonism materials [] There are Spiritual issues to be addressed 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 [x] Prayer [x] Active listening [] Non-anxious presence [x] Spiritual/emotional support [] Crisis/trauma care [] Spiritual counseling [] Bereavement support [] Provided bereavement packet [] Provided Bible/devotional materials [] Provided toy/stuffed animal, coloring book to patient or family member [] Provided Communion [] Anointing/[place] [] Salvation [] Completed spiritual assessment [] Other: Impact on Illness or Injury [] Angry [] Fearful [] Anxious [] Often cries [] Exhaustion [] Unable to work [] Unable to attend amish [] Unable to walk/stand [] Unable to read [] Unable to drive [] Unable to eat/drink [] Unable to sleep [] Unable to be with family [] Patient intubated [] Other: Summary Time spent with patient 5 min
--- NOTE | 2023-02-08 13:19 | PM.PN ---
Subjective Subjective: Patient was seen and examined this morning, shortness of breath is improved, though currently she is requiring 6 L oxygen through nasal cannula, BUN and serum creatinine is trending down, lactic acid is decreasing, unfortunately her platelet count is going down, currently she does not have any petechiae purpura no active bleeding. Medications: Medication Review Details: Generic Name Dose Route Start Last Admin Trade Name Neena PRN Reason Stop Dose Admin Albuterol/Ipratrop ium 3 ml 02/07/23 20:00 02/08/23 07:48 Ipratropium-Albu terol 3 Ml Neb INHALATION 3 ml Q6H.RESP WALTER Administration Aspirin 81 mg 02/07/23 18:00 02/07/23 18:13 Aspirin 81 Mg Ch ew Tablet PO 81 mg QPM WALTER Administration Atorvastatin Calci um 20 mg 02/07/23 21:00 02/07/23 20:38 Atorvastatin 40 Mg Tablet PO 20 mg BEDTIME WALTER Administration Budesonide 0.5 mg 02/07/23 20:00 02/08/23 07:48 Budesonide 0.5 M g/2 Ml Neb INHALATION 0.5 mg BID.RESPIRATORY S CH Administration Sodium Chloride 1,000 mls @ 100 m ls/hr 02/07/23 16:30 02/08/23 03:45 Sodium Chloride 0.9% IV 100 mls/hr .Q10H WALTER Administration Vancomycin HCl 1,0 00 mg/ 250 mls @ 250 mls /hr 02/07/23 18:00 02/07/23 21:41 Sodium Chloride IV Infused Q36H WALTER Infusion Protocol As Directed Meropenem 500 mg/ Sodium 50 mls @ 100 mls/ hr 02/07/23 17:30 02/08/23 06:21 Chloride IV Infused Q12H WALTER Infusion Protocol Vitals/I&O/Wt Last Vital Signs Temp 97.6 F 02/08/23 11:39 Pulse 88 02/08/23 11:39 Resp 16 02/08/23 08:00 BP 106/67 02/08/23 11:39 Pulse Ox 90 02/08/23 11:39 O2 Del Method Oxymask 02/08/23 07:49 O2 Flow Rate 6 02/08/23 07:49 02/07/23 02/08/23 02/08/23 22:59 06:59 14:59 Intake Total 2520 / 2520 1036.667 / 3556.667 260 / 260 Balance 2520 / 2520 1036.667 / 3556.667 260 / 260 Weight last 48 hrs Weight 60.781 kg Physical Exam Const: COMMON NORMALS: patient oriented x3 HENMT: COMMON NORMALS: normocephalic and atraumatic HEAD & SCALP: normocephalic and atraumatic Resp: COMMON NORMALS: clear to auscultation bilaterally AUSCULTATION: clear to auscultation bilaterally Cardio: COMMON NORMALS: regular rate, regular rhythm, S1 normal heart sound present, S2 normal heart sound present, No gallops present (Cardio), No murmurs present (Cardio), No rub (Cardio) and Peripheral pulses 2+ throughout RATE: regular rate RHYTHM: regular rhythm HEART SOUNDS: S1 normal heart sound present and S2 normal heart sound present PERIPHERAL PULSES: Peripheral pulses 2+ throughout GI: COMMON NORMALS: Normal to inspection, nondistended, normoactive bowel sounds present, Soft to palpation, non-tender, No hepatosplenomegaly present and no masses AUSCULTATION: Yes normoactive bowel sounds PALPATION: Yes Soft to palpation and Yes No hepatosplenomegaly present RECTAL EXAM: deferred Extremity: COMMON NORMALS: no clubbing, cyanosis or edema and no pedal edema Neuro: COMMON NORMALS: patient oriented x3 Data 02/08/23 04:24 02/08/23 04:24 Micro: Microbiology 02/07/23 13:10 Blood Culture - Preliminary Blood SPECIMEN COLLECTED 02/07/23 13:10 Blood Culture - Preliminary Blood SPECIMEN COLLECTED A&P Assessment and plan (1) Pneumonia: (2) SANDRINE (acute kidney injury): (3) Thrombocytopenia: (4) Lactic acidosis: (5) Hyperkalemia: (6) Transaminitis: (7) Metastatic cancer: Qualifiers: Area of secondary neoplastic involvement: other site Qualified Code(s): C79.89 - Secondary malignant neoplasm of other specified sites Plan 72 year old female with past medical history of metastatic squamous cell carcinoma of cervix currently on chemotherapy last chemo session was on last Tuesday. COPD, on 2 L home oxygen uses as needed, came in today with chief complaint of worsening generalized weakness fatigue, poor appetite, worsening shortness of breath, going on for the last 4 to 5 days. Assessment: Pneumonia: CT chest without contrast is suggestive of: patchy infiltrates in RIGHT lower lobe. Small RIGHT pleural effusion. Follow blood culture Sputum Gram stain culture Urine Legionella urine Bacterial antigen panel MRSA PCR Currently she is empirically covered with broad-spectrum antibiotic Vanco and meropenem. Thrombocytopenia: Possibly chemotherapeutic effect Currently she has no active bleeding no petechiae no purpura. Monitor platelet count for now Lactic acidosis: Possibly related to acute worsening hypoxia. Repeat lactic acid is improving For now she is empirically covered with broad-spectrum antibiotic although clinical suspicion for sepsis is low. Transaminitis: Possibly related to metastatic liver disease Monitor CMP for now progressive CKD: V/S SANDRINE on CKD versus Admission serum creatinine is 1.7 Baseline serum creatinine appears to be around 0.9-1.5 For now continue gentle IV hydration with normal saline Monitor intake output charting Avoid nephrotoxic's Urine electrolytes random urine sodium, random urine creatinine Random urine protein FENA UPCR CODE STATUS:AND DVT prophylaxis on SCD Attestations Medical Necessity Statement*: Needs to be in hospital for IV antibiotics IV hydration. Coding Level of Care Code Acute Code for [facility] Diagnoses Pneumonia J18.9 SANDRINE (acute kidney injury) N17.9 Thrombocytopenia D69.6 Lactic acidosis E87.20 Hyperkalemia E87.5 Transaminitis R74.01 Metastatic cancer C79.89 Area of secondary neoplastic involvement: other site
[2023-02-08] MEDS: sodium chloride 0.9% 1,000 ML 50 ML IV (17:26)
[2023-02-08] MEDS: aspirin 81 mg Chew Tablet PO (17:50)
[2023-02-08] MEDS: atorvastatin 40 mg Tablet 20 MG PO (20:54)
[2023-02-09] VITALS (20 sets, daily range): BP systolic 107–135; BP diastolic 65–82; PULSE 76–89; RESP 15–20; TEMP 36.3–36.4; O2SAT 79–96
[2023-02-09] MEDS: ipratropium-albuterol 3 mL Neb INHALATION ×4 (01:30→20:14)
[2023-02-09 03:34] LABS: Basophils % 0.3 %; Eosinophils # 0.1 10^3/uL (0.0-0.8); Eosinophils % 0.6 %; Hematocrit 30.8 % (37.0-47.0); Hemoglobin 9.6 g/dL (11.5-15.3); Lymphocytes % 12.7 %; Mean Corpuscular HGB Conc 31.2 g/dL (30.0-36.0); Mean Corpuscular Hemoglobin 32.7 pg (28.0-34.0); Mean Corpuscular Volume 104.8 fl (81-99); Monocytes # 0.5 10^3/uL (0.2-0.9); Monocytes % 5.9 %; Neutrophils # 6.14 10^3/uL (1.8-7.7); Neutrophils % 79.3 %; Nucleated Red Blood Cells # 0.2 /100WBC; Nucleated Red Blood Cells % 2.6 %; Platelet Count 34 10^3/cmm (130-400); Red Blood Count 2.94 10^6/uL (4.1-5.3); Red Cell Distribution Width 20.8 % (12.1-15.1); White Blood Count 7.7 10^3/uL (4.0-10.0)
[2023-02-09 03:53] LABS: Alanine Aminotransferase 42 U/L (0-33); Albumin Level 2.4 g/dL (3.5-5.2); Alkaline Phosphatase 420 U/L (35-105); Aspartate Amino Transferase 29 U/L (0-32); Blood Urea Nitrogen 41 mg/dL (8-23); Calcium 8.3 mg/dL (8.5-10.5); Carbon Dioxide 20 mmol/L (22-29); Chloride 108 mmol/L (98-107); Globulin 2.3 g/dL (1.3-4.6); Glomerular Filtration Rate 54.8 mL/min (90-130); Glucose 106 mg/dL (65-115); Osmolality Calculated 293 mOsm/kg (285-295); Sodium 136 mmol/L (136-145); Total Bilirubin 0.5 mg/dL (0.15-1.2); Total Protein 4.7 g/dL (6.6-8.7)
[2023-02-09 03:54] LABS: Anion Gap 12.4 (5-19); Potassium 4.4 mmol/L (3.5-5.1)
[2023-02-09] MEDS: meropenem 500 MG in sodium chloride 0.9% (plus) 50 ML 100 MG IV ×2 (04:57→17:33)
[2023-02-09] MEDS: vancomycin 1,000 MG in sodium chloride 0.9% 250 ML 250 MG IV (06:03)
[2023-02-09] MEDS: budesonide 0.5 mg/2 mL Neb INHALATION ×2 (07:42→20:14)
[2023-02-09] MEDS: oxyCODONE-APAP 5-325 mg Tablet 1 TAB PO ×2 (10:25→19:44)
--- NOTE | 2023-02-09 12:21 | PM.PN ---
Subjective Subjective: Patient was seen and examined this morning, she was slightly more short of breath today, platelet count has continued to trend down.Plan is to discontinue I.V fluids today as the SCR is more or less at baseline. Medications: Medication Review Details: Generic Name Dose Route Start Last Admin Trade Name Neena PRN Reason Stop Dose Admin Albuterol/Ipratrop ium 3 ml 02/07/23 20:00 02/08/23 07:48 Ipratropium-Albu terol 3 Ml Neb INHALATION 3 ml Q6H.RESP WALTER Administration Aspirin 81 mg 02/07/23 18:00 02/07/23 18:13 Aspirin 81 Mg Ch ew Tablet PO 81 mg QPM WALTER Administration Atorvastatin Calci um 20 mg 02/07/23 21:00 02/07/23 20:38 Atorvastatin 40 Mg Tablet PO 20 mg BEDTIME WALTER Administration Budesonide 0.5 mg 02/07/23 20:00 02/08/23 07:48 Budesonide 0.5 M g/2 Ml Neb INHALATION 0.5 mg BID.RESPIRATORY S CH Administration Sodium Chloride 1,000 mls @ 100 m ls/hr 02/07/23 16:30 02/08/23 03:45 Sodium Chloride 0.9% IV 100 mls/hr .Q10H WALTER Administration Vancomycin HCl 1,0 00 mg/ 250 mls @ 250 mls /hr 02/07/23 18:00 02/07/23 21:41 Sodium Chloride IV Infused Q36H WALTER Infusion Protocol As Directed Meropenem 500 mg/ Sodium 50 mls @ 100 mls/ hr 02/07/23 17:30 02/08/23 06:21 Chloride IV Infused Q12H WALTER Infusion Protocol Vitals/I&O/Wt Last Vital Signs Temp 97.5 F L 02/09/23 11:42 Pulse 85 02/09/23 11:42 Resp 20 H 02/09/23 11:42 BP 114/72 02/09/23 11:42 Pulse Ox 83 L 02/09/23 11:42 O2 Del Method Nasal Cannula 02/09/23 11:42 O2 Flow Rate 6 02/09/23 07:42 02/08/23 02/09/23 02/09/23 22:59 06:59 14:59 Intake Total 290 / 1550 50 / 1600 950 / 950 Balance 290 / 1550 50 / 1600 950 / 950 Physical Exam Const: COMMON NORMALS: patient oriented x3 HENMT: COMMON NORMALS: normocephalic and atraumatic HEAD & SCALP: normocephalic and atraumatic Resp: COMMON NORMALS: clear to auscultation bilaterally AUSCULTATION: clear to auscultation bilaterally Cardio: COMMON NORMALS: regular rate, regular rhythm, S1 normal heart sound present, S2 normal heart sound present, No gallops present (Cardio), No murmurs present (Cardio), No rub (Cardio) and Peripheral pulses 2+ throughout RATE: regular rate RHYTHM: regular rhythm HEART SOUNDS: S1 normal heart sound present and S2 normal heart sound present PERIPHERAL PULSES: Peripheral pulses 2+ throughout GI: COMMON NORMALS: Normal to inspection, nondistended, normoactive bowel sounds present, Soft to palpation, non-tender, No hepatosplenomegaly present and no masses AUSCULTATION: Yes normoactive bowel sounds PALPATION: Yes Soft to palpation and Yes No hepatosplenomegaly present RECTAL EXAM: deferred Extremity: COMMON NORMALS: no clubbing, cyanosis or edema and no pedal edema Neuro: COMMON NORMALS: patient oriented x3 Data 02/09/23 03:14 02/09/23 03:14 Micro: Microbiology 02/07/23 13:10 Blood Culture - Preliminary Blood NEGATIVE TO DATE 02/07/23 13:10 Blood Culture - Preliminary Blood NEGATIVE TO DATE A&P Assessment and plan (1) Pneumonia: (2) SANDRINE (acute kidney injury): (3) Thrombocytopenia: (4) Lactic acidosis: (5) Hyperkalemia: (6) Transaminitis: (7) Metastatic cancer: Qualifiers: Area of secondary neoplastic involvement: other site Qualified Code(s): C79.89 - Secondary malignant neoplasm of other specified sites Plan 72 year old female with past medical history of metastatic squamous cell carcinoma of cervix currently on chemotherapy last chemo session was on last Tuesday. COPD, on 2 L home oxygen uses as needed, came in today with chief complaint of worsening generalized weakness fatigue, poor appetite, worsening shortness of breath, going on for the last 4 to 5 days. Assessment: Pneumonia: CT chest without contrast is suggestive of: patchy infiltrates in RIGHT lower lobe. Small RIGHT pleural effusion. Blood culture:NTD Sputum Gram stain culture: Urine Legionella urine: Bacterial antigen panel: MRSA PCR: Currently she is empirically covered with broad-spectrum antibiotic Vanco and meropenem. Thrombocytopenia: Possibly chemotherapeutic effect Currently she has no active bleeding no petechiae no purpura. Monitor platelet count for now Lactic acidosis: Possibly related to acute worsening hypoxia. Repeat lactic acid is improving For now she is empirically covered with broad-spectrum antibiotic although clinical suspicion for sepsis is low. Transaminitis: Possibly related to metastatic liver disease Monitor CMP for now progressive CKD: V/S SANDRINE on CKD versus Admission serum creatinine is 1.7 Baseline serum creatinine appears to be around 0.9-1.5 For now continue gentle IV hydration with normal saline Monitor intake output charting Avoid nephrotoxic's Urine electrolytes random urine sodium, random urine creatinine Random urine protein FENA UPCR CODE STATUS:AND DVT prophylaxis on SCD Attestations Medical Necessity Statement*: NEEDS TO BE IN HOSPITAL FOR THE MANAGEMENT OF THROMBOCYTOPENIA Coding Level of Care Code Acute Code for [facility] Diagnoses Pneumonia J18.9 SANDRINE (acute kidney injury) N17.9 Thrombocytopenia D69.6 Lactic acidosis E87.20 Hyperkalemia E87.5 Transaminitis R74.01 Metastatic cancer C79.89 Area of secondary neoplastic involvement: other site
--- NOTE | 2023-02-09 14:12 | PC.RESP ---
pt required a moderate increase in o2 liter flow from 6l nc to 12l hfnc. spo2 remained 85-88%. dr. pierre notified. dr pierre is fine with spo2 being 85% or greater as long as pt wob does not increase. if wob increases, he would like a bipap on pt. pt is in no resp distress at this time and wob is normal.
[2023-02-09] MEDS: aspirin 81 mg Chew Tablet PO (17:33)
[2023-02-09] MEDS: atorvastatin 40 mg Tablet 20 MG PO (19:44)
[2023-02-09] MEDS: docusate sodium 100 mg Capsule 200 MG PO (19:45)
--- NOTE | 2023-02-09 21:25 | PC.NURSE ---
PT CARE CHANGE Assumed care of pt at this time. Is resting quietly and denies pain. Did say she was feeling a little lightheaded since O2 has been increased. RT came in at this time to check on her and adjusted O2 down some. Sat was 97-98% and felt like it may be too much now. Is now on 12l HF Oxymask. Was reported to this nurse that O2 had been increased due to sat being 80%
[2023-02-10] VITALS (13 sets, daily range): BP systolic 117–132; BP diastolic 74–85; PULSE 76–92; RESP 15–20; TEMP 36.3–36.6; O2SAT 87–97
[2023-02-10] MEDS: zolpidem 5 mg Tablet 2.5 MG PO (00:02)
[2023-02-10] MEDS: ipratropium-albuterol 3 mL Neb INHALATION ×3 (02:09→20:32)
[2023-02-10] MEDS: oxyCODONE-APAP 5-325 mg Tablet 1 TAB PO ×2 (02:35→09:58)
[2023-02-10] MEDS: morphine 4 mg/mL SDV 1 mL 2 MG IVP (02:52)
[2023-02-10 03:17] LABS: Basophils % 0.2 %; Eosinophils # 0.1 10^3/uL (0.0-0.8); Eosinophils % 0.8 %; Hematocrit 34.4 % (37.0-47.0); Hemoglobin 10.7 g/dL (11.5-15.3); Lymphocytes # 0.8 10^3/uL (0.8-4.8); Lymphocytes % 8.5 %; Mean Corpuscular HGB Conc 31.1 g/dL (30.0-36.0); Mean Corpuscular Hemoglobin 32.8 pg (28.0-34.0); Mean Corpuscular Volume 105.5 fl (81-99); Monocytes # 0.5 10^3/uL (0.2-0.9); Monocytes % 4.9 %; Neutrophils # 8.22 10^3/uL (1.8-7.7); Neutrophils % 84.3 %; Nucleated Red Blood Cells # 0.3 /100WBC; Nucleated Red Blood Cells % 3.3 %; Platelet Count 30 10^3/cmm (130-400); Red Blood Count 3.26 10^6/uL (4.1-5.3); Red Cell Distribution Width 21.1 % (12.1-15.1); White Blood Count 9.8 10^3/uL (4.0-10.0)
[2023-02-10 03:41] LABS: Alanine Aminotransferase 40 U/L (0-33); Albumin Level 2.7 g/dL (3.5-5.2); Alkaline Phosphatase 470 U/L (35-105); Anion Gap 15.8 (5-19); Aspartate Amino Transferase 26 U/L (0-32); Blood Urea Nitrogen 37 mg/dL (8-23); Calcium 8.4 mg/dL (8.5-10.5); Carbon Dioxide 21 mmol/L (22-29); Chloride 105 mmol/L (98-107); Globulin 2.4 g/dL (1.3-4.6); Glomerular Filtration Rate 54.8 mL/min (90-130); Glucose 111 mg/dL (65-115); Osmolality Calculated 293 mOsm/kg (285-295); Potassium 4.8 mmol/L (3.5-5.1); Sodium 137 mmol/L (136-145); Total Bilirubin 0.8 mg/dL (0.15-1.2); Total Protein 5.1 g/dL (6.6-8.7)
[2023-02-10] MEDS: meropenem 500 MG in sodium chloride 0.9% (plus) 50 ML 100 MG IV (05:21)
--- NOTE | 2023-02-10 09:17 | XR_ITS ---
WS: [id number] Portable AP upright chest, 02/10/2023 Clinical Data: increase oxygen need Comparison: Portable chest, 02/03/2023 Findings: There is a patchy opacity obscuring the surface of the right diaphragm which is probably at electasis and or pneumonia. The left lung is clear. No nodules, masses or effusions are seen. The hea rt is normal. The pulmonary vascularity is not increased. No pneumothorax is seen. There are monitor leads on the chest wall. There is a left infusion catheter unchanged. XR/XR chest 1V portable [id number] Impression: Development of right lower lobe patchy opacity which may represent pneumonia an d/or atelectasis.
--- NOTE | 2023-02-10 09:46 | CT_ITS ---
WS: [id number] CTA OF THE CHEST WITH PULMONARY EMBOLISM PROTOCOL TECHNIQUE: High-resolution contrast enhanced CTA of the chest with coronal and sagittal reformatted i mages with pulmonary embolism protocol. MIP images are also reviewed. CLINICAL INFORMATION: sob COMPARISON: None. DLP: 314.[address] scans at [facility] use at least one of these dose optimization techniques: automated e xposure control; mA and/or kV adjustment per patient size (includes targeted exams where dose is matc hed to clinical indication); or iterative reconstruction. FINDINGS: Proximal main pulmonary arteries are normal. A few small filling defects in the RIGHT lower lobe subs egmental pulmonary arteries suspicious for pulmonary embolus. Advanced chronic emphysematous changes. Small RIGHT pleural effusion with compressive atelectasis in progress pneumonia RIGHT lower lobe. Trace LEFT pleural fluid. Aortic calcification. Coronary calcifi cation. Reflux into the hepatic veins compatible with RIGHT heart dysfunction. Paradoxical bowing of the intr aventricular septum. Splenic granulomas. Adrenal glands are normal. Heterogeneous liver attenuation with metastatic diseas e. Small amount of RIGHT perihepatic ascites. CT/CT angio chest PE protcl [id number] IMPRESSION: 1. Proximal main pulmonary arteries are patent. Poor filling in the distal sub segmental RIGHT lower lobe pulmonary arteries suspicious for pulmonary embolus. 2. Reflux into the hepatic veins compatible with RIGHT heart dysfunction and p aradoxical bowing of the intraventricular septum. This can be further evaluated with echocardiography. 3. Advanced chronic emphysematous changes. 4. Small RIGHT pleural effusion with compressive atelectasis and progressed pn eumonia in the RIGHT lower lobe. 5. Liver metastasis is similar to the prior CT abdomen pelvis. 6. Small pericardial effusion. Notified Good Billy MD at 02/10/2023 2:49 PM.
[2023-02-10] MEDS: ondansetron 2 mg/ML SDV 2 mL 4 MG IVP (09:58)
[2023-02-10] MEDS: iohexol 350 mg/mL 500 mL Btl (per mL) IV (10:33)
--- NOTE | 2023-02-10 13:26 | PC.SOCIAL ---
IMM Update pg 2 of IMM updated and reviewed w/ patient. Copy provided and Copy dated, initialed and placed in chart.
--- NOTE | 2023-02-10 17:33 | PM.PN ---
Subjective Subjective: Patient was seen and examined this morning, supplemental oxygen requirement has gone up currently she is requiring 12 Ls of oxygen, she was also more lethargic today, platelet count is 30,000 today. CTA chest was done: In view of increasing oxygen requirement, it has shown possible small right lower lobe PE, as well as worsening right lower lobe pneumonia. Medications: Medication Review Details: Generic Name Dose Route Start Last Admin Trade Name Freq PRN Reason Stop Dose Admin Albuterol/Ipratrop ium 3 ml 02/07/23 20:00 02/10/23 13:35 Ipratropium-Albu terol 3 Ml Neb INHALATION 3 ml Q6H.RESP WALTER Administration Aspirin 81 mg 02/07/23 18:00 02/09/23 17:33 Aspirin 81 Mg Ch ew Tablet PO 81 mg QPM WALTER Administration Atorvastatin Calci um 20 mg 02/07/23 21:00 02/09/23 19:44 Atorvastatin 40 Mg Tablet PO 20 mg BEDTIME WALTER Administration Budesonide 0.5 mg 02/07/23 20:00 02/10/23 11:18 Budesonide 0.5 M g/2 Ml Neb INHALATION Not Given BID.RESPIRATORY S CH Docusate Sodium 200 mg 02/09/23 21:00 02/09/23 19:45 Docusate Sodium 100 Mg Capsule PO 200 mg BEDTIME WALTER Administration Vancomycin HCl 1,0 00 mg/ 250 mls @ 250 mls /hr 02/07/23 18:00 02/09/23 19:22 Sodium Chloride IV Infused Q36H WALTER Infusion Protocol As Directed Meropenem 500 mg/ Sodium 50 mls @ 100 mls/ hr 02/07/23 17:30 02/10/23 06:21 Chloride IV Infused Q12H WALTER Infusion Protocol Morphine Sulfate 2 mg 02/07/23 16:27 02/10/23 02:52 Morphine 4 Mg/Ml Sdv 1 Ml IVP 2 mg Q4H PRN Administration SEVERE PAIN Ondansetron HCl 4 mg 02/07/23 16:27 02/10/23 09:58 Ondansetron 2 Mg /Ml Sdv 2 Ml IVP 4 mg Q8H PRN Administration vomiting, or N/V if npo Oxycodone/Acetamin ophen 1 tab 02/07/23 16:27 02/10/23 09:58 Oxycodone-Apap 5 -325 Mg Tablet PO 1 tab Q4H PRN Administration MODERATE PAIN Vitals/I&O/Wt Last Vital Signs Temp 97.8 F 02/10/23 15:36 Pulse 78 02/10/23 15:36 Resp 20 H 02/10/23 15:36 BP 120/81 02/10/23 15:36 Pulse Ox 93 02/10/23 15:36 O2 Del Method Nasal Cannula 02/10/23 15:36 O2 Flow Rate 10 02/10/23 13:37 02/10/23 02/10/23 02/10/23 06:59 14:59 22:59 Intake Total 50 0 240 / 240 Balance 1779 240 / 240 Physical Exam Const: COMMON NORMALS: patient oriented x3 HENMT: COMMON NORMALS: normocephalic and atraumatic HEAD & SCALP: normocephalic and atraumatic Resp: COMMON NORMALS: clear to auscultation bilaterally AUSCULTATION: clear to auscultation bilaterally Cardio: COMMON NORMALS: regular rate, regular rhythm, S1 normal heart sound present, S2 normal heart sound present, No gallops present (Cardio), No murmurs present (Cardio), No rub (Cardio) and Peripheral pulses 2+ throughout RATE: regular rate RHYTHM: regular rhythm HEART SOUNDS: S1 normal heart sound present and S2 normal heart sound present PERIPHERAL PULSES: Peripheral pulses 2+ throughout GI: COMMON NORMALS: Normal to inspection, nondistended, normoactive bowel sounds present, Soft to palpation, non-tender, No hepatosplenomegaly present and no masses AUSCULTATION: Yes normoactive bowel sounds PALPATION: Yes Soft to palpation and Yes No hepatosplenomegaly present RECTAL EXAM: deferred Extremity: COMMON NORMALS: no clubbing, cyanosis or edema and no pedal edema Neuro: COMMON NORMALS: patient oriented x3 Data 02/10/23 03:02 02/10/23 03:02 A&P Assessment and plan (1) Pneumonia: (2) SANDRINE (acute kidney injury): (3) Thrombocytopenia: (4) Lactic acidosis: (5) Hyperkalemia: (6) Transaminitis: (7) Metastatic cancer: Qualifiers: Area of secondary neoplastic involvement: other site Qualified Code(s): C79.89 - Secondary malignant neoplasm of other specified sites Plan 72 year old female with past medical history of metastatic squamous cell carcinoma of cervix currently on chemotherapy last chemo session was on last Tuesday. COPD, on 2 L home oxygen uses as needed, came in today with chief complaint of worsening generalized weakness fatigue, poor appetite, worsening shortness of breath, going on for the last 4 to 5 days. Assessment: Pneumonia: CT chest without contrast is suggestive of: patchy infiltrates in RIGHT lower lobe. Small RIGHT pleural effusion. CTA chest: Proximal main pulmonary arteries are patent. Poor filling in the distal subsegmental RIGHT lower lobe pulmonary arteries suspicious for pulmonary embolus.? Advanced chronic emphysematous changes.Small RIGHT pleural effusion with compressive atelectasis and progressed pneumonia in the RIGHT lower lobe. Blood culture:NTD Sputum Gram stain culture: Urine Legionella urine: Bacterial antigen panel: MRSA PCR: Currently she is empirically covered with broad-spectrum antibiotic Vanco and meropenem. Thrombocytopenia: Possibly chemotherapeutic effect Currently she has no active bleeding no petechiae no purpura. Monitor platelet count for now Possible pulmonary embolism: CTA chest result reviewed: Given the fact that the patient has severe thrombocytopenia, and high probability of bleeding, therapeutic anticoagulation has been avoided. Lactic acidosis: Possibly related to acute worsening hypoxia. Repeat lactic acid is improving For now she is empirically covered with broad-spectrum antibiotic although clinical suspicion for sepsis is low. Transaminitis: Possibly related to metastatic liver disease Monitor CMP for now SANDRINE on CKD: Resolved Admission serum creatinine is 1.7 Baseline serum creatinine appears to be around 0.9-1.5 For now continue gentle IV hydration with normal saline Monitor intake output charting Avoid nephrotoxic's Urine electrolytes random urine sodium, random urine creatinine Random urine protein FENA UPCR CODE STATUS:AND DVT prophylaxis on SCD Attestations Medical Necessity Statement*: Needs to be in hospital for management of pneumonia IV antibiotic. Coding Level of Care Code Acute Code for [facility] Diagnoses Pneumonia J18.9 SANDRINE (acute kidney injury) N17.9 Thrombocytopenia D69.6 Lactic acidosis E87.20 Hyperkalemia E87.5 Transaminitis R74.01 Metastatic cancer C79.89 Area of secondary neoplastic involvement: other site
[2023-02-10] MEDS: meropenem 500 MG in sodium chloride 0.9% (plus) 50 ML 10 MG IV (17:39)
[2023-02-10] MEDS: vancomycin 1,000 MG in sodium chloride 0.9% 250 ML 200 MG IV (17:39)
[2023-02-10 17:40] LABS: Vancomycin Trough 7.4 ug/mL (10-15)
--- NOTE | 2023-02-10 18:26 | PC.PHAR ---
PHARMACY TO DOSE CONSULT - VANCOMYCIN The patient's trough level came back at 7.4 ug/mL. Her CrCl had improved over double since the initial dose/frequency and with a high-dose request, I recalculated the patient's vancomycin to be 750mg every 18 hours for a predicted peak of 32.4 mcg/ml and a trough of 15.87 mcg/ml. Will continue to monitor and draw a trough. Please let us know if there is anything else we can do for you Thanks, Mainor Luna, Pharm.D
[2023-02-10] MEDS: budesonide 0.5 mg/2 mL Neb INHALATION (20:32)
[2023-02-10] MEDS: atorvastatin 40 mg Tablet 20 MG PO (21:16)
[2023-02-10] MEDS: docusate sodium 100 mg Capsule 200 MG PO (21:16)
[2023-02-11] VITALS (24 sets, daily range): BP systolic 79–116; BP diastolic 53–77; PULSE 72–96; RESP 16–24; TEMP 36.4–36.9; O2SAT 80–98
[2023-02-11 05:01] LABS: Basophils % 0.2 %; Eosinophils # 0.1 10^3/uL (0.0-0.8); Eosinophils % 1.3 %; Hematocrit 35.2 % (37.0-47.0); Hemoglobin 10.7 g/dL (11.5-15.3); Lymphocytes # 0.8 10^3/uL (0.8-4.8); Lymphocytes % 7.5 %; Mean Corpuscular HGB Conc 30.4 g/dL (30.0-36.0); Mean Corpuscular Hemoglobin 31.8 pg (28.0-34.0); Mean Corpuscular Volume 104.8 fl (81-99); Monocytes # 0.4 10^3/uL (0.2-0.9); Monocytes % 4.2 %; Neutrophils # 8.94 10^3/uL (1.8-7.7); Neutrophils % 86.3 %; Nucleated Red Blood Cells # 0.2 /100WBC; Nucleated Red Blood Cells % 2.3 %; Red Blood Count 3.36 10^6/uL (4.1-5.3); Red Cell Distribution Width 21.5 % (12.1-15.1); White Blood Count 10.4 10^3/uL (4.0-10.0)
[2023-02-11] MEDS: meropenem 500 MG in sodium chloride 0.9% (plus) 50 ML 100 MG IV ×2 (05:14→16:46)
[2023-02-11 05:15] LABS: Platelet Count 26 10^3/cmm (130-400)
[2023-02-11 05:21] LABS: Anion Gap 16.1 (5-19); Blood Urea Nitrogen 35 mg/dL (8-23); Calcium 8.6 mg/dL (8.5-10.5); Carbon Dioxide 18 mmol/L (22-29); Chloride 110 mmol/L (98-107); Glomerular Filtration Rate 49.1 mL/min (90-130); Glucose 91 mg/dL (65-115); Osmolality Calculated 296 mOsm/kg (285-295); Potassium 5.1 mmol/L (3.5-5.1); Sodium 139 mmol/L (136-145)
[2023-02-11] MEDS: ipratropium-albuterol 3 mL Neb INHALATION ×4 (05:25→20:55)
--- NOTE | 2023-02-11 06:06 | XR_ITS ---
WS: [id number] Portable AP upright chest, 02/11/2023 Clinical Data: sob Comparison: Portable chest, 02/10/2023 Findings: The patchy right lower lobe opacity has not changed. The left lung remains clear. The heart is normal. The aortic arch shows calcification and tortuosity. No pneumothorax is seen. There is a l eft infusion catheter ending in the superior vena cava. There are monitor leads on the chest wall. XR/XR chest 1V portable [id number] Impression: No change in right lower lobe pulmonary opacity which may represent atelectasis and/or pneumonia.
[2023-02-11] MEDS: dexamethasone 10 mg/mL INJ IVP ×2 (07:54→14:57)
[2023-02-11] MEDS: budesonide 0.5 mg/2 mL Neb INHALATION ×2 (08:06→20:55)
--- NOTE | 2023-02-11 11:16 | PM.PN ---
Subjective Subjective: Patient was seen and examined this morning, requiring 15 L oxygen through [employer] to maintain a decent saturation, platelet count is also down trended to 26,000. Patient has been afebrile. Antifungal coverage as well as dual pseudomonal coverage has been started, along with atypical coverage. Medications: Medication Review Details: Generic Name Dose Route Start Last Admin Trade Name Freq PRN Reason Stop Dose Admin Albuterol/Ipratrop ium 3 ml 02/07/23 20:00 02/11/23 08:06 Ipratropium-Albu terol 3 Ml Neb INHALATION 3 ml Q6H.RESP WALTER Administration Aspirin 81 mg 02/07/23 18:00 02/09/23 17:33 Aspirin 81 Mg Ch ew Tablet PO 81 mg QPM WALTER Administration Atorvastatin Calci um 20 mg 02/07/23 21:00 02/10/23 21:16 Atorvastatin 40 Mg Tablet PO 20 mg BEDTIME WALTER Administration Budesonide 0.5 mg 02/07/23 20:00 02/11/23 08:06 Budesonide 0.5 M g/2 Ml Neb INHALATION 0.5 mg BID.RESPIRATORY S CH Administration Docusate Sodium 200 mg 02/09/23 21:00 02/10/23 21:16 Docusate Sodium 100 Mg Capsule PO 200 mg BEDTIME WALTER Administration Meropenem 500 mg/ Sodium 50 mls @ 100 mls/ hr 02/07/23 17:30 02/11/23 05:51 Chloride IV Infused Q12H WALTER Infusion Protocol Morphine Sulfate 2 mg 02/07/23 16:27 02/10/23 02:52 Morphine 4 Mg/Ml Sdv 1 Ml IVP 2 mg Q4H PRN Administration SEVERE PAIN Ondansetron HCl 4 mg 02/07/23 16:27 02/10/23 09:58 Ondansetron 2 Mg /Ml Sdv 2 Ml IVP 4 mg Q8H PRN Administration vomiting, or N/V if npo Oxycodone/Acetamin ophen 1 tab 02/07/23 16:27 02/10/23 09:58 Oxycodone-Apap 5 -325 Mg Tablet PO 1 tab Q4H PRN Administration MODERATE PAIN Vitals/I&O/Wt Last Vital Signs Temp 97.6 F 02/11/23 08:00 Pulse 83 05/26/23 08:19 Resp 18 02/11/23 08:09 BP 116/77 02/11/23 08:00 Pulse Ox 85 L 02/11/23 08:09 O2 Del Method Oxymask 02/11/23 08:09 O2 Flow Rate 15 02/11/23 08:09 FiO2 80 02/11/23 06:44 02/10/23 02/11/23 02/11/23 22:59 06:59 14:59 Intake Total 290 / 530 50 / 580 250 / 250 Balance 290 / 530 50 / 580 250 / 250 Physical Exam Const: COMMON NORMALS: patient oriented x3 HENMT: COMMON NORMALS: normocephalic and atraumatic HEAD & SCALP: normocephalic and atraumatic Resp: COMMON NORMALS: clear to auscultation bilaterally AUSCULTATION: clear to auscultation bilaterally Cardio: COMMON NORMALS: regular rate, regular rhythm, S1 normal heart sound present, S2 normal heart sound present, No gallops present (Cardio), No murmurs present (Cardio), No rub (Cardio) and Peripheral pulses 2+ throughout RATE: regular rate RHYTHM: regular rhythm HEART SOUNDS: S1 normal heart sound present and S2 normal heart sound present PERIPHERAL PULSES: Peripheral pulses 2+ throughout GI: COMMON NORMALS: Normal to inspection, nondistended, normoactive bowel sounds present, Soft to palpation, non-tender, No hepatosplenomegaly present and no masses AUSCULTATION: Yes normoactive bowel sounds PALPATION: Yes Soft to palpation and Yes No hepatosplenomegaly present RECTAL EXAM: deferred Extremity: COMMON NORMALS: no clubbing, cyanosis or edema and no pedal edema Neuro: COMMON NORMALS: patient oriented x3 Data 02/11/23 04:38 02/11/23 04:38 A&P Assessment and plan (1) Pneumonia: (2) SANDRINE (acute kidney injury): (3) Thrombocytopenia: (4) Lactic acidosis: (5) Hyperkalemia: (6) Transaminitis: (7) Metastatic cancer: Qualifiers: Area of secondary neoplastic involvement: other site Qualified Code(s): C79.89 - Secondary malignant neoplasm of other specified sites Plan 72 year old female with past medical history of metastatic squamous cell carcinoma of cervix currently on chemotherapy last chemo session was on last Tuesday. COPD, on 2 L home oxygen uses as needed, came in today with chief complaint of worsening generalized weakness fatigue, poor appetite, worsening shortness of breath, going on for the last 4 to 5 days. Assessment: Pneumonia: CT chest without contrast is suggestive of: patchy infiltrates in RIGHT lower lobe. Small RIGHT pleural effusion. CTA chest: Proximal main pulmonary arteries are patent. Poor filling in the distal subsegmental RIGHT lower lobe pulmonary arteries suspicious for pulmonary embolus.? Advanced chronic emphysematous changes.Small RIGHT pleural effusion with compressive atelectasis and progressed pneumonia in the RIGHT lower lobe. Monitor x-ray chest Monitor ABG as needed Blood culture:NTD Sputum Gram stain culture: Urine Legionella urine: Bacterial antigen panel: Procalcitonin 0.61 MRSA PCR: Respiratory viral panel: Currently she is empirically covered with broad-spectrum antibiotic Vanco and meropenem. Given her overall immunocompromise status, and continuously increasing oxygen requirement, patient has been started on micafungin for antifungal coverage, levofloxacin has also been added, to provide for both Pseudomonas coverage, as well as it will also provide atypical coverage. Thrombocytopenia: Possibly chemotherapeutic effect. Review peripheral blood smear 4T SCORE reviewed Follow DIC panel Low clinical suspicion for TTP Patient was having hematuria yesterdayNo petechiae no purpura. We will transfuse 2 units of platelet today Monitor platelet count for now History of COPD: CTA chest has shown: ?Advanced chronic emphysematous changes. Currently she is on DuoNebs We will also start her on Solu-Medrol 10 mg IV daily. Possible pulmonary embolism: CTA chest result reviewed: Given the fact that the patient has severe thrombocytopenia, and high probability of bleeding, therapeutic anticoagulation has been avoided. Lactic acidosis: Possibly related to acute worsening hypoxia. Repeat lactic acid is improving For now she is empirically covered with broad-spectrum antibiotic although clinical suspicion for sepsis is low. Transaminitis: Possibly related to metastatic liver disease Monitor CMP for now SANDRINE on CKD: Resolved Admission serum creatinine is 1.7 Baseline serum creatinine appears to be around 0.9-1.5 For now continue gentle IV hydration with normal saline Monitor intake output charting Avoid nephrotoxic's Urine electrolytes random urine sodium, random urine creatinine Random urine protein FENA UPCR CODE STATUS:AND DVT prophylaxis on SCD Attestations Medical Necessity Statement*: Needs to be in hospital for management of pneumonia. Coding Level of Care Code Acute Code for [facility] Diagnoses Pneumonia J18.9 SANDRINE (acute kidney injury) N17.9 Thrombocytopenia D69.6 Lactic acidosis E87.20 Hyperkalemia E87.5 Transaminitis R74.01 Metastatic cancer C79.89 Area of secondary neoplastic involvement: other site
[2023-02-11] MEDS: vancomycin 750 MG in sodium chloride 0.9% 250 ML 250 MG IV (11:54)
[2023-02-11] MEDS: azithromycin 500 MG in sodium chloride 0.9% 250 ML 250 MG IV (13:56)
[2023-02-11] MEDS: micafungin 100 MG in sodium chloride 0.9% (plus) 100 ML IV (14:57)
[2023-02-11] MEDS: diphenhydrAMINE 50 mg/mL SDV 1mL 12.5 MG IVP (15:24)
[2023-02-11] MEDS: nystatin powder 15 gm Btl 1 APPLIC TOPICAL (15:48)
[2023-02-11 16:43] LABS: Adenovirus Not Detected (NOT DETECT); Chlamydia Pneumoniae Not Detected (NOT DETECT); Coronavirus 229E,HKU1,NL63,OC4 Not Detected (NOT DETECT); Human Metapneumovirus Not Detected (NOT DETECT); Human Rhinovirus/Enterovirus Not Detected (NOT DETECT); Influenza A Not Detected (NOT DETECT); Influenza A H1 Not Detected (NOT DETECT); Influenza A H1-2009 Not Detected (NOT DETECT); Influenza A H3 Not Detected (NOT DETECT); Influenza B Not Detected (NOT DETECT); Mycoplasma Pneumoniae Not Detected (NOT DETECT); Parainfluenza Virus Type 1 Not Detected (NOT DETECT); Parainfluenza Virus Type 2 Not Detected (NOT DETECT); Parainfluenza Virus Type 3 Not Detected (NOT DETECT); Parainfluenza Virus Type 4 Not Detected (NOT DETECT); Respiratory Syncytial Virus A Not Detected (NOT DETECT); Respiratory Syncytial Virus B Not Detected (NOT DETECT); SARS-COV-2 Not Detected (NOT DETECT)
--- NOTE | 2023-02-11 18:33 | PC.NURSE ---
Patient resting in bed throughout shift and refusing turns and bed changes, agreeable at times as patient really needed to be cleaned up. Patient and family educated of frequent turns but patient is comfy and does not want moved at such times. Patient recieved platlets which during this time patients BP continued to drop with no other signs of reaction, this nurse continued to slow transfusion and patients BP stabilized, physician notified. Patients oxygen levels were difficult to keep within desired limits and placed on heated HIFLO. Family remains at bedside Room clean and clutter free with call light within reach.
[2023-02-12] VITALS (17 sets, daily range): BP systolic 94–114; BP diastolic 63–78; PULSE 78–93; RESP 16–24; TEMP 36.1–36.4; O2SAT 85–92
[2023-02-12] MEDS: ipratropium-albuterol 3 mL Neb INHALATION ×4 (02:54→19:43)
[2023-02-12] MEDS: morphine 4 mg/mL SDV 1 mL 2 MG IVP (05:07)
[2023-02-12] MEDS: meropenem 500 MG in sodium chloride 0.9% (plus) 50 ML 100 MG IV ×2 (05:21→17:25)
[2023-02-12] MEDS: vancomycin 750 MG in sodium chloride 0.9% 250 ML 250 MG IV (05:49)
[2023-02-12 06:19] LABS: Basophils % 0.2 %; Hematocrit 34.2 % (37.0-47.0); Hemoglobin 10.3 g/dL (11.5-15.3); Lymphocytes # 0.8 10^3/uL (0.8-4.8); Lymphocytes % 9.2 %; Mean Corpuscular HGB Conc 30.1 g/dL (30.0-36.0); Mean Corpuscular Hemoglobin 32.5 pg (28.0-34.0); Mean Corpuscular Volume 107.9 fl (81-99); Mean Platelet Volume 12.3 fL (7.4-10.4); Monocytes # 0.2 10^3/uL (0.2-0.9); Monocytes % 2.1 %; Neutrophils # 7.74 10^3/uL (1.8-7.7); Neutrophils % 87.2 %; Nucleated Red Blood Cells # 0.5 /100WBC; Nucleated Red Blood Cells % 5.7 %; Platelet Count 75 10^3/cmm (130-400); Red Blood Count 3.17 10^6/uL (4.1-5.3); Red Cell Distribution Width 22.4 % (12.1-15.1); White Blood Count 8.9 10^3/uL (4.0-10.0)
[2023-02-12 06:29] LABS: INR 1.27 (0.8-1.2); Partial Thromboplastin Time 30.1 SECONDS (23.9-36.7)
[2023-02-12 06:30] LABS: Fibrinogen 398 mg/dL (174-498)
[2023-02-12 06:40] LABS: D Dimer 6.04 ug/mIFEU (0-0.59)
[2023-02-12 06:41] LABS: Anion Gap 20.9 (5-19); Blood Urea Nitrogen 48 mg/dL (8-23); Calcium 8.8 mg/dL (8.5-10.5); Carbon Dioxide 17 mmol/L (22-29); Chloride 105 mmol/L (98-107); Glomerular Filtration Rate 37.2 mL/min (90-130); Glucose 100 mg/dL (65-115); Osmolality Calculated 297 mOsm/kg (285-295); Potassium 5.9 mmol/L (3.5-5.1); Sodium 137 mmol/L (136-145)
[2023-02-12] MEDS: budesonide 0.5 mg/2 mL Neb INHALATION ×2 (08:16→19:43)
[2023-02-12] MEDS: levofloxacin-dextrose 5 % 750 MG/150 ML PREMIX 100 MG IV (08:30)
[2023-02-12] MEDS: dexamethasone 10 mg/mL INJ IVP (09:07)
[2023-02-12] MEDS: insulin regular-human 5 UNIT in SYRINGE 1 EACH 10 UNIT IVP (09:09)
[2023-02-12] MEDS: sodium polystyrene sulfonate 15 gm/60 mL Btl PO (09:09)
[2023-02-12] MEDS: nystatin powder 15 gm Btl 1 APPLIC TOPICAL ×2 (09:09→19:36)
--- NOTE | 2023-02-12 11:35 | PC.PHAR ---
PHARMACY TO DOSE CONSULT - VANCOMYCIN With the patient's worsening CrCl (change from 41 to 32), I have changed the frequency of the vancomycin from 750mg every 18 hour to every 24 hours. This should give a predicted peak of 33.0 mcg/ml and a trough of 16.18 mcg/ml. Will draw a trough prior to the 3rd dose to see where we stand and make adjustments accordingly. Pharmacy will continue to monitor the patient's renal function and adjust from that as well. Please let us know if there is anything else that we can do for this patient. Thanks, Mainor Luna, Pharm.D
--- NOTE | 2023-02-12 11:53 | PC.SOCIAL ---
IMM update IMM updated with patient's daughter Milena. Verbalized an understanding. Initialled, dated, timed, and placed in chart.
[2023-02-12] MEDS: diphenhydrAMINE 50 mg/mL SDV 1mL 12.5 MG IVP (15:12)
[2023-02-12] MEDS: micafungin 100 MG in sodium chloride 0.9% (plus) 100 ML IV (15:52)
--- NOTE | 2023-02-12 16:07 | PM.PN ---
Subjective Subjective: Patient was seen and examined this morning, currently she is on heated high flow, 50 L/min flow at 100% FiO2. Documented urine output is 850 cc. Currently afebrile, platelet count is improved to 75,000. Serum creatinine has slightly trended up to 1.4, serum potassium is 5.9, has received hyperkalemia cocktail, will need to monitor BMP. Medications: Medication Review Details: Generic Name Dose Route Start Last Admin Trade Name Freq PRN Reason Stop Dose Admin Albuterol/Ipratrop ium 3 ml 02/07/23 20:00 02/12/23 14:17 Ipratropium-Albu terol 3 Ml Neb INHALATION 3 ml Q6H.RESP WALTER Administration Atorvastatin Calci um 20 mg 02/07/23 21:00 02/11/23 21:10 Atorvastatin 40 Mg Tablet PO Not Given BEDTIME WALTER Budesonide 0.5 mg 02/07/23 20:00 02/12/23 08:16 Budesonide 0.5 M g/2 Ml Neb INHALATION 0.5 mg BID.RESPIRATORY S CH Administration Dexamethasone 10 mg 02/12/23 09:00 02/12/23 09:07 Dexamethasone 10 Mg/Ml Inj IVP 10 mg DAILY WALTER Administration Diphenhydramine HC l 12.5 mg 02/11/23 15:04 02/12/23 15:12 Diphenhydramine 50 Mg/Ml Sdv 1ml IVP 12.5 mg Q6H PRN Administration ITCHING Docusate Sodium 200 mg 02/09/23 21:00 02/11/23 21:10 Docusate Sodium 100 Mg Capsule PO Not Given BEDTIME WALTER Meropenem 500 mg/ Sodium 50 mls @ 100 mls/ hr 02/07/23 17:30 02/12/23 05:46 Chloride IV Infused Q12H WALTER Infusion Protocol Micafungin Sodium 100 mg/ 100 mls @ 100 mls /hr 02/11/23 15:00 02/12/23 15:52 Sodium Chloride IV 100 mls/hr Q24H WALTER Administration Levofloxacin/Dextr ose 750 mg in 150 mls @ 100 mls/hr 02/12/23 07:00 02/12/23 10:27 Levaquin-D5w IV Infused Q24H WALTER Infusion Protocol Morphine Sulfate 2 mg 02/07/23 16:27 02/12/23 05:07 Morphine 4 Mg/Ml Sdv 1 Ml IVP 2 mg Q4H PRN Administration SEVERE PAIN Nystatin 1 applic 02/11/23 15:10 02/12/23 09:09 Nystatin Powder 15 Gm Btl TOPICAL 1 applic BID WALTER Administration Ondansetron HCl 4 mg 02/07/23 16:27 02/10/23 09:58 Ondansetron 2 Mg /Ml Sdv 2 Ml IVP 4 mg Q8H PRN Administration vomiting, or N/V if npo Oxycodone/Acetamin ophen 1 tab 02/07/23 16:27 02/10/23 09:58 Oxycodone-Apap 5 -325 Mg Tablet PO 1 tab Q4H PRN Administration MODERATE PAIN Vitals/I&O/Wt Last Vital Signs Temp 97.6 F 02/12/23 15:23 Pulse 89 02/12/23 15:51 Resp 18 02/12/23 15:51 BP 110/75 02/12/23 15:23 Pulse Ox 90 02/12/23 15:51 O2 Del Method Heated High Flow 02/12/23 14:00 O2 Flow Rate 40 02/12/23 15:51 FiO2 100 02/12/23 15:51 02/12/23 02/12/23 02/12/23 06:59 14:59 22:59 Intake Total 50 / 1928 570.05 / 570.05 Output Total 750 / 850 Balance -700 / 1078 570.05 / 570.05 Physical Exam Const: COMMON NORMALS: patient oriented x3 HENMT: COMMON NORMALS: normocephalic and atraumatic HEAD & SCALP: normocephalic and atraumatic Resp: COMMON NORMALS: clear to auscultation bilaterally AUSCULTATION: clear to auscultation bilaterally OTHER: Diminished air entry bilaterally Cardio: COMMON NORMALS: regular rate, regular rhythm, S1 normal heart sound present, S2 normal heart sound present, No gallops present (Cardio), No murmurs present (Cardio), No rub (Cardio) and Peripheral pulses 2+ throughout RATE: regular rate RHYTHM: regular rhythm HEART SOUNDS: S1 normal heart sound present and S2 normal heart sound present PERIPHERAL PULSES: Peripheral pulses 2+ throughout GI: COMMON NORMALS: Normal to inspection, nondistended, normoactive bowel sounds present, Soft to palpation, non-tender, No hepatosplenomegaly present and no masses AUSCULTATION: Yes normoactive bowel sounds PALPATION: Yes Soft to palpation and Yes No hepatosplenomegaly present RECTAL EXAM: deferred Extremity: COMMON NORMALS: no clubbing, cyanosis or edema and no pedal edema Neuro: COMMON NORMALS: patient oriented x3 Urinary Catheter Management: Brown: Cath Placed During This Visit: yes Reason for Continuing Indwelling Catheter: Other Urinary Catheter Date of Insertion: 02/11/23 Urinary Catheter Time of Insertion: 18:46 Data 02/12/23 05:01 02/12/23 05:01 Micro: Microbiology 02/07/23 13:10 Blood Culture - Final Blood NO GROWTH AFTER 5 DAYS 02/07/23 13:10 Blood Culture - Final Blood NO GROWTH AFTER 5 DAYS 02/11/23 18:36 Legionella Urinary Antigen - Final Urine Catheterized A&P Assessment and plan (1) Pneumonia: (2) SANDRINE (acute kidney injury): (3) Thrombocytopenia: (4) Lactic acidosis: (5) Hyperkalemia: (6) Transaminitis: (7) Metastatic cancer: Qualifiers: Area of secondary neoplastic involvement: other site Qualified Code(s): C79.89 - Secondary malignant neoplasm of other specified sites Plan 72 year old female with past medical history of metastatic squamous cell carcinoma of cervix currently on chemotherapy last chemo session was on last Tuesday. COPD, on 2 L home oxygen uses as needed, came in today with chief complaint of worsening generalized weakness fatigue, poor appetite, worsening shortness of breath, going on for the last 4 to 5 days. Assessment: Pneumonia: CT chest without contrast is suggestive of: patchy infiltrates in RIGHT lower lobe. Small RIGHT pleural effusion. CTA chest: Proximal main pulmonary arteries are patent. Poor filling in the distal subsegmental RIGHT lower lobe pulmonary arteries suspicious for pulmonary embolus.? Advanced chronic emphysematous changes.Small RIGHT pleural effusion with compressive atelectasis and progressed pneumonia in the RIGHT lower lobe. Monitor x-ray chest Monitor ABG as needed Blood culture:NTD Sputum Gram stain culture: Urine Legionella urine: Bacterial antigen panel: Procalcitonin 0.61 MRSA PCR: Respiratory viral panel: Currently she is empirically covered with broad-spectrum antibiotic Vanco and meropenem. Given her overall immunocompromise status, and continuously increasing oxygen requirement, patient has been started on micafungin for antifungal coverage, levofloxacin has also been added, to provide for both Pseudomonas coverage, as well as it will also provide atypical coverage. Acute respiratory failure with hypoxia secondary to pneumonia, PE Currently on heated high flow Rest of plan as above. Thrombocytopenia: Possibly chemotherapeutic effect. Review peripheral blood smear 4T SCORE reviewed Follow DIC panel Low clinical suspicion for TTP Patient was having hematuria yesterdayNo petechiae no purpura. We will transfuse 2 units of platelet today Monitor platelet count for now History of COPD: CTA chest has shown: ?Advanced chronic emphysematous changes. Currently she is on DuoNebs We will also start her on dexamethasone 10 mg IV daily. Hyperkalemia: Serum potassium 5.9 Has received hyperkalemia cocktail Monitor BMP Possible pulmonary embolism: CTA chest result reviewed: Given the fact that the patient has severe thrombocytopenia, and high probability of bleeding, therapeutic anticoagulation has been avoided. Lactic acidosis: Possibly related to acute worsening hypoxia. Repeat lactic acid is improving For now she is empirically covered with broad-spectrum antibiotic although clinical suspicion for sepsis is low. Transaminitis: Possibly related to metastatic liver disease Monitor CMP for now SANDRINE on CKD: Resolved Admission serum creatinine is 1.7 Baseline serum creatinine appears to be around 0.9-1.5 For now continue gentle IV hydration with normal saline Monitor intake output charting Avoid nephrotoxic's Urine electrolytes random urine sodium, random urine creatinine Random urine protein FENA UPCR CODE STATUS:AND DVT prophylaxis on SCD Attestations Medical Necessity Statement*: In Hospital for management of respiratory failure. Coding [facility] Diagnoses Pneumonia J18.9 SANDRINE (acute kidney injury) N17.9 Thrombocytopenia D69.6 Lactic acidosis E87.20 Hyperkalemia E87.5 Transaminitis R74.01 Metastatic cancer C79.89 Area of secondary neoplastic involvement: other site
[2023-02-12 17:29] LABS: Anion Gap 17.3 (5-19); Blood Urea Nitrogen 50 mg/dL (8-23); Calcium 8.5 mg/dL (8.5-10.5); Carbon Dioxide 19 mmol/L (22-29); Chloride 105 mmol/L (98-107); Glomerular Filtration Rate 37.2 mL/min (90-130); Glucose 124 mg/dL (65-115); Osmolality Calculated 297 mOsm/kg (285-295); Potassium 5.3 mmol/L (3.5-5.1); Sodium 136 mmol/L (136-145)
--- NOTE | 2023-02-12 21:58 | PC.NURSE ---
The patient has experienced an increase in painful swallowing and is only eating ice. This nurse is staying at bedside as frequently as possible to provide ice and Popsicles now as well. The patient tolerates both well. An attempt at ice cream was made, but she stated it hurt too much and preferred the popsicle. Will continue to provide hydration in forms appropriate to patient and her needs.
--- NOTE | 2023-02-12 22:02 | PC.NURSE ---
Nurse at bedside feeding the patient a popsicle.
--- NOTE | 2023-02-12 22:04 | PC.NURSE ---
Nurse at bedside feeding patient a popsicle. Patient tolerating well.
[2023-02-13] VITALS (17 sets, daily range): BP systolic 96–120; BP diastolic 62–81; PULSE 85–99; RESP 15–24; TEMP 36.2–36.4; O2SAT 87–95
[2023-02-13] MEDS: ipratropium-albuterol 3 mL Neb INHALATION ×4 (02:45→19:54)
[2023-02-13] MEDS: meropenem 500 MG in sodium chloride 0.9% (plus) 50 ML 100 MG IV ×2 (05:25→19:01)
[2023-02-13 05:35] LABS: Hematocrit 34.2 % (37.0-47.0); Hemoglobin 10.6 g/dL (11.5-15.3); Mean Corpuscular Hemoglobin 32.6 pg (28.0-34.0); Mean Corpuscular Volume 105.2 fl (81-99); Platelet Count 49 10^3/cmm (130-400); Red Blood Count 3.25 10^6/uL (4.1-5.3); Red Cell Distribution Width 22.5 % (12.1-15.1); White Blood Count 9.5 10^3/uL (4.0-10.0)
[2023-02-13] MEDS: levofloxacin-dextrose 5 % 750 MG/150 ML PREMIX 100 MG IV (06:00)
[2023-02-13 06:01] LABS: Anion Gap 17.5 (5-19); Blood Urea Nitrogen 61 mg/dL (8-23); Calcium 8.8 mg/dL (8.5-10.5); Carbon Dioxide 19 mmol/L (22-29); Chloride 106 mmol/L (98-107); Glomerular Filtration Rate 40.5 mL/min (90-130); Glucose 125 mg/dL (65-115); Osmolality Calculated 303 mOsm/kg (285-295); Potassium 5.5 mmol/L (3.5-5.1); Sodium 137 mmol/L (136-145)
[2023-02-13 06:48] LABS: Absolute Segmented Neutrophil 8.2 10/cmm (1.6-7.1); Band Neutrophils Absolute 0.2 10^3/cmm (0.0-1.2); Eosinophils 0 %; Lymphocytes 9 %; Lymphocytes Absolute 0.9 10^3/cmm (1.2-3.4); Monocytes Absolute 0.3 10^3/cmm (0.1-0.6); Segmented Neutrophils 86 %; Total Cells Counted 100 (0-100)
[2023-02-13 06:49] LABS: Absolute Neutrophil 8.4 10^3/cmm (1.4-6.5); Anisocytosis 2+; Platelet Estimate Decreased (Normal); Poikilocytosis 1+; Smudge Cells Trace
[2023-02-13] MEDS: budesonide 0.5 mg/2 mL Neb INHALATION ×2 (07:40→19:54)
[2023-02-13] MEDS: vancomycin 750 MG in sodium chloride 0.9% 250 ML 250 MG IV (08:54)
[2023-02-13] MEDS: dexamethasone 10 mg/mL INJ IVP (08:55)
[2023-02-13] MEDS: nystatin powder 15 gm Btl 1 APPLIC TOPICAL (09:05)
--- NOTE | 2023-02-13 09:39 | XRR_ITS ---
PROCEDURE INFORMATION: Exam: XR Chest Exam date and time: 02/13/2023 11:07 AM Age: 72 years old Clinical indication: Shortness of breath; Additional info: SOB TECHNIQUE: Imaging protocol: Radiologic exam of the chest. Views: 1 view. COMPARISON: CR XR chest 1V portable [id number] 02/11/2023 5:59 AM FINDINGS: Tubes, catheters and devices: Tip of the central venous catheter projects over the superior vena cava. Lungs: There are hazy opacities at the lung bases. Blunting of the right costophrenic angle is suggestive of a small pleural effusion. Pleural spaces: See Lungs finding. Heart/Mediastinum: Unremarkable. No cardiomegaly. Bones/joints: Unremarkable. XR/XR chest 1V portable [id number] IMPRESSION: 1. Blunting of the right costophrenic angle is suggestive of a small pleural effusion. 2. Hazy opacities at the lung bases are nonspecific and may represent scar tissue, atelectasis, and or pneumonia.
--- NOTE | 2023-02-13 16:01 | PM.PN ---
Subjective Subjective: Patient was seen and examined this morning, currently she is on heated high flow, 40 L/min flow at 100% FiO2.platelet count has again dropped to 40,000. Medications: Medication Review Details: Generic Name Dose Route Start Last Admin Trade Name Freq PRN Reason Stop Dose Admin Albuterol/Ipratrop ium 3 ml 02/07/23 20:00 02/13/23 13:37 Ipratropium-Albu terol 3 Ml Neb INHALATION 3 ml Q6H.RESP WALTER Administration Atorvastatin Calci um 20 mg 02/07/23 21:00 02/12/23 20:51 Atorvastatin 40 Mg Tablet PO Not Given BEDTIME WALTER Budesonide 0.5 mg 02/07/23 20:00 02/13/23 07:40 Budesonide 0.5 M g/2 Ml Neb INHALATION 0.5 mg BID.RESPIRATORY S CH Administration Lidocaine HCl 15 m l/ 0 ml 02/13/23 10:30 02/13/23 12:52 Diphenhydramine HC l 12.5 mg/ MUCOUS MEM 30 ml Al Hydrox/Mg [place] x/ Q4H PRN Administration Simethicone 30 ml MOUTH PAIN Dexamethasone 10 mg 02/12/23 09:00 02/13/23 08:55 Dexamethasone 10 Mg/Ml Inj IVP 10 mg DAILY WALTER Administration Diphenhydramine HC l 12.5 mg 02/11/23 15:04 02/12/23 15:12 Diphenhydramine 50 Mg/Ml Sdv 1ml IVP 12.5 mg Q6H PRN Administration ITCHING Docusate Sodium 200 mg 02/09/23 21:00 02/12/23 20:51 Docusate Sodium 100 Mg Capsule PO Not Given BEDTIME WALTER Meropenem 500 mg/ Sodium 50 mls @ 100 mls/ hr 02/07/23 17:30 02/13/23 06:05 Chloride IV Infused Q12H WALTER Infusion Protocol Micafungin Sodium 100 mg/ 100 mls @ 100 mls /hr 02/11/23 15:00 02/12/23 16:58 Sodium Chloride IV Infused Q24H WALTER Infusion Levofloxacin/Dextr ose 750 mg in 150 mls @ 100 mls/hr 02/12/23 07:00 02/13/23 06:00 Levaquin-D5w IV 100 mls/hr Q24H WALTER Administration Protocol Vancomycin HCl 750 mg/ Sodium 250 mls @ 250 mls /hr 02/13/23 08:00 02/13/23 08:54 Chloride IV 250 mls/hr Q24H WALTER Administration Morphine Sulfate 2 mg 02/07/23 16:27 02/12/23 05:07 Morphine 4 Mg/Ml Sdv 1 Ml IVP 2 mg Q4H PRN Administration SEVERE PAIN Nystatin 1 applic 02/11/23 15:10 02/13/23 09:05 Nystatin Powder 15 Gm Btl TOPICAL 1 applic BID WALTER Administration Ondansetron HCl 4 mg 02/07/23 16:27 02/10/23 09:58 Ondansetron 2 Mg /Ml Sdv 2 Ml IVP 4 mg Q8H PRN Administration vomiting, or N/V if npo Oxycodone/Acetamin ophen 1 tab 02/07/23 16:27 02/10/23 09:58 Oxycodone-Apap 5 -325 Mg Tablet PO 1 tab Q4H PRN Administration MODERATE PAIN Vitals/I&O/Wt Last Vital Signs Temp 97.2 F L 02/13/23 12:00 Pulse 88 02/13/23 13:37 Resp 24 H 02/13/23 13:37 BP 120/81 02/13/23 12:00 Pulse Ox 88 L 02/13/23 13:37 O2 Del Method Heated High Flow 02/13/23 13:37 O2 Flow Rate 40 02/13/23 13:37 FiO2 100 02/13/23 13:37 02/13/23 02/13/23 02/13/23 06:59 14:59 22:59 Intake Total 50 / 980.05 240 / 240 Output Total 300 / 700 Balance -250 / 280.05 240 / 240 Physical Exam Const: COMMON NORMALS: patient oriented x3 HENMT: COMMON NORMALS: normocephalic and atraumatic HEAD & SCALP: normocephalic and atraumatic Resp: COMMON NORMALS: clear to auscultation bilaterally AUSCULTATION: clear to auscultation bilaterally OTHER: Diminished air entry bilaterally Cardio: COMMON NORMALS: regular rate, regular rhythm, S1 normal heart sound present, S2 normal heart sound present, No gallops present (Cardio), No murmurs present (Cardio), No rub (Cardio) and Peripheral pulses 2+ throughout RATE: regular rate RHYTHM: regular rhythm HEART SOUNDS: S1 normal heart sound present and S2 normal heart sound present PERIPHERAL PULSES: Peripheral pulses 2+ throughout GI: COMMON NORMALS: Normal to inspection, nondistended, normoactive bowel sounds present, Soft to palpation, non-tender, No hepatosplenomegaly present and no masses AUSCULTATION: Yes normoactive bowel sounds PALPATION: Yes Soft to palpation and Yes No hepatosplenomegaly present RECTAL EXAM: deferred Extremity: COMMON NORMALS: no clubbing, cyanosis or edema and no pedal edema Neuro: COMMON NORMALS: patient oriented x3 Urinary Catheter Management: Brown: Cath Placed During This Visit: yes Reason for Continuing Indwelling Catheter: Other Urinary Catheter Date of Insertion: 02/11/23 Urinary Catheter Time of Insertion: 18:46 Data 02/13/23 Unknown 02/13/23 Unknown Micro: Microbiology 02/11/23 18:36 Bacterial Antigens - Final Urine,Voided 02/07/23 13:10 Blood Culture - Final Blood NO GROWTH AFTER 5 DAYS 02/07/23 13:10 Blood Culture - Final Blood NO GROWTH AFTER 5 DAYS A&P Assessment and plan (1) Pneumonia: (2) SANDRINE (acute kidney injury): (3) Thrombocytopenia: (4) Lactic acidosis: (5) Hyperkalemia: (6) Transaminitis: (7) Metastatic cancer: Qualifiers: Area of secondary neoplastic involvement: other site Qualified Code(s): C79.89 - Secondary malignant neoplasm of other specified sites Plan 72 year old female with past medical history of metastatic squamous cell carcinoma of cervix currently on chemotherapy last chemo session was on last Tuesday. COPD, on 2 L home oxygen uses as needed, came in today with chief complaint of worsening generalized weakness fatigue, poor appetite, worsening shortness of breath, going on for the last 4 to 5 days. Assessment: Pneumonia: CT chest without contrast is suggestive of: patchy infiltrates in RIGHT lower lobe. Small RIGHT pleural effusion. CTA chest: Proximal main pulmonary arteries are patent. Poor filling in the distal subsegmental RIGHT lower lobe pulmonary arteries suspicious for pulmonary embolus.? Advanced chronic emphysematous changes.Small RIGHT pleural effusion with compressive atelectasis and progressed pneumonia in the RIGHT lower lobe. Monitor x-ray chest Monitor ABG as needed Blood culture:NTD Sputum Gram stain culture: Urine Legionella urine: Bacterial antigen panel: Procalcitonin 0.61 MRSA PCR: Respiratory viral panel: Currently she is empirically covered with broad-spectrum antibiotic Vanco and meropenem. Given her overall immunocompromise status, and continuously increasing oxygen requirement, patient has been started on micafungin for antifungal coverage, levofloxacin has also been added, to provide for both Pseudomonas coverage, as well as it will also provide atypical coverage. Acute respiratory failure with hypoxia secondary to pneumonia, PE Currently on heated high flow. Pulmonary medicine is not available for consult Rest of plan as above. Thrombocytopenia: Possibly chemotherapeutic effect. Review peripheral blood smear 4T SCORE reviewed DIC panel: Low clinical suspicion for TTP: no schistocytes on peripheral blood smear Patient was having hematuria yesterday,No petechiae no purpura. S/P 1 units of platelet Transfusion Monitor platelet count for now History of COPD: CTA chest has shown: ?Advanced chronic emphysematous changes. Currently she is on DuoNebs We will also start her on dexamethasone 10 mg IV daily. Hyperkalemia: Serum potassium 5.9 Has received hyperkalemia cocktail Monitor BMP Possible pulmonary embolism: CTA chest result reviewed: Given the fact that the patient has severe thrombocytopenia, and high probability of bleeding, therapeutic anticoagulation has been avoided. Lactic acidosis: Possibly related to acute worsening hypoxia. Repeat lactic acid is improving For now she is empirically covered with broad-spectrum antibiotic although clinical suspicion for sepsis is low. Transaminitis: Possibly related to metastatic liver disease Monitor CMP for now SANDRINE on CKD: Resolved Admission serum creatinine is 1.7 Baseline serum creatinine appears to be around 0.9-1.5 For now continue gentle IV hydration with normal saline Monitor intake output charting Avoid nephrotoxic's Urine electrolytes random urine sodium, random urine creatinine Random urine protein FENA UPCR CODE STATUS:AND DVT prophylaxis on SCD Attestations Medical Necessity Statement*: Needs to be in hospital for management of respiratory failure Coding Level of Care Code Acute Code for [facility] Diagnoses Pneumonia J18.9 SANDRINE (acute kidney injury) N17.9 Thrombocytopenia D69.6 Lactic acidosis E87.20 Hyperkalemia E87.5 Transaminitis R74.01 Metastatic cancer C79.89 Area of secondary neoplastic involvement: other site
[2023-02-13] MEDS: morphine 4 mg/mL SDV 1 mL 2 MG IVP ×2 (16:25→23:36)
[2023-02-13] MEDS: micafungin 100 MG in sodium chloride 0.9% (plus) 100 ML IV (16:26)
[2023-02-14] VITALS (14 sets, daily range): BP systolic 90–92; BP diastolic 63–66; PULSE 91–96; RESP 17–24; TEMP 36.1–36.5; O2SAT 84–100
--- NOTE | 2023-02-14 01:27 | PC.NURSE ---
The patient used call light to alert staff that she doesn't feel like she is getting air. This nurse came to bedside and the oxygen saturation was at 77% on HHNC 40L/100%. The patient was then repositioned and sat up in the bed. The spo2 came up to 83% after approximately 7 minutes. Respiratory was called for evaluation. They turned the liters delivered up to 45L. The spo2 was then up to 85%. A message was then left with the hospitalist to call nurse with the changes.
[2023-02-14] MEDS: ipratropium-albuterol 3 mL Neb INHALATION ×3 (02:23→14:47)
[2023-02-14 02:55] LABS: Basophils % 0.2 %; Hematocrit 36.4 % (37.0-47.0); Lymphocytes # 0.7 10^3/uL (0.8-4.8); Lymphocytes % 5.8 %; Mean Corpuscular HGB Conc 30.2 g/dL (30.0-36.0); Mean Corpuscular Hemoglobin 31.6 pg (28.0-34.0); Mean Corpuscular Volume 104.6 fl (81-99); Monocytes # 0.6 10^3/uL (0.2-0.9); Monocytes % 4.8 %; Neutrophils # 9.72 10^3/uL (1.8-7.7); Neutrophils % 85.3 %; Nucleated Red Blood Cells # 0.6 /100WBC; Nucleated Red Blood Cells % 5.5 %; Platelet Count 58 10^3/cmm (130-400); Red Blood Count 3.48 10^6/uL (4.1-5.3); White Blood Count 11.4 10^3/uL (4.0-10.0)
[2023-02-14 03:09] LABS: Alanine Aminotransferase 82 U/L (0-33); Albumin Level 3.1 g/dL (3.5-5.2); Alkaline Phosphatase 474 U/L (35-105); Anion Gap 16.8 (5-19); Aspartate Amino Transferase 92 U/L (0-32); Blood Urea Nitrogen 63 mg/dL (8-23); Calcium 8.9 mg/dL (8.5-10.5); Carbon Dioxide 21 mmol/L (22-29); Chloride 108 mmol/L (98-107); Globulin 2.1 g/dL (1.3-4.6); Glomerular Filtration Rate 40.5 mL/min (90-130); Glucose 113 mg/dL (65-115); Osmolality Calculated 309 mOsm/kg (285-295); Potassium 5.8 mmol/L (3.5-5.1); Sodium 140 mmol/L (136-145); Total Bilirubin 1.3 mg/dL (0.15-1.2); Total Protein 5.2 g/dL (6.6-8.7)
--- NOTE | 2023-02-14 03:28 | XRR_ITS ---
PROCEDURE INFORMATION: Exam: XR Chest Exam date and time: 02/14/2023 2:39 AM Age: 72 years old Clinical indication: Shortness of breath; Prior surgery; Surgery date: 6+ months; Surgery type: Port; Additional info: Increase oxygen requirement TECHNIQUE: Imaging protocol: Radiologic exam of the chest. Views: 1 view. COMPARISON: CR (CHEST, ) 02/13/2023 11:07 AM FINDINGS: Tubes, catheters and devices: Left-sided Port-A-Cath terminates in the region of the distal SVC. Lungs: Interval worsening of right basilar airspace disease. Pleural spaces: Small right pleural effusion. No pneumothorax. Heart/Mediastinum: Unremarkable. No cardiomegaly. Bones/joints: Unremarkable. XR/XR chest 1V portable [id number] IMPRESSION: 1. Interval worsening of right basilar airspace disease, which may reflect atelectasis versus aspiration or pneumonia. 2. Small right pleural effusion.
[2023-02-14 04:40] LABS: ABG PCO2 29.1 mmHg (35-45); ABG PH Result 7.41 (7.35-7.45); Alveolar-Arterial Oxygen Gradi 81.3 mmHg (5-10); Arterial Blood Gas Hematocrit 37.1 % (37-47); Base Excess ABG -4.9 mmol/L (-2.0-2.0); Blood Gas Allen Test Pos; Blood Gas Sample Site Radial, right; Blood Gas Sample Type Arterial; Carboxyhemoglobin 1.5 %THgb (0.4-20.1); HCO3 ABG 18.6 mmol/L (22-26); HGB O2 Sat 79.4 % (95-100); Ionized Calcium Level - ABG 1.2 mmol/L (1.1-1.4); Methemoglobin 0.4 % (0.4-1.5); Oxygen Device NC; PO2 ABG 48.4 mmHg (80.0-100.0); Potassium Level - ABG 5.7 mmol/L (3.5-5.0); Total Hemoglobin 12.1 g/dL (12-16)
[2023-02-14] MEDS: meropenem 500 MG in sodium chloride 0.9% (plus) 50 ML 100 MG IV ×2 (05:05→16:21)
[2023-02-14] MEDS: levofloxacin-dextrose 5 % 750 MG/150 ML PREMIX 100 MG IV (07:17)
[2023-02-14] MEDS: LORazepam 2 mg/mL INJ 1 mL 0.25 MG IVP (07:18)
[2023-02-14] MEDS: budesonide 0.5 mg/2 mL Neb INHALATION (08:25)
[2023-02-14 09:37] LABS: ABG PCO2 29.9 mmHg (35-45); Alveolar-Arterial Oxygen Gradi 62.5 mmHg (5-10); Arterial Blood Gas Hematocrit 35.9 % (37-47); Base Excess ABG -5.2 mmol/L (-2.0-2.0); Blood Gas Allen Test Pos; Blood Gas Operator Identificat MONRO; Blood Gas Sample Site Radial, right; Blood Gas Sample Type Arterial; Carboxyhemoglobin 1.6 %THgb (0.4-20.1); HCO3 ABG 18.6 mmol/L (22-26); HGB O2 Sat 97.5 % (95-100); Ionized Calcium Level - ABG 1.2 mmol/L (1.1-1.4); Methemoglobin 0.4 % (0.4-1.5); Oxygen Device BIPAP; Oxygen Saturation ABG 99.5; Potassium Level - ABG 5.5 mmol/L (3.5-5.0); Total Hemoglobin 11.7 g/dL (12-16)
[2023-02-14] MEDS: vancomycin 750 MG in sodium chloride 0.9% 250 ML 250 MG IV (10:15)
[2023-02-14] MEDS: ondansetron 2 mg/ML SDV 2 mL 4 MG IVP (10:15)
[2023-02-14] MEDS: dexamethasone 10 mg/mL INJ IVP (10:15)
[2023-02-14] MEDS: morphine 4 mg/mL SDV 1 mL 2 MG IVP ×2 (10:15→16:20)
[2023-02-14] MEDS: nystatin powder 15 gm Btl 1 APPLIC TOPICAL (10:16)
--- NOTE | 2023-02-14 10:35 | PC.SOCIAL ---
IMM Update pg 2 of IMM updated and reviewed w/ patients daughter who is @ bedside. Patient is currently on BIPAP. Copy provided and copy in chart dated, and initialed.
--- NOTE | 2023-02-14 13:25 | USCV_ITS ---
Mone Singh Age: 72 Gender: F : 1950 Exam Date: 02/14/2023 14:28 Ordering Phys: Julio Frankel MD Technologist: Aj Mcrae [place] [facility] [place]: pulmonary emboli, right heart strain BP: 91 / 62 HR: Rhythm: Sinus Technical Quality: Suboptimal MEASUREMENTS (Male / Female) Normal Values 2D ECHO LVOT Diameter 2.1 cm LA Diameter 3.1 cm LA Width 2.1 cm LA Height 3.3 cm RA Width 3.7 cm RA Height 5.1 cm Aorta at Sinotubular Diameter 2.1 cm IVC Diameter 2.2 cm M-MODE Aortic Annulus Diameter 2.4 cm LA Ao Ratio MM 1.4 MV E Point Septal Separation 0.6 cm DOPPLER TR Peak Velocity 326.8 cm/s TR Peak Gradient 42.7 mmHg TR Mean Velocity 226.5 cm/s TR Mean Gradient 24.6 mmHg TR Velocity Time Integral 94.0 cm Right Atrial Pressure 15.0 mmHg Pulmonary Artery Systolic Pressu 57.7 mmHg FINDINGS Left Ventricle Normal left ventricular size, systolic function and wall thickness, with no regional wall motion abnormalities. Normal left ventricular wall thickness.EF55% Right Ventricle The right ventricle is normal in size and functionseverely increased right ventricular size. Moderately decreased right ventricular systolic function. . Moderate pulmonary hypertension with PASP 57 mmHG Right Atrium The right atrium is normal in size.severely increased right atrial size. Left Atrium The left atrium is normal in size. Mitral Valve Structurally normal mitral valve without significant stenosis or prolapse. There is no signicant mitral regurgitation. Aortic Valve Structurally normal aortic valve without significant sclerosis or stenosis. There is no aortic regurgitation. Tricuspid Valve Pulmonary artery systolic pressure is normal. Structurally normal tricuspid valve. Tricuspid valve not well visualized. No tricuspid valve stenosis. Moderate tricuspid valve regurgitation. Pulmonic Valve Structurally normal pulmonic valve without significant stenosis. There is no pulmonic regurgitation. Pericardium Normal pericardium without effusion. Aorta Normal ascending aorta dimension. IVC The inferior vena cava appears normal. CONCLUSIONS Normal left ventricular size, systolic function and wall thickness, with no regional wall motion abnormalities. Normal left ventricular wall thickness. EF 55% The right ventricle is normal in size and functionseverely increased right ventricular size. Moderately decreased right ventricular systolic function. . Moderate pulmonary hypertension with PASP 57 mmHG Moderate Tricuspid regurgitation No pericardial effusion Abraham Baker MD (Electronically Signed) Final Date: 14 Feb 2023 16:36 S
--- NOTE | 2023-02-14 13:25 | USR_ITS ---
PROCEDURE INFORMATION: Exam: US Duplex Lower Extremity Veins, Bilateral Exam date and time: 02/14/2023 2:04 PM Age: 72 years old Clinical indication: Edema, localized; Lower extremity, bilateral; Additional info: R/O dvt TECHNIQUE: Imaging protocol: Real-time duplex ultrasound of the bilateral extremities with 2-D hein scale, color Doppler flow and spectral waveform analysis including responses to compression and other maneuvers (when performed) with image documentation. Complete exam focused on the lower extremity veins. COMPARISON: US pelvic complete* [id number] 06/18/2021 9:20 AM FINDINGS: Right deep veins: Unremarkable. The common femoral, femoral, proximal profunda femoral and popliteal veins are patent without thrombus. Normal Doppler waveforms. Normal compressibility and/or augmentation response. Right superficial veins: Saphenofemoral junction is patent without thrombus. Left deep veins: Unremarkable. The common femoral, femoral, proximal profunda femoral and popliteal veins are patent without thrombus. Normal Doppler waveforms. Normal compressibility and/or augmentation response. Left superficial veins: Saphenofemoral junction is patent without thrombus. Soft tissues: Unremarkable. US/[place] [id number] IMPRESSION: No evidence of deep vein thrombosis.
[2023-02-14] MEDS: heparin 5,000 unit/mL INJ 1 mL IV (13:48)
[2023-02-14] MEDS: heparin drip 25,000 UNIT/500 ML PREMIX 17 UNIT IV (13:48)
[2023-02-14 13:58] LABS: Iron 102 ug/dL (37-145); Percent Saturation 42.3 % (20-50); Total Iron Binding Capacity 241 mcg/dl; Unsaturated Iron Binding 139 ug/dL (112-347)
[2023-02-14 14:14] LABS: Procalcitonin 0.24 ng/mL (0-0.5); Vitamin B12 1356 pg/mL (232-1245)
--- NOTE | 2023-02-14 15:15 | P.PN_ITS ---
Subjective Subjective: Hospital course, labs appreciated. Seen with family at bedside including patient's daughter. Also spoke with patient's DPOA/daughter Ms. Kemp over the phone. Patient seen comfortable on BiPAP of 05/09 with 75% FiO2 saturating 92 to 94%, waking up to verbal stimulus and having some conversation but dozing off as well. Patient is awake and alert otherwise. Documented urine output of around 715 last 24 hours. Overall patient is around 9.8 L negative. Vitals/I&O/Wt Last Vital Signs Temp 97.0 F L 02/14/23 12:00 Pulse 94 02/14/23 14:48 Resp 18 02/14/23 14:47 BP 90/63 02/14/23 12:00 Pulse Ox 94 02/14/23 14:48 O2 Del Method BiPAP 02/14/23 14:47 O2 Flow Rate 45 02/14/23 02:24 FiO2 75 02/14/23 14:48 02/14/23 02/14/23 02/14/23 06:59 14:59 22:59 Intake Total 50 / 1140 400 / 400 Output Total 350 / 650 Balance -300 / 490 400 / 400 Physical Exam Narrative: On BiPAP, drowsy but waking up to verbal stimulus. On waking up AOx3, chron ically sick appearing Const: COMMON NORMALS: patient oriented x3 HENMT: COMMON NORMALS: normocephalic and atraumatic HEAD & SCALP: normocephalic and atraumatic Resp: EFFORT & INSPECTION: Yes respiratory distress, No pursed lip breathing and No stridor AUSCULTATION: rhonchi (Diffuse all over lung hoffman) OTHER: Diminished air entry bilaterally Cardio: COMMON NORMALS: regular rate, regular rhythm, S1 normal heart sound present, S2 normal heart sound present, No gallops present (Cardio), No murmurs present (Cardio), No rub (Cardio) and Peripheral pulses 2+ throughout RATE: regular rate RHYTHM: regular rhythm HEART SOUNDS: S1 normal heart sound present and S2 normal heart sound present PERIPHERAL PULSES: Peripheral pulses 2+ throughout GI: COMMON NORMALS: Normal to inspection, nondistended, normoactive bowel sounds present, Soft to palpation, non-tender, No hepatosplenomegaly present and no masses AUSCULTATION: Yes normoactive bowel sounds PALPATION: Yes Soft to palpation and Yes No hepatosplenomegaly present RECTAL EXAM: deferred Extremity: COMMON NORMALS: no clubbing, cyanosis or edema and no pedal edema Neuro: COMMON NORMALS: patient oriented x3 Urinary Catheter Management: Brown: Cath Placed During This Visit: yes Reason for Continuing Indwelling Catheter: Other Urinary Catheter Date of Insertion: 02/11/23 Urinary Catheter Time of Insertion: 18:46 Data 02/14/23 02:43 02/14/23 02:43 A&P Assessment and plan (1) Acute respiratory failure with hypoxia: Most likely in setting of possible pulmonary embolism along with diastolic heart failure, right-sided heart strain, baseline COPD and possible pneumonia. CTA done previously in admission consistent with filling defect in right lower lobe pulmonary artery along with changes compatible with right heart dysfunction and paradoxical bowing of interventricular septum. Echocardiogram in the past showed diastolic dysfunction. Repeat ABG. Oxygen supplementation with BiPAP keeping saturation over 90%. Wean off accordingly. Continue with n.p.o. for now. DuoNeb every 4 hours, budesonide twice daily. Repeat echocardiogram. Recheck D-dimer, proBNP Given concerns for worsening respiratory failure for now start on heparin drip. Discussed with family in detail. Had goals of care discussion with patient's DPOA/daughter over the phone, daughter at bedside. We discussed that there is a concern for pulmonary embolism given the CT results along with worsening r espiratory failure it would be prudent to try heparin drip but given recent thrombocytopenia requiring platelet transfusion she is at a high risk of significant bleeding. Family would like to go ahead with trial of heparin drip. Continue with dexamethasone 10 mg IV daily. Respiratory viral panel previous admission negative. Check sputum culture, MRSA swab. For now stop IV Levaquin and micafungin. Continue with meropenem and vancomycin. If MRSA negative will discontinue vancomycin. Patient has a history of diastolic heart failure. Repeating echocardiogram as above. IV Lasix 40 mg one-time. Strict input output charting, daily weights. (2) Pulmonary embolism: (3) COPD (chronic obstructive pulmonary disease): (4) Diastolic heart failure: (5) Pneumonia: (6) SANDRINE (acute kidney injury): Baseline creatinine more recently ranging from 1.1-1.5. Medical reconciliation done for nephrotoxic drugs. Creatinine baseline now. Patient does have hyperkalemia. D50 with 10 units of IV insulin. Repeat potassium in afternoon. (7) Thrombocytopenia: Most likely in setting of recent chemotherapy. Post 2 units of platelet transfusion. Platelets so far stable. Heparin drip as per discussion with family member as above. (8) Lactic acidosis: (9) Hyperkalemia: (10) Transaminitis: (11) Metastatic cancer: Qualifiers: Area of secondary neoplastic involvement: other site Qualified Code(s): C79.89 - Secondary malignant neoplasm of other specified sites Plan CODE STATUS: Discussed in detail with patient's family number at bedside. Also discussed lower hospice versus treatment with heparin drip which puts her at a higher risk of bleeding given late thrombocytopenia requiring blood transfusion. We discussed unfortunately patient has significant metastatic cancer on palliative chemotherapy along with hypoxic respiratory failure currently with concerns for severe hypoxia requiring BiPAP ventilation in setting of possible pulmonary embolism on chemotherapy-induced thrombocytopenia requiring platelet transfusion. We discussed treatment options for now would be a heparin drip which unfortunately would put her at a higher risk of bleeding given thrombocytopenia. Family verbalized understanding and DPOA would want to go ahead and try with heparin drip. DNR/DNI. Protonix OPD prophylaxis Heparin drip will suffice as DVT prophylaxis. Attestations Medical Necessity Statement*: Requires further hospitalization for management of respiratory failure in setting of possible pulmonary embolism, diastolic heart failure in a patient with baseline metastatic cancer Coding Level of Care Code Critical Care >/= 30 minutes Critical care time (in minutes): 70 The high probability of a clinically significant, sudden or life threatening deterioration, as referenced in this documentation, required my full and direct attention, intervention and personal management. The critical care time shown is in addition to time spent performing any reported separately billable procedures and includes the following: [x] Data and vital sign review and interpretation [x ] Patient assessment, examination and intervention [x] Medication orders and m anagement [x] Patient/Family updates as able [x] Care Coordination and Documentation. Diagnoses Acute respiratory failure with hypoxia J96.01 Pulmonary embolism I26.99 COPD (chronic obstructive pulmonary disease) J44.9 Diastolic heart failure I50.30 Pneumonia J18.9 SANDRINE (acute kidney injury) N17.9 Thrombocytopenia D69.6 Lactic acidosis E87.20 Hyperkalemia E87.5 Transaminitis R74.01 Metastatic cancer C79.89 Area of secondary neoplastic involvement: other site
[2023-02-14 15:41] LABS: D Dimer >= 20.00 ug/mIFEU (0-0.59)
[2023-02-14 16:20] LABS: Partial Thromboplastin Time > 250.0 SECONDS (23.9-36.7)
[2023-02-14] MEDS: diphenhydrAMINE 50 mg/mL SDV 1mL 12.5 MG IVP (16:20)
[2023-02-14] MEDS: FUROsemide 10 mg/mL SDV 4mL 40 MG IVP (16:21)
[2023-02-14] MEDS: insulin regular-human 10 UNIT in SYRINGE 1 EACH IVP (16:22)
--- NOTE | 2023-02-14 17:57 | PC.NURSE ---
PT at 1709, Family, x2 RT, charge nurse and this nurse at bedside, notified and around bedside at 1713. House Sup notified, MTS denied, awaiting saving sight.
--- NOTE | 2023-02-14 18:26 | P.DES_ITS ---
Discharge Providers DDS Date of Admission: 02/07/23 15:47 Date Summary Completed: 02/15/23 Attending Provider at Admission: Good Billy MD Time of : 17:09 Attending Provider at Discharge: Julio Frankel MD Primary Care Provider: Yue Justice MD DS Diagnoses Hospital Diagnoses (1) Acute respiratory failure with hypoxia: (2) Pulmonary embolism: (3) COPD (chronic obstructive pulmonary disease): (4) Diastolic heart failure: (5) Pneumonia: (6) SANDRINE (acute kidney injury): (7) Thrombocytopenia: (8) Lactic acidosis: (9) Hyperkalemia: (10) Transaminitis: (11) Metastatic cancer: Qualifiers: Area of secondary neoplastic involvement: other site Qualified Code(s): C79.89 - Secondary malignant neoplasm of other specified sites Reason for Visit Reason for Visit Low O2, BP Low Summary Date and Time of Date of : 02/14/23 Time of : 17:09 Summary Summary: Mone Singh is a 72 year old female with past medical history of 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 COPD, on 2 L home oxygen uses as needed, came in today with chief complaint of worsening generalized weakness fatigue, poor appetite, worsening shortness of breath, going on for the last 4 to 5 days.Patient has been increasingly short of breath at home, denied any cough, fever or chills, chest pain palpitation.? When patient arrived in the ER she was requiring 5 to 6 L oxygen through OxyMask to maintain a decent saturation. Patient was admitted to the hospital further evaluation and management of hypoxic respiratory failure. On admission she was found to be in respiratory distress with thrombocytopenia, SANDRINE on CKD and lactic acidosis. She was started on broad-spectrum antibiotics, IV fluids. Her thrombocytopenia continue to worsen for which she required 2 units of platelet transfusion. Patient's respiratory status continued to worsen even on broad-spectrum antibiotics for which possibility of PE was entertained by the physician taking care of her at that time. CTA was done on 02/10 which showed concern for right-sided PE and possibility of right-sided heart strain but given worsening thrombocytopenia and bleeding risk anticoagulation could not be started. After platelet transfusion patient's platelet count stabilized though she continued to have worsening respiratory status requiring BiPAP ventilation. Goals of care discussion were done in detail on 02/14 and possibility of significant pulmonary embolism was discussed especially given the concern for right-sided heart strain on CTA. After weighing the risks versus benefits patient's family and DPOA wanted to go ahead with start of heparin drip infusion. Even being on heparin drip patient respite status continued to worsen and she had severe desaturation on 02/14 evening after which patient went into cardiac arrest. Given status of DNR/DNI family requested patient to be made comfortable. Eventually patient on 02/14 at 5:09 PM with family at bedside. Additional Data Confirmation of as documented by pronouncing clinician: no pulse, no respirations and no heart sounds Family: at bedside Additional persons at bedside: nursing staff Attending/PCP notified?: I am attending Was code activated?: No Autopsy requested?: No Advance directives?: Yes Hospice patient?: No Discharge Plan Discharge Patient Disposition: Condition: Stable Prescriptions: No Action atorvastatin 20 mg tablet 20 mg PO QPM docusate sodium [Stool Softener] 100 mg capsule 100 mg PO DAILY PRN (Reason: Constipation) loperamide [Imodium A-D] 2 mg tablet 2 mg PO Q6H PRN (Reason: Diarrhea) loratadine [Claritin] 10 mg tablet 10 mg PO DAILY PRN (Reason: Allergy Symptoms) (DME) Portable Oxygen Concentrator See Rx Instructions .Route .MEDSUPPLY Qty: 1 0RF Rx Instructions: 2 liters via nasal cannula acetaminophen 500 mg Tablet 500 mg PO Q6H PRN (Reason: Pain) multivitamin Tablet 1 tab PO DAILY Combivent Respimat 20-100 mcg/actuation mist 1 puff INHALATION QID PRN (Reason: Wheezing) Trelegy Ellipta 100-62.5-25 mcg blister with device 1 ea INHALATION DAILY aspirin 81 mg Tablet,Chewable 81 mg PO QPM promethazine 25 mg tablet 25 mg PO Q6H PRN (Reason: nausea and vomiting) Qty: 20 0RF oxycodone-acetaminophen 5-325 mg tablet 1 tab PO Q6H PRN (Reason: pain) Qty: 30 0RF Other Ambulatory Orders: DME: [employer] (Order) Location: None Selected Ordered By: Good Billy Referrals: [facility] [place] [facility] ([facility]) [Outside] Yue Justice MD [Primary Care Provider] - Patient Instructions: Opioid Safety Probable Cause of Probable cause of : Pulmonary embolism DS Attestations Time Spent in /Discharge Care*: critical care time Critical Care Time (min): 60 Quality - AMI: AMI present?: No Quality - Stroke: CVA present?: No Symptom Onset Unknown: No Quality - VTE: VTE present?: Yes Deep Vein Thrombosis/Pulmonary Embolism Present on Admission: No Coding Level of Care Code Critical Care >/= 30 minutes Critical care time (in minutes): 80 The high probability of a clinically significant, sudden or life threatening deterioration, as referenced in this documentation, required my full and direct attention, intervention and personal management. The critical care time shown is in addition to time spent performing any reported separately billable procedures and includes the following: [x] Data and vital sign review and interpretation [x ] Patient assessment, examination and intervention [x] Medication orders and management [x] Patient/Family updates as able [x] Care Coordination and Documentation. Other Coding Information Prolonged care (total time indicated above or notated here) Diagnoses Acute respiratory failure with hypoxia J96.01 Pulmonary embolism I26.99 COPD (chronic obstructive pulmonary disease) J44.9 Diastolic heart failure I50.30 Pneumonia J18.9 SANDRINE (acute kidney injury) N17.9 Thrombocytopenia D69.6 Lactic acidosis E87.20 Hyperkalemia E87.5 Transaminitis R74.01 Metastatic cancer C79.89 Area of secondary neoplastic involvement: other site
--- NOTE | 2023-02-14 19:54 | PC.NURSE ---
Patient , belongings sent with family.
--- NOTE | 2023-02-14 20:27 | PC.NURSE ---
Requested home, Jef[facility] home [facility], called and notified that body was ready for transport at 1942.
--- NOTE | 2023-02-14 20:28 | PC.NURSE ---
[facility] home left facility at 2020 with body.
== END 2023-02-14 21:20 | disposition expired | DRG 813 ==
LOC: ER 15:20 → MEDSURG 15:47
PROVIDERS: Internal Medicine; Admitting Provider Internal Medicine; Emergency Provider Emergency Medicine; PCP Family Medicine; Visit Provider Student in an Organized Health Care Education/Training Program
DX: D69.59 Other secondary thrombocytopenia (principal); J18.9 Pneumonia, unspecified organism; I26.99 Other pulmonary embolism without acute cor pulmonale; J96.01 Acute respiratory failure with hypoxia; J44.0 Chronic obstructive pulmonary disease with (acute) lower respiratory infection; C78.7 Secondary malignant neoplasm of liver and intrahepatic bile duct; C77.8 Secondary and unspecified malignant neoplasm of lymph nodes of multiple regions; C79.51 Secondary malignant neoplasm of bone; I13.0 Hypertensive heart and chronic kidney disease with heart failure and stage 1 through stage 4 chronic kidney disease, or unspecified chronic kidney disease; I50.32 Chronic diastolic (congestive) heart failure; N17.9 Acute kidney failure, unspecified; E87.20 Acidosis, unspecified; C53.9 Malignant neoplasm of cervix uteri, unspecified; Z79.899 Other long term (current) drug therapy; Z99.81 Dependence on supplemental oxygen; T45.1X5A Adverse effect of antineoplastic and immunosuppressive drugs, initial encounter; Z66 Do not resuscitate; I46.9 Cardiac arrest, cause unspecified; E78.00 Pure hypercholesterolemia, unspecified; N18.9 Chronic kidney disease, unspecified; Z87.891 Personal history of nicotine dependence; E87.5 Hyperkalemia
CPT/HCPCS: 36415; 36430; 36591; 36592; 36600; 51702; 71045; 71250; 71275; 74177; 80048; 80051; 80053; 80202; 81001; 82330; 82550; 82607; 82805; 83540; 83550; 83605; 83735; 83880; 84100; 84145; 84443; 85007; 85025; 85378; 85384; 85610; 85730; 86403; 86900; 87040; 87086; 87449; 87486; 87581; 87633; 93306; 93970; 94640; 94660; 96360; 96361; 96365; 96372; 96375; 96413; 96417; 97110; 97161; 99214; 99215; 99282; 99285; J0456; J1100; J1200; J1642; J1644; J1650; J1815; J1940; J1956; J2060; J2185; J2248; J2270; J2405; J2469; J2704; J3370; J7030; J7050; J7626; J9201; J9271; P9037; Q9967